=== PATIENT | female | born 1945 ===

== ENCOUNTER 2017-03-01 12:34 | Emergency (ER) | payer MEDICARE ==
[2017-03-01 12:40] VITALS: TEMP 97.9; O2SAT 100
[2017-03-01 13:55] LABS: BASO # 0.1 K/uL (0.0-0.2); BASO % 1.1 % (0.0-2.0); EOS # 0.2 K/uL (0.0-0.7); EOS % 3.4 % (0.0-4.0); HEMATOCRIT 25.9 % (34.0-47.0); LYMPH # 1.4 K/uL (1.0-4.3); LYMPH % 26.3 % (20.0-40.0); MEAN CELL VOLUME 87.6 fL (81.0-99.0); MEAN CORPUSCULAR HEMOGLOBIN 28.7 pg (27.0-31.0); MEAN CORPUSCULAR HGB CONC 32.7 g/dL (33.0-37.0); MEAN PLATELET VOLUME 11.5 fL (7.2-11.7); MONO # 0.5 K/uL (0.0-0.8); MONO % 9.7 % (0.0-10.0); RED CELL DISTRIBUTION WIDTH 15.4 % (11.5-14.5); WHITE BLOOD COUNT 5.4 K/uL (4.8-10.8)
[2017-03-01 14:15] LABS: POTASSIUM 4.2 mmol/L (3.6-5.2)
--- NOTE | 2017-03-01 14:19 | C.PDOC ---
History Of Present Illness 72 y/o female presents to ED with c/o bilateral lower leg swelling for 1 week. Patient also reports pain to left leg onset 5 days ago. Patient went to see Dr. Fox who sent her to the ER for Doppler scan. Denies any history of DVT, chest pain, SOB. Time Seen by Provider: 03/01/17 13:09 Chief Complaint (Nursing): Lower Extremity Problem/Injury History Per: Patient History/Exam Limitations: no limitations Onset/Duration Of Symptoms: Days Current Symptoms Are (Timing): Still Present Recent travel outside of the [place]: No Past Medical History Reviewed: Historical Data, Nursing Documentation, Vital Signs Vital Signs: Last Vital Signs Temp 97.9 F 03/01/17 12:38 Pulse 61 03/01/17 15:06 Resp 18 03/01/17 15:06 BP 166/80 H 03/01/17 15:06 Pulse Ox 100 03/01/17 15:06 - Medical History PMH: HTN Family History: States: Unknown Family Hx - Social History Hx Alcohol Use: No Hx Substance Use: No - Immunization History Hx Tetanus Toxoid Vaccination: No Hx Influenza Vaccination: No Hx Pneumococcal Vaccination: No Review Of Systems Except As Marked, All Systems Reviewed And Found Negative. Constitutional: Negative for: Fever, Chills Cardiovascular: Negative for: Chest Pain Respiratory: Negative for: Cough, Shortness of Breath Gastrointestinal: Negative for: Nausea, Vomiting, Abdominal Pain Musculoskeletal: Positive for: Leg Pain (left ), Other (bilateral leg swelling) Neurological: Negative for: Weakness, Numbness, Dizziness Physical Exam - Physical Exam Appears: Non-toxic, No Acute Distress Skin: Warm, Dry Head: Atraumatic, Normacephalic Eye(s): bilateral: Normal Inspection, PERRL, EOMI Oral Mucosa: Moist Chest: Symmetrical Cardiovascular: Rhythm Regular, No Murmur Respiratory: Normal Breath Sounds, No Rales, No Rhonchi, No Wheezing Gastrointestinal/Abdominal: Soft, No Tenderness, No Guarding, No Rebound Back: Normal Inspection Extremity: Normal ROM, Pedal Edema (bilateral, non-pitting), Calf Tenderness ( left), Capillary Refill (< 2 sec. ), No Deformity Extremity: Bilateral: Normal Color And Temperature Neurological/Psych: Oriented x3, Normal Speech, Normal Cognition ED Course And Treatment - Laboratory Results Result Diagrams: 03/01/17 13:43 03/01/17 13:43 O2 Sat by Pulse Oximetry: 100 (RA) Pulse Ox Interpretation: Normal Medical Decision Making Medical Decision Making: PLAN: * EKG, Labs, duplex scan PROGRESS: EKG NS at 60 bpm with mild left axis deviation and criteria for LVH, prolonged QT Labs show slightly elevated Dimer and BNP, CRF Venous doppler negative for DVT bilaterally Patient remained well and in no acute distress. She has stable vital signs and feels comfortable going home. Explain results to patient and daughter at bedside HIPAA compliant. Patient to be discharged and follow up with PCP Disposition Counseled Patient/Family Regarding: Studies Performed, Diagnosis, Need For Followup - Disposition Referrals: Addis Fox MD [Staff Provider] - Disposition: HOME/ ROUTINE Disposition Time: 15:50 Condition: STABLE Additional Instructions: Thank you for letting us take care of you today. Your provider was KAREN Sabillon. Your leg ultrasound was negative for any blood clot and labs showed no new changes Please follow up with your primary medical doctor or clinic in 2-5 days for further evaluation Thank you for allowing the [facility] team to be part of your care today. Instructions: Leg Edema (ED) - POA Present On Arrival: None - Clinical Impression Clinical Impression: Leg edema, Left leg pain - PA / SLOT MACHINE REPAIRER / Resident Statement MD/DO has reviewed & agrees with the documentation as recorded. - Scribe Statement The provider has reviewed the documentation as recorded by the Scribe Matt Conroy All medical record entries made by the Scribe were at my direction and personally dictated by me. I have reviewed the chart and agree that the record accurately reflects my personal performance of the history, physical exam, medical decision making, and the department course for this patient. I have also personally directed, reviewed, and agree with the discharge instructions and disposition.
[2017-03-01 14:20] LABS: BILIRUBIN,TOTAL 0.5 mg/dL (0.2-1.3); CALCIUM 8.5 mg/dl (8.6-10.4)
[2017-03-01 15:06] VITALS: BP 166/80; PULSE 61; RESP 18
--- NOTE | 2017-03-02 15:16 | VASCLAB ---
PROCEDURE: Lower Extremity Venous Duplex Exam. HISTORY: bilateral leg pain, left leg more swelling PRIORS: None. TECHNIQUE: Bilateral common femoral, femoral, popliteal and posterior tibial, peroneal and great saphenous veins were evaluated. Flow was assessed with color Doppler, compressibility, assessment of phasic flow and augmentation response. Report prepared by GLENNA Mejia FINDINGS: RIGHT: 1. Common Femoral Vein: 1.1. Compressibility - Fully compressible: Thrombus - None : Flow - Phasic: Augmentation -Normal: Reflux - None. 2. Femoral Vein: (proximal only) 2.1. Compressibility - Fully compressible: Thrombus - None : Flow - Phasic: Augmentation -Normal: Reflux - None. 3. Popliteal Vein: 3.1. Compressibility - Fully compressible: Thrombus - None : Flow - Phasic: Augmentation -Normal: Reflux - None. 4. Posterior Tibial Vein: 4.1. Compressibility - Fully compressible: Thrombus - None: Flow - Phasic: Augmentation -Normal: Reflux - None. 5. Peroneal Vein: 5.1. Compressibility - Fully compressible: Thrombus - None: Flow - Phasic: Augmentation -Normal: Reflux - None. 6. Great Saphenous Vein: 6.1. Compressibility - Fully compressible: Thrombus - None: Flow - Phasic: Augmentation - Normal: Reflux - None. LEFT: 1. Common Femoral Vein: 1.1. Compressibility - Fully compressible: Thrombus - None: Flow - Phasic: Augmentation -Normal: Reflux - None. 2. Popliteal Vein: 2.1. Compressibility - Fully compressible: Thrombus - None : Flow - Phasic: Augmentation -Normal: Reflux - None. 3. Posterior Tibial Vein: 3.1. Compressibility - Fully compressible: Thrombus - None: Flow - Phasic: Augmentation -Normal: Reflux - None. 4. Great Saphenous Vein: 4.1. Compressibility - Fully compressible: Thrombus - None: Flow - Phasic: Augmentation - Normal: Reflux - None. OTHER FINDINGS: IMPRESSION: 1. No evidence of deep or superficial vein thrombosis in bilateral lower extremities, for the examined veins. 2. LIMITED STUDY. Unable to assess compressibility of all lower extremity veins, due to patient intolerance to pain. Please refer to the list above for exam details.
--- NOTE | 2017-03-05 11:41 | CARD ---
APPROVED REPORT EKG Measurement Heart [id number] <Conclusion> Normal sinus rhythm Voltage criteria for left ventricular hypertrophy Nonspecific T wave abnormality Prolonged QT Abnormal ECG
== END 2017-03-01 16:06 | disposition home or self-care (01) ==
LOC: C.ER 12:34
DX: M79.605 Pain in left leg (principal); R60.0 Localized edema; I10 Essential (primary) hypertension

== ENCOUNTER 2017-05-12 22:49 | Inpatient (IN) | payer MEDICARE ==
--- NOTE | 2017-05-12 23:20 | C.PDOC ---
History Of Present Illness Patient presents to the ER with family after she as found to be very weak with intermittent slurred speech for the past week. Patient's family was encouraged by PMD at the time to bring patient to the ER for an evaluation; however, family did not bring her since they saw an improvement of her symptoms. family brought her in today since she has been having increased weakness, difficulty ambulating due to weakness, and mild slurred speech. Patient is anemic and is close to being on dialysis. Denies fever, chills, nausea, or vomiting. Time Seen by Provider: 05/12/17 23:20 Chief Complaint (Nursing): Medical Clearance History Per: Family History/Exam Limitations: no limitations Onset/Duration Of Symptoms: Hrs Current Symptoms Are (Timing): Still Present Severity: Moderate Pain Scale Rating Of: 5 Reports Recently: Treated By A Physician Recent travel outside of the [place]: No Additional History Per: Family Past Medical History Reviewed: Historical Data, Nursing Documentation, Vital Signs Vital Signs: Last Vital Signs Temp 97.8 F 05/12/17 23:00 Pulse 68 05/13/17 00:42 Resp 12 05/13/17 00:42 BP 120/68 05/13/17 00:42 Pulse Ox 100 05/13/17 00:42 - Medical History PMH: Anemia (IRON INFUSION TREATMENTS), CHF, HTN Surgical History: No Surg Hx Family History: States: No Known Family Hx - Social History Hx Alcohol Use: No Hx Substance Use: No - Immunization History Hx Tetanus Toxoid Vaccination: No Hx Influenza Vaccination: No Hx Pneumococcal Vaccination: No Review Of Systems Constitutional: Positive for: Weakness. Negative for: Fever, Chills Eyes: Negative for: Vision Change ENT: Negative for: Throat Pain Cardiovascular: Negative for: Chest Pain, Palpitations Respiratory: Negative for: Shortness of Breath Gastrointestinal: Negative for: Nausea, Vomiting Genitourinary: Negative for: Dysuria, Hematuria Musculoskeletal: Negative for: Back Pain Skin: Negative for: Rash Neurological: Positive for: Change in Speech Psych: Negative for: Anxiety Physical Exam - Physical Exam Appears: Non-toxic Skin: Warm, Dry Head: Normacephalic Eye(s): bilateral: Normal Inspection Oral Mucosa: Moist Neck: Supple Chest: Symmetrical Cardiovascular: Rhythm Regular, JVD Respiratory: No Rales, Rhonchi (Scattered), No Wheezing Gastrointestinal/Abdominal: Bowel Sounds (Good), Soft, No Tenderness, Distention Back: No CVA Tenderness Extremity: Pedal Edema, Capillary Refill (Good) Extremity: Bilateral: Atraumatic Pulses: Left Dorsalis Pedis: Normal, Right Dorsalis Pedis: Normal Neurological/Psych: Oriented x3 Gait: Unable To Assess ED Course And Treatment - Laboratory Results Result Diagrams: 05/12/17 23:26 05/12/17 23:26 ECG: Interpreted By Me, Viewed By Me ECG Rhythm: Sinus Rhythm (67), Nonspecific Changes O2 Sat by Pulse Oximetry: 99 Pulse Ox Interpretation: Normal - Radiology CXR Interpretation: Yes: Cardiomegaly, Other (mild venous congestion). No: Infiltrates, Fracture NIHSS Stroke Scale - Date/Time Evaluation Performed Date Performed: 05/12/17 Time Performed: 23:13 When Was NIHSS Performed: Baseline - How Severe is the Stroke Level of Consciousness: 0=Alert LOC to Questions: 0=Both comments correct LOC to commands: 0=Obeys both correctly Best Gaze: 0=Normal Visual: 0=No visual loss Facial: 0=Normal Motor Arm - Left: 0=No drift Motor Arm - Right: 0=No drift Motor Leg - Left: 0=No drift Motor Leg - Right: 0=No drift Limb Ataxia: 0=Absent Sensory: 0=Normal Best Language: 0=No aphasia Dysarthia: 1=Mild to moderate slurring Extinction & Inattention (Neglect): 0=Normal, no object Score: 1 Disposition Discussed With : Krupa Mar Comment: accepted the the [facility] and took over the care at 1:39AM Doctor Will See Patient In The: Hospital Counseled Patient/Family Regarding: Studies Performed, Diagnosis - Disposition Disposition: HOSPITALIZED Disposition Time: 23:20 Condition: GUARDED Instructions: Weakness (ED) Forms: [facility] (Icelandic) - POA Present On Arrival: None - Clinical Impression Clinical Impression: Leg edema, Renal failure, Hyperkalemia, Weakness generalized - Scribe Statement The provider has reviewed the documentation as recorded by the Scribel Fallon All medical record entries made by the Scribe were at my direction and personally dictated by me. I have reviewed the chart and agree that the record accurately reflects my personal performance of the history, physical exam, medical decision making, and the department course for this patient. I have also personally directed, reviewed, and agree with the discharge instructions and disposition.
[2017-05-12 23:29] LABS: BASO % 0.2 % (0.0-2.0); EOS # 0.3 K/uL (0.0-0.7); EOS % 4.9 % (0.0-4.0); HEMATOCRIT 26.9 % (34.0-47.0); LYMPH # 1.3 K/uL (1.0-4.3); LYMPH % 21.3 % (20.0-40.0); MEAN CORPUSCULAR HEMOGLOBIN 28.7 pg (27.0-31.0); MEAN CORPUSCULAR HGB CONC 31.9 g/dL (33.0-37.0); MEAN PLATELET VOLUME 11.9 fL (7.2-11.7); MONO # 0.6 K/uL (0.0-0.8); NRBC % 0.2 % (0.0-2.0); RED CELL DISTRIBUTION WIDTH 16.1 % (11.5-14.5); WHITE BLOOD COUNT 6.2 K/uL (4.8-10.8)
[2017-05-12 23:40] LABS: VENOUS BLOOD GAS BASE EXCESS -6.3 mmol/L (0.0-2.0); VENOUS BLOOD GAS PCO2 50 mmHg (40-60); VENOUS BLOOD PH 7.24 (7.32-7.43)
[2017-05-12 23:41] LABS: ALB/GLOB RATIO 1.1 (1.0-2.1); BILIRUBIN,TOTAL 0.4 mg/dL (0.2-1.3); CALCIUM 8.2 mg/dl (8.6-10.4); POTASSIUM 5.5 mmol/L (3.6-5.2); TOTAL PROTEIN 7.6 g/dL (6.3-8.3)
--- NOTE | 2017-05-13 00:13 | CT ---
EXAM: CT Head Without Intravenous Contrast EXAM DATE/TIME: 05/12/2017 11:23 PM CLINICAL HISTORY: 72 years old, female; Pain; Headache; Additional info: AMS TECHNIQUE: Axial computed tomography images of the head/brain without intravenous contrast. All CT scans at this facility use one or more dose reduction techniques, viz.: automated exposure control; ma/kV adjustment per patient size (including targeted exams where dose is matched to indication; i.e. head); or iterative reconstruction technique. COMPARISON: No relevant prior studies available. FINDINGS: No intracranial hemorrhage. No intracranial edema. No evidence of infarct. The sinuses and mastoid air cells are clear. Hyperostosis frontalis is noted. IMPRESSION: No acute findings.
[2017-05-13] MEDS ORDERED: Sodium Chloride 0.9% 1,000 ML IV ONE (01:41)
[2017-05-13] MEDS ORDERED: Sod Polystyrene Sulf 15 gm/60 ml Oral Susp PO ONE ×2 (01:42→01:43)
[2017-05-13] MEDS ORDERED: Sod Polystyrene Sulf 15 gm/60 ml Oral Susp ONE (02:09)
[2017-05-13 07:32] LABS: BASO # 0.1 K/uL (0.0-0.2); EOS # 0.2 K/uL (0.0-0.7); EOS % 4.4 % (0.0-4.0); HEMATOCRIT 25.4 % (34.0-47.0); LYMPH # 1.1 K/uL (1.0-4.3); LYMPH % 19.5 % (20.0-40.0); MEAN CELL VOLUME 88.8 fL (81.0-99.0); MEAN CORPUSCULAR HEMOGLOBIN 28.4 pg (27.0-31.0); MEAN PLATELET VOLUME 11.7 fL (7.2-11.7); MONO # 0.6 K/uL (0.0-0.8); MONO % 10.3 % (0.0-10.0); NRBC % 0.3 % (0.0-2.0); RED CELL DISTRIBUTION WIDTH 15.5 % (11.5-14.5); WHITE BLOOD COUNT 5.5 K/uL (4.8-10.8)
[2017-05-13 07:45] LABS: ALB/GLOB RATIO 1.1 (1.0-2.1); BILIRUBIN,TOTAL 0.3 mg/dL (0.2-1.3); CALCIUM 8.2 mg/dl (8.6-10.4); POTASSIUM 4.6 mmol/L (3.6-5.2)
[2017-05-13] MEDS ORDERED: FISH OIL PO SCH (10:00)
[2017-05-13] MEDS ORDERED: FATTY ACIDS PO SCH (10:00)
[2017-05-13] MEDS ORDERED: VITAMIN D PO SCH (10:00)
[2017-05-13] MEDS ORDERED: HECTOROL PO SCH (10:00)
[2017-05-13] MEDS ORDERED: OMEGA PO SCH (10:00)
[2017-05-13] MEDS: Insulin Detemir 100 units/ml Vial (Levemir) SC SCH (10:17)
[2017-05-13] MEDS ORDERED: Ergocalciferol 50,000 Intl Units Cap PO SCH ×2 (11:00)
--- NOTE | 2017-05-13 11:57 | CP.PCM.PN ---
Subjective - Date & Time of Evaluation Date of Evaluation: 05/13/17 Time of Evaluation: 11:30 - Subjective Subjective: H&P dictated #[id number] Objective - Vital Signs/Intake and Output Vital Signs (last 24 hours): Temp Pulse Resp BP Pulse Ox 97.4 F L 76 18 133/84 99 05/13/17 07:40 05/13/17 07:40 05/13/17 07:40 05/13/17 07:40 05/13/17 07:40 - Medications Medications: Current Medications Allopurinol (Zyloprim) 100 mg PO DAILY [facility] Last Admin: 05/13/17 10:14 Dose: 100 mg Doxazosin Mesylate (Cardura) 2 mg PO HS [facility] Ergocalciferol (Drisdol 50,000 Intl Units Cap) 1 cap PO QWK [facility] Gabapentin (Neurontin) 300 mg PO HS [facility] Home Med (Hectorol) 1 tab PO DAILY [facility] Insulin Detemir (Levemir) 30 unit SC DAILY [facility] Last Admin: 05/13/17 10:17 Dose: 30 unit Metoprolol Tartrate (Lopressor) 100 mg PO DAILY [facility] Last Admin: 05/13/17 10:14 Dose: 100 mg [id number] Ethyl Esters (Lovaza) 1 gm PO DAILY [facility] Torsemide (Demadex) 100 mg PO DAILY [facility] Last Admin: 05/13/17 10:15 Dose: 100 mg - Labs Labs: 05/13/17 07:26 05/13/17 07:26 APTT 29 SECONDS (21-34) 05/13/17 00:22
--- NOTE | 2017-05-13 12:41 | RAD ---
PROCEDURE: CHEST RADIOGRAPH, 1 VIEW HISTORY: AMS COMPARISON: None available. FINDINGS: LUNGS: Clear. PLEURA: No pneumothorax or pleural fluid seen. CARDIOVASCULAR: Mild cardiomegaly. No congestive change. OSSEOUS STRUCTURES: No significant abnormalities. VISUALIZED UPPER ABDOMEN: Normal. OTHER FINDINGS: None. IMPRESSION: No active disease.
[2017-05-13] MEDS: Omega-3-Acid Ethyl Esters 1 GM Cap PO SCH (13:13)
[2017-05-13] MEDS ORDERED: Epoetin Alfa 10,000 unit/ml Dialysis SC ONE ×2 (14:00→14:15)
[2017-05-13 14:15] LABS: IRON 25 ug/dL (37-170)
[2017-05-13 14:16] LABS: MAGNESIUM 1.7 mg/dL (1.6-2.3); PHOSPHOROUS 8.2 mg/dL (2.5-4.5)
--- NOTE | 2017-05-13 15:11 | CP.PCM.CON ---
History of Present Illness - History of Present Illness History of Present Illness: Surgery Consult Note. Dr. Thompson 72yo F with PMHx of HTN, DM, Anemia, Renal insufficiency, Chronic Back pain here for evaluation of weakness, fatigue. Patient hx obtained from patient and family at bedside. Patient has been increasingly fatigued over the past week. Patient was evaluated by her car rental sales assistant as out-patient and was told to go to the ER for further evaluation. Patient also c/o of intermittent slurred speech over the past week. She denies any Chest pain, shortness of breath. No N/V/D. No Abd pain. Denies any urinary changes. Denies any headaches. Surgery consulted for hemodialysis access. PMD: Dr. Miller Wood Heel Cementer: Dr. Cage PMHx: HTN, DM, Anemia, Renal Insufficiency, Chronic Back pain PSHx: x1 Family Hx: Denies NKDA Review of Systems - Constitutional Constitutional: Fatigue, Weakness. absent: Chills, Fever - EENT Eyes: absent: Change in Vision - Cardiovascular Cardiovascular: Leg Edema, Pedal Edema. absent: Chest Pain, Diaphoresis, Dyspnea - Respiratory Respiratory: absent: Cough, Dyspnea - Gastrointestinal Gastrointestinal: absent: Abdominal Pain, Bloating, Constipation, Diarrhea - Genitourinary Genitourinary: absent: Change in Urinary Stream, Dysuria - Musculoskeletal Musculoskeletal: Back Pain Past Patient History - Past Medical History & Family History Past Medical History?: Yes Past Family History: Reviewed and not pertinent - Past Social History Smoking Status: Never Smoked - CARDIAC Hx Cardiac Disorders: Yes Hx Congestive Heart Failure: Yes Hx Hypertension: Yes - HEENT Other/Comment: Diabetic blindness - RENAL Other/Comment: Nephrotic Syndrome, Renal insufiency. - ENDOCRINE/METABOLIC Hx Diabetes Mellitus Type 2: Yes - HEMATOLOGICAL/ONCOLOGICAL Hx Anemia: Yes (IRON INFUSION TREATMENTS) - MUSCULOSKELETAL/RHEUMATOLOGICAL Hx Back Pain: Yes Hx Falls: Yes Hx Herniated Disk: Yes (Diagnosed 1 [place] ago in [place] - PSYCHIATRIC Hx Substance Use: No - SURGICAL HISTORY Hx Section: Yes Hx Vascular Surgery: Yes (Bilateral leg) - ANESTHESIA Hx Anesthesia: Yes Hx Anesthesia Reactions: No Hx Malignant Hyperthermia: No Has any member of the family had a problem w/ anesthesia?: No Meds Allergies/Adverse Reactions: Allergies Allergy/AdvReac Type Severity Reaction Status Date / Time No Known Allergies Allergy Verified 05/12/17 23:12 - Medications Medications: Current Medications Allopurinol (Zyloprim) 100 mg PO DAILY [facility] Last Admin: 05/13/17 10:14 Dose: 100 mg Doxazosin Mesylate (Cardura) 2 mg PO HS [facility] Ergocalciferol (Drisdol 50,000 Intl Units Cap) 1 cap PO QWK [facility] Last Admin: 05/13/17 13:14 Dose: 1 cap Gabapentin (Neurontin) 300 mg PO HS [facility] Home Med (Hectorol) 1 tab PO DAILY [facility] Insulin Detemir (Levemir) 30 unit SC DAILY [facility] Last Admin: 05/13/17 10:17 Dose: 30 unit Insulin Human Regular (Novolin R) 0 unit SC [facility] PRN Reason: Protocol Metoprolol Tartrate (Lopressor) 100 mg PO DAILY [facility] Last Admin: 05/13/17 10:14 Dose: 100 mg Garwp-7-[id number] Ethyl Esters (Lovaza) 1 gm PO DAILY [facility] Last Admin: 05/13/17 13:13 Dose: 1 gm Torsemide (Demadex) 100 mg PO DAILY [facility] Last Admin: 05/13/17 10:15 Dose: 100 mg Physical Exam - Constitutional Appears: Non-toxic, No Acute Distress - Head Exam Head Exam: ATRAUMATIC, NORMAL INSPECTION, NORMOCEPHALIC - Eye Exam Eye Exam: EOMI, Normal appearance - ENT Exam ENT Exam: Mucous Membranes Moist - Respiratory Exam Respiratory Exam: NORMAL BREATHING PATTERN. absent: Decreased Breath Sounds, Wheezes, Respiratory Distress - Cardiovascular Exam Cardiovascular Exam: RRR, +S1, +S2. absent: Diastolic murmur, JVD, Systolic Murmur - GI/Abdominal Exam GI & Abdominal Exam: Soft. absent: Distended, Firm, Guarding, Rebound, Rigid, Tenderness - Extremities Exam Extremities exam: Positive for: pedal edema, tenderness (bilateral pretibial 2+ edema with tenderness on palpation) - Neurological Exam Neurological exam: Alert, Oriented x3 - Psychiatric Exam Psychiatric exam: Normal Affect, Normal Mood - Skin Skin Exam: Dry, Intact, Normal Color, Warm Results - Vital Signs Recent Vital Signs: Last Vital Signs Temp 97.4 F L 05/13/17 07:40 Pulse 76 05/13/17 07:40 Resp 18 05/13/17 07:40 BP 133/84 05/13/17 07:40 Pulse Ox 99 05/13/17 07:40 - Labs Result Diagrams: 05/13/17 07:26 05/13/17 07:26 Labs: Laboratory Results - last 24 hr 05/13/17 05/13/17 05/13/17 07:26 07:26 12:29 WBC 5.5 RBC 2.86 L Hgb 8.1 L Hct 25.4 L MCV 88.8 MCH 28.4 MCHC 32.0 L RDW 15.5 H Plt Count 170 MPV 11.7 Neut % (Auto) 64.8 Lymph % (Auto) 19.5 L [place] % (Auto) 10.3 H Eos % (Auto) 4.4 H Baso % (Auto) 1.0 Neut # 3.6 Lymph # 1.1 [place] # 0.6 Eos # 0.2 Baso # 0.1 PT INR Sodium 143 Potassium 4.6 Chloride 105 Carbon Dioxide 18 L Anion Gap 25 H BUN 133 H* Creatinine 5.7 H Est GFR ( Amer) 9 Est GFR (Non-Af Amer) 7 POC Glucose (mg/dL) 144 H Random Glucose 158 H Calcium 8.2 L Phosphorus Magnesium Iron TIBC % Saturation Total Bilirubin 0.3 AST 14 ALT 24 Alkaline Phosphatase 72 Total Protein 7.0 Albumin 3.6 Globulin 3.4 Albumin/Globulin Ratio 1.1 05/13/17 05/13/17 05/13/17 13:53 13:53 13:53 WBC RBC Hgb Hct MCV MCH MCHC RDW Plt Count MPV Neut % (Auto) Lymph % (Auto) [place] % (Auto) Eos % (Auto) Baso % (Auto) Neut # Lymph # [place] # Eos # Baso # PT 11.9 INR 1.0 Sodium Potassium Chloride Carbon Dioxide Anion Gap BUN Creatinine Est GFR ( Amer) Est GFR (Non-Af Amer) POC Glucose (mg/dL) Random Glucose Calcium Phosphorus 8.2 H Magnesium 1.7 Iron 25 L TIBC 237 L % Saturation 11 L Total Bilirubin AST ALT Alkaline Phosphatase Total Protein Albumin Globulin Albumin/Globulin Ratio 05/13/17 13:53 WBC RBC Hgb Hct MCV MCH MCHC RDW Plt Count MPV Neut % (Auto) Lymph % (Auto) [place] % (Auto) Eos % (Auto) Baso % (Auto) Neut # Lymph # [place] # Eos # Baso # PT INR Sodium Potassium Chloride Carbon Dioxide Anion Gap BUN Creatinine Est GFR ( Amer) Est GFR (Non-Af Amer) POC Glucose (mg/dL) Random Glucose Calcium Phosphorus Magnesium Iron TIBC % Saturation 11 L Total Bilirubin AST ALT Alkaline Phosphatase Total Protein Albumin Globulin Albumin/Globulin Ratio Assessment & Plan - Assessment and Plan (Free Text) Assessment: 72yo F with renal insufficiency. Surgery consulted for HD access - Plan for OR for permacath palcement tomorrow, 05/14 - Consent obtained and on chart - NPO except meds past mn - Medically maximize - Left arm precautions Discussed case with Dr. Jay Olmstead PGY1 surgery pager: [phone]
[2017-05-13 15:34] LABS: FOLATE 9.4 ng/mL
[2017-05-13] MEDS: (Novolin R) Insulin Human Regular 100 units/ml vial SC SCH ×2 (16:30→21:39)
--- NOTE | 2017-05-13 19:57 | HP ---
CHIEF COMPLAINT: Generalized fatigue, weakness, dizziness, and slurred speech progressively getting worse over the past one week. HISTORY OF PRESENT ILLNESS: Ms. Valenzuela is a 72-year-old female with past medical history of hypertension, diabetes mellitus, chronic kidney disease stage 5, anemia, gout, hyperlipidemia for which she is getting by monthly injections has been following up with Dr. Fox for CKD who was referred to vascular surgeon for dialysis access and the patient was told that her creatinine clearance was at 9 mL about two weeks ago on 04/30/2017 and her hemoglobin was at 8.7, came in to the ED, brought by the patient's daughter for symptoms of generalized fatigue, weakness, and dizziness. Her daughter felt like as if she was coming out of anesthesia, but sleeping more than usual and not eating as usual feeling groggy with some slurred speech. All these symptoms has been progressively getting worse over the past one week, which made her come to the emergency room yesterday. The patient denies any headache, denies any chest pain. There is shortness of breath on exertion, denies any shortness of breath at rest. Denies any chest pain. Denies any urinary complaints. Denies any neurologic new symptoms, but she has been complaining of bilateral leg pains after her surgery. Denies any other complaints. PAST MEDICAL HISTORY: Significant hypertension, hyperlipidemia, diabetes mellitus, anemia from CKD, CKD stage V, end-stage renal disease, gout. PAST SURGICAL HISTORY: She had a , had dislocated disc, had some kind of surgery for correctional clogged pains. FAMILY HISTORY: Sister has history of diabetes mellitus. PERSONAL HISTORY: She is a having four children, retired. She lives with her daughter. SOCIAL HISTORY: Denies smoking, alcohol, or drug abuse. ALLERGIES: NO KNOWN DRUG ALLERGIES. HOME MEDICATIONS: Include fish oil 1000 mg daily, Hectorol 1 capsule p.o. daily, ferrous sulphate 325 mg p.o. daily, allopurinol 100 mg daily, Neurontin 300 mg p.o. bedtime, Cardura 2 mg p.o. at bedtime, Losartan 100 mg, hydrochlorothiazide 25 mg daily, Levemir 30 units subcutaneous daily, Demadex 100 mg daily, Lopressor 100 mg daily, vitamin D one tablet daily. REVIEW OF SYSTEMS: As described in history of present illness. All other systems reviewed and were found to be negative. PHYSICAL EXAMINATION: GENERAL: Elderly female lying in bed, in no acute distress. VITAL SIGNS: Blood pressure 133/84, pulse 76, respiration 18, temperature 97.4 degrees Fahrenheit, O2 sat 99% on room air. HEENT: Pupils equal, round, and reacting to light and accommodation. Positive pallor. No oral thrush. No pharyngeal congestion. NECK: Supple. No JVD. CHEST: Moving equally bilaterally on respiration. LUNGS: Bilateral vesicular breath sounds. Bilateral basal crackles heard. No wheezing heard. CVS: S1 and S2 present and regular. ABDOMEN: Soft and nontender. Bowel sounds are present. No guarding. No rigidity. No rebound tenderness noted. FABRICATION TECHNICIAN: Alert, awake, oriented x3. There is mild tremor of the upper extremities. Speech is not very clear. Gait did not test. No focal deficit noted. EXTREMITIES: Trace edema. Palpable peripheral pulses. LABORATORY DATA: Labs done from ED WBC 6.2, hemoglobin 8.6, hematocrit 26.9, platelets 174. PTT 29. Sodium 139, potassium 5.5, chloride 103, bicarbonate 17, BUN 138, creatinine 5.6, glucose 99, calcium 8.2, total bilirubin 0.4, AST 17, ALT 29, alkaline phosphatase 76, proBNP 1160, total protein 7.6, albumin 4.0, lipase is 1411. Head CT, no acute findings. Chest x-ray, no active disease. ASSESSMENT: Elderly female with a history of hypertension, diabetes mellitus, hyperlipidemia, gout, chronic kidney disease stage V leading to end-stage renal disease, anemia from chronic kidney disease, who has been in the process of getting dialysis access who came into the ED with worsening symptoms of generalized fatigue, weakness, dizziness, feeling groggy with slurred. In the ED, the patient was found to be having elevated BUN and creatinine, unclear her baseline creatinine and BUN, but as per the daughter her clearance was at 9 mL, but two weeks ago and in the ED, the patient was found to be having elevated potassium and elevated lipase level and the patient is being admitted for further management. 1. Chronic kidney disease V leading to end-stage renal disease requiring dialysis. 2. Anemia of chronic kidney disease, rule out acute blood loss. 3. Hyperkalemia. 4. Elevated lipase. 5. Uremic symptoms. 6. Diabetes mellitus. 7. Hypertension. 8. Hyperlipidemia. 9. Gout, stable. PLAN: The patient is being admitted to telemetry. Continue with her home medication. The patient received Kayexalate in the emergency room. Her potassium is corrected. Continue to monitor electrolytes. We will check iron studies as for occult blood. Monitor H&H and gave Procrit subcutaneous. Request renal consult with Dr. Fox who is known to the patient. Dr. Winn is covering for Dr. Fox. Discussed with Dr. Winn who will be seeing the patient. We will request vascular surgery consult for dialysis access placement. We will continue with her home diabetic medication. Check hemoglobin A1c level, do Accu-Chek q.a.c. and at bedtime. We will check hepatitis serology. We will add further recommendation as her clinical course progresses. Krupa Mar MD
[2017-05-13 23:03] LABS: RBC URINE 1 /hpf (0-3); URINE BACTERIA OCC (<OCC); URINE BILIRUBIN NEGATIVE (NEGATIVE); URINE BLOOD NEGATIVE (NEGATIVE); URINE COLOR Straw (YELLOW); URINE GLUCOSE (UA) NORMAL (Normal); URINE KETONE NEGATIVE (NEGATIVE); URINE LEUKOCYTE ESTERASE NEG Leu/uL (Negative); URINE PROTEIN 2+ mg/dL (NEGATIVE); URINE UROBILINOGEN NORMAL mg/dL (0.2-1.0); WBC URINE 1 /hpf (0-5)
[2017-05-14] MEDS ORDERED: Dextrose 50% SYRINGE Inj (50 ml) ONE ×2 (06:30→11:33)
[2017-05-14 07:26] LABS: POTASSIUM 4.6 mmol/L (3.6-5.2)
[2017-05-14 07:28] LABS: BILIRUBIN,TOTAL 0.4 mg/dL (0.2-1.3)
[2017-05-14 07:29] LABS: ALB/GLOB RATIO 1.1 (1.0-2.1); BASO # 0.1 K/uL (0.0-0.2); BASO % 1.1 % (0.0-2.0); CALCIUM 7.4 mg/dl (8.6-10.4); EOS # 0.2 K/uL (0.0-0.7); EOS % 4.5 % (0.0-4.0); HEMATOCRIT 23.8 % (34.0-47.0); LYMPH # 1.1 K/uL (1.0-4.3); LYMPH % 20.1 % (20.0-40.0); MEAN CELL VOLUME 88.9 fL (81.0-99.0); MEAN CORPUSCULAR HEMOGLOBIN 28.7 pg (27.0-31.0); MEAN CORPUSCULAR HGB CONC 32.3 g/dL (33.0-37.0); MEAN PLATELET VOLUME 11.4 fL (7.2-11.7); MONO # 0.5 K/uL (0.0-0.8); MONO % 9.5 % (0.0-10.0); NRBC % 0.3 % (0.0-2.0); RED CELL DISTRIBUTION WIDTH 15.8 % (11.5-14.5); WHITE BLOOD COUNT 5.5 K/uL (4.8-10.8)
[2017-05-14] MEDS: (Novolin R) Insulin Human Regular 100 units/ml vial SC SCH ×4 (07:36→21:24)
[2017-05-14] MEDS: Insulin Detemir 100 units/ml Vial (Levemir) SC SCH (10:00)
[2017-05-14] MEDS: Omega-3-Acid Ethyl Esters 1 GM Cap PO SCH (10:00)
[2017-05-14] MEDS ORDERED: HECTOROL PO SCH (10:00)
[2017-05-14] MEDS ORDERED: HEPARIN-NS 5,000 UNITS/500 ML 5,000 UNIT/500 ML BAG IV ONE (10:58)
[2017-05-14] MEDS ORDERED: ceFAZolin IV 2 gm in Dextrose 1 GM/50 ML BAG IVPB ONE (10:58)
[2017-05-14] MEDS ORDERED: Lidocaine 1% Inj (20ml) ONE (10:58)
[2017-05-14] MEDS ORDERED: Propofol 10 mg/ml Inj (20 ML) ONE (11:10)
--- NOTE | 2017-05-14 11:48 | PCM.SURG1 ---
Surgeon's Initial Post Op Note - Surgeon's Notes Surgeon: Dr Thompson [employer] Router: Dr Chou PGY3 Type of Anesthesia: General Endo Pre-Operative Diagnosis: renal failure Operative Findings: see report Post-Operative Diagnosis: as above Operation Performed: right internal jugular perma-cath placement w/ US guidance and intraoperative fluoroscopy Specimen/Specimens Removed: none Estimated Blood Loss: EBL {In ML}: 10 Blood Products Given: N/A Drains Used: No Drains Post-Op Condition: Good Date of Surgery/Procedure: 05/14/17 Time of Surgery/Procedure: 11:48
[2017-05-14] MEDS ORDERED: HYDROmorphone 0.5 mg/0.5 ml ISec IVP PRN ×2 (11:49)
[2017-05-14] MEDS: Epoetin Alfa 10,000 unit/ml Dialysis IV SCH ×2 (12:05→15:31)
--- NOTE | 2017-05-14 13:09 | RAD ---
HISTORY: s/p perm-a-cath COMPARISON: Portable chest 05/12/2017. FINDINGS: LUNGS: Right-sided central venous dialysis catheter port is in place terminating at the right atrium. No pneumothorax identified bilaterally. Hilar vascular prominence is seen more the left and right side which may reflect an element of CHF. Clinically correlate. Cardiac size remains prominent. No definitive infiltrate or pleural effusion bilaterally peer PLEURA: As above. CARDIOVASCULAR: Prominent cardiac silhouette appears stable. OSSEOUS STRUCTURES: No significant abnormalities. VISUALIZED UPPER ABDOMEN: Normal. OTHER FINDINGS: None. IMPRESSION: Interval tunneled right center venous catheter deployment noted without pneumothorax bilaterally. Mild CHF/pulmonary venous congestion pattern now identified. No infiltrate bilaterally.
--- NOTE | 2017-05-14 13:17 | CP.PCM.PN ---
Subjective - Date & Time of Evaluation Date of Evaluation: 05/14/17 Time of Evaluation: 12:40 - Subjective Subjective: Progress note dictated #[id number] Objective - Vital Signs/Intake and Output Vital Signs (last 24 hours): Temp Pulse Resp BP Pulse Ox 96.9 F L 79 10 L 119/56 L 100 05/14/17 12:45 05/14/17 13:00 05/14/17 13:00 05/14/17 13:00 05/14/17 13:00 Intake and Output: 05/14/17 05/14/17 06:59 18:59 Intake Total 20 100 Output Total 200 Balance -180 100 - Medications Medications: Current Medications Allopurinol (Zyloprim) 100 mg PO DAILY [facility] Last Admin: 05/14/17 10:00 Dose: Not Given Doxazosin Mesylate (Cardura) 2 mg PO [facility] Last Admin: 05/13/17 21:37 Dose: 2 mg Epoetin David (Procrit) 10,000 unit IV [facility] Stop: 05/20/17 12:01 Ergocalciferol (Drisdol 50,000 Intl Units Cap) 1 cap PO QWK [facility] Last Admin: 05/13/17 13:14 Dose: 1 cap Ferric Sodium Gluconate Complex (Ferrlecit) 125 mg IVPB [facility] Stop: 05/21/17 09:01 Gabapentin (Neurontin) 300 mg PO [facility] Last Admin: 05/13/17 21:37 Dose: 300 mg Home Med (Hectorol) 1 tab PO DAILY [facility] Hydromorphone HCl (Dilaudid) 0.5 mg IVP Q4H PRN PRN Reason: Pain, Mild (1-3) Hydromorphone HCl (Dilaudid) 0.5 mg IVP Q15M PRN PRN Reason: Pain, severe (8-10) Stop: 05/14/17 13:49 Last Admin: 05/14/17 12:55 Dose: 0.5 mg Insulin Detemir (Levemir) 30 unit SC DAILY [facility] Last Admin: 05/14/17 10:00 Dose: Not Given Insulin Human Regular (Novolin R) 0 unit SC [facility] PRN Reason: Protocol Last Admin: 05/14/17 07:36 Dose: Not Given Metoprolol Tartrate (Lopressor) 100 mg PO DAILY [facility] Last Admin: 05/14/17 10:00 Dose: Not Given Borbc-1-Gtxe Ethyl Esters (Lovaza) 1 gm PO DAILY [facility] Last Admin: 05/14/17 10:00 Dose: Not Given Torsemide (Demadex) 100 mg PO DAILY [facility] Last Admin: 05/14/17 10:00 Dose: Not Given - Labs Labs: 05/14/17 07:07 05/14/17 07:07 PT 11.9 SECONDS (9.7-12.2) 05/13/17 13:53 INR 1.0 05/13/17 13:53 APTT 29 SECONDS (21-34) 05/13/17 00:22
--- NOTE | 2017-05-14 13:20 | RAD ---
PROCEDURE: Intraoperative Fluoroscopy. HISTORY: Renal failure FINDINGS: Fluoroscopic assistance was provided for right central venous catheter placement. Please refer to the operative report from
[2017-05-14] MEDS: Metoprolol Succinate 100 mg XL Tab PO SCH (15:30)
[2017-05-14] MEDS ORDERED: Ferric Sodium Gluconat Complex 62.5 mg/5 ml Vial IVPB SCH (15:42)
--- NOTE | 2017-05-14 16:29 | PN ---
DATE: 05/14/2017 SUBJECTIVE: The patient is seen and examined at bedside after her dialysis catheter placement, arousable, opening her eyes, responding to questions appropriately. PHYSICAL EXAMINATION: VITAL SIGNS: Blood pressure 102/55, pulse 77, respirations 18, temperature 97 degrees Fahrenheit, and O2 saturations 95% on 2 L nasal cannula. HEENT: Pupils equal, round, and reacting to light and accommodation. No icterus. Positive pallor. No oral thrush. No pharyngeal congestion. NECK: Supple. No JVD. LUNGS: Bilateral vesicular breath sounds. Bilateral basal crackles. CARDIOVASCULAR: S1 and S2 present and regular. ABDOMEN: Soft and nontender. Bowel sounds present. No guarding. No rigidity. No rebound tenderness noted. CENTRAL NERVOUS SYSTEMS: Lethargy. Arousable. Answering to questions appropriately. No focal deficits. MEDICATIONS: Include allopurinol 100 mg daily, Cardura 2 mg at bedtime, Procrit 10,000 units 3 times a week, Hectorol 1 capsule p.o. every week, Ferrlecit 125 mg IV piggyback [facility]ke[facility]-Yvckac[facility]-Hufbm[facility], Neurontin 300 mg p.o. at bedtime, Dilaudid 0.5 mg IV push as needed, Levemir 30 units subcutaneous daily, metoprolol 100 mg daily, Lovaza, and torsemide 100 mg p.o. daily. LABORATORY DATA: From this morning WBC 5.5, hemoglobin 7.7, hematocrit 23.8, and platelets 170. Sodium 144, potassium 4.6, chloride 106, bicarbonate 20, BUN 129, creatinine 5.3, glucose 164, and hemoglobin A1c 6.9. Total bilirubin 0.4, AST 11, ALT 25, alkaline phosphatase 62, total protein 7.0, and albumin 3.7. Cholesterol 160, HDL 24, lipase 1494. UA, specific gravity 1.010, pH 5, hyaline casts 3-5, otherwise negative. Blood cultures are negative. ASSESSMENT AND PLAN: An elderly female with history of hypertension, diabetes mellitus, hyperlipidemia, anemia, chronic kidney disease stage V leading to endstage renal disease, and gout, admitted for worsening symptoms of uremia with altered mental status, generalized fatigue, and weakness. The patient underwent dialysis catheter placement this morning by Dr. Thompson. The patient is scheduled for hemodialysis today. Continue with current medications. Discussed with Vascular Surgery for possible AV access placement this week. Discussed with Renal. Continue with Ferrlecit as ordered. We will follow up with H&H and renal function. Discussed with the patient's daughter, who was at the bedside. Krupa Mar MD
[2017-05-14] MEDS: Ferric Sodium Gluconat Complex 62.5 mg/5 ml Vial IVPB SCH (16:50)
--- NOTE | 2017-05-14 19:39 | CP.PCM.CON ---
History of Present Illness - History of Present Illness History of Present Illness: REASONS FOR CONSULT : ADVANCED CKD PROCEEDING TO ESRD WITH UREMIA ANEMIA OF CKD COMPLICATIONS OF CKD MA IS WELL KNOWN TO ME , WITH MULTIPLE MWDICAL PROBLEMS .. HAS BEEN DETERIORATING HER RENAL FUNCTION TO ESRD CAME IN WITH UREMIC SYMPTOMES THAT INCLUDE , SEVERE WEAKNESS ,, SOB ON SLIGHT MOVEMENT .. SLEEPINESS AND STUPOR EDWIN IN THE ER S/P TUNNELLED CATH BY DR GREER .. SEEN TODAY ON HER FIRST HD SESSION 72yo F with PMHx of HTN, DM, Anemia, Renal insufficiency, Chronic Back pain here for evaluation of weakness, fatigue. Patient hx obtained from patient and family at bedside. Patient has been increasingly fatigued over the past week. Patient was evaluated by me and was told to go to the ER for further evaluation. Patient also c/o of intermittent slurred speech over the past week. She denies any Chest pain, shortness of breath. No N/V/D. No Abd pain. Denies any urinary changes. Denies any headaches. Surgery consulte Past Patient History - Past Medical History & Family History Past Medical History?: Yes Past Family History: Reviewed and not pertinent - Past Social History Smoking Status: Never Smoked - CARDIAC Hx Cardiac Disorders: Yes Hx Congestive Heart Failure: Yes Hx Hypertension: Yes - HEENT Other/Comment: Diabetic blindness - RENAL Other/Comment: Nephrotic Syndrome, Renal insufiency. - ENDOCRINE/METABOLIC Hx Diabetes Mellitus Type 2: Yes - HEMATOLOGICAL/ONCOLOGICAL Hx Anemia: Yes (IRON INFUSION TREATMENTS) - MUSCULOSKELETAL/RHEUMATOLOGICAL Hx Back Pain: Yes Hx Falls: Yes Hx Herniated Disk: Yes (Diagnosed 1 [place] ago in [place] - PSYCHIATRIC Hx Substance Use: No - SURGICAL HISTORY Hx Section: Yes Hx Vascular Surgery: Yes (Bilateral leg) - ANESTHESIA Hx Anesthesia: Yes Hx Anesthesia Reactions: No Hx Malignant Hyperthermia: No Has any member of the family had a problem w/ anesthesia?: No Meds Allergies/Adverse Reactions: Allergies Allergy/AdvReac Type Severity Reaction Status Date / Time No Known Allergies Allergy Verified 05/12/17 23:12 - Medications Medications: Current Medications Allopurinol (Zyloprim) 100 mg PO DAILY [facility] Last Admin: 05/14/17 10:00 Dose: Not Given Doxazosin Mesylate (Cardura) 2 mg PO HS [facility] Last Admin: 05/13/17 21:37 Dose: 2 mg Epoetin David (Procrit) 10,000 unit IV [facility] [place] Stop: 05/20/17 12:01 Last Admin: 05/14/17 15:31 Dose: 10,000 unit Ergocalciferol (Drisdol 50,000 Intl Units Cap) 1 cap PO QWK [facility] Last Admin: 05/13/17 13:14 Dose: 1 cap Ferric Sodium Gluconate Complex (Ferrlecit) 125 mg IVPB [facility] Stop: 05/18/17 09:01 Last Admin: 05/14/17 16:50 Dose: 125 mg Gabapentin (Neurontin) 300 mg PO HS [facility] Last Admin: 05/13/17 21:37 Dose: 300 mg Heparin Sodium (Porcine) (Heparin) 3,700 units IVP [facility] Last Admin: 05/14/17 16:51 Dose: 3,700 units Home Med (Hectorol) 1 tab PO DAILY [facility] Hydromorphone HCl (Dilaudid) 0.5 mg IVP Q4H PRN PRN Reason: Pain, Mild (1-3) Insulin Detemir (Levemir) 30 unit SC DAILY [facility] Last Admin: 05/14/17 10:00 Dose: Not Given Insulin Human Regular (Novolin R) 0 unit SC [facility] PRN Reason: Protocol Last Admin: 05/14/17 18:27 Dose: Not Given Metoprolol Succinate (Toprol Xl) 100 mg PO DAILY [facility] Last Admin: 05/14/17 15:30 Dose: Not Given Mjzvh-1-Kqlk Ethyl Esters (Lovaza) 1 gm PO DAILY [facility] Last Admin: 05/14/17 10:00 Dose: Not Given Torsemide (Demadex) 100 mg PO DAILY [facility] Last Admin: 05/14/17 10:00 Dose: Not Given Results - Vital Signs Recent Vital Signs: Last Vital Signs Temp 97.3 F L 05/14/17 17:50 Pulse 81 05/14/17 18:52 Resp 20 05/14/17 17:51 BP 105/62 05/14/17 17:51 Pulse Ox 99 05/14/17 17:50 - Labs Result Diagrams: 05/14/17 07:07 05/14/17 07:07 Labs: Laboratory Results - last 24 hr 05/13/17 05/13/17 05/13/17 13:53 13:53 21:24 WBC RBC Hgb Hct MCV MCH MCHC RDW Plt Count MPV Neut % (Auto) Lymph % (Auto) [place] % (Auto) Eos % (Auto) Baso % (Auto) Neut # Lymph # [place] # Eos # Baso # Sodium Potassium Chloride Carbon Dioxide Anion Gap BUN Creatinine Est GFR ( Amer) Est GFR (Non-Af Amer) POC Glucose (mg/dL) 80 Random Glucose Hemoglobin A1c Calcium Total Bilirubin AST ALT Alkaline Phosphatase Total Protein Albumin Globulin Albumin/Globulin Ratio Triglycerides Cholesterol LDL Cholesterol Direct HDL Cholesterol Lipase Urine Color Urine Clarity Urine pH Ur Specific [place] Urine Protein Urine Glucose (UA) Urine Ketones Urine Blood Urine Nitrate Urine Bilirubin Urine Urobilinogen Ur Leukocyte Esterase Urine WBC (Auto) Urine RBC (Auto) Ur Squamous Epith Cells Urine Bacteria Hyaline Casts Hep Bs Antigen Negative Hep Bs Antibody Negative Hep B Core IgM Ab Negative Hepatitis C Antibody Negative 05/13/17 05/14/17 05/14/17 22:57 06:19 06:37 WBC RBC Hgb Hct MCV MCH MCHC RDW Plt Count MPV Neut % (Auto) Lymph % (Auto) [place] % (Auto) Eos % (Auto) Baso % (Auto) Neut # Lymph # [place] # Eos # Baso # Sodium Potassium Chloride Carbon Dioxide Anion Gap BUN Creatinine Est GFR ( Amer) Est GFR (Non-Af Amer) POC Glucose (mg/dL) 61 L 164 H Random Glucose Hemoglobin A1c Calcium Total Bilirubin AST ALT Alkaline Phosphatase Total Protein Albumin Globulin Albumin/Globulin Ratio Triglycerides Cholesterol LDL Cholesterol Direct HDL Cholesterol Lipase Urine Color Straw Urine Clarity Clear Urine pH 5.0 Ur Specific [place] 1.010 Urine Protein 2+ H Urine Glucose (UA) Normal Urine Ketones Negative Urine Blood Negative Urine Nitrate Negative Urine Bilirubin Negative Urine Urobilinogen Normal Ur Leukocyte Esterase Neg Urine WBC (Auto) 1 Urine RBC (Auto) 1 Ur Squamous Epith Cells 1 Urine Bacteria Occ H Hyaline Casts 3-5 H Hep Bs Antigen Hep Bs Antibody Hep B Core IgM Ab Hepatitis C Antibody 05/14/17 05/14/17 05/14/17 07:07 07:07 07:07 WBC 5.5 RBC 2.68 L Hgb 7.7 L Hct 23.8 L MCV 88.9 MCH 28.7 MCHC 32.3 L RDW 15.8 H Plt Count 170 MPV 11.4 Neut % (Auto) 64.8 Lymph % (Auto) 20.1 [place] % (Auto) 9.5 Eos % (Auto) 4.5 H Baso % (Auto) 1.1 Neut # 3.6 Lymph # 1.1 [place] # 0.5 Eos # 0.2 Baso # 0.1 Sodium 144 Potassium 4.6 Chloride 106 Carbon Dioxide 20 L Anion Gap 23 H BUN 129 H* Creatinine 5.3 H Est GFR ( Amer) 10 Est GFR (Non-Af Amer) 8 POC Glucose (mg/dL) Random Glucose 98 Hemoglobin A1c 6.9 H Calcium 7.4 L Total Bilirubin 0.4 AST 11 L D ALT 25 Alkaline Phosphatase 62 Total Protein 7.0 Albumin 3.7 Globulin 3.3 Albumin/Globulin Ratio 1.1 Triglycerides 122 Cholesterol 160 LDL Cholesterol Direct 86 HDL Cholesterol 24 L Lipase 1494 H Urine Color Urine Clarity Urine pH Ur Specific [place] Urine Protein Urine Glucose (UA) Urine Ketones Urine Blood Urine Nitrate Urine Bilirubin Urine Urobilinogen Ur Leukocyte Esterase Urine WBC (Auto) Urine RBC (Auto) Ur Squamous Epith Cells Urine Bacteria Hyaline Casts Hep Bs Antigen Hep Bs Antibody Hep B Core IgM Ab Hepatitis C Antibody 05/14/17 05/14/17 05/14/17 08:07 09:08 12:09 WBC RBC Hgb Hct MCV MCH MCHC RDW Plt Count MPV Neut % (Auto) Lymph % (Auto) [place] % (Auto) Eos % (Auto) Baso % (Auto) Neut # Lymph # [place] # Eos # Baso # Sodium Potassium Chloride Carbon Dioxide Anion Gap BUN Creatinine Est GFR ( Amer) Est GFR (Non-Af Amer) POC Glucose (mg/dL) 77 70 147 H Random Glucose Hemoglobin A1c Calcium Total Bilirubin AST ALT Alkaline Phosphatase Total Protein Albumin Globulin Albumin/Globulin Ratio Triglycerides Cholesterol LDL Cholesterol Direct HDL Cholesterol Lipase Urine Color Urine Clarity Urine pH Ur Specific [place] Urine Protein Urine Glucose (UA) Urine Ketones Urine Blood Urine Nitrate Urine Bilirubin Urine Urobilinogen Ur Leukocyte Esterase Urine WBC (Auto) Urine RBC (Auto) Ur Squamous Epith Cells Urine Bacteria Hyaline Casts Hep Bs Antigen Hep Bs Antibody Hep B Core IgM Ab Hepatitis C Antibody 05/14/17 05/14/17 13:03 16:32 WBC RBC Hgb Hct MCV MCH MCHC RDW Plt Count MPV Neut % (Auto) Lymph % (Auto) [place] % (Auto) Eos % (Auto) Baso % (Auto) Neut # Lymph # [place] # Eos # Baso # Sodium Potassium Chloride Carbon Dioxide Anion Gap BUN Creatinine Est GFR ( Amer) Est GFR (Non-Af Amer) POC Glucose (mg/dL) 130 H 138 H Random Glucose Hemoglobin A1c Calcium Total Bilirubin AST ALT Alkaline Phosphatase Total Protein Albumin Globulin Albumin/Globulin Ratio Triglycerides Cholesterol LDL Cholesterol Direct HDL Cholesterol Lipase Urine Color Urine Clarity Urine pH Ur Specific [place] Urine Protein Urine Glucose (UA) Urine Ketones Urine Blood Urine Nitrate Urine Bilirubin Urine Urobilinogen Ur Leukocyte Esterase Urine WBC (Auto) Urine RBC (Auto) Ur Squamous Epith Cells Urine Bacteria Hyaline Casts Hep Bs Antigen Hep Bs Antibody Hep B Core IgM Ab Hepatitis C Antibody Assessment & Plan - Assessment and Plan (Free Text) Assessment: advanced ckd proceeding to esrd .. needs hd anemia of ckd .. will try venofer and epo ..may need transfusion if h/h do not improve multiple medical problems p : vascular surery for tunnelled hd cath and to start HD needs AVF needs SW to fax papers to out pt HD unit c/o current meds may need tapiring of her BP meds will watch closely - Date & Time Date: 05/14/17 Time: 15:00
--- NOTE | 2017-05-14 22:09 | OP ---
PROCEDURE DATE: 05/14/2017 PREOPERATIVE DIAGNOSIS: Renal failure. POSTOPERATIVE DIAGNOSIS: Renal failure. PROCEDURE CARRIED OUT: Placement of Perm-A-Cath right jugular vein with C-arm fluoroscopy, ultrasound-guided puncture and micropuncture technique. SURGEON: Dr. Thompson. MANAGER CODING: Dr. Chou, resident. ANESTHESIOLOGIST: Dr. Cherry. The patient is an elderly woman with renal insufficiency, who now requires dialysis. OPERATIVE FINDINGS: Catheter was inserted uneventfully via the jugular vein. PROCEDURE: The patient was given general anesthesia. Using ultrasound guidance and micropuncture technique, the right jugular vein was cannulated and punctured. Under fluoroscopic control, guidewire was advanced centrally. This was exchanged for an 0.35 wire and a sheath dilator passed over this. This was then draped and brought out and the tunnel catheter on the chest wall. This was flushed with heparinized saline with good return and the catheter was secured to the chest. Operation carried out is placement of Perm-A-Cath right jugular vein with C-arm fluoroscopy, ultrasound-guided puncture and micropuncture technique. Ultrasound images of the neck show the vein was 12 mm in diameter with normal compressibility and no evidence of intraluminal thrombosis. Luis Thompson Jr., MD
[2017-05-15] MEDS: (Novolin R) Insulin Human Regular 100 units/ml vial SC SCH ×3 (07:30→23:12)
--- NOTE | 2017-05-15 07:59 | CP.PCM.PN ---
Subjective - Date & Time of Evaluation Date of Evaluation: 05/15/17 Time of Evaluation: 07:54 - Subjective Subjective: Vasc Sx: Dr Thompson Pt S&E. POD#1 s/p right tunneled dialysis catheter. Had HD yesterday. Minimal pain. Vein mapping completed. Will plan for AVF in future Objective - Vital Signs/Intake and Output Vital Signs (last 24 hours): Temp Pulse Resp BP Pulse Ox 98 F 83 20 131/65 99 05/14/17 23:40 05/15/17 00:44 05/14/17 23:40 05/14/17 23:40 05/14/17 23:40 Intake and Output: 05/15/17 05/15/17 06:59 18:59 Intake Total 320 Output Total 200 Balance 120 - Medications Medications: Current Medications Allopurinol (Zyloprim) 100 mg PO DAILY [facility] Last Admin: 05/14/17 10:00 Dose: Not Given Doxazosin Mesylate (Cardura) 2 mg PO [facility] Last Admin: 05/14/17 21:23 Dose: 2 mg Epoetin David (Procrit) 10,000 unit IV [facility] Stop: 05/20/17 12:01 Last Admin: 05/14/17 15:31 Dose: 10,000 unit Ergocalciferol (Drisdol 50,000 Intl Units Cap) 1 cap PO QWK [facility] Last Admin: 05/13/17 13:14 Dose: 1 cap Ferric Sodium Gluconate Complex (Ferrlecit) 125 mg IVPB [facility] Stop: 05/18/17 09:01 Last Admin: 05/14/17 16:50 Dose: 125 mg Gabapentin (Neurontin) 300 mg PO [facility] Last Admin: 05/14/17 21:24 Dose: Not Given Heparin Sodium (Porcine) (Heparin) 3,700 units IVP [facility] Last Admin: 05/14/17 16:51 Dose: 3,700 units Home Med (Hectorol) 1 tab PO DAILY [facility] Hydromorphone HCl (Dilaudid) 0.5 mg IVP Q4H PRN PRN Reason: Pain, Mild (1-3) Last Admin: 05/14/17 20:19 Dose: 0.5 mg Insulin Detemir (Levemir) 30 unit SC DAILY [facility] Last Admin: 05/14/17 10:00 Dose: Not Given Insulin Human Regular (Novolin R) 0 unit SC [facility] PRN Reason: Protocol Last Admin: 05/14/17 21:24 Dose: Not Given Metoprolol Succinate (Toprol Xl) 100 mg PO DAILY [facility] Last Admin: 05/14/17 15:30 Dose: Not Given Vxgdd-9-Jxaz Ethyl Esters (Lovaza) 1 gm PO DAILY [facility] Last Admin: 05/14/17 10:00 Dose: Not Given Torsemide (Demadex) 100 mg PO DAILY [facility] Last Admin: 05/14/17 10:00 Dose: Not Given - Labs Labs: 05/14/17 07:07 05/14/17 07:07 PT 11.9 SECONDS (9.7-12.2) 05/13/17 13:53 INR 1.0 05/13/17 13:53 APTT 29 SECONDS (21-34) 05/13/17 00:22 - Constitutional Appears: Non-toxic, No Acute Distress - Respiratory Exam Respiratory Exam: absent: Accessory Muscle Use, Respiratory Distress - Cardiovascular Exam Cardiovascular Exam: REGULAR RHYTHM - Neurological Exam Neurological Exam: Alert, Awake, Oriented x3 - Psychiatric Exam Psychiatric exam: Normal Affect, Normal Mood Assessment and Plan - Assessment and Plan (Free Text) Assessment: 72F with CKD in ESRD; s/p permacath placement; needs AVF Plan: will plan for AVF in near future pt will need medical clearance will d/w Dr Jay Chou, PGY3
--- NOTE | 2017-05-15 11:26 | CP.PCM.PN ---
Subjective - Date & Time of Evaluation Date of Evaluation: 05/15/17 Time of Evaluation: 11:00 - Subjective Subjective: Progress note dictated #[id number] Objective - Vital Signs/Intake and Output Vital Signs (last 24 hours): Temp Pulse Resp BP Pulse Ox 98.9 F 89 20 138/70 95 05/15/17 08:45 05/15/17 08:45 05/15/17 08:45 05/15/17 08:45 05/15/17 08:45 Intake and Output: 05/15/17 05/15/17 06:59 18:59 Intake Total 320 Output Total 200 Balance 120 - Medications Medications: Current Medications Allopurinol (Zyloprim) 100 mg PO DAILY [facility] Last Admin: 05/14/17 10:00 Dose: Not Given Doxazosin Mesylate (Cardura) [address] [facility] Last Admin: 05/14/17 21:23 Dose: 2 mg Epoetin David (Procrit) 10,000 unit IV [facility] Stop: 05/20/17 12:01 Last Admin: 05/14/17 15:31 Dose: 10,000 unit Ergocalciferol (Drisdol 50,000 Intl Units Cap) 1 cap PO QWK [facility] Last Admin: 05/13/17 13:14 Dose: 1 cap Ferric Sodium Gluconate Complex (Ferrlecit) 125 mg IVPB [facility] Stop: 05/18/17 09:01 Last Admin: 05/14/17 16:50 Dose: 125 mg Gabapentin (Neurontin) [address] [facility] Last Admin: 05/14/17 21:24 Dose: Not Given Heparin Sodium (Porcine) (Heparin) 3,700 units IVP [facility] Last Admin: 05/14/17 16:51 Dose: 3,700 units Home Med (Hectorol) 1 tab PO DAILY [facility] Hydromorphone HCl (Dilaudid) 0.5 mg IVP Q4H PRN PRN Reason: Pain, Mild (1-3) Last Admin: 05/14/17 20:19 Dose: 0.5 mg Insulin Detemir (Levemir) 30 unit SC DAILY [facility] Last Admin: 05/14/17 10:00 Dose: Not Given Insulin Human Regular (Novolin R) 0 unit SC [facility] PRN Reason: Protocol Last Admin: 05/14/17 21:24 Dose: Not Given Metoprolol Succinate (Toprol Xl) 100 mg PO DAILY [facility] Last Admin: 05/14/17 15:30 Dose: Not Given Kokip-7-Tlko Ethyl Esters (Lovaza) 1 gm PO DAILY [facility] Last Admin: 05/14/17 10:00 Dose: Not Given Torsemide (Demadex) 100 mg PO DAILY [facility] Last Admin: 05/14/17 10:00 Dose: Not Given - Labs Labs: 05/14/17 07:07 05/14/17 07:07 PT 11.9 SECONDS (9.7-12.2) 05/13/17 13:53 INR 1.0 05/13/17 13:53 APTT 29 SECONDS (21-34) 05/13/17 00:22
[2017-05-15] MEDS: Metoprolol Succinate 100 mg XL Tab PO SCH (11:37)
[2017-05-15] MEDS: Insulin Detemir 100 units/ml Vial (Levemir) SC SCH (11:39)
[2017-05-15] MEDS: Omega-3-Acid Ethyl Esters 1 GM Cap PO SCH (11:39)
--- NOTE | 2017-05-15 14:46 | VASCLAB ---
PROCEDURE: Bilateral Upper Extremity Vein Mapping HISTORY: Pre-op AVF PRIORS: None. TECHNIQUE: Bilateral upper extremity, internal jugular, subclavian, axillary, brachial, ulnar, radial, basilic and upper cephalic veins were evaluated. Flow was assessed with color Doppler, compressibility, assessment of phasic flow and augmentation response. Report prepared by GLENNA Mejia FINDINGS: RIGHT: 1. Internal Jugular Vein: Compressibility - Fully compressible: Thrombus - None : Flow - Phasic 2. Subclavian Vein:Compressibility - Fully compressible: Thrombus - None : Flow - Phasic 3. Axillary Vein: Compressibility - Fully compressible: Thrombus - None 4. Brachial Vein: Compressibility - Fully compressible: Thrombus - None 5. Ulnar Vein:Compressibility - Fully compressible: Thrombus - None 6. Radial Vein:Compressibility - Fully compressible: Thrombus - None 7. Cephalic Vein: Compressibility - Fully compressible: thrombus - None 7.1. Upper Arm: Proximal Diameter: 0.38 cm. Mid Diameter: 0.19cm. Distal Diameter: 0.26cm. 7.2. Forearm: Proximal Diameter: 0.36cm. Mid Diameter:0.29cm. Distal Diameter: 0.12cm 8. Basilic Vein:Compressibility - Fully compressible: thrombus - None 8.1. Upper Arm:Proximal Diameter: 0.35cm. Mid Diameter: 0.16cm. Limited view 8.2. Forearm: Unable to image due to small caliber and multiple branching. LEFT: 1. Internal Jugular Vein: Compressibility - Fully compressible: Thrombus - None : Flow - Phasic 2. Subclavian Vein:Compressibility - Fully compressible: Thrombus - None : Flow - Phasic 3. Axillary Vein: Compressibility - Fully compressible: Thrombus - None 4. Brachial Vein: Compressibility - Fully compressible: Thrombus - None 5. Ulnar Vein:Compressibility - Fully compressible: Thrombus - None 6. Radial Vein:Compressibility - Fully compressible: Thrombus - None 7. Cephalic Vein: Compressibility - Fully compressible: thrombus - None 7.1. Upper Arm: Proximal Diameter: 0.25cm. Mid Diameter: 0.25cm. Distal Diameter: 0.10cm. 7.2. Forearm: Proximal Diameter: 0.12cm. Mid Diameter:0.13cm. Distal Diameter: 0.11cm 8. Basilic Vein:Compressibility - Fully compressible: thrombus - None 8.1. Upper Arm:Proximal Diameter: 0.38cm. Mid Diameter: 0.25cm. Limited view 8.2. Forearm: Unable to image due to small caliber and multiple branching. OTHER FINDINGS: Right: None. Left: None. IMPRESSION: 1. Please refer to the above listed measurements for vein size. 2. No evidence of venous thrombosis in bilateral upper extremities.
--- NOTE | 2017-05-15 15:35 | CP.PCM.PCO ---
Physician Communication Note - Physician Communication Note Physician Communication Note: AVF , Dialysis Sunday
--- NOTE | 2017-05-15 17:28 | CARD ---
APPROVED REPORT EKG Measurement Heart [id number] <Conclusion> Normal sinus rhythm LVH Prolonged QT Abnormal ECG
--- NOTE | 2017-05-15 20:52 | PN ---
DATE: 05/15/2017 SUBJECTIVE: The patient was seen and examined at bedside. The patient is much more alert and awake, responding to questions appropriately, sitting in a chair, offers no new complaints. PHYSICAL EXAMINATION: GENERAL: Elderly female, in no acute distress. VITAL SIGNS: Blood pressure 136/76, pulse 81, respirations 20, temperature 98.4 degrees Fahrenheit, and O2 saturations 97% on room air. HEENT: Pupils equal, round, and reacting to light and accommodation. Extraocular muscles intact. No icterus. No pallor. No oral thrush. No pharyngeal congestion. NECK: Supple. No JVD. LUNGS: Bilateral vesicular breath sounds. No wheezing. No rhonchi. CARDIOVASCULAR: S1 and S2 present and regular. ABDOMEN: Soft and nontender. Bowel sounds present. No guarding. No rigidity. No rebound tenderness noted. CENTRAL NERVOUS SYSTEMS: Alert, awake, and oriented x3. No focal deficits noted. EXTREMITIES: No edema. Palpable peripheral pulses. MEDICATIONS: Include allopurinol 100 mg daily, Cardura 2 mg by mouth at bedtime, Procrit 10,000 units 3 times a week, Hectorol 1 capsule by mouth weekly, Ferrlecit 125 mg IV Sunday, Sunday, and Sunday, Neurontin 300 mg by mouth at bedtime, heparin, hydromorphone as needed, Levemir 30 units subQ daily, metoprolol 100 mg by mouth daily, Lovaza, and torsemide 100 mg daily. LABORATORY DATA: Glucose 183, 179, 150, 237, 116. ASSESSMENT AND PLAN: An elderly female with hypertension, diabetes mellitus, hyperlipidemia, anemia of chronic kidney disease, endstage renal disease, gout, admitted for uremic symptoms, underwent hemodialysis, after dialysis access placement. The patient tolerated the procedure well. I discussed with manager social services for outpatient dialysis center placement. I discussed with the patient's daughter at length who was at bedside. We will follow up with renal. Krupa Mar MD
--- NOTE | 2017-05-16 00:01 | CP.PCM.PN ---
Subjective - Date & Time of Evaluation Date of Evaluation: 05/15/17 Time of Evaluation: 13:00 - Subjective Subjective: SEEN ON RENAL F/U SITTING OOB ON CHAIR RECIEVED HER FIRST HD YESTERDAY .. TOLERATED WELL STATETS THAT HD HELPED HER APPEARS LESS SOB AND MORE MENTALLY ALERT Objective - Vital Signs/Intake and Output Vital Signs (last 24 hours): Temp Pulse Resp BP Pulse Ox 98.4 F 81 20 136/74 97 05/15/17 15:00 05/15/17 15:00 05/15/17 15:00 05/15/17 15:00 05/15/17 15:00 - Medications Medications: Current Medications Allopurinol (Zyloprim) 100 mg PO DAILY [facility] Last Admin: 05/15/17 11:37 Dose: 100 mg Doxazosin Mesylate (Cardura) 2 mg PO [facility] Last Admin: 05/15/17 23:12 Dose: 2 mg Epoetin David (Procrit) 10,000 unit IV [facility] Stop: 05/20/17 12:01 Last Admin: 05/14/17 15:31 Dose: 10,000 unit Ergocalciferol (Drisdol 50,000 Intl Units Cap) 1 cap PO QWK [facility] Last Admin: 05/13/17 13:14 Dose: 1 cap Ferric Sodium Gluconate Complex (Ferrlecit) 125 mg IVPB [facility] Stop: 05/18/17 09:01 Last Admin: 05/14/17 16:50 Dose: 125 mg Gabapentin (Neurontin) 300 mg PO [facility] Last Admin: 05/15/17 23:12 Dose: 300 mg Heparin Sodium (Porcine) (Heparin) 3,700 units IVP [facility] Last Admin: 05/14/17 16:51 Dose: 3,700 units Home Med (Hectorol) 1 tab PO DAILY [facility] Hydromorphone HCl (Dilaudid) 0.5 mg IVP Q4H PRN PRN Reason: Pain, Mild (1-3) Last Admin: 05/14/17 20:19 Dose: 0.5 mg Insulin Detemir (Levemir) 30 unit SC DAILY [facility] Last Admin: 05/15/17 11:39 Dose: 30 unit Insulin Human Regular (Novolin R) 0 unit SC [facility] PRN Reason: Protocol Last Admin: 05/15/17 23:12 Dose: Not Given Metoprolol Succinate (Toprol Xl) 100 mg PO DAILY [facility] Last Admin: 05/15/17 11:37 Dose: 100 mg Ksxmx-0-Xerv Ethyl Esters (Lovaza) 1 gm PO DAILY [facility] Last Admin: 05/15/17 11:39 Dose: 1 gm Torsemide (Demadex) 100 mg PO DAILY [facility] Last Admin: 05/15/17 11:38 Dose: 100 mg - Labs Labs: 05/14/17 07:07 05/14/17 07:07 PT 11.9 SECONDS (9.7-12.2) 05/13/17 13:53 INR 1.0 05/13/17 13:53 APTT 29 SECONDS (21-34) 05/13/17 00:22 Assessment and Plan - Assessment and Plan (Free Text) Assessment: ESRD ON HD M W F .. ANEMIA OF CKD .. H/H VERY LOW .. HOPING THAT FERRLICIT AND EPO WILL HELP AVERT TRANSFUSION MMP .. MULTIPLE COMORBIDITIES P : FOR HD IN AM FOR AVF ON SRI NEEDS AN OUT PT SPOT AT THE DIALYSIS CENTER
[2017-05-16 07:37] LABS: BASO % 0.7 % (0.0-2.0); EOS # 0.2 K/uL (0.0-0.7); EOS % 3.4 % (0.0-4.0); HEMATOCRIT 24.1 % (34.0-47.0); LYMPH # 1.5 K/uL (1.0-4.3); LYMPH % 23.2 % (20.0-40.0); MEAN CORPUSCULAR HEMOGLOBIN 28.9 pg (27.0-31.0); MEAN CORPUSCULAR HGB CONC 32.5 g/dL (33.0-37.0); MEAN PLATELET VOLUME 11.3 fL (7.2-11.7); MONO # 0.9 K/uL (0.0-0.8); MONO % 13.5 % (0.0-10.0); NRBC % 0.3 % (0.0-2.0); RED CELL DISTRIBUTION WIDTH 15.7 % (11.5-14.5); WHITE BLOOD COUNT 6.5 K/uL (4.8-10.8)
[2017-05-16] MEDS: (Novolin R) Insulin Human Regular 100 units/ml vial SC SCH ×4 (08:06→22:55)
[2017-05-16 08:21] LABS: POTASSIUM 4.1 mmol/L (3.6-5.2)
[2017-05-16 08:23] LABS: BILIRUBIN,TOTAL 0.4 mg/dL (0.2-1.3)
[2017-05-16 08:24] LABS: ALB/GLOB RATIO 1.1 (1.0-2.1); TOTAL PROTEIN 6.7 g/dL (6.3-8.3)
--- NOTE | 2017-05-16 08:41 | CP.PCM.PN ---
Subjective - Date & Time of Evaluation Date of Evaluation: 05/16/17 Time of Evaluation: 08:41 - Subjective Subjective: Patient was seen and examined at bedside in no acute distress. She reports having pain in her heels bilaterally, but otherwise no complaints and feels well. 12-point review of systems otherwise negative. Patient is scheduled for dialysis after breakfast. Objective - Vital Signs/Intake and Output Vital Signs (last 24 hours): Temp Pulse Resp BP Pulse Ox 98.3 F 82 20 129/76 95 05/16/17 08:02 05/16/17 08:25 05/16/17 08:02 05/16/17 08:02 05/16/17 08:02 - Medications Medications: Current Medications Allopurinol (Zyloprim) 100 mg PO DAILY [facility] Last Admin: 05/15/17 11:37 Dose: 100 mg Doxazosin Mesylate (Cardura) 2 mg PO [facility] Last Admin: 05/15/17 23:12 Dose: 2 mg Epoetin David (Procrit) 10,000 unit IV [facility] Stop: 05/20/17 12:01 Last Admin: 05/14/17 15:31 Dose: 10,000 unit Ergocalciferol (Drisdol 50,000 Intl Units Cap) 1 cap PO QWK [facility] Last Admin: 05/13/17 13:14 Dose: 1 cap Ferric Sodium Gluconate Complex (Ferrlecit) 125 mg IVPB [facility] Stop: 05/18/17 09:01 Last Admin: 05/14/17 16:50 Dose: 125 mg Gabapentin (Neurontin) 300 mg PO [facility] Last Admin: 05/15/17 23:12 Dose: 300 mg Heparin Sodium (Porcine) (Heparin) 3,700 units IVP [facility] Last Admin: 05/14/17 16:51 Dose: 3,700 units Home Med (Hectorol) 1 tab PO DAILY [facility] Hydromorphone HCl (Dilaudid) 0.5 mg IVP Q4H PRN PRN Reason: Pain, Mild (1-3) Last Admin: 05/14/17 20:19 Dose: 0.5 mg Insulin Detemir (Levemir) 30 unit SC DAILY [facility] Last Admin: 05/15/17 11:39 Dose: 30 unit Insulin Human Regular (Novolin R) 0 unit SC [facility] PRN Reason: Protocol Last Admin: 05/16/17 08:06 Dose: Not Given Metoprolol Succinate (Toprol Xl) 100 mg PO DAILY [facility] Last Admin: 05/15/17 11:37 Dose: 100 mg Awtrg-7-Zwyq Ethyl Esters (Lovaza) 1 gm PO DAILY [facility] Last Admin: 05/15/17 11:39 Dose: 1 gm Torsemide (Demadex) 100 mg PO DAILY [facility] Last Admin: 05/15/17 11:38 Dose: 100 mg - Labs Labs: 05/16/17 07:26 05/16/17 07:26 PT 11.9 SECONDS (9.7-12.2) 05/13/17 13:53 INR 1.0 05/13/17 13:53 APTT 29 SECONDS (21-34) 05/13/17 00:22 - Head Exam Head Exam: ATRAUMATIC, NORMAL INSPECTION - Eye Exam Eye Exam: EOMI, Normal appearance - ENT Exam ENT Exam: Mucous Membranes Moist - Respiratory Exam Respiratory Exam: Clear to Ausculation Bilateral, NORMAL BREATHING PATTERN. absent: Rhonchi, Wheezes - Cardiovascular Exam Cardiovascular Exam: +S1, +S2. absent: Bradycardia, Tachycardia - GI/Abdominal Exam GI & Abdominal Exam: Soft, Normal Bowel Sounds. absent: Distended, Tenderness - Extremities Exam Extremities Exam: Pedal Edema. absent: Calf Tenderness - Neurological Exam Neurological Exam: Alert, Awake, Oriented x3 - Psychiatric Exam Psychiatric exam: Normal Affect, Normal Mood - Skin Skin Exam: Dry, Intact, Normal Color, Warm Additional comments: Bilateral Heels- no skin changes, no ulcers presents. Skin dry, intact, warn, and normal color. Assessment and Plan - Assessment and Plan (Free Text) Assessment: 72 year old female s/p permacath placement, POD #2. - Patient going for dialysis today. - Patient scheduled for AV fistula in OR tomorrow. - NPO after midnight. - Continue medical management as per hospitalist team.
[2017-05-16] MEDS ORDERED: Ferric Sodium Gluconat Complex 62.5 mg/5 ml Vial IVPB SCH (09:00)
[2017-05-16] MEDS: Metoprolol Succinate 100 mg XL Tab PO SCH ×2 (09:10→10:23)
[2017-05-16] MEDS: Insulin Detemir 100 units/ml Vial (Levemir) SC SCH (10:23)
[2017-05-16] MEDS: Omega-3-Acid Ethyl Esters 1 GM Cap PO SCH (10:23)
--- NOTE | 2017-05-16 10:24 | CP.PCM.PN ---
Subjective - Date & Time of Evaluation Date of Evaluation: 05/16/17 Time of Evaluation: 10:00 - Subjective Subjective: Progress note dictated #[id number] Objective - Vital Signs/Intake and Output Vital Signs (last 24 hours): Temp Pulse Resp BP Pulse Ox 98.3 F 82 20 129/76 95 05/16/17 08:02 05/16/17 08:25 05/16/17 08:02 05/16/17 08:02 05/16/17 08:02 - Medications Medications: Current Medications Allopurinol (Zyloprim) 100 mg PO DAILY [facility] Last Admin: 05/16/17 10:23 Dose: Not Given Doxazosin Mesylate (Cardura) 2 mg PO [facility] Last Admin: 05/15/17 23:12 Dose: 2 mg Epoetin David (Procrit) 10,000 unit IV [facility] Stop: 05/20/17 12:01 Last Admin: 05/14/17 15:31 Dose: 10,000 unit Ergocalciferol (Drisdol 50,000 Intl Units Cap) 1 cap PO QWK [facility] Last Admin: 05/13/17 13:14 Dose: 1 cap Ferric Sodium Gluconate Complex (Ferrlecit) 125 mg IVPB [facility] Stop: 05/18/17 09:01 Last Admin: 05/14/17 16:50 Dose: 125 mg Gabapentin (Neurontin) 300 mg PO [facility] Last Admin: 05/15/17 23:12 Dose: 300 mg Heparin Sodium (Porcine) (Heparin) 3,700 units IVP [facility] Last Admin: 05/14/17 16:51 Dose: 3,700 units Home Med (Hectorol) 1 tab PO DAILY [facility] Hydromorphone HCl (Dilaudid) 0.5 mg IVP Q4H PRN PRN Reason: Pain, Mild (1-3) Last Admin: 05/14/17 20:19 Dose: 0.5 mg Insulin Detemir (Levemir) 30 unit SC DAILY [facility] Last Admin: 05/16/17 10:23 Dose: Not Given Insulin Human Regular (Novolin R) 0 unit SC [facility] PRN Reason: Protocol Last Admin: 05/16/17 08:06 Dose: Not Given Metoprolol Succinate (Toprol Xl) 100 mg PO DAILY [facility] Last Admin: 05/16/17 10:23 Dose: Not Given Ulymc-2-Vcap Ethyl Esters (Lovaza) 1 gm PO DAILY [facility] Last Admin: 05/16/17 10:23 Dose: Not Given Torsemide (Demadex) 100 mg PO DAILY [facility] Last Admin: 05/16/17 10:23 Dose: Not Given - Labs Labs: 05/16/17 07:26 05/16/17 07:26 PT 11.9 SECONDS (9.7-12.2) 05/13/17 13:53 INR 1.0 05/13/17 13:53 APTT 29 SECONDS (21-34) 05/13/17 00:22
[2017-05-16] MEDS: Epoetin Alfa 10,000 unit/ml Dialysis IV SCH (12:53)
[2017-05-16] MEDS: Ferric Sodium Gluconat Complex 62.5 mg/5 ml Vial IVPB SCH (12:54)
[2017-05-16] MEDS ORDERED: Metoprolol Succinate 100 mg XL Tab PO STA (19:25)
--- NOTE | 2017-05-16 23:59 | CP.PCM.PN ---
Subjective - Date & Time of Evaluation Date of Evaluation: 05/16/17 Time of Evaluation: 15:00 - Subjective Subjective: RECIEVED HER 2ND HD TODAY .. TOLERATED WELL FEELS IMPROVED RECIEVED EPO AND FERRLICIT ON HD Objective - Vital Signs/Intake and Output Vital Signs (last 24 hours): Temp Pulse Resp BP Pulse Ox 98.5 F 86 20 173/78 H 95 05/16/17 15:20 05/16/17 15:20 05/16/17 15:20 05/16/17 15:20 05/16/17 15:20 - Medications Medications: Current Medications Acetaminophen (Tylenol 325mg Tab) 650 mg PO Q6 PRN PRN Reason: Headache Last Admin: 05/16/17 17:29 Dose: 650 mg Allopurinol (Zyloprim) 100 mg PO DAILY [facility] Last Admin: 05/16/17 10:23 Dose: Not Given Doxazosin Mesylate (Cardura) 2 mg PO [facility] Last Admin: 05/16/17 22:51 Dose: 2 mg Epoetin David (Procrit) 10,000 unit [place] [facility] Stop: 05/20/17 12:01 Last Admin: 05/16/17 12:53 Dose: 10,000 unit Ergocalciferol (Drisdol 50,000 Intl Units Cap) 1 cap PO QWK [facility] Last Admin: 05/13/17 13:14 Dose: 1 cap Ferric Sodium Gluconate Complex (Ferrlecit) 125 mg IVPB [facility] Stop: 05/18/17 09:01 Last Admin: 05/16/17 12:54 Dose: 125 mg Gabapentin (Neurontin) 300 mg PO [facility] Last Admin: 05/16/17 22:51 Dose: 300 mg Heparin Sodium (Porcine) (Heparin) 3,700 units IVP [facility] Last Admin: 05/16/17 13:12 Dose: 3,700 units Home Med (Hectorol) 1 tab PO DAILY [facility] Hydromorphone HCl (Dilaudid) 0.5 mg IVP Q4H PRN PRN Reason: Pain, Mild (1-3) Last Admin: 05/14/17 20:19 Dose: 0.5 mg Insulin Detemir (Levemir) 30 unit SC DAILY [facility] Last Admin: 05/16/17 10:23 Dose: Not Given Insulin Human Regular (Novolin R) 0 unit SC [facility] PRN Reason: Protocol Last Admin: 05/16/17 22:55 Dose: Not Given Metoprolol Succinate (Toprol Xl) 100 mg PO DAILY [facility] Last Admin: 05/16/17 09:10 Dose: Not Given Glkkb-5-Ngkw Ethyl Esters (Lovaza) 1 gm PO DAILY [facility] Last Admin: 05/16/17 10:23 Dose: Not Given - Labs Labs: 05/16/17 07:26 05/16/17 07:26 PT 11.9 SECONDS (9.7-12.2) 05/13/17 13:53 INR 1.0 05/13/17 13:53 APTT 29 SECONDS (21-34) 05/13/17 00:22 Assessment and Plan - Assessment and Plan (Free Text) Assessment: ESRD ON HD M W F . TO BE C/O ANEMIA OF CKD .. ON EPO AND FERRLICIT FOR AVF IN AM
--- NOTE | 2017-05-17 00:37 | PN ---
DATE: 05/16/2017 SUBJECTIVE: The patient was seen and examined during the dialysis. The patient offers no new complaints. She is more alert, awake, complains of less pain at the catheter insertion site. PHYSICAL EXAMINATION GENERAL: Elderly female in no acute distress. VITAL SIGNS: Blood pressure 135/50, pulse 68, respirations 16, temperature 98.5 degrees Fahrenheit, O2 saturation 100% on 2 liters nasal cannula. HEENT: Pupils equal and reacting to light and accommodation. No icterus. Positive pallor. No oral thrush. No pharyngeal congestion. NECK: Supple. No JVD. LUNGS: Bilateral vesicular breath sounds. Bilateral occasional basal crackles. CVS: S1 and S2 present, regular. ABDOMEN: Soft, nontender. Bowel sounds present. No guarding. No rigidity. No rebound tenderness noted. COLOR LABORATORY TECHNICIAN: Alert, awake, and oriented x3. No focal deficits noted. EXTREMITIES: No edema. Palpable peripheral pulses. MEDICATIONS: Include Tylenol, allopurinol 100 mg daily, Cardura 2 mg p.o. at bedtime, Procrit 10,000 units 3 times a week, Hectorol 1 capsule p.o. q. week., Ferrlecit, Neurontin 300 mg p.o. at bedtime, Dilaudid 0.5 mg IV push q. 4 hours p.r.n., Levemir 30 units subcutaneous daily, metoprolol 100 mg daily and Lovaza. LABORATORY DATA: Labs from this morning; WBC 6.5, hemoglobin 7.8, hematocrit 24.1 and platelets 163. Sodium 142, potassium 4.1, chloride 103, bicarbonate 27, BUN 70, creatinine 4.2, glucose 91 and calcium 8.0. LFTs within normal limits. ASSESSMENT AND PLAN: Elderly female with hypertension, hyperlipidemia, diabetes mellitus, end-stage renal disease, started on hemodialysis, receiving second treatment today, status post dialysis catheter placement for a possible arteriovenous fistula placement in a.m. by vascular surgery. I discussed with case management and high school social science teacher for outpatient dialysis center placement. Krupa Mar MD
[2017-05-17 07:37] LABS: POTASSIUM 3.8 mmol/L (3.6-5.2)
[2017-05-17 07:40] LABS: CALCIUM 8.3 mg/dl (8.6-10.4)
[2017-05-17] MEDS: (Novolin R) Insulin Human Regular 100 units/ml vial SC SCH ×3 (09:34→22:33)
[2017-05-17] MEDS: Metoprolol Succinate 100 mg XL Tab PO SCH (09:34)
[2017-05-17] MEDS: Omega-3-Acid Ethyl Esters 1 GM Cap PO SCH (09:34)
[2017-05-17] MEDS: Insulin Detemir 100 units/ml Vial (Levemir) SC SCH (09:35)
[2017-05-17] MEDS: Dextrose 5%/0.45% NS 1,000 ML IV SCH (09:40)
[2017-05-17] MEDS ORDERED: ceFAZolin IV 2 gm in Dextrose 1 GM/50 ML BAG IVPB ONE (11:07)
[2017-05-17] MEDS ORDERED: HEPARIN-NS 5,000 UNITS/500 ML 5,000 UNIT/500 ML BAG IV ONE (11:08)
[2017-05-17] MEDS ORDERED: Sodium Chloride 0.9% 500 ML IV ONE ×2 (11:20→13:00)
--- NOTE | 2017-05-17 11:38 | CP.PCM.PN ---
Subjective - Date & Time of Evaluation Date of Evaluation: 05/17/17 Time of Evaluation: 11:00 - Subjective Subjective: Progress note dictated #[id number] Objective - Vital Signs/Intake and Output Vital Signs (last 24 hours): Temp Pulse Resp BP Pulse Ox 98.6 F 75 20 136/73 97 05/17/17 08:48 05/17/17 08:48 05/17/17 08:48 05/17/17 08:48 05/17/17 08:48 - Medications Medications: Current Medications Acetaminophen (Tylenol 325mg Tab) 650 mg PO Q6 PRN PRN Reason: Headache Last Admin: 05/16/17 17:29 Dose: 650 mg Allopurinol (Zyloprim) 100 mg PO DAILY [facility] Last Admin: 05/17/17 09:34 Dose: 100 mg Doxazosin Mesylate (Cardura) 2 mg PO HS [facility] Last Admin: 05/16/17 22:51 Dose: 2 mg Epoetin David (Procrit) 10,000 unit IV [facility] Stop: 05/20/17 12:01 Last Admin: 05/16/17 12:53 Dose: 10,000 unit Ergocalciferol (Drisdol 50,000 Intl Units Cap) 1 cap PO QWK [facility] Last Admin: 05/13/17 13:14 Dose: 1 cap Ferric Sodium Gluconate Complex (Ferrlecit) 125 mg IVPB [facility] Stop: 05/18/17 09:01 Last Admin: 05/16/17 12:54 Dose: 125 mg Gabapentin (Neurontin) 300 mg PO [facility] Last Admin: 05/16/17 22:51 Dose: 300 mg Heparin Sodium (Porcine) (Heparin) 3,700 units IVP [facility] Last Admin: 05/16/17 13:12 Dose: 3,700 units Home Med (Hectorol) 1 tab PO DAILY [facility] Hydromorphone HCl (Dilaudid) 0.5 mg IVP Q4H PRN PRN Reason: Pain, Mild (1-3) Last Admin: 05/14/17 20:19 Dose: 0.5 mg Dextrose/Sodium Chloride (Dextrose 5%/0.45% Ns 1000 Ml) 1,000 mls @ 40 mls/hr IV .Q24H [facility] Last Admin: 05/17/17 09:40 Dose: 40 mls/hr Insulin Detemir (Levemir) 30 unit SC DAILY [facility] Last Admin: 05/17/17 09:35 Dose: Not Given Insulin Human Regular (Novolin R) 0 unit SC [facility] PRN Reason: Protocol Last Admin: 05/17/17 09:34 Dose: Not Given Metoprolol Succinate (Toprol Xl) 100 mg PO DAILY [facility] Last Admin: 05/17/17 09:34 Dose: 100 mg [id number]-[id number] Ethyl Esters (Lovaza) 1 gm PO DAILY [facility] Last Admin: 05/17/17 09:34 Dose: 1 gm - Labs Labs: 05/16/17 07:26 05/17/17 07:18 PT 11.9 SECONDS (9.7-12.2) 05/13/17 13:53 INR 1.0 05/13/17 13:53 APTT 29 SECONDS (21-34) 05/13/17 00:22
[2017-05-17] MEDS ORDERED: Propofol 10 mg/ml Inj (20 ML) ONE (11:40)
[2017-05-17] MEDS ORDERED: Midazolam 2 MG/2 ML VIAL ONE (11:40)
[2017-05-17] MEDS ORDERED: Papaverine Hydrochloride 30 mg/ml (2ml) ONE (12:28)
[2017-05-17] MEDS ORDERED: Oxycodone/Acetaminophen 5/325 mg Tab PO PRN (13:45)
--- NOTE | 2017-05-17 13:49 | PCM.SURG1 ---
Surgeon's Initial Post Op Note - Surgeon's Notes Surgeon: Dr. Thompson Vehicle Painter: Milady Clifton PGY2 Type of Anesthesia: General LMA Pre-Operative Diagnosis: ESRD needing HD Operative Findings: small veins Post-Operative Diagnosis: Same Operation Performed: R Arteriovenous fistula Specimen/Specimens Removed: NA Estimated Blood Loss: EBL {In ML}: 10 Blood Products Given: N/A Drains Used: No Drains Post-Op Condition: Good Date of Surgery/Procedure: 05/17/17 Time of Surgery/Procedure: 13:49
[2017-05-17] MEDS ORDERED: HYDROmorphone 0.5 mg/0.5 ml ISec IVP PRN (13:56)
[2017-05-17] MEDS ORDERED: Sodium Chloride 0.9% 1,000 ML IV SCH (14:00)
--- NOTE | 2017-05-17 19:02 | CP.PCM.PN ---
Subjective - Date & Time of Evaluation Date of Evaluation: 05/17/17 Time of Evaluation: 15:00 - Subjective Subjective: SEEN IN BED .. S/P R ARM AVF FEELS OK APPEARS MORE CLEAR AND LUSID THAN BEFORE .. PLASCENCIA HAS HELPED TREMENDESLY ON HD M W F Objective - Vital Signs/Intake and Output Vital Signs (last 24 hours): Temp Pulse Resp BP Pulse Ox 98.2 F 65 20 149/78 97 05/17/17 15:41 05/17/17 15:41 05/17/17 15:41 05/17/17 15:41 05/17/17 15:41 Intake and Output: 05/17/17 05/17/17 06:59 18:59 Intake Total 100 Balance 100 - Medications Medications: Current Medications Acetaminophen (Tylenol 325mg Tab) 650 mg PO Q6 PRN PRN Reason: Headache Last Admin: 05/16/17 17:29 Dose: 650 mg Allopurinol (Zyloprim) 100 mg PO DAILY [facility] Last Admin: 05/17/17 09:34 Dose: 100 mg Doxazosin Mesylate (Cardura) 2 mg PO HS [facility] Last Admin: 05/16/17 22:51 Dose: 2 mg Epoetin David (Procrit) 10,000 unit IV [facility] Stop: 05/20/17 12:01 Last Admin: 05/16/17 12:53 Dose: 10,000 unit Ergocalciferol (Drisdol 50,000 Intl Units Cap) 1 cap PO QWK [facility] Last Admin: 05/13/17 13:14 Dose: 1 cap Ferric Sodium Gluconate Complex (Ferrlecit) 125 mg IVPB [facility] Stop: 05/18/17 09:01 Last Admin: 05/16/17 12:54 Dose: 125 mg Gabapentin (Neurontin) 300 mg PO HS [facility] Last Admin: 05/16/17 22:51 Dose: 300 mg Home Med (Hectorol) 1 tab PO DAILY [facility] Hydromorphone HCl (Dilaudid) 0.5 mg IVP Q4H PRN PRN Reason: Pain, Mild (1-3) Last Admin: 05/14/17 20:19 Dose: 0.5 mg Dextrose/Sodium Chloride (Dextrose 5%/0.45% Ns 1000 Ml) 1,000 mls @ 40 mls/hr IV .Q24H [facility] Last Admin: 05/17/17 09:40 Dose: 40 mls/hr Sodium Chloride (Sodium Chloride 0.9%) 1,000 mls @ 75 mls/hr IV .[id number] [facility] Insulin Detemir (Levemir) 30 unit SC DAILY [facility] Last Admin: 05/17/17 09:35 Dose: Not Given Insulin Human Regular (Novolin R) 0 unit SC ACHS [facility] PRN Reason: Protocol Last Admin: 05/17/17 09:34 Dose: Not Given Metoprolol Succinate (Toprol Xl) 100 mg PO DAILY [facility] Last Admin: 05/17/17 09:34 Dose: 100 mg [id number] Ethyl Esters (Lovaza) 1 gm PO DAILY [facility] Last Admin: 05/17/17 09:34 Dose: 1 gm Oxycodone/Acetaminophen (Percocet 5/325 Mg Tab) 2 tab PO Q4H PRN PRN Reason: Pain, moderate (4-7) Stop: 05/20/17 13:46 - Labs Labs: 05/16/17 07:26 05/17/17 07:18 PT 11.9 SECONDS (9.7-12.2) 05/13/17 13:53 INR 1.0 05/13/17 13:53 APTT 29 SECONDS (21-34) 05/13/17 00:22 Assessment and Plan - Assessment and Plan (Free Text) Assessment: ESRD ON HD .. TO BE C/O ANEMIA OF CKD .. ON VENOFER AND EPO MULTIPLE CO MORBIDITIES P : C/O CURRENT CARE C/O PRESENT MEDS AWAITING OUT PT HD SPOT CASE D/W PMD , DR ZHANG
--- NOTE | 2017-05-17 23:32 | PN ---
DATE: 05/17/2017 SUBJECTIVE: The patient with no new complaints. More alert and awake than yesterday. Scheduled for AV fistula today. PHYSICAL EXAMINATION: GENERAL: Elderly female in no acute distress. VITAL SIGNS: Blood pressure 149/78, pulse 65, respirations 20, temperature 98.2 degrees Fahrenheit, and O2 saturations 97% on room air. HEENT: Pupils equal, round, and reacting to light and accommodation. Extraocular muscles intact. No icterus. Positive pallor. No oral thrush. No pharyngeal congestion. NECK: Supple. No JVD. LUNGS: Bilateral vesicular breath sounds. No wheezing. No rhonchi. CARDIOVASCULAR: S1 and S2 present, regular. ABDOMEN: Soft and nontender. Bowel sounds present. No guarding. No rigidity. No rebound tenderness noted. CENTRAL NERVOUS SYSTEM: Alert, awake, and oriented x3. No focal deficits noted. EXTREMITIES: No edema. Palpable peripheral pulses. MEDICATIONS: Include Tylenol as needed, allopurinol 100 mg daily, Cardura 2 mg p.o. at bedtime, Epogen 10,000 units, Hectorol 1 capsule once a week, Ferrlecit 125 mg IV Sunday, Sunday, and Sunday, Neurontin 300 mg p.o. at bedtime, Dilaudid 0.5 mg as needed, Levemir 30 units subcutaneous daily, metoprolol 100 mg p.o. daily, Lovaza, and Percocet as needed. LABORATORY DATA: Sodium 140, potassium 3.8, chloride 99, bicarbonate 31, BUN 36, creatinine 2.9, glucose 114, and calcium 8.3. ASSESSMENT AND PLAN: Elderly female with hypertension; diabetes mellitus; hyperlipidemia; end-stage renal disease, on hemodialysis; anemia; chronic kidney disease, status post hemodialysis yesterday for arteriovenous fistula placement today. The patient is receiving IV Ferrlecit during the dialysis as per renal. The patient is for possible hemodialysis tomorrow. Discussed with medical social consultant and case management for a possible outpatient dialysis center placement. We will plan discharging the patient home when outpatient dialysis placement done by medical social consultant. Follow up with the renal. Follow up with medical social consultant. Krupa Mar MD
--- NOTE | 2017-05-18 01:41 | OP ---
PROCEDURE DATE: 05/17/2017 PREOPERATIVE DIAGNOSIS: Renal failure. POSTOPERATIVE DIAGNOSIS: Renal failure. PROCEDURE CARRIED OUT: Alexus fistula, right wrist. SURGEON: Luis Thompson Jr., MD CIGAR PACKING EXAMINER: Dr. Clifton. ANESTHESIA ADMINISTERED BY: Luis Enrique Chao. TYPE OF ANESTHESIA: General. INDICATIONS: The patient is an elderly woman with renal insufficiency, recently had a catheter inserted. Preoperative vein mapping demonstrated much bigger diameter veins on the right side than on the left; however, despite incantations against it, the right arm had been used extensively for intravenous access. The best vein in the arm was the cephalic vein at the elbow, but there is a small clot seen on immediate preoperative vein mapping, so we discarded the use of this vein and instead went to the wrist, where there is a decent radial artery and a decent cephalic vein. We completed the anastomosis, but the vessels are quite small and I am concerned both about the short and log-term patency of this vessel; nonetheless, it appeared to work well. DESCRIPTION OF PROCEDURE: The patient was given general anesthesia and intravenous antibiotics. The radial artery and the adjacent cephalic vein were dissected free and end-to-side anastomosis was created using loop magnification and heparin anticoagulation. At the end of this, there was excellent flow through the fistula and it dilated, but more cephalad about an inch above it, it appeared to go into spasm. It responded to the use of dilatation, etc., but I am concerned about this area. Nonetheless, the wound was then closed with Monocryl and Vicryl sutures and nylon sutures on the skin. Blood loss for the procedure was less than 20 mL. Operation carried out is Alexus fistula, right arm. Luis Thompson Jr., MD cc: MD Addis Ramon MD
--- NOTE | 2017-05-18 07:26 | CP.PCM.PN ---
Subjective - Date & Time of Evaluation Date of Evaluation: 05/18/17 Time of Evaluation: 07:21 - Subjective Subjective: Surgery PT s&e. Pt underwent R AVF yesterday. Tolerated it well. NAEON. Denies UE weakness/F/C/N/V/D/CP/SOB/bleeding. Has Full ROM Objective - Vital Signs/Intake and Output Vital Signs (last 24 hours): Temp Pulse Resp BP Pulse Ox 98.2 F 79 20 123/73 97 05/17/17 15:41 05/18/17 03:56 05/17/17 22:00 05/17/17 22:00 05/17/17 15:41 - Medications Medications: Current Medications Acetaminophen (Tylenol 325mg Tab) 650 mg PO Q6 PRN PRN Reason: Headache Last Admin: 05/16/17 17:29 Dose: 650 mg Allopurinol (Zyloprim) 100 mg PO DAILY [facility] Last Admin: 05/17/17 09:34 Dose: 100 mg Doxazosin Mesylate (Cardura) 2 mg PO [facility] Last Admin: 05/17/17 22:48 Dose: 2 mg Epoetin David (Procrit) 10,000 unit IV [facility] Stop: 05/20/17 12:01 Last Admin: 05/16/17 12:53 Dose: 10,000 unit Ergocalciferol (Drisdol 50,000 Intl Units Cap) 1 cap PO QWK [facility] Last Admin: 05/13/17 13:14 Dose: 1 cap Ferric Sodium Gluconate Complex (Ferrlecit) 125 mg IVPB [facility] Stop: 05/18/17 09:01 Last Admin: 05/16/17 12:54 Dose: 125 mg Gabapentin (Neurontin) 300 mg PO [facility] Last Admin: 05/17/17 22:49 Dose: 300 mg Home Med (Hectorol) 1 tab PO DAILY [facility] Hydromorphone HCl (Dilaudid) 0.5 mg IVP Q4H PRN PRN Reason: Pain, Mild (1-3) Last Admin: 05/14/17 20:19 Dose: 0.5 mg Dextrose/Sodium Chloride (Dextrose 5%/0.45% Ns 1000 Ml) 1,000 mls @ 40 mls/hr IV .Q24H [facility] Last Admin: 05/17/17 09:40 Dose: 40 mls/hr Sodium Chloride (Sodium Chloride 0.9%) 1,000 mls @ 75 mls/hr IV .[id number] [facility] Last Admin: 05/17/17 22:49 Dose: 75 mls/hr Insulin Detemir (Levemir) 30 unit SC DAILY [facility] Last Admin: 05/17/17 09:35 Dose: Not Given Insulin Human Regular (Novolin R) 0 unit SC ACHS [facility] PRN Reason: Protocol Last Admin: 05/17/17 22:33 Dose: Not Given Metoprolol Succinate (Toprol Xl) 100 mg PO DAILY [facility] Last Admin: 05/17/17 09:34 Dose: 100 mg Xyvlr-[id number] Ethyl Esters (Lovaza) 1 gm PO DAILY [facility] Last Admin: 05/17/17 09:34 Dose: 1 gm Oxycodone/Acetaminophen (Percocet 5/325 Mg Tab) 2 tab PO Q4H PRN PRN Reason: Pain, moderate (4-7) Stop: 05/20/17 13:46 - Labs Labs: 05/16/17 07:26 05/17/17 07:18 PT 11.9 SECONDS (9.7-12.2) 05/13/17 13:53 INR 1.0 05/13/17 13:53 APTT 29 SECONDS (21-34) 05/13/17 00:22 - Constitutional Appears: No Acute Distress - Head Exam Head Exam: ATRAUMATIC, NORMAL INSPECTION, NORMOCEPHALIC - Eye Exam Eye Exam: EOMI, Normal appearance, PERRL Pupil Exam: NORMAL ACCOMODATION, PERRL - ENT Exam ENT Exam: Mucous Membranes Moist, Normal Exam - Neck Exam Neck Exam: Full ROM, Normal Inspection. absent: Lymphadenopathy - Cardiovascular Exam Cardiovascular Exam: REGULAR RHYTHM, +S1, +S2. absent: Murmur - GI/Abdominal Exam GI & Abdominal Exam: Soft, Normal Bowel Sounds. absent: Tenderness - Extremities Exam Extremities Exam: Full ROM, Normal Capillary Refill. absent: Joint Swelling, Pedal Edema Additional comments: Dressing C/D/I. No bleeding. some bruits noted. Distal pulses. - Back Exam Back Exam: NORMAL INSPECTION - Neurological Exam Neurological Exam: Alert, Awake, CN II-XII Intact, Normal Gait, Oriented x3 - Psychiatric Exam Psychiatric exam: Normal Affect, Normal Mood - Skin Skin Exam: Dry, Intact, Normal Color, Warm. absent: Erythema, Mottled Assessment and Plan - Assessment and Plan (Free Text) Assessment: POD 1 s/p R AVF Some bruits, no bleeding, distal pulses -Ok to use Permacath -Await fistula to mature for 2 month Will POLO Thompson
[2017-05-18] MEDS: (Novolin R) Insulin Human Regular 100 units/ml vial SC SCH ×2 (08:30→12:30)
[2017-05-18 09:01] LABS: BASO # 0.1 K/uL (0.0-0.2); BASO % 0.9 % (0.0-2.0); EOS # 0.2 K/uL (0.0-0.7); HEMATOCRIT 25.6 % (34.0-47.0); LYMPH # 1.1 K/uL (1.0-4.3); LYMPH % 17.1 % (20.0-40.0); MEAN CELL VOLUME 90.4 fL (81.0-99.0); MEAN CORPUSCULAR HEMOGLOBIN 28.6 pg (27.0-31.0); MEAN CORPUSCULAR HGB CONC 31.6 g/dL (33.0-37.0); MEAN PLATELET VOLUME 11.2 fL (7.2-11.7); MONO # 0.8 K/uL (0.0-0.8); MONO % 12.8 % (0.0-10.0); NRBC % 0.4 % (0.0-2.0); RED CELL DISTRIBUTION WIDTH 15.5 % (11.5-14.5); WHITE BLOOD COUNT 6.6 K/uL (4.8-10.8)
[2017-05-18 09:21] LABS: BILIRUBIN,TOTAL 0.4 mg/dL (0.2-1.3); CALCIUM 8.2 mg/dl (8.6-10.4); POTASSIUM 3.8 mmol/L (3.6-5.2); TOTAL PROTEIN 6.6 g/dL (6.3-8.3)
[2017-05-18] MEDS: Metoprolol Succinate 100 mg XL Tab PO SCH (09:21)
[2017-05-18] MEDS: Insulin Detemir 100 units/ml Vial (Levemir) SC SCH (09:22)
[2017-05-18] MEDS: Omega-3-Acid Ethyl Esters 1 GM Cap PO SCH (09:27)
[2017-05-18] MEDS: Dextrose 5%/0.45% NS 1,000 ML IV SCH (09:54)
--- NOTE | 2017-05-18 10:55 | CP.PCM.PN ---
Subjective - Date & Time of Evaluation Date of Evaluation: 05/18/17 Time of Evaluation: 10:45 - Subjective Subjective: Discharge summary dictated #[id number] Objective - Vital Signs/Intake and Output Vital Signs (last 24 hours): Temp Pulse Resp BP Pulse Ox 99.2 F 75 20 120/67 94 L 05/18/17 08:57 05/18/17 08:57 05/18/17 08:57 05/18/17 08:57 05/18/17 08:57 - Medications Medications: Current Medications Acetaminophen (Tylenol 325mg Tab) 650 mg PO Q6 PRN PRN Reason: Headache Last Admin: 05/16/17 17:29 Dose: 650 mg Allopurinol (Zyloprim) 100 mg PO DAILY [facility] Last Admin: 05/18/17 09:22 Dose: 100 mg Doxazosin Mesylate (Cardura) 2 mg PO HS [facility] Last Admin: 05/17/17 22:48 Dose: 2 mg Epoetin David (Procrit) 10,000 unit IV MWF [facility] Stop: 05/20/17 12:01 Last Admin: 05/16/17 12:53 Dose: 10,000 unit Ergocalciferol (Drisdol 50,000 Intl Units Cap) 1 cap PO QWK [facility] Last Admin: 05/13/17 13:14 Dose: 1 cap Gabapentin (Neurontin) 300 mg PO HS [facility] Last Admin: 05/17/17 22:49 Dose: 300 mg Home Med (Hectorol) 1 tab PO DAILY [facility] Hydromorphone HCl (Dilaudid) 0.5 mg IVP Q4H PRN PRN Reason: Pain, Mild (1-3) Last Admin: 05/14/17 20:19 Dose: 0.5 mg Dextrose/Sodium Chloride (Dextrose 5%/0.45% Ns 1000 Ml) 1,000 mls @ 40 mls/hr IV .Q24H [facility] Last Admin: 05/18/17 09:54 Dose: Not Given Sodium Chloride (Sodium Chloride 0.9%) 1,000 mls @ 75 mls/hr IV .[id number] [facility] Last Admin: 05/17/17 22:49 Dose: 75 mls/hr Insulin Detemir (Levemir) 30 unit SC DAILY [facility] Last Admin: 05/18/17 09:22 Dose: 30 unit Insulin Human Regular (Novolin R) 0 unit SC ACHS [facility] PRN Reason: Protocol Last Admin: 05/17/17 22:33 Dose: Not Given Metoprolol Succinate (Toprol Xl) 100 mg PO DAILY [facility] Last Admin: 05/18/17 09:21 Dose: 100 mg Ckifh-1-Jexw Ethyl Esters (Lovaza) 1 gm PO DAILY [facility] Last Admin: 05/18/17 09:27 Dose: 1 gm Oxycodone/Acetaminophen (Percocet 5/325 Mg Tab) 2 tab PO Q4H PRN PRN Reason: Pain, moderate (4-7) Stop: 05/20/17 13:46 - Labs Labs: 05/18/17 08:44 05/18/17 08:44 PT 11.9 SECONDS (9.7-12.2) 05/13/17 13:53 INR 1.0 05/13/17 13:53 APTT 29 SECONDS (21-34) 05/13/17 00:22
[2017-05-18 15:42] VITALS: TEMP 98.8
[2017-05-18 18:57] VITALS: BP 150/70; PULSE 74; RESP 18; O2SAT 98
[2017-05-18] MEDS: Epoetin Alfa 10,000 unit/ml Dialysis IV SCH (19:22)
--- NOTE | 2017-05-19 20:12 | DS ---
DISCHARGE DIAGNOSIS: Hypertension, hyperlipidemia, diabetes mellitus, end-stage renal disease on hemodialysis, anemia of chronic kidney disease and iron deficiency anemia, gout, diabetic neuropathy. HISTORY OF PRESENT ILLNESS: Ms. Valenzuela is a 72-year-old female with past medical history of hypertension; hyperlipidemia; diabetes mellitus; anemia; end-stage renal disease, not on dialysis; admitted with altered mental status; lethargy; generalized weakness; fatigue; and the patient was found to be in the ED and the patient is being admitted. Today, the patient is feeling much better. Denies any headache, dizziness. Denies any chest pressure, shortness of breath, or wheezing. Denies any nausea, vomiting, abdominal pain, diarrhea, or constipation. Denies any urinary complaints. Denies any leg pains or leg swelling. Denies any other neurologic symptoms. PHYSICAL EXAMINATION: GENERAL: Elderly female lying in bed, in no acute distress. VITAL SIGNS: Blood pressure 120/67, pulse 74, respiration 20, temperature 99.2 degrees Fahrenheit, O2 sat is 94% on room air. HEENT: Pupils are equal, round, and reacting to light and accommodation. Extraocular muscles are intact. No icterus. Positive pallor. No oral thrush. No pharyngeal congestion. NECK: Supple. No JVD. LUNGS: Bilateral vesicular breath sounds. No wheezing. No rhonchi. CVS: S1 and S2 present, regular. ABDOMEN: Soft and nontender. Bowel sounds present. No guarding. No rigidity. No rebound tenderness noted. MANAGER INSTALLATION: Alert, awake and oriented x3. No focal deficits noted. EXTREMITIES: No edema. Palpable peripheral pulses. LABORATORY DATA: Labs from this morning WBC is 6.6, hemoglobin 8.1, hematocrit 25.6, platelets 180. Sodium 140, potassium 3.8, chloride 100, bicarbonate 27, BUN 36, creatinine 3.5, glucose 78, calcium 8.2. Other LFTs within normal limits. Blood culture x2 negative. HOSPITAL COURSE: The patient was admitted to the hospital. The patient received treatment for hyperkalemia and evaluated by renal, recommended dialysis. The patient underwent dialysis catheter placement, Perm-A-cath by vascular surgery, underwent first hemodialysis. The patient tolerated the procedure. The patient underwent fistula placement in the right yesterday. The patient is receiving third treatment of hemodialysis for her anemia. The patient was given IV Ferrlecit by renal. Her H&H is still low, but labor conciliator did not wanted to give any blood transfusion in view of her possible transplant in the future. The patient is receiving only IV Ferrlecit. If the patient is hemodynamically stable, cleared by renal and high school social science teacher, we will plan discharging the patient home after the dialysis. Discussed the same with the patient. The patient's daughter at bedside. Addressed the patient to be sent to the ED if any symptoms reoccur. CONDITION UPON DISCHARGE: The patient is alert, awake, and oriented x3 and hemodynamically stable. DISCHARGE INSTRUCTIONS: Follow up with PMD, follow up with renal, outpatient hemodialysis placement. DIET: Renal diet. ACTIVITY: As tolerated. DISCHARGE MEDICATIONS: Allopurinol 100 mg daily, Cardura 2 mg daily, Levemir 30 units subcutaneous daily, metoprolol 100 mg daily, fish oil 1 g daily. Please also refer to discharge medication reconciliation at the time of discharge. Krupa Mar MD
== END 2017-05-18 20:14 | disposition home or self-care (01) | DRG 264 ==
LOC: C.ER 22:49 → C.6T 05-13 01:38 → UNDODISIN 05-18 19:48
PROVIDERS: ADMIT Internal Medicine; ATTEND Internal Medicine
PROC: 05HM33Z Insertion of Infusion Device into Right Internal Jugular Vein, Percutaneous Approach (ICD-10-PCS; 2017-05-14)
PROC: 5A1D60Z (ICD-10-PCS; 2017-05-16)
PROC: 031B0ZF Bypass Right Radial Artery to Lower Arm Vein, Open Approach (ICD-10-PCS; principal; 2017-05-17 12:00)
DX: I13.2 Hypertensive heart and chronic kidney disease with heart failure and with stage 5 chronic kidney disease, or end stage renal disease (principal); N18.6 End stage renal disease; E11.22 Type 2 diabetes mellitus with diabetic chronic kidney disease; E87.5 Hyperkalemia; R47.81 Slurred speech; I50.9 Heart failure, unspecified; Z99.2 Dependence on renal dialysis; Z79.4 Long term (current) use of insulin; E78.5 Hyperlipidemia, unspecified; M10.9 Gout, unspecified; D63.1 Anemia in chronic kidney disease; M54.9 Dorsalgia, unspecified; G89.29 Other chronic pain; E11.40 Type 2 diabetes mellitus with diabetic neuropathy, unspecified

== ENCOUNTER 2017-05-31 06:16 | Day surgery (SDC) | payer MEDICARE ==
[2017-05-31 07:46] LABS: POTASSIUM 3.3 mmol/L (3.6-5.2)
[2017-05-31 07:49] LABS: CALCIUM 8.4 mg/dl (8.6-10.4)
[2017-05-31] MEDS ORDERED: HEPARIN-NS 5,000 UNITS/500 ML 5,000 UNIT/500 ML BAG IV ONE (10:12)
[2017-05-31] MEDS ORDERED: ceFAZolin IV 2 gm in Dextrose 1 GM/50 ML BAG IVPB ONE (10:13)
[2017-05-31] MEDS ORDERED: Sodium Chloride 0.9% 1,000 ML IV ONE (10:15)
[2017-05-31] MEDS ORDERED: Propofol 10 mg/ml Inj (20 ML) ONE (10:20)
[2017-05-31] MEDS ORDERED: HYDROmorphone 0.5 mg/0.5 ml ISec IVP PRN (11:59)
--- NOTE | 2017-05-31 12:15 | PCM.SURG1 ---
Surgeon's Initial Post Op Note - Surgeon's Notes Surgeon: Dr. Thompson Munitions Handler Supervisor: Milady Clifton PGY2 Type of Anesthesia: General LMA Pre-Operative Diagnosis: End stage renal disease needing hemodialysis Operative Findings: patent cephalic vein Post-Operative Diagnosis: Same Operation Performed: creation of brachio-cephalic arterio venous fistula Right arm antecubital. Specimen/Specimens Removed: None Estimated Blood Loss: EBL {In ML}: 10 Blood Products Given: N/A Drains Used: No Drains Post-Op Condition: Good Date of Surgery/Procedure: 05/31/17 Time of Surgery/Procedure: 12:15
[2017-05-31 13:56] VITALS: RESP 18; O2SAT 96
[2017-05-31] MEDS ORDERED: Oxycodone/Acetaminophen 5/325 mg Tab PO PRN (15:00)
[2017-05-31 17:32] VITALS: BP 95/58; PULSE 82; TEMP 98
--- NOTE | 2017-06-01 08:31 | OP ---
PROCEDURE DATE: 05/31/2017 PREOPERATIVE DIAGNOSIS: Renal failure. POSTOPERATIVE DIAGNOSIS: Renal failure. PROCEDURE: Brachiocephalic fistula, right elbow. SURGEON: Luis Thompson Jr., MD MOLDER: Dr. Michael Clifton. ANESTHESIOLOGIST: GABIRELLE Oh The patient is an old woman with renal insufficiency, who was recently started on dialysis. OPERATIVE FINDINGS: Recreated spatulated anastomosis between the end of the cephalic vein and the adjacent brachial artery. This was carried out right at the proximal portion of the radial artery, ulnar artery division. So the anastomosis was carried over this. At completion of the operation, we had a weakly palpable pulse in the wrist with a good flow to the fistula. The anastomosis was carried out using loop magnification and heparin anticoagulation, which was not reversed at the end. Blood loss of procedure is 10 mL. Skin was closed with nylon sutures. Operation carried out, brachiocephalic fistula, right elbow. Luis Thompson Jr., MD CC:
== END 2017-05-31 15:45 | disposition home or self-care (01) ==
LOC: C.SDS 06:16
PROVIDERS: ATTEND Surgery Vascular Surgery
DX: N18.6 End stage renal disease (principal)
CPT/HCPCS: 36415; 36821; 80048; 82948; 86850; 86900; J0690; J1644; J2704; J3010; J7030; J7040

== ENCOUNTER 2017-07-20 10:37 | Day surgery (SDC) | payer MEDICARE ==
[2017-07-20 11:13] VITALS: BMI 32.9
[2017-07-20 11:53] LABS: BASO # 0.1 K/uL (0.0-0.2); BASO % 1.3 % (0.0-2.0); EOS # 0.3 K/uL (0.0-0.7); EOS % 5.4 % (0.0-4.0); HEMATOCRIT 39.4 % (34.0-47.0); LYMPH # 1.7 K/uL (1.0-4.3); LYMPH % 29.7 % (20.0-40.0); MEAN CELL VOLUME 91.1 fL (81.0-99.0); MEAN CORPUSCULAR HEMOGLOBIN 28.5 pg (27.0-31.0); MEAN CORPUSCULAR HGB CONC 31.3 g/dL (33.0-37.0); MONO # 0.6 K/uL (0.0-0.8); MONO % 11.3 % (0.0-10.0); NRBC % 0.6 % (0.0-2.0); RED CELL DISTRIBUTION WIDTH 17.6 % (11.5-14.5); WHITE BLOOD COUNT 5.7 K/uL (4.8-10.8)
[2017-07-20 12:32] LABS: CALCIUM 8.2 mg/dl (8.6-10.4)
[2017-07-20 12:35] LABS: POTASSIUM 5.3 mmol/L (3.6-5.2)
[2017-07-20] MEDS ORDERED: ceFAZolin IV 1 gm in Dextrose 1 GM/50 ML BAG IVPB ONE (13:03)
[2017-07-20] MEDS ORDERED: HEPARIN-NS 5,000 UNITS/500 ML 5,000 UNIT/500 ML BAG IV ONE (13:04)
[2017-07-20] MEDS ORDERED: Lidocaine 1% Inj (20ml) ONE (13:04)
--- NOTE | 2017-07-20 13:17 | RAD ---
HISTORY: STAT O.R. CXR DONE IN [facility]. COMPARISON: 05/14/2017 TECHNIQUE: Chest PA and lateral FINDINGS: LUNGS: No active pulmonary disease. PLEURA: No significant pleural effusion identified. No pneumothorax apparent. CARDIOVASCULAR: Mild cardiomegaly. Right tunneled central venous dialysis catheter. OSSEOUS STRUCTURES: No significant abnormalities. VISUALIZED UPPER ABDOMEN: Normal. OTHER FINDINGS: None. IMPRESSION: No active disease.
[2017-07-20] MEDS ORDERED: Lactated Ringer's 1,000 ML IV ONE (13:55)
[2017-07-20] MEDS ORDERED: Midazolam 2 MG/2 ML VIAL ONE (14:13)
[2017-07-20] MEDS ORDERED: Oxycodone/Acetaminophen 5/325 mg Tab PO PRN (14:55)
--- NOTE | 2017-07-20 14:57 | PCM.SURG1 ---
Surgeon's Initial Post Op Note - Surgeon's Notes Surgeon: Dr. Thompson Quality Technician: Jenny PGY1 Type of Anesthesia: IV Sedation Pre-Operative Diagnosis: ESRD on HD Operative Findings: see operative report Post-Operative Diagnosis: ESRD on HD Operation Performed: Permacath removal and insertion of new Permacath Specimen/Specimens Removed: N/A Estimated Blood Loss: EBL {In ML}: 15 Blood Products Given: N/A Drains Used: No Drains Post-Op Condition: Good Date of Surgery/Procedure: 07/20/17 Time of Surgery/Procedure: 14:00
--- NOTE | 2017-07-20 15:36 | RAD ---
HISTORY: s/p permacath COMPARISON: 07/20/2017 at 12 p.m. FINDINGS: LUNGS: New patchy opacity throughout the right lung and at left base. Possibilities include congestive heart failure or fluid overload. Rule out bilateral pneumonia. Right tunneled central venous dialysis catheter. PLEURA: No pleural effusion or pneumothorax. CARDIOVASCULAR: Congestive change noted. Mild cardiomegaly. OSSEOUS STRUCTURES: No significant abnormalities. VISUALIZED UPPER ABDOMEN: Normal. OTHER FINDINGS: None. IMPRESSION: Patchy opacity throughout right lung and left base with congestive change. Concerning for pulmonary edema or fluid overload. Right tunneled central venous dialysis catheter.
[2017-07-20 15:53] VITALS: O2SAT 100
[2017-07-20 16:20] VITALS: PULSE 71
[2017-07-20 17:02] VITALS: BP 139/52; RESP 20; TEMP 98
--- NOTE | 2017-07-21 00:03 | OP ---
PROCEDURE DATE: 07/20/2017 PREOPERATIVE DIAGNOSES: Renal failure, poorly functioning catheter. POSTOPERATIVE DIAGNOSES: Renal failure, poorly functioning catheter. PROCEDURE CARRIED OUT: Removal of PermCath, right jugular vein and placement of a new one, wire exchange. SURGEON: Luis Thompson Jr., MD MANAGER WOMEN: None. ANESTHESIA ADMINISTERED BY: Alisa Oh CRNA INDICATIONS: Patient is an elderly woman on dialysis fistula now which has not matured adequately for dialysis. OPERATIVE FINDINGS: The old catheter was removed. It was grasped with a clamp. After an incision was made in the neck and after the administration of antibiotics, the skin prep had been carried out. A wire was placed through the residual catheter. The old catheter removed. The sheath and dilator passed over this and new catheter positioned with the tip in superior vena cava - right atrial junction. This was flushed with heparinized saline with good return and was secured to the skin. Blood loss from the procedure was less than 10 mL. Operation carried out is removal and replacement of PermCath right jugular vein with a wire exchange. Luis Thompson Jr., MD
--- NOTE | 2017-07-21 08:01 | RAD ---
PROCEDURE: Intraoperative Fluoroscopy. HISTORY: RENAL FAILURE FINDINGS: Fluoroscopic assistance was provided for right central venous catheter placement. Please refer to the operative report from
== END 2017-07-20 17:06 | disposition home or self-care (01) ==
LOC: C.OPSURG 10:37
PROVIDERS: ATTEND Surgery Vascular Surgery
DX: N18.6 End stage renal disease (principal); Z99.2 Dependence on renal dialysis
CPT/HCPCS: 36415; 36561; 71010; 71020; 80048; 85025; 85610; 85730; C1750; J0690; J1644; J2250; J3010; J7040; J7120

== ENCOUNTER 2017-09-24 10:49 | Inpatient (IN) | payer MEDICARE ==
[2017-09-24 10:49] VITALS: BMI 32.9
--- NOTE | 2017-09-24 12:40 | C.PDOC ---
History Of Present Illness 72yo female with past medical history of end stage renal disease, currently on dialysis, hypertension, comes in with complaints of vomiting, abdominal pain and dizziness described as lightheadedness and vertigo for the past couple days. Patient's last dialysis was 4 days ago. She denies any fever, chills, chest pain, shortness of breath. She has no other medical complaints. Time Seen by Provider: 09/24/17 12:03 Chief Complaint (Nursing): Dizziness/Lightheaded History Per: Patient History/Exam Limitations: no limitations Onset/Duration Of Symptoms: Days Current Symptoms Are (Timing): Still Present Location Of Pain/Discomfort: Diffuse Associated Symptoms: Nausea, Vomiting, Other (dizziness). denies: Fever, Chills , Chest Pain Abnormal Vaginal Bleeding: No Past Medical History Reviewed: Historical Data, Nursing Documentation, Vital Signs Vital Signs: Last Vital Signs Temp 98.6 F 09/28/17 08:48 Pulse 93 H 09/28/17 08:48 Resp 20 09/28/17 08:48 BP 99/68 L 09/28/17 08:48 Pulse Ox 100 09/28/17 08:48 - Medical History PMH: Anemia (IRON INFUSION TREATMENTS), CHF (Questionable on xray. Pt denies), HTN, Peripheral Edema ( Chronic), Chronic Kidney Disease Surgical History: No Surg Hx - [facility] Procedures BYPASS RIGHT RADIAL ARTERY TO LOWER ARM VEIN, OPEN APPROACH (05/13/17) INSERT INFUSION DEV IN R INT JUGULAR VEIN, PERC (05/13/17) PERFORMANCE OF URINARY FILTRATION, MULTIPLE (05/13/17) Family History: States: No Known Family Hx, Unknown Family Hx - Social History Hx Alcohol Use: No Hx Substance Use: No - Immunization History Hx Tetanus Toxoid Vaccination: No Hx Influenza Vaccination: No Hx Pneumococcal Vaccination: No Review Of Systems Except As Marked, All Systems Reviewed And Found Negative. Constitutional: Negative for: Fever, Chills Cardiovascular: Positive for: Light Headedness. Negative for: Chest Pain Respiratory: Negative for: Shortness of Breath Gastrointestinal: Positive for: Nausea, Vomiting, Abdominal Pain Neurological: Positive for: Dizziness (vertigo) Physical Exam - Physical Exam Appears: Non-toxic Skin: Normal Color, Warm, Dry Head: Atraumatic, Normacephalic Eye(s): bilateral: Normal Inspection, PERRL, EOMI Oral Mucosa: Moist Neck: Normal ROM, Supple Chest: Symmetrical Cardiovascular: Rhythm Regular Respiratory: Normal Breath Sounds Gastrointestinal/Abdominal: Soft, Tenderness (epigastric) Neurological/Psych: Oriented x3, Normal Speech ED Course And Treatment - Laboratory Results Result Diagrams: 09/28/17 07:14 09/28/17 07:14 O2 Sat by Pulse Oximetry: 100 (RA) Pulse Ox Interpretation: Normal Medical Decision Making Medical Decision Making: Impression: Abdominal pain with vomiting Plan: -- CT Abdomen w/ IV COntrast 12:[address] 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 He will arrange for hemodialysis later. -- CT head w/o contrast -- Labs -- Meclizine 25 mg PO -- Zofran 4mg IVP -- Protonix 40 mg IVP surgery called. bedside. dr killian accepts. Disposition - Disposition Disposition: HOME/ ROUTINE Disposition Time: 06:00 Condition: FAIR - Clinical Impression Clinical Impression: Dizziness, Appendicitis - Scribe Statement The provider has reviewed the documentation as recorded by the Silvana Arceo Provider Attestation: All medical record entries made by the Juan Carlosibe were at my direction and personally dictated by me. I have reviewed the chart and agree that the record accurately reflects my personal performance of the history, physical exam, medical decision making, and the department course for this patient. I have also personally directed, reviewed, and agree with the discharge instructions and disposition. Decision To Admit - Pt Status Changed To: Hospital Disposition Of: Inpatient - Admit Certification Admit to Inpatient:: After my assessment, the patient will require hospitalization for at least two midnights. This is because of the severity of symptoms shown, intensity of services needed, and/or the medical risk in this patient being treated as an outpatient. - InPatient: Physician Admission Certification:: needs or - . Bed Request Type: Regular Admitting Physician: Isael Killian Jr. Patient Diagnosis: Dizziness, Appendicitis
--- NOTE | 2017-09-24 13:05 | RAD ---
Chest x-ray single frontal view History: Chest pain. Comparison: None available. Findings: Mild venous congestion. Enlarged ectatic aorta. Mild cardiomegaly. Right-sided venous catheter tip extending into the right atrium. Degenerative changes in the spine and shoulders. Impression: Mild venous congestion. Enlarged ectatic aorta. Mild cardiomegaly. Right-sided venous catheter tip extending into the right atrium.
[2017-09-24 13:30] LABS: BASO # 0.1 K/uL (0.0-0.2); BASO % 1.2 % (0.0-2.0); EOS # 0.2 K/uL (0.0-0.7); EOS % 3.3 % (0.0-4.0); LYMPH # 1.7 K/uL (1.0-4.3); LYMPH % 25.6 % (20.0-40.0); MEAN CORPUSCULAR HEMOGLOBIN 27.5 pg (27.0-31.0); MEAN CORPUSCULAR HGB CONC 31.6 g/dL (33.0-37.0); MEAN PLATELET VOLUME 11.1 fL (7.2-11.7); MONO # 0.6 K/uL (0.0-0.8); MONO % 8.5 % (0.0-10.0); NEUT # 4.1 K/uL (1.8-7.0); NEUT % 61.4 % (50.0-75.0); NRBC % 0.1 % (0.0-2.0); RBC 3.7 Mil/uL (3.80-5.20); RED CELL DISTRIBUTION WIDTH 19.7 % (11.5-14.5); WHITE BLOOD COUNT 6.7 K/uL (4.8-10.8)
[2017-09-24 13:31] LABS: HEMOGLOBIN 10.2 g/dL (11.0-16.0); MEAN CELL VOLUME 87.1 fL (81.0-99.0)
[2017-09-24 13:34] LABS: PROTHROMBIN TIME 11.1 SECONDS (9.7-12.2)
[2017-09-24 13:38] LABS: ALBUMIN 4.1 g/dL (3.5-5.0); ALT/SGPT 26 U/L (9-52); AST/SGOT 20 U/L (14-36); BLOOD UREA NITROGEN 34 mg/dL (7-17); CALCIUM 8.9 mg/dl (8.6-10.4); GFR AFRICAN-AMERICAN 8; GFR NON-AFRICAN AMERICAN 7; LIPASE 272 U/L (23-300)
[2017-09-24] MEDS ORDERED: Iohexol 350mg/ml 100 ML ONE (15:46)
--- NOTE | 2017-09-24 16:31 | CT ---
PROCEDURE: CT HEAD WITHOUT CONTRAST. HISTORY: dizziness COMPARISON: None available. TECHNIQUE: Axial computed tomography images were obtained through the head/brain without intravenous contrast. Radiation dose: Total exam DLP = 1059.79 mGy-cm. This CT exam was performed using one or more of the following dose reduction techniques: Automated exposure control, adjustment of the mA and/or kV according to patient size, and/or use of iterative reconstruction technique. FINDINGS: HEMORRHAGE: No intracranial hemorrhage. BRAIN: No mass effect or edema. No significant atrophy. Old small bilateral basal ganglia lacunar infarcts. Old right thalamic lacunar infarct. No evidence of acute infarct. Mild periventricular white matter lucency consistent with chronic microvascular ischemic change. VENTRICLES: Unremarkable. No hydrocephalus. CALVARIUM: Unremarkable. PARANASAL SINUSES: Unremarkable as visualized. No significant inflammatory changes. MASTOID AIR CELLS: Unremarkable as visualized. No inflammatory changes. OTHER FINDINGS: None. IMPRESSION: No intracranial mass, hemorrhage or evidence of acute infarct. Small old bilateral basal ganglia and right thalamic lacunar infarcts.
--- NOTE | 2017-09-24 17:14 | CT ---
PROCEDURE: CT Abdomen and Pelvis with contrast HISTORY: upper abd pain COMPARISON: None. TECHNIQUE: Contrast dose: 100 mL Omnipaque 300 Radiation dose: Total exam DLP = 1083.68 mGy-cm. This CT exam was performed using one or more of the following dose reduction techniques: Automated exposure control, adjustment of the mA and/or kV according to patient size, and/or use of iterative reconstruction technique. FINDINGS: LOWER THORAX: Unremarkable. LIVER: Unremarkable. No gross lesion or ductal dilatation. GALLBLADDER AND BILE DUCTS: Multiple tiny gallstones are seen. The gallbladder wall is mildly thickened and somewhat unsharp in appearance suggesting possible inflammation. Evaluation with ultrasound examination is suggested if clinically warranted. No pericholecystic fluid is appreciated. PANCREAS: Unremarkable. No gross lesion or ductal dilatation. SPLEEN: Unremarkable. ADRENALS: Unremarkable. No mass. KIDNEYS AND URETERS: Nonspecific 10 mm low-attenuation mass in the mid right kidney. No other renal mass. No calculus or hydronephrosis. VASCULATURE: Unremarkable. No aortic aneurysm. BOWEL: Thickening of the appendix is noted. The appendix measures up to 10 mm in diameter. It does not appear to be fluid -distended. Nevertheless, there is periappendiceal inflammatory change and the findings are concerning for appendicitis. There is no appendicolith identified. There is no periappendiceal abscess identified. There is submucosal fat in the cecum and proximal ascending colon, of uncertain significance. This may be seen in old ulcerative colitis but usually in a more generalized pattern throughout the colon. No other abnormal bowel loops are identified. There is no bowel obstruction. APPENDIX: See above PERITONEUM: No ascites or pneumoperitoneum. Small supraumbilical ventral hernia containing only mesenteric fat. LYMPH NODES: Unremarkable. No enlarged lymph nodes. BLADDER: Unremarkable. REPRODUCTIVE: Normal uterus BONES: No acute fracture. OTHER FINDINGS: None. IMPRESSION: Findings concerning for acute appendicitis. No periappendiceal abscess. No free air. Cholelithiasis and thickening of the gallbladder wall. Consider further evaluation with ultrasound examination. Incidental findings as above. O ileus. Gas one. He spot with normal CT on PA chest the [facility] in the this 72-year-old 1 mm inflammation around it see separate IDC at appendix without inflammation along the multiplicity of multiple wall of the cecum and the ascending colon or left submucosal fat what turned out altered colitis suggest unusual state the least of that only the right colon not the remainder of the so of adjuvant made now multiple coarse there is airway disease Vater PET well she capital albeit of the main uterine ultrasound others gallstone at the basal calcified stones so that ultrasound she at S1-2 thickened. Appendix is that with uptake of the pontine acute
[2017-09-24] MEDS ORDERED: Piperacillin/Tazobact 3.375 gm 100 ML IVPB STA (17:18)
--- NOTE | 2017-09-24 18:32 | CP.PCM.CON ---
History of Present Illness - History of Present Illness History of Present Illness: Surgery 72F w h/o renal failure on HD came w Periumbilical pain started Sunday. Accompanied w non bilious non bloody vomiting. Denies F/C/D/CP/SOB. Reports dizziness. CT reads acute appendicitis. Surgery is consulted to evaluate for appendicitis. Pt is consented for OR. PMH: Renal disease on HD, DM PSH: AVF, permacath Review of Systems - Review of Systems Review of Systems: See HPI Past Patient History - Past Medical History & Family History Past Medical History?: Yes - Past Social History Smoking Status: Never Smoked - CARDIAC Hx Congestive Heart Failure: Yes (Questionable on xray. 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 - RENAL Hx Chronic Kidney Disease: Yes - ENDOCRINE/METABOLIC Hx Endocrine Disorders: Yes Hx Diabetes Mellitus Type 1: Yes - HEMATOLOGICAL/ONCOLOGICAL Hx Anemia: Yes (IRON INFUSION TREATMENTS) - INTEGUMENTARY Hx Dermatological Problems: No - MUSCULOSKELETAL/RHEUMATOLOGICAL Hx Musculoskeletal Disorders: Yes Hx Back Pain: Yes Hx Degenerative Joint Disease: Yes Hx Falls: Yes Hx Gout: Yes Hx Herniated Disk: Yes (Diagnosed [place] in [place] - GASTROINTESTINAL Hx Gastrointestinal Disorders: No - GENITOURINARY/GYNECOLOGICAL Hx Genitourinary Disorders: No - PSYCHIATRIC Hx Substance Use: No - SURGICAL HISTORY Hx Surgeries: Yes Hx Arteriovenous Shunt: Yes (AV fistula right arm) Hx Section: Yes Hx Vascular Surgery: Yes (Bilateral leg varocose vein, removal perma cath insertio) - ANESTHESIA Hx Anesthesia: Yes Hx Anesthesia Reactions: No Hx Malignant Hyperthermia: No Meds Allergies/Adverse Reactions: Allergies Allergy/AdvReac Type Severity Reaction Status Date / Time No Known Allergies Allergy Verified 05/12/17 23:12 - Medications Medications: Current Medications Piperacillin Sod/Tazobactam Sod (Zosyn 3.375 Gm Iv Premix) 3.375 gm in 50 mls @ 200 mls/hr IVPB ONCE ONE Stop: 09/24/17 19:14 Last Admin: 09/24/17 18:12 Dose: 200 mls/hr Physical Exam - Constitutional Appears: No Acute Distress - Head Exam Head Exam: ATRAUMATIC, NORMAL INSPECTION, NORMOCEPHALIC - Eye Exam Eye Exam: EOMI, Normal appearance, PERRL Pupil Exam: NORMAL ACCOMODATION, PERRL - ENT Exam ENT Exam: Mucous Membranes Moist, Normal Exam - Neck Exam Neck exam: Positive for: Normal Inspection - Respiratory Exam Respiratory Exam: Clear to Auscultation Bilateral, NORMAL BREATHING PATTERN - Cardiovascular Exam Cardiovascular Exam: REGULAR RHYTHM - GI/Abdominal Exam GI & Abdominal Exam: Normal Bowel Sounds, Soft, Tenderness. absent: Distended, Firm, Guarding, Hernia Additional comments: Periumbilial TTP. - Rectal Exam Rectal Exam: NORMAL INSPECTION - Extremities Exam Extremities exam: Positive for: normal inspection - Back Exam Back exam: NORMAL INSPECTION - Neurological Exam Neurological exam: Alert, CN II-XII Intact, Normal Gait, Oriented x3, Reflexes Normal - Psychiatric Exam Psychiatric exam: Normal Affect, Normal Mood - Skin Skin Exam: Dry, Intact, Normal Color, Warm Results - Vital Signs Recent Vital Signs: Last Vital Signs Temp 97.8 F 09/24/17 16:42 Pulse 68 09/24/17 16:42 Resp 17 09/24/17 16:42 BP 163/70 H 09/24/17 16:42 Pulse Ox 98 09/24/17 16:42 - Labs Result Diagrams: 09/24/17 13:18 09/24/17 13:18 Labs: Laboratory Results - last 24 hr 09/24/17 09/24/17 09/24/17 13:18 13:18 13:18 WBC 6.7 RBC 3.70 L Hgb 10.2 L D Hct 32.2 L MCV 87.1 D MCH 27.5 MCHC 31.6 L RDW 19.7 H Plt Count 189 MPV 11.1 Neut % (Auto) 61.4 Lymph % (Auto) 25.6 [place] % (Auto) 8.5 Eos % (Auto) 3.3 Baso % (Auto) 1.2 Neut # 4.1 Lymph # 1.7 [place] # 0.6 Eos # 0.2 Baso # 0.1 PT 11.1 INR 1.0 APTT 27 Sodium 134 Potassium 4.3 Chloride 92 L Carbon Dioxide 32 H Anion Gap 14 BUN 34 H Creatinine 6.0 H Est GFR ( Amer) 8 Est GFR (Non-Af Amer) 7 Random Glucose 93 Calcium 8.9 Total Bilirubin 0.5 AST 20 ALT 26 Alkaline Phosphatase 82 Troponin I < 0.0120 Total Protein 8.0 Albumin 4.1 Globulin 3.9 Albumin/Globulin Ratio 1.0 Lipase 272 Assessment & Plan - Assessment and Plan (Free Text) Assessment: appendicitis -OR today for lap appy -NPO -IVF -ABX -Medical management POLO Thompson
[2017-09-24] MEDS ORDERED: Lactated Ringer's 1,000 ML IV SCH (18:45)
[2017-09-24] MEDS ORDERED: Piperacill/Tazo 3.375gm in Dex 3.375 GM/50 ML BAG IVPB ONE (19:00)
[2017-09-24 19:39] LABS: SQUAMOUS EPITHIAL 1 /hpf (0-5); URINE BACTERIA RARE (<OCC); URINE BILIRUBIN NEGATIVE (NEGATIVE); URINE BLOOD NEGATIVE (NEGATIVE); URINE CLARITY Clear (Clear); URINE COLOR Yellow (YELLOW); URINE GLUCOSE (UA) NORMAL (Normal); URINE LEUKOCYTE ESTERASE NEG Leu/uL (Negative); URINE NITRATE NEGATIVE (NEGATIVE); URINE PROTEIN 3+ mg/dL (NEGATIVE); URINE UROBILINOGEN NORMAL mg/dL (0.2-1.0)
[2017-09-24] MEDS ORDERED: Lactated Ringer's 1,000 ML IV ONE ×2 (19:54)
--- NOTE | 2017-09-24 20:08 | CP.PCM.HP ---
History of Present Illness - History of Present Illness History of Present Illness: H&P for Dr. Matthews's service: CC: Abdominal pain, N/V, Dizziness Patient is a 72yo female, with PMHx of end stage renal disease on dialysis (MWF) , hypertension, and type two diabetes, DM peripheral neuropathy, DM retinopathy , presenting to [facility] ED for persistent abdominal pain, N/V, and dizziness. Patient daughter, son-in-law at bedside helping provide history. Patient reports she began feeling nauseous on Sunday, vomiting after taking her AM medications. She felt better after vomiting but dizziness persisted through the weekend. Her abdominal pain began again this AM, located beneath the umbilicus, again causing her to throw up after her medications. When she told her daughter she felt like she was going to pass out her family decided to bring her to [facility]. Patient's last dialysis was 4 days ago. She denies any fever, chills, chest pain, shortness of breath. Patient lives with her daughter, who provides patient her medication. PMHx: end stage renal disease on dialysis (MWF), hypertension, and type two diabetes (diagnosed 3 yrs ago), DM peripheral neuropathy, DM retinopathy PSHx: , fistula formation (~6 months ago) Fam Hx: Pt denies Soc HX: denies tobacoo use, alcohol, or illicit drug use Allergies: NKA Meds: SEE EMR Present on Admission - Present on Admission Any Indicators Present on Admission: No History of DVT/PE: No History of Uncontrolled Diabetes: Yes Review of Systems - Constitutional Constitutional: absent: Chills, Fever - EENT Eyes: absent: Change in Vision Ears: absent: Ear Pain Nose/Mouth/Throat: absent: Nasal Discharge - Cardiovascular Cardiovascular: absent: Chest Pain, Dyspnea - Respiratory Respiratory: absent: Cough, Dyspnea - Gastrointestinal Gastrointestinal: Abdominal Pain (epigastric/umbilical), Nausea, Vomiting - Genitourinary Genitourinary: absent: Dysuria - Musculoskeletal Musculoskeletal: Numbness (DM neuropathy), Tingling - Neurological Neurological: Paresthesias, Tingling. absent: Weakness - Psychiatric Psychiatric: absent: Anxiety, Depression Past Patient History - Past Medical History & Family History Past Medical History?: Yes - Past Social History Smoking Status: Never Smoked - CARDIAC Hx Congestive Heart Failure: Yes (Questionable on xray. 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 - RENAL Hx Chronic Kidney Disease: Yes - ENDOCRINE/METABOLIC Hx Endocrine Disorders: Yes Hx Diabetes Mellitus Type 1: Yes - HEMATOLOGICAL/ONCOLOGICAL Hx Anemia: Yes (IRON INFUSION TREATMENTS) - INTEGUMENTARY Hx Dermatological Problems: No - MUSCULOSKELETAL/RHEUMATOLOGICAL Hx Musculoskeletal Disorders: Yes Hx Back Pain: Yes Hx Degenerative Joint Disease: Yes Hx Falls: Yes Hx Gout: Yes Hx Herniated Disk: Yes (Diagnosed 1 [place] ago in [place] - GASTROINTESTINAL Hx Gastrointestinal Disorders: No - GENITOURINARY/GYNECOLOGICAL Hx Genitourinary Disorders: No - PSYCHIATRIC Hx Substance Use: No - SURGICAL HISTORY Hx Surgeries: Yes Hx Arteriovenous Shunt: Yes (AV fistula right arm) Hx Section: Yes Hx Vascular Surgery: Yes (Bilateral leg varocose vein, removal perma cath insertio) - ANESTHESIA Hx Anesthesia: Yes Hx Anesthesia Reactions: No Hx Malignant Hyperthermia: No Meds Allergies/Adverse Reactions: Allergies Allergy/AdvReac Type Severity Reaction Status Date / Time No Known Allergies Allergy Verified 05/12/17 23:12 Physical Exam - Constitutional Appears: Non-toxic, No Acute Distress, Older Than Stated Age, Chronically Ill - Head Exam Head Exam: ATRAUMATIC, NORMAL INSPECTION - Eye Exam Eye Exam: EOMI, Normal appearance Pupil Exam: PERRL - ENT Exam ENT Exam: Mucous Membranes Dry - Neck Exam Neck exam: Positive for: Tenderness Additional comments: Due to large body habitus, JVD cannot be appreciated - Respiratory Exam Respiratory Exam: Clear to Auscultation Bilateral, NORMAL BREATHING PATTERN. absent: Accessory Muscle Use, Chest Wall Tenderness, Rales, Rhonchi, Wheezes - Cardiovascular Exam Cardiovascular Exam: REGULAR RHYTHM, +S1, +S2 - GI/Abdominal Exam GI & Abdominal Exam: Normal Bowel Sounds, Soft, Tenderness (mild umbilical pain) . absent: Distended, Firm, Guarding - Extremities Exam Extremities exam: Positive for: normal inspection, pedal edema (bilateral 2+) - Back Exam Back exam: absent: CVA tenderness (L), CVA tenderness (R) - Neurological Exam Neurological exam: Alert, Oriented x3 - Psychiatric Exam Psychiatric exam: Normal Affect, Normal Mood - Skin Skin Exam: Normal Color, Warm Results - Vital Signs Recent Vital Signs: Last Vital Signs Temp 98.5 F 09/24/17 20:01 Pulse 75 09/24/17 20:01 Resp 18 09/24/17 20:01 BP 162/82 H 09/24/17 20:01 Pulse Ox 95 09/24/17 20:01 - Labs Result Diagrams: 09/24/17 13:18 09/24/17 13:18 Labs: Laboratory Results - last 24 hr 09/24/17 09/24/17 09/24/17 12:12 13:18 13:18 WBC 6.7 RBC 3.70 L Hgb 10.2 L D Hct 32.2 L MCV 87.1 D MCH 27.5 MCHC 31.6 L RDW 19.7 H Plt Count 189 MPV 11.1 Neut % (Auto) 61.4 Lymph % (Auto) 25.6 [place] % (Auto) 8.5 Eos % (Auto) 3.3 Baso % (Auto) 1.2 Neut # 4.1 Lymph # 1.7 [place] # 0.6 Eos # 0.2 Baso # 0.1 PT 11.1 INR 1.0 APTT 27 Sodium Potassium Chloride Carbon Dioxide Anion Gap BUN Creatinine Est GFR ( Amer) Est GFR (Non-Af Amer) Random Glucose Calcium Total Bilirubin AST ALT Alkaline Phosphatase Troponin I Total Protein Albumin Globulin Albumin/Globulin Ratio Lipase Urine Color Yellow Urine Clarity Clear Urine pH 8.0 Ur Specific [place] 1.023 Urine Protein 3+ H Urine Glucose (UA) Normal Urine Ketones Negative Urine Blood Negative Urine Nitrate Negative Urine Bilirubin Negative Urine Urobilinogen Normal Ur Leukocyte Esterase Neg Urine WBC (Auto) 1 Urine RBC (Auto) 2 Ur Squamous Epith Cells 1 Urine Bacteria Rare 09/24/17 13:18 WBC RBC Hgb Hct MCV MCH MCHC RDW Plt Count MPV Neut % (Auto) Lymph % (Auto) [place] % (Auto) Eos % (Auto) Baso % (Auto) Neut # Lymph # [place] # Eos # Baso # PT INR APTT Sodium 134 Potassium 4.3 Chloride 92 L Carbon Dioxide 32 H Anion Gap 14 BUN 34 H Creatinine 6.0 H Est GFR ( Amer) 8 Est GFR (Non-Af Amer) 7 Random Glucose 93 Calcium 8.9 Total Bilirubin 0.5 AST 20 ALT 26 Alkaline Phosphatase 82 Troponin I < 0.0120 Total Protein 8.0 Albumin 4.1 Globulin 3.9 Albumin/Globulin Ratio 1.0 Lipase 272 Urine Color Urine Clarity Urine pH Ur Specific [place] Urine Protein Urine Glucose (UA) Urine Ketones Urine Blood Urine Nitrate Urine Bilirubin Urine Urobilinogen Ur Leukocyte Esterase Urine WBC (Auto) Urine RBC (Auto) Ur Squamous Epith Cells Urine Bacteria Assessment & Plan - Assessment and Plan (Free Text) Plan: Appendicitis Admit to med-surg NO WBC, afebrile Gen Surgery consult: Dr. Thompson, help appreciated CT A/P (09/24/17): Findings concerning for acute appendicitis. Cholelithiasis and thickening of GB wall. Consider further eval with US. CXR (09/24/17): Mild venous congestion. Mild cardiomegaly. Right side venous catheter into right atrium. Troponin negative x 1 Lipase 272 Zosyn 3.375gm Q6H IV (start 09/24/17) Zofran 4mg IV Q4H PRN LR @ 125mg/hr IV Dilaudid 0.5mg IV Q3H Possible Cholecystitis Gen Surgery consult: Dr. Thompson, help appreciated -f/u reccs CT A/P (09/24/17): Multiple tiny gallstone seen. Mild thickening of GB wall, unsharp suggesting possible inflammation. No pericholecystic fluid seen. Consider further eval with US. (see full report) f/u Abd US ESRD with dialysis (MWF) Last dialysis [address] 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 - f/u reccs Renal-Leslye 800 mg PO TID Renvela 800mg PO TID HTN Elevated on Admission HOLD Lopressor 100mg PO Daily Hydralazine IVP Q6H for SBP > 160 CHF (diastolic) Myocardial perfusion scan 11/2016 - EF 55-60% HOLD Torsemide 100mg PO Daily HOLD Lopressor 100mg PO Daily Type two diabetes mellitus A1c 6.9 (05/2017) Diagnosed ~3 years ago BG log at bedside shows sugars routinely > 250 Accuchecks ACHS ISS Levemir 20 units SC QAM Hypoglycemia protocol DM neuropathy HOLD Gabapentin 300mg PO HS until after surgery Proteinuria UA (09/24/17) 3+ protein Will consider BRENNA when pt can start PO intake Hx of Anemia HOLD HOME Feosol 325mg PO Daily Hgb 10.2 on admission, up from prior (baseline 8.0) Dizziness CT HEAD (09/24/17): No intracranial mass, hemorrhage, or evidence of infarct. Small old bilateral basal ganglia/right thalamic lacunar infarcts. Antivert given once in ED Prophylaxis Protonix 40mg IV Daily SCDs Held due to peripheral edema Hold anticoagulation until surgical team gives ok Jagdeep Mccarthy PGY-[address] Matthews
[2017-09-24] MEDS ORDERED: Dextrose 50% SYRINGE Inj (50 ml) IV PRN (20:33)
[2017-09-24] MEDS ORDERED: Glucagon Recombinant 1 mg Inj IM PRN (20:33)
[2017-09-24] MEDS ORDERED: metroNIDAZOLE IV 500 mg/100 ml 500 MG/100 ML BAG ONE (20:58)
[2017-09-24] MEDS ORDERED: ceFAZolin IV 1 gm in Dextrose 1 GM/50 ML BAG IVPB ONE (20:58)
[2017-09-24] MEDS ORDERED: Propofol 10 mg/ml Inj (20 ML) ONE (21:01)
--- NOTE | 2017-09-24 21:01 | US ---
EXAM: US Abdomen Complete EXAM DATE/TIME: 09/24/2017 5:25 PM CLINICAL HISTORY: 72 years old, female; Pain; Abdominal pain; Other: Ruq; Additional info: Ruq pain TECHNIQUE: Real-time ultrasound of the abdomen (complete) with image documentation. COMPARISON: CT - ABD PELVIS IV CONTRAST ONLY 2017-09-24 16:08 FINDINGS: Liver: Liver is unremarkable. There is hepatopedal flow in the main portal vein. Gallbladder: Gallbladder is almost completely collapsed. There are multiple shadowing stones. There is no wall thickening. Common bile duct: Common bile duct measures 4 mm. Pancreas: Pancreas is almost completely obscured by bowel gas. Kidneys: There is a 1 x 0.9 x 0.9 cm right renal cyst. Kidneys are otherwise unremarkable. Spleen: Spleen is unremarkable. Aorta: Visualized portions of the aorta and inferior vena cava are unremarkable. Inferior vena cava: See above. IMPRESSION: Contracted gallbladder with multiple small stones no ductal dilatation Additional nonemergent findings as described above. Patient was not tender over the gallbladder
[2017-09-24] MEDS ORDERED: ePHEDrine 50 mg/ml Inj ONE (22:35)
[2017-09-24] MEDS ORDERED: Phenylephrine 10 mg/ml Inj ONE (22:35)
[2017-09-24] MEDS ORDERED: Neostigmine Methylsulfate 3mg/3ml Syringe IV ONE (22:35)
--- NOTE | 2017-09-24 23:19 | PCM.SURG1 ---
Surgeon's Initial Post Op Note - Surgeon's Notes Surgeon: Dr. Thompson Steno Pool Supervisor: Jenny PGY1 Type of Anesthesia: General Endo Anesthesia Administered By: Dr. Villarreal Pre-Operative Diagnosis: Acute appendicitis Operative Findings: see operative report Post-Operative Diagnosis: Retrocecal appendix Operation Performed: Laparoscopic appendectomy converted to open appendectomy Specimen/Specimens Removed: Appendix Estimated Blood Loss: EBL {In ML}: 50 Blood Products Given: N/A Drains Used: No Drains Post-Op Condition: Good Date of Surgery/Procedure: 09/24/17 Time of Surgery/Procedure: 21:00
[2017-09-25] MEDS ORDERED: Piperacill/Tazo 3.375gm in Dex 3.375 GM/50 ML BAG IVPB SCH (01:15)
[2017-09-25] MEDS: Piperacill/Tazo 2.25gm in Dex 2.25 GM/50 ML BAG IVPB SCH ×4 (02:29→19:00)
[2017-09-25] MEDS: Sodium Chloride 0.9% 1,000 ML IV SCH ×2 (06:45→20:50)
--- NOTE | 2017-09-25 07:52 | OP ---
PROCEDURE DATE: 09/24/2017 PREOPERATIVE DIAGNOSIS: Acute appendicitis. POSTOPERATIVE DIAGNOSIS: Retrocecal appendix. PROCEDURE: Laparoscopy and then, open appendectomy. SURGEON: Luis Thompson Jr., MD. LEAD PROGRAMMER: Dr. Alvarado. ANESTHESIOLOGIST: Dr. Villarreal INDICATIONS: Patient is an older woman on dialysis, presents with abdominal pain; known gallstones, which did not appear acutely inflamed and abnormal appendix on CT scan. OPERATIVE FINDINGS: The appendix was not acutely inflamed. It was retrocecal appendix and very difficult to visualize, even after we had opened. Eventually, we were able to dissect this free from surrounding tissues. We stapled the end of a adjacent to the cecum and removed it with the use of LigaSure device. There was excellent hemostasis in the mesoappendix. After this had been done, we made a search for hemostasis. We then closed the abdomen with running sutures of Novafil and closed skin with skin clips. Blood loss of the procedure was less than 50 mL. The operation carried out is attempted laparoscopic appendectomy and then, open appendectomy. Basic finding was retrocecal appendix, which did not appear acutely inflamed. Luis Thompson Jr., MD
[2017-09-25 07:59] LABS: BASO % 0.4 % (0.0-2.0); EOS # 0.1 K/uL (0.0-0.7); EOS % 0.7 % (0.0-4.0); HEMOGLOBIN 9.1 g/dL (11.0-16.0); LYMPH # 0.7 K/uL (1.0-4.3); LYMPH % 6.7 % (20.0-40.0); MEAN CELL VOLUME 86.2 fL (81.0-99.0); MEAN CORPUSCULAR HGB CONC 32.5 g/dL (33.0-37.0); MEAN PLATELET VOLUME 10.8 fL (7.2-11.7); MONO # 0.7 K/uL (0.0-0.8); MONO % 6.7 % (0.0-10.0); NEUT # 8.4 K/uL (1.8-7.0); NEUT % 85.5 % (50.0-75.0); PLATELET COUNT 185 K/uL (130-400); RBC 3.25 Mil/uL (3.80-5.20); RED CELL DISTRIBUTION WIDTH 19.3 % (11.5-14.5); WHITE BLOOD COUNT 9.9 K/uL (4.8-10.8)
[2017-09-25] MEDS: (Novolin R) Insulin Human Regular 100 units/ml vial SC SCH ×5 (08:01→21:46)
--- NOTE | 2017-09-25 08:05 | CP.PCM.PN ---
<Ting Cleaning - Last Filed: 09/25/17 13:08> Subjective - Date & Time of Evaluation Date of Evaluation: 09/25/17 Time of Evaluation: 08:04 - Subjective Subjective: Medicine progress note for Dr. Matthews's service Patient was seen and examined at bedside s/p appendectomy. Patient reports having pain at the surgical site, but denies pain elsewhere. Patient reports having no appetite and is refusing to eat her breakfast. Patient's daughter is at bedside. Patient denies chest pain, shortness of breath, leg pain, nausea, vomiting, and fevers. Objective - Vital Signs/Intake and Output Vital Signs (last 24 hours): Temp Pulse Resp BP Pulse Ox 98.8 F 91 H 20 94/59 L 95 09/25/17 07:38 09/25/17 07:38 09/25/17 07:38 09/25/17 07:38 09/25/17 07:38 Intake and Output: 09/25/17 09/25/17 06:59 18:59 Intake Total 50 310 Output Total 150 Balance -100 310 - Medications Medications: Current Medications Acetaminophen (Tylenol 325mg Tab) 650 mg PO Q6 PRN PRN Reason: Pain, Mild (1-3) Last Admin: 09/25/17 05:05 Dose: 650 mg Dextrose (Dextrose 50% Inj) 0 ml IV STAT PRN; Protocol PRN Reason: Hypoglycemia Protocol Dextrose (Glutose 15) 0 gm PO ONCE PRN; Protocol PRN Reason: Hypoglycemia Protocol Fentanyl (Fentanyl) 50 mcg IV Q10M PRN PRN Reason: Pain, moderate (4-7) Last Admin: 09/24/17 23:38 Dose: 50 mcg Glucagon (Glucagen Diagnostic Kit) 0 mg IM STAT PRN; Protocol PRN Reason: Hypoglycemia Protocol Hydralazine HCl (Apresoline) 10 mg IVP Q6H PRN PRN Reason: Systolic Blood Pressure Hydromorphone HCl (Dilaudid) 0.5 mg IVP Q3H PRN PRN Reason: Pain, severe (8-10) Dextrose (Dextrose 5% In Water 1000 Ml) 1,000 mls @ 0 mls/hr IV .Q0M PRN; Protocol; Per Protocol PRN Reason: Hypoglycemia Protocol Piperacillin Sod/Tazobactam Sod (Zosyn 2.25 Gm Iv Premix) 2.25 gm in 50 mls @ 100 mls/hr IVPB Q6H [facility] Last Admin: 09/25/17 02:29 Dose: 100 mls/hr Sodium Chloride (Sodium Chloride 0.9%) 1,000 mls @ 70 mls/hr IV .[id number] [facility] Last Admin: 09/25/17 06:45 Dose: 70 mls/hr Insulin Human Regular (Novolin R) 0 unit SC ACHS [facility] PRN Reason: Protocol Last Admin: 09/25/17 08:01 Dose: Not Given Ondansetron HCl (Zofran Inj) 4 mg IVP Q4H PRN PRN Reason: Nausea/Vomiting Pantoprazole Sodium (Protonix Inj) 40 mg IVP DAILY [facility] - Labs Labs: 09/25/17 07:45 09/24/17 13:18 PT 11.1 SECONDS (9.7-12.2) 09/24/17 13:18 INR 1.0 09/24/17 13:18 APTT 27 SECONDS (21-34) 09/24/17 13:18 - Head Exam Head Exam: ATRAUMATIC, NORMOCEPHALIC - Eye Exam Eye Exam: EOMI - ENT Exam ENT Exam: Mucous Membranes Moist - Respiratory Exam Respiratory Exam: Clear to Ausculation Bilateral, NORMAL BREATHING PATTERN. absent: Rales, Rhonchi, Wheezes, Respiratory Distress - Cardiovascular Exam Cardiovascular Exam: REGULAR RHYTHM, +S1, +S2 - GI/Abdominal Exam GI & Abdominal Exam: Soft, Tenderness (post-op; dressing clean, dry, intact), Normal Bowel Sounds. absent: Distended, Firm - Extremities Exam Extremities Exam: absent: Pedal Edema, Tenderness - Neurological Exam Neurological Exam: Alert, Awake - Psychiatric Exam Psychiatric exam: Normal Affect, Normal Mood - Skin Skin Exam: Dry, Intact, Normal Color, Warm Assessment and Plan - Assessment and Plan (Free Text) Plan: Appendicitis * Admit to med-surg * NO WBC * Troponin negative x 1 * Lipase 272 * CT A/P (09/24/17): Findings concerning for acute appendicitis. Cholelithiasis and thickening of GB wall. Consider further eval with US. * CXR (09/24/17): Mild venous congestion. Mild cardiomegaly. Right side venous catheter into right atrium. * Gen Surgery consult: Dr. Thompson, help appreciated * s/p lap appendectomy converted to open appendectomy (09/25/17) * advanced diet to regular diet * encourage ambulate/PT/IS Medication: * Zosyn 3.375gm Q6H IV (start 09/24/17) * Zofran 4mg IV Q4H PRN * LR @ 125mg/hr IV * Dilaudid 0.5mg IV Q3H Possible Cholecystitis * Gen Surgery consult: Dr. Thompson, help appreciated * no surgery at this time * CT A/P (09/24/17): Multiple tiny gallstone seen. Mild thickening of GB wall, unsharp suggesting possible inflammation. No pericholecystic fluid seen. (see full report) * Abd US (09/24/17): contracted GB with multiple small stones no dilatation; nontender over GB. ESRD with dialysis (MWF) * Last dialysis 4 days ago * Patient went for HD today, 09/25/17 * Dr. Cage, motion study engineer * f/u recs * Renal-Leslye 800 mg PO TID * Renvela 800mg PO TID HTN * Elevated on Admission * HOLD Lopressor 100mg PO Daily * Hydralazine IVP Q6H for SBP > 160 CHF (diastolic) * Myocardial perfusion scan 11/2016 - EF 55-60% * HOLD Torsemide 100mg PO Daily * HOLD Lopressor 100mg PO Daily Type two diabetes mellitus * A1c 6.9 (05/2017) * Diagnosed ~3 years ago * BG log at bedside shows sugars routinely > 250 * Accuchecks ACHS * ISS * Levemir 20 units SC QAM * Hypoglycemia protocol DM neuropathy * Continue home medication- Gabapentin 300mg PO HS Proteinuria * UA (09/24/17) 3+ protein * Will consider BRENNA when pt can start PO intake Hx of Anemia * Continue home medication Feosol 325mg PO Daily * Hgb 10.2 on admission, up from prior (baseline 8.0) Dizziness * CT HEAD (09/24/17): No intracranial mass, hemorrhage, or evidence of infarct. Small old bilateral basal ganglia/right thalamic lacunar infarcts. * Antivert given once in ED Prophylaxis * Protonix 40mg IV Daily * SCDs Held due to peripheral edema * Hold anticoagulation until surgical team gives ok * PT/OT <Isael Matthews Jr. - Last Filed: 09/27/17 19:25> Objective - Vital Signs/Intake and Output Vital Signs (last 24 hours): Temp Pulse Resp BP Pulse Ox 98.8 F 94 H 20 97/61 L 100 09/27/17 16:00 09/27/17 16:00 09/27/17 16:00 09/27/17 16:00 09/27/17 16:00 Intake and Output: 09/27/17 09/28/17 18:59 06:59 Intake Total 500 Balance 500 - Medications Medications: Current Medications Acetaminophen (Tylenol 325mg Tab) 650 mg PO Q6 PRN PRN Reason: Pain, Mild (1-3) Last Admin: 09/27/17 09:33 Dose: 650 mg Allopurinol (Zyloprim) 100 mg PO DAILY [facility] Last Admin: 09/27/17 09:34 Dose: 100 mg Benzocaine/Menthol (Cepacol Sore Throat) 1 mishel MT Q2H PRN PRN Reason: Sore Throat Dextrose (Dextrose 50% Inj) 0 ml IV STAT PRN; Protocol PRN Reason: Hypoglycemia Protocol Dextrose (Glutose 15) 0 gm PO ONCE PRN; Protocol PRN Reason: Hypoglycemia Protocol Doxercalciferol (Hectorol) 0.5 mcg PO DAILY [facility] Last Admin: 09/27/17 09:34 Dose: 0.5 mcg Epoetin David (Procrit) 10,000 unit IV TTS [facility] Stop: 10/02/17 10:01 Last Admin: 09/27/17 12:21 Dose: 10,000 unit Ergocalciferol (Drisdol 50,000 Intl Units Cap) 1 cap PO QWK [facility] Last Admin: 09/26/17 10:33 Dose: 1 cap Ferrous Sulfate (Feosol) 325 mg PO DAILY [facility] Last Admin: 09/27/17 09:35 Dose: 325 mg Gabapentin (Neurontin) 300 mg PO HS [facility] Last Admin: 09/26/17 21:44 Dose: 300 mg Glucagon (Glucagen Diagnostic Kit) 0 mg IM STAT PRN; Protocol PRN Reason: Hypoglycemia Protocol Heparin Sodium (Porcine) (Heparin) 1,000 units IVP TTS [facility] Stop: 10/09/17 10:01 Last Admin: 09/27/17 12:22 Dose: Not Given Hydromorphone HCl (Dilaudid) 0.5 mg IVP Q3H PRN PRN Reason: Pain, severe (8-10) Last Admin: 09/27/17 18:47 Dose: 0.5 mg Dextrose (Dextrose 5% In Water 1000 Ml) 1,000 mls @ 0 mls/hr IV .Q0M PRN; Protocol; Per Protocol PRN Reason: Hypoglycemia Protocol Piperacillin Sod/Tazobactam Sod (Zosyn 2.25 Gm Iv Premix) 2.25 gm in 50 mls @ 100 mls/hr IVPB Q6H [facility] Last Admin: 09/27/17 18:46 Dose: 100 mls/hr Sodium Chloride (Sodium Chloride 0.9%) 1,000 mls @ 70 mls/hr IV .[id number] [facility] Last Admin: 09/27/17 14:09 Dose: 70 mls/hr Insulin Human Regular (Novolin R) 0 unit SC ACHS [facility] PRN Reason: Protocol Last Admin: 09/27/17 17:10 Dose: Not Given [id number] Ethyl Esters (Lovaza) 1 gm PO DAILY [facility] Last Admin: 09/27/17 09:35 Dose: 1 gm Ondansetron HCl (Zofran Inj) 4 mg IVP Q4H PRN PRN Reason: Nausea/Vomiting Pantoprazole Sodium (Protonix Inj) 40 mg IVP DAILY [facility] Last Admin: 09/27/17 09:33 Dose: 40 mg Sevelamer Carbonate (Renvela) 800 mg PO TID [facility] Last Admin: 09/27/17 18:45 Dose: 800 mg Vitamin B Complex/Vit C/Folic Acid (Nephro-Leslye) 1 tab PO DAILY [facility] Last Admin: 09/27/17 09:34 Dose: 1 tab - Labs Labs: 09/27/17 07:34 09/27/17 07:34 PT 11.1 SECONDS (9.7-12.2) 09/24/17 13:18 INR 1.0 09/24/17 13:18 APTT 27 SECONDS (21-34) 09/24/17 13:18 Attending/Attestation - Attestation I have personally seen and examined this patient.: Yes I have fully participated in the care of the patient.: Yes I have reviewed all pertinent clinical information, including history, physical exam and plan: Yes Notes (Text): 09/27/17 19:25 Agree with resident note and plan of care
[2017-09-25 08:11] LABS: ALBUMIN 3.3 g/dL (3.5-5.0); CALCIUM 8.1 mg/dl (8.6-10.4); MAGNESIUM 1.7 mg/dL (1.6-2.3)
--- NOTE | 2017-09-25 08:22 | CP.PCM.PN ---
Subjective - Date & Time of Evaluation Date of Evaluation: 09/25/17 Time of Evaluation: 08:19 - Subjective Subjective: Surgery Pt s&e. Pain controlled. Tolerated surgery well yesterday. Denies F/C?N/V/D/CP/ SOB. TOlerating diet. Objective - Vital Signs/Intake and Output Vital Signs (last 24 hours): Temp Pulse Resp BP Pulse Ox 98.8 F 91 H 20 94/59 L 95 09/25/17 07:38 09/25/17 07:38 09/25/17 07:38 09/25/17 07:38 09/25/17 07:38 Intake and Output: 09/25/17 09/25/17 06:59 18:59 Intake Total 50 310 Output Total 150 Balance -100 310 - Medications Medications: Current Medications Acetaminophen (Tylenol 325mg Tab) 650 mg PO Q6 PRN PRN Reason: Pain, Mild (1-3) Last Admin: 09/25/17 05:05 Dose: 650 mg Allopurinol (Zyloprim) 100 mg PO DAILY [facility] Dextrose (Dextrose 50% Inj) 0 ml IV STAT PRN; Protocol PRN Reason: Hypoglycemia Protocol Dextrose (Glutose 15) 0 gm PO ONCE PRN; Protocol PRN Reason: Hypoglycemia Protocol Fentanyl (Fentanyl) 50 mcg IV Q10M PRN PRN Reason: Pain, moderate (4-7) Last Admin: 09/24/17 23:38 Dose: 50 mcg Ferrous Sulfate (Feosol) 325 mg PO DAILY [facility] Gabapentin (Neurontin) 300 mg PO HS [facility] Glucagon (Glucagen Diagnostic Kit) 0 mg IM STAT PRN; Protocol PRN Reason: Hypoglycemia Protocol Home Med (Folic Acid/Vit B Complex And C [Renal-Leslye Tablet]) 0.8 mg PO DAILY [facility] Home Med (Hectorol) 1 cap PO DAILY [facility] Home Med ([place]-3 Fatty Acids/Fish Oil [Fish Oil 1,000 Mg Capsule]) 1,200 mg PO DAILY [facility] Home Med (Vitamin D) 1 tab PO DAILY [facility] Hydralazine HCl (Apresoline) 10 mg IVP Q6H PRN PRN Reason: Systolic Blood Pressure Hydromorphone HCl (Dilaudid) 0.5 mg IVP Q3H PRN PRN Reason: Pain, severe (8-10) Dextrose (Dextrose 5% In Water 1000 Ml) 1,000 mls @ 0 mls/hr IV .Q0M PRN; Protocol; Per Protocol PRN Reason: Hypoglycemia Protocol Piperacillin Sod/Tazobactam Sod (Zosyn 2.25 Gm Iv Premix) 2.25 gm in 50 mls @ 100 mls/hr IVPB Q6H [facility] Last Admin: 09/25/17 02:29 Dose: 100 mls/hr Sodium Chloride (Sodium Chloride 0.9%) 1,000 mls @ 70 mls/hr IV .[id number] [facility] Last Admin: 09/25/17 06:45 Dose: 70 mls/hr Insulin Human Regular (Novolin R) 0 unit SC ACHS [facility] PRN Reason: Protocol Last Admin: 09/25/17 08:01 Dose: Not Given Ondansetron HCl (Zofran Inj) 4 mg IVP Q4H PRN PRN Reason: Nausea/Vomiting Pantoprazole Sodium (Protonix Inj) 40 mg IVP DAILY [facility] Sevelamer Carbonate (Renvela) 800 mg PO TID [facility] - Labs Labs: 09/25/17 07:45 09/25/17 07:45 PT 11.1 SECONDS (9.7-12.2) 09/24/17 13:18 INR 1.0 09/24/17 13:18 APTT 27 SECONDS (21-34) 09/24/17 13:18 - Constitutional Appears: No Acute Distress - Head Exam Head Exam: ATRAUMATIC, NORMAL INSPECTION, NORMOCEPHALIC - Eye Exam Eye Exam: EOMI, Normal appearance, PERRL Pupil Exam: NORMAL ACCOMODATION, PERRL - ENT Exam ENT Exam: Mucous Membranes Moist, Normal Exam - Neck Exam Neck Exam: Full ROM, Normal Inspection. absent: Lymphadenopathy - Respiratory Exam Respiratory Exam: Clear to Ausculation Bilateral, NORMAL BREATHING PATTERN - Cardiovascular Exam Cardiovascular Exam: REGULAR RHYTHM, +S1, +S2. absent: Murmur - GI/Abdominal Exam GI & Abdominal Exam: Soft, Tenderness, Normal Bowel Sounds. absent: Distended, Firm Additional comments: Incision C/D/I - Exam Exam: NORMAL INSPECTION - Extremities Exam Extremities Exam: Full ROM, Normal Capillary Refill, Normal Inspection. absent : Joint Swelling, Pedal Edema - Back Exam Back Exam: NORMAL INSPECTION - Neurological Exam Neurological Exam: Alert, Awake, CN II-XII Intact, Normal Gait, Oriented x3 - Psychiatric Exam Psychiatric exam: Normal Affect, Normal Mood - Skin Skin Exam: Dry, Intact, Normal Color, Warm Assessment and Plan - Assessment and Plan (Free Text) Assessment: POD 1 s/p open appy -Regular diet -HD -PT -Ambulate/IS -Medical management DW Dr. Thompson
[2017-09-25] MEDS ORDERED: VITAMIN D PO SCH (10:00)
[2017-09-25] MEDS ORDERED: Insulin Detemir 100 units/ml Vial (Levemir) SC SCH (10:00)
[2017-09-25 10:22] LABS: ANISOCYTOSIS MODERATE; BANDS 9 % (0-2); LYMPHOCYTE 8 % (20-40); MONOCYTE 3 % (0-10); NEUTROPHIL 80 % (50-75); PLATELET ESTIMATE NORMAL (NORMAL); TOTAL CELLS COUNTED 100
[2017-09-25 10:23] LABS: HYPOCHROMIC SLIGHT; STOMATOCYTES SLIGHT
[2017-09-25] MEDS: Omega-3-Acid Ethyl Esters 1 GM Cap PO SCH (10:26)
[2017-09-25] MEDS: Multivitamin Vitamin B Complex (Nephro-Vite) Tab PO SCH (10:30)
[2017-09-25] MEDS: Epoetin Alfa 10,000 unit/ml Dialysis IV SCH (13:52)
[2017-09-25] MEDS: Ergocalciferol 50,000 Intl Units Cap PO SCH (14:36)
--- NOTE | 2017-09-25 19:03 | CP.PCM.CON ---
History of Present Illness - History of Present Illness History of Present Illness: REASONS FOR CONSULT : ESRD ON HD M W F ANEMIA OF CKD .. HGB 10.5 ..OK PT IS WELL KNOWN TO ME WITH MULTIPLE MEDICAL PROBLEMS .. CAME INTO THE ER FOR ABDO PAIN .. D/W ER - MD OVER THE PHONE History Of Present Illness 72yo female with past medical history of end stage renal disease, currently on dialysis, hypertension, comes in with complaints of vomiting, abdominal pain and dizziness described as lightheadedness and vertigo for the past couple days. Patient's last dialysis was 4 days ago. She denies any fever, chills, chest pain, shortness of breath. She has no other medical complaints. Time Seen by Provider: 09/24/17 12:03 Chief Complaint (Nursing): Dizziness/Lightheaded History Per: Patient History/Exam Limitations: no limitations Onset/Duration Of Symptoms: Days Current Symptoms Are (Timing): Still Present Location Of Pain/Discomfort: Diffuse Associated Symptoms: Nausea, Vomiting, Other (dizziness). denies: Fever, Chills , Chest Pain Abnormal Vaginal Bleeding: No Past Medical History Reviewed: Historical Data, Nursing Documentation, Vital Signs Vital Signs: Last Vital Signs Temp 98.2 F 09/24/17 11:10 Pulse 65 09/24/17 11:10 Resp 18 09/24/17 11:10 BP 171/89 H 09/24/17 11:10 Pulse Ox 100 09/24/17 11:10 - Medical History PMH: Anemia (IRON INFUSION TREATMENTS), CHF (Questionable on xray. Pt denies), HTN, Peripheral Edema ( Chronic), Chronic Kidney Disease Surgical History: No Surg Hx - [facility] Procedures BYPASS RIGHT RADIAL ARTERY TO LOWER ARM VEIN, OPEN APPROACH (05/13/17) INSERT INFUSION DEV IN R INT JUGULAR VEIN, PERC (05/13/17) PERFORMANCE OF URINARY FILTRATION, MULTIPLE (05/13/17) Family History: States: No Known Family Hx, Unknown Family Hx - Social History Hx Alcohol Use: No Hx Substance Use: No - Immunization History Hx Tetanus Toxoid Vaccination: No Hx Influenza Vaccination: No Hx Pneumococcal Vaccination: No Review Of Systems Except As Marked, All Systems Reviewed And Found Negative. Constitutional: Negative for: Fever, Chills Cardiovascular: Positive for: Light Headedness. Negative for: Chest Pain Respiratory: Negative for: Shortness of Breath Gastrointestinal: Positive for: Nausea, Vomiting, Abdominal Pain Neurological: Positive for: Dizziness (vertigo) Past Patient History - Past Medical History & Family History Past Medical History?: Yes - Past Social History Smoking Status: Never Smoked - CARDIAC Hx Cardiac Disorders: Yes Hx Congestive Heart Failure: Yes (Questionable on xray. 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 - RENAL Hx Chronic Kidney Disease: Yes Date of Last Dialysis Treatment: 09/21/17 - ENDOCRINE/METABOLIC Hx Endocrine Disorders: Yes Hx Diabetes Mellitus Type 1: Yes - HEMATOLOGICAL/ONCOLOGICAL Hx Blood Disorders: Yes Hx Anemia: Yes (IRON INFUSION TREATMENTS) - INTEGUMENTARY Hx Dermatological Problems: No - MUSCULOSKELETAL/RHEUMATOLOGICAL Hx Musculoskeletal Disorders: Yes Hx Back Pain: Yes Hx Falls: Yes Hx Herniated Disk: Yes (Diagnosed 1 yr ago in [place] - GASTROINTESTINAL Hx Gastrointestinal Disorders: No - GENITOURINARY/GYNECOLOGICAL Hx Genitourinary Disorders: No - PSYCHIATRIC Hx Psychophysiologic Disorder: No Hx Substance Use: No - SURGICAL HISTORY Hx Surgeries: Yes Hx Arteriovenous Shunt: Yes (AV fistula right arm) Hx Section: Yes Hx Vascular Surgery: Yes (Bilateral leg varocose vein, removal perma cath insertio) - ANESTHESIA Hx Anesthesia: Yes Hx Anesthesia Reactions: No Hx Malignant Hyperthermia: No Meds Allergies/Adverse Reactions: Allergies Allergy/AdvReac Type Severity Reaction Status Date / Time durapore tape Allergy ITCHING Uncoded 09/25/17 06:03 - Medications Medications: Current Medications Acetaminophen (Tylenol 325mg Tab) 650 mg PO Q6 PRN PRN Reason: Pain, Mild (1-3) Last Admin: 09/25/17 05:05 Dose: 650 mg Allopurinol (Zyloprim) 100 mg PO DAILY [facility] Last Admin: 09/25/17 10:26 Dose: 100 mg Dextrose (Dextrose 50% Inj) 0 ml IV STAT PRN; Protocol PRN Reason: Hypoglycemia Protocol Dextrose (Glutose 15) 0 gm PO ONCE PRN; Protocol PRN Reason: Hypoglycemia Protocol Doxercalciferol (Hectorol) 0.5 mcg PO DAILY [facility] Last Admin: 09/25/17 10:30 Dose: Not Given Epoetin David (Procrit) 10,000 unit IV TTS [facility] Stop: 10/02/17 10:01 Last Admin: 09/25/17 13:52 Dose: 10,000 unit Ergocalciferol (Drisdol 50,000 Intl Units Cap) 1 cap PO QWK [facility] Last Admin: 09/25/17 14:36 Dose: Not Given Fentanyl (Fentanyl) 50 mcg IV Q10M PRN PRN Reason: Pain, moderate (4-7) Last Admin: 09/24/17 23:38 Dose: 50 mcg Ferrous Sulfate (Feosol) 325 mg PO DAILY [facility] Last Admin: 09/25/17 10:26 Dose: 325 mg Gabapentin (Neurontin) 300 mg PO HS [facility] Glucagon (Glucagen Diagnostic Kit) 0 mg IM STAT PRN; Protocol PRN Reason: Hypoglycemia Protocol Heparin Sodium (Porcine) (Heparin) 1,000 units IVP TTS [facility] Stop: 10/09/17 10:01 Hydromorphone HCl (Dilaudid) 0.5 mg IVP Q3H PRN PRN Reason: Pain, severe (8-10) Last Admin: 09/25/17 09:46 Dose: 0.5 mg Dextrose (Dextrose 5% In Water 1000 Ml) 1,000 mls @ 0 mls/hr IV .Q0M PRN; Protocol; Per Protocol PRN Reason: Hypoglycemia Protocol Piperacillin Sod/Tazobactam Sod (Zosyn 2.25 Gm Iv Premix) 2.25 gm in 50 mls @ 100 mls/hr IVPB Q6H [facility] Last Admin: 09/25/17 14:36 Dose: Not Given Sodium Chloride (Sodium Chloride 0.9%) 1,000 mls @ 70 mls/hr IV .[id number] [facility] Last Admin: 09/25/17 06:45 Dose: 70 mls/hr Insulin Human Regular (Novolin R) 0 unit SC ACHS [facility] PRN Reason: Protocol Last Admin: 09/25/17 17:10 Dose: 2 unit [id number] Ethyl Esters (Lovaza) 1 gm PO DAILY [facility] Last Admin: 09/25/17 10:26 Dose: 1 gm Ondansetron HCl (Zofran Inj) 4 mg IVP Q4H PRN PRN Reason: Nausea/Vomiting Pantoprazole Sodium (Protonix Inj) 40 mg IVP DAILY [facility] Last Admin: 09/25/17 10:21 Dose: 40 mg Sevelamer Carbonate (Renvela) 800 mg PO TID [facility] Last Admin: 09/25/17 17:13 Dose: 800 mg Vitamin B Complex/Vit C/Folic Acid (Nephro-Leslye) 1 tab PO DAILY [facility] Last Admin: 09/25/17 10:30 Dose: Not Given Results - Vital Signs Recent Vital Signs: Last Vital Signs Temp 97.8 F 09/25/17 14:25 Pulse 115 H 09/25/17 16:00 Resp 20 09/25/17 16:00 BP 112/73 09/25/17 16:00 Pulse Ox 96 09/25/17 16:00 - Labs Result Diagrams: 09/25/17 07:45 09/25/17 07:45 Labs: Laboratory Results - last 24 hr 09/24/17 09/24/17 09/25/17 12:12 19:58 07:23 WBC RBC Hgb Hct MCV MCH MCHC RDW Plt Count MPV Neut % (Auto) Lymph % (Auto) [place] % (Auto) Eos % (Auto) Baso % (Auto) Neut # Lymph # [place] # Eos # Baso # Neutrophils % (Manual) Band Neutrophils % Lymphocytes % (Manual) Monocytes % (Manual) Platelet Estimate Hypochromasia (manual) Basophilic Stippling Anisocytosis (manual) Stomatocytes Sodium Potassium Chloride Carbon Dioxide Anion Gap BUN Creatinine Est GFR ( Amer) Est GFR (Non-Af Amer) POC Glucose (mg/dL) 97 155 H Random Glucose Calcium Phosphorus Magnesium Total Bilirubin AST ALT Alkaline Phosphatase Total Protein Albumin Globulin Albumin/Globulin Ratio Urine Color Yellow Urine Clarity Clear Urine pH 8.0 Ur Specific [place] 1.023 Urine Protein 3+ H Urine Glucose (UA) Normal Urine Ketones Negative Urine Blood Negative Urine Nitrate Negative Urine Bilirubin Negative Urine Urobilinogen Normal Ur Leukocyte Esterase Neg Urine WBC (Auto) 1 Urine RBC (Auto) 2 Ur Squamous Epith Cells 1 Urine Bacteria Rare 09/25/17 09/25/17 09/25/17 07:45 07:45 12:17 WBC 9.9 RBC 3.25 L Hgb 9.1 L Hct 28.0 L MCV 86.2 MCH 28.0 MCHC 32.5 L RDW 19.3 H Plt Count 185 MPV 10.8 Neut % (Auto) 85.5 H Lymph % (Auto) 6.7 L [place] % (Auto) 6.7 Eos % (Auto) 0.7 Baso % (Auto) 0.4 Neut # 8.4 H Lymph # 0.7 L [place]ard # 0.7 Eos # 0.1 Baso # 0.0 Neutrophils % (Manual) 80 H Band Neutrophils % 9 H Lymphocytes % (Manual) 8 L Monocytes % (Manual) 3 Platelet Estimate Normal Hypochromasia (manual) Slight Basophilic Stippling Slight Anisocytosis (manual) Moderate Stomatocytes Slight Sodium 133 Potassium 4.7 Chloride 96 L Carbon Dioxide 28 Anion Gap 13 BUN 35 H Creatinine 6.6 H Est GFR ( Amer) 7 Est GFR (Non-Af Amer) 6 POC Glucose (mg/dL) 142 H Random Glucose 143 H Calcium 8.1 L Phosphorus 4.3 Magnesium 1.7 Total Bilirubin 0.5 AST 24 ALT 19 Alkaline Phosphatase 66 Total Protein 6.5 Albumin 3.3 L Globulin 3.2 Albumin/Globulin Ratio 1.0 Urine Color Urine Clarity Urine pH Ur Specific [place] Urine Protein Urine Glucose (UA) Urine Ketones Urine Blood Urine Nitrate Urine Bilirubin Urine Urobilinogen Ur Leukocyte Esterase Urine WBC (Auto) Urine RBC (Auto) Ur Squamous Epith Cells Urine Bacteria 09/25/17 16:32 WBC RBC Hgb Hct MCV MCH MCHC RDW Plt Count MPV Neut % (Auto) Lymph % (Auto) [place] % (Auto) Eos % (Auto) Baso % (Auto) Neut # Lymph # [place] # Eos # Baso # Neutrophils % (Manual) Band Neutrophils % Lymphocytes % (Manual) Monocytes % (Manual) Platelet Estimate Hypochromasia (manual) Basophilic Stippling Anisocytosis (manual) Stomatocytes Sodium Potassium Chloride Carbon Dioxide Anion Gap BUN Creatinine Est GFR ( Amer) Est GFR (Non-Af Amer) POC Glucose (mg/dL) 186 H Random Glucose Calcium Phosphorus Magnesium Total Bilirubin AST ALT Alkaline Phosphatase Total Protein Albumin Globulin Albumin/Globulin Ratio Urine Color Urine Clarity Urine pH Ur Specific [place] Urine Protein Urine Glucose (UA) Urine Ketones Urine Blood Urine Nitrate Urine Bilirubin Urine Urobilinogen Ur Leukocyte Esterase Urine WBC (Auto) Urine RBC (Auto) Ur Squamous Epith Cells Urine Bacteria Assessment & Plan - Assessment and Plan (Free Text) Assessment: ESRD ON HD M W F .. TO BE CONTINEUD ANEMIA OF CKD .. ABDO PAIN .. APPENDICITIS MMP P : PT WAS SEEN TODAY ON HD .. VSS C/O CURRENT CARE C/O PRESENT MEDS - Date & Time Date: 09/25/17 Time: 15:00
--- NOTE | 2017-09-25 23:11 | CARD ---
APPROVED REPORT EKG Measurement Heart [id number] <Conclusion> Normal sinus rhythm Moderate voltage criteria for LVH, may be normal variant Nonspecific T wave abnormality Abnormal ECG
[2017-09-26] MEDS: Piperacill/Tazo 2.25gm in Dex 2.25 GM/50 ML BAG IVPB SCH ×4 (01:20→19:49)
[2017-09-26] MEDS: Sodium Chloride 0.9% 1,000 ML IV SCH ×3 (06:15→21:47)
--- NOTE | 2017-09-26 07:36 | CP.PCM.PN ---
<Ting Cleaning - Last Filed: 09/27/17 06:45> Subjective - Date & Time of Evaluation Date of Evaluation: 09/26/17 Time of Evaluation: 07:36 - Subjective Subjective: Medicine progress note for Dr. Matthews's service Patient was seen and examined at bedside in no acute distress. Patient's daughters were at bedside. Patient was eating breakfast without difficulty. She reports feeling better today and has less pain s/p procedure. Patient denies chest pain, nausea, vomiting, fevers, headaches. Objective - Vital Signs/Intake and Output Vital Signs (last 24 hours): Temp Pulse Resp BP Pulse Ox 99.5 F 109 H 20 98/59 L 98 09/26/17 04:00 09/26/17 03:08 09/26/17 03:08 09/26/17 03:08 09/26/17 03:08 - Medications Medications: Current Medications Acetaminophen (Tylenol 325mg Tab) 650 mg PO Q6 PRN PRN Reason: Pain, Mild (1-3) Last Admin: 09/26/17 03:10 Dose: 650 mg Allopurinol (Zyloprim) 100 mg PO DAILY [facility] Last Admin: 09/25/17 10:26 Dose: 100 mg Dextrose (Dextrose 50% Inj) 0 ml IV STAT PRN; Protocol PRN Reason: Hypoglycemia Protocol Dextrose (Glutose 15) 0 gm PO ONCE PRN; Protocol PRN Reason: Hypoglycemia Protocol Doxercalciferol (Hectorol) 0.5 mcg PO DAILY [facility] Last Admin: 09/25/17 10:30 Dose: Not Given Epoetin David (Procrit) 10,000 unit IV TTS [facility] Stop: 10/02/17 10:01 Last Admin: 09/25/17 13:52 Dose: 10,000 unit Ergocalciferol (Drisdol 50,000 Intl Units Cap) 1 cap PO QWK [facility] Last Admin: 09/25/17 14:36 Dose: Not Given Fentanyl (Fentanyl) 50 mcg IV Q10M PRN PRN Reason: Pain, moderate (4-7) Last Admin: 09/24/17 23:38 Dose: 50 mcg Ferrous Sulfate (Feosol) 325 mg PO DAILY [facility] Last Admin: 09/25/17 10:26 Dose: 325 mg Gabapentin (Neurontin) 300 mg PO HS [facility] Last Admin: 09/25/17 21:46 Dose: 300 mg Glucagon (Glucagen Diagnostic Kit) 0 mg IM STAT PRN; Protocol PRN Reason: Hypoglycemia Protocol Heparin Sodium (Porcine) (Heparin) 1,000 units IVP TTS [facility] Stop: 10/09/17 10:01 Hydromorphone HCl (Dilaudid) 0.5 mg IVP Q3H PRN PRN Reason: Pain, severe (8-10) Last Admin: 09/25/17 09:46 Dose: 0.5 mg Dextrose (Dextrose 5% In Water 1000 Ml) 1,000 mls @ 0 mls/hr IV .Q0M PRN; Protocol; Per Protocol PRN Reason: Hypoglycemia Protocol Piperacillin Sod/Tazobactam Sod (Zosyn 2.25 Gm Iv Premix) 2.25 gm in 50 mls @ 100 mls/hr IVPB Q6H [facility] Last Admin: 09/26/17 07:10 Dose: 100 mls/hr Sodium Chloride (Sodium Chloride 0.9%) 1,000 mls @ 70 mls/hr IV .[id number] [facility] Last Admin: 09/26/17 06:15 Dose: 70 mls/hr Insulin Human Regular (Novolin R) 0 unit SC ACHS [facility] PRN Reason: Protocol Last Admin: 09/25/17 21:46 Dose: Not Given [id number] Ethyl Esters (Lovaza) 1 gm PO DAILY [facility] Last Admin: 09/25/17 10:26 Dose: 1 gm Ondansetron HCl (Zofran Inj) 4 mg IVP Q4H PRN PRN Reason: Nausea/Vomiting Pantoprazole Sodium (Protonix Inj) 40 mg IVP DAILY [facility] Last Admin: 09/25/17 10:21 Dose: 40 mg Sevelamer Carbonate (Renvela) 800 mg PO TID [facility] Last Admin: 09/25/17 17:13 Dose: 800 mg Vitamin B Complex/Vit C/Folic Acid (Nephro-Leslye) 1 tab PO DAILY [facility] Last Admin: 09/25/17 10:30 Dose: Not Given - Labs Labs: 09/25/17 07:45 09/25/17 07:45 PT 11.1 SECONDS (9.7-12.2) 09/24/17 13:18 INR 1.0 09/24/17 13:18 APTT 27 SECONDS (21-34) 09/24/17 13:18 - Additional Findings Additional findings: - Head Exam Head Exam: ATRAUMATIC, NORMOCEPHALIC - Eye Exam Eye Exam: EOMI - ENT Exam ENT Exam: Mucous Membranes Moist - Respiratory Exam Respiratory Exam: Clear to Ausculation Bilateral, NORMAL BREATHING PATTERN. absent: Rales, Rhonchi, Wheezes, Respiratory Distress - Cardiovascular Exam Cardiovascular Exam: REGULAR RHYTHM, +S1, +S2 - GI/Abdominal Exam GI & Abdominal Exam: Soft, Tenderness (mild; post-op; dressing clean, dry, intact), Normal Bowel Sounds. absent: Distended, Firm - Extremities Exam Extremities Exam: absent: Pedal Edema, Tenderness - Neurological Exam Neurological Exam: Alert, Awake - Psychiatric Exam Psychiatric exam: Normal Affect, Normal Mood - Skin Skin Exam: Dry, Intact, Normal Color, Warm Assessment and Plan - Assessment and Plan (Free Text) Plan: Appendicitis * Admit to med-surg * NO WBC * Troponin negative x 1 * Lipase 272 * CT A/P (09/24/17): Findings concerning for acute appendicitis. Cholelithiasis and thickening of GB wall. Consider further eval with US. * CXR (09/24/17): Mild venous congestion. Mild cardiomegaly. Right side venous catheter into right atrium. * Gen Surgery consult: Dr. Thompson, help appreciated * s/p lap appendectomy converted to open appendectomy (09/25/17) * advanced diet to regular diet * encourage ambulate/PT/IS Medication: * Zosyn 3.375gm Q6H IV (start 09/24/17) * Zofran 4mg IV Q4H PRN * LR @ 125mg/hr IV * Dilaudid 0.5mg IV Q3H Possible Cholecystitis * Gen Surgery consult: Dr. Thompson, help appreciated * no surgery at this time * CT A/P (09/24/17): Multiple tiny gallstone seen. Mild thickening of GB wall, unsharp suggesting possible inflammation. No pericholecystic fluid seen. (see full report) * Abd US (09/24/17): contracted GB with multiple small stones no dilatation; nontender over GB. 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 * f/u recs * Renal-Leslye 800 mg PO TID * Renvela 800mg PO TID HTN * Elevated on Admission * HOLD Lopressor 100mg PO Daily * Hydralazine IVP Q6H for SBP > 160 CHF (diastolic) * Myocardial perfusion scan 11/2016 - EF 55-60% * HOLD Torsemide 100mg PO Daily * HOLD Lopressor 100mg PO Daily Type two diabetes mellitus * A1c 6.9 (05/2017) * Diagnosed ~3 years ago * BG log at bedside shows sugars routinely > 250 * Accuchecks ACHS * ISS * Levemir 20 units SC QAM * Hypoglycemia protocol DM neuropathy * Continue home medication- Gabapentin 300mg PO HS Proteinuria * UA (09/24/17) 3+ protein * Will consider BRENNA when pt can start PO intake Hx of Anemia * Continue home medication Feosol 325mg PO Daily * Hgb 10.2 on admission, up from prior (baseline 8.0) Dizziness * CT HEAD (09/24/17): No intracranial mass, hemorrhage, or evidence of infarct. Small old bilateral basal ganglia/right thalamic lacunar infarcts. * Antivert given once in ED Prophylaxis * Protonix 40mg IV Daily * SCDs Held due to peripheral edema * Hold anticoagulation until surgical team gives ok * PT/OT <Isael Matthews Jr. - Last Filed: 09/27/17 19:33> Objective - Vital Signs/Intake and Output Vital Signs (last 24 hours): Temp Pulse Resp BP Pulse Ox 98.8 F 94 H 20 97/61 L 100 09/27/17 16:00 09/27/17 16:00 09/27/17 16:00 09/27/17 16:00 09/27/17 16:00 Intake and Output: 09/27/17 09/28/17 18:59 06:59 Intake Total 500 Balance 500 - Medications Medications: Current Medications Acetaminophen (Tylenol 325mg Tab) 650 mg PO Q6 PRN PRN Reason: Pain, Mild (1-3) Last Admin: 09/27/17 09:33 Dose: 650 mg Allopurinol (Zyloprim) 100 mg PO DAILY [facility] Last Admin: 09/27/17 09:34 Dose: 100 mg Benzocaine/Menthol (Cepacol Sore Throat) 1 mishel MT Q2H PRN PRN Reason: Sore Throat Dextrose (Dextrose 50% Inj) 0 ml IV STAT PRN; Protocol PRN Reason: Hypoglycemia Protocol Dextrose (Glutose 15) 0 gm PO ONCE PRN; Protocol PRN Reason: Hypoglycemia Protocol Doxercalciferol (Hectorol) 0.5 mcg PO DAILY [facility] Last Admin: 09/27/17 09:34 Dose: 0.5 mcg Epoetin David (Procrit) 10,000 unit IV TTS [facility] Stop: 10/02/17 10:01 Last Admin: 09/27/17 12:21 Dose: 10,000 unit Ergocalciferol (Drisdol 50,000 Intl Units Cap) 1 cap PO QWK [facility] Last Admin: 09/26/17 10:33 Dose: 1 cap Ferrous Sulfate (Feosol) 325 mg PO DAILY [facility] Last Admin: 09/27/17 09:35 Dose: 325 mg Gabapentin (Neurontin) 300 mg PO HS [facility] Last Admin: 09/26/17 21:44 Dose: 300 mg Glucagon (Glucagen Diagnostic Kit) 0 mg IM STAT PRN; Protocol PRN Reason: Hypoglycemia Protocol Heparin Sodium (Porcine) (Heparin) 1,000 units IVP TTS [facility] Stop: 10/09/17 10:01 Last Admin: 09/27/17 12:22 Dose: Not Given Hydromorphone HCl (Dilaudid) 0.5 mg IVP Q3H PRN PRN Reason: Pain, severe (8-10) Last Admin: 09/27/17 18:47 Dose: 0.5 mg Dextrose (Dextrose 5% In Water 1000 Ml) 1,000 mls @ 0 mls/hr IV .Q0M PRN; Protocol; Per Protocol PRN Reason: Hypoglycemia Protocol Piperacillin Sod/Tazobactam Sod (Zosyn 2.25 Gm Iv Premix) 2.25 gm in 50 mls @ 100 mls/hr IVPB Q6H [facility] Last Admin: 09/27/17 18:46 Dose: 100 mls/hr Sodium Chloride (Sodium Chloride 0.9%) 1,000 mls @ 70 mls/hr IV .[id number] [facility] Last Admin: 09/27/17 14:09 Dose: 70 mls/hr Insulin Human Regular (Novolin R) 0 unit SC ACHS [facility] PRN Reason: Protocol Last Admin: 09/27/17 17:10 Dose: Not Given Ozffb-5-Ijoc Ethyl Esters (Lovaza) 1 gm PO DAILY [facility] Last Admin: 09/27/17 09:35 Dose: 1 gm Ondansetron HCl (Zofran Inj) 4 mg IVP Q4H PRN PRN Reason: Nausea/Vomiting Pantoprazole Sodium (Protonix Inj) 40 mg IVP DAILY [facility] Last Admin: 09/27/17 09:33 Dose: 40 mg Sevelamer Carbonate (Renvela) 800 mg PO TID [facility] Last Admin: 09/27/17 18:45 Dose: 800 mg Vitamin B Complex/Vit C/Folic Acid (Nephro-Leslye) 1 tab PO DAILY [facility] Last Admin: 09/27/17 09:34 Dose: 1 tab - Labs Labs: 09/27/17 07:34 09/27/17 07:34 PT 11.1 SECONDS (9.7-12.2) 09/24/17 13:18 INR 1.0 09/24/17 13:18 APTT 27 SECONDS (21-34) 09/24/17 13:18 Attending/Attestation - Attestation I have personally seen and examined this patient.: Yes I have fully participated in the care of the patient.: Yes I have reviewed all pertinent clinical information, including history, physical exam and plan: Yes Notes (Text): 09/27/17 19:33 Agree with resident note and plan of care
[2017-09-26] MEDS: (Novolin R) Insulin Human Regular 100 units/ml vial SC SCH ×4 (08:14→21:45)
[2017-09-26 08:59] LABS: BASO # 0.1 K/uL (0.0-0.2); BASO % 0.7 % (0.0-2.0); EOS # 0.3 K/uL (0.0-0.7); EOS % 2.6 % (0.0-4.0); HEMOGLOBIN 8.9 g/dL (11.0-16.0); LYMPH # 1.4 K/uL (1.0-4.3); LYMPH % 14.1 % (20.0-40.0); MEAN CELL VOLUME 87.1 fL (81.0-99.0); MEAN CORPUSCULAR HEMOGLOBIN 27.4 pg (27.0-31.0); MEAN CORPUSCULAR HGB CONC 31.5 g/dL (33.0-37.0); MEAN PLATELET VOLUME 10.3 fL (7.2-11.7); MONO # 1.1 K/uL (0.0-0.8); MONO % 10.8 % (0.0-10.0); NEUT # 7.1 K/uL (1.8-7.0); NEUT % 71.8 % (50.0-75.0); NRBC % 0.2 % (0.0-2.0); RBC 3.25 Mil/uL (3.80-5.20); RED CELL DISTRIBUTION WIDTH 19.7 % (11.5-14.5); WHITE BLOOD COUNT 9.9 K/uL (4.8-10.8)
[2017-09-26 09:18] LABS: ALBUMIN 3.2 g/dL (3.5-5.0); CALCIUM 7.9 mg/dl (8.6-10.4); MAGNESIUM 1.7 mg/dL (1.6-2.3)
[2017-09-26] MEDS ORDERED: Influenza Vaccine 60 mcg/0.5 mL SYR (4YR UP) IM ONE (10:00)
--- NOTE | 2017-09-26 10:16 | CP.PCM.PN ---
Subjective - Date & Time of Evaluation Date of Evaluation: 09/26/17 Time of Evaluation: 10:30 - Subjective Subjective: General Surgery Note for Dr. Thompson Patient seen and examined at bedside. No acute event overnight. Patient states pain has improved. She is eating today. Still no BM. Patient feeling better. Objective - Vital Signs/Intake and Output Vital Signs (last 24 hours): Temp Pulse Resp BP Pulse Ox 99 F 89 20 90/59 L 95 09/26/17 08:41 09/26/17 08:41 09/26/17 08:41 09/26/17 08:41 09/26/17 08:41 Intake and Output: 09/26/17 09/26/17 06:59 18:59 Intake Total 600 Balance 600 - Medications Medications: Current Medications Acetaminophen (Tylenol 325mg Tab) 650 mg PO Q6 PRN PRN Reason: Pain, Mild (1-3) Last Admin: 09/26/17 03:10 Dose: 650 mg Allopurinol (Zyloprim) 100 mg PO DAILY [facility] Last Admin: 09/25/17 10:26 Dose: 100 mg Dextrose (Dextrose 50% Inj) 0 ml IV STAT PRN; Protocol PRN Reason: Hypoglycemia Protocol Dextrose (Glutose 15) 0 gm PO ONCE PRN; Protocol PRN Reason: Hypoglycemia Protocol Doxercalciferol (Hectorol) 0.5 mcg PO DAILY [facility] Last Admin: 09/25/17 10:30 Dose: Not Given Epoetin David (Procrit) 10,000 unit IV TTS [facility] Stop: 10/02/17 10:01 Last Admin: 09/25/17 13:52 Dose: 10,000 unit Ergocalciferol (Drisdol 50,000 Intl Units Cap) 1 cap PO QWK [facility] Last Admin: 09/25/17 14:36 Dose: Not Given Fentanyl (Fentanyl) 50 mcg IV Q10M PRN PRN Reason: Pain, moderate (4-7) Last Admin: 09/24/17 23:38 Dose: 50 mcg Ferrous Sulfate (Feosol) 325 mg PO DAILY [facility] Last Admin: 09/25/17 10:26 Dose: 325 mg Gabapentin (Neurontin) 300 mg PO HS [facility] Last Admin: 09/25/17 21:46 Dose: 300 mg Glucagon (Glucagen Diagnostic Kit) 0 mg IM STAT PRN; Protocol PRN Reason: Hypoglycemia Protocol Heparin Sodium (Porcine) (Heparin) 1,000 units IVP TTS [facility] Stop: 10/09/17 10:01 Hydromorphone HCl (Dilaudid) 0.5 mg IVP Q3H PRN PRN Reason: Pain, severe (8-10) Last Admin: 09/25/17 09:46 Dose: 0.5 mg Dextrose (Dextrose 5% In Water 1000 Ml) 1,000 mls @ 0 mls/hr IV .Q0M PRN; Protocol; Per Protocol PRN Reason: Hypoglycemia Protocol Piperacillin Sod/Tazobactam Sod (Zosyn 2.25 Gm Iv Premix) 2.25 gm in 50 mls @ 100 mls/hr IVPB Q6H [facility] Last Admin: 09/26/17 07:10 Dose: 100 mls/hr Sodium Chloride (Sodium Chloride 0.9%) 1,000 mls @ 70 mls/hr IV .[id number] [facility] Last Admin: 09/26/17 06:15 Dose: 70 mls/hr Insulin Human Regular (Novolin R) 0 unit SC ACHS [facility] PRN Reason: Protocol Last Admin: 09/26/17 08:14 Dose: Not Given Ygiwa-4-Txir Ethyl Esters (Lovaza) 1 gm PO DAILY [facility] Last Admin: 09/25/17 10:26 Dose: 1 gm Ondansetron HCl (Zofran Inj) 4 mg IVP Q4H PRN PRN Reason: Nausea/Vomiting Pantoprazole Sodium (Protonix Inj) 40 mg IVP DAILY [facility] Last Admin: 09/25/17 10:21 Dose: 40 mg Sevelamer Carbonate (Renvela) 800 mg PO TID [facility] Last Admin: 09/25/17 17:13 Dose: 800 mg Vitamin B Complex/Vit C/Folic Acid (Nephro-Leslye) 1 tab PO DAILY [facility] Last Admin: 09/25/17 10:30 Dose: Not Given - Labs Labs: 09/26/17 08:52 09/26/17 08:52 PT 11.1 SECONDS (9.7-12.2) 09/24/17 13:18 INR 1.0 09/24/17 13:18 APTT 27 SECONDS (21-34) 09/24/17 13:18 - Constitutional Appears: No Acute Distress - Head Exam Head Exam: ATRAUMATIC, NORMOCEPHALIC - Eye Exam Eye Exam: EOMI, Normal appearance - ENT Exam ENT Exam: Mucous Membranes Moist - Respiratory Exam Respiratory Exam: NORMAL BREATHING PATTERN - Cardiovascular Exam Cardiovascular Exam: REGULAR RHYTHM - GI/Abdominal Exam GI & Abdominal Exam: Soft. absent: Distended, Guarding, Tenderness, Rebound Additional comments: dressings clean and dry - Neurological Exam Neurological Exam: Alert, Awake, Oriented x3 - Psychiatric Exam Psychiatric exam: Normal Affect, Normal Mood - Skin Skin Exam: Dry, Intact, Normal Color, Warm Assessment and Plan - Assessment and Plan (Free Text) Plan: 72 F s/p laparocopic converted to open appendectomy POD#2 -Regular diet -Analgesics PRN -OOB/Ambulation/IS -PT -Clear for discharge from surgical standpoint -Discussed with Dr. Jay Hernandez PGY1
[2017-09-26] MEDS: Multivitamin Vitamin B Complex (Nephro-Vite) Tab PO SCH (10:33)
[2017-09-26] MEDS: Ergocalciferol 50,000 Intl Units Cap PO SCH (10:33)
[2017-09-26] MEDS: Omega-3-Acid Ethyl Esters 1 GM Cap PO SCH (10:34)
--- NOTE | 2017-09-26 23:42 | CP.PCM.PN ---
Subjective - Date & Time of Evaluation Date of Evaluation: 09/26/17 Time of Evaluation: 15:00 - Subjective Subjective: SEEN ON RENAL F/U FEELS IMPROVED .. STILL WITH LOCAL ABDO PAIN DAUGHTER ON BED SIDE .. ALL QEUSTIONS ANSWERED S/P AP Objective - Vital Signs/Intake and Output Vital Signs (last 24 hours): Temp Pulse Resp BP Pulse Ox 101.1 F H 101 H 20 96/55 L 97 09/26/17 21:00 09/26/17 16:00 09/26/17 16:00 09/26/17 16:00 09/26/17 16:00 Intake and Output: 09/26/17 09/27/17 18:59 06:59 Intake Total 670 Balance 670 - Medications Medications: Current Medications Acetaminophen (Tylenol 325mg Tab) 650 mg PO Q6 PRN PRN Reason: Pain, Mild (1-3) Last Admin: 09/26/17 17:29 Dose: 650 mg Allopurinol (Zyloprim) 100 mg PO DAILY [facility] Last Admin: 09/26/17 10:33 Dose: 100 mg Dextrose (Dextrose 50% Inj) 0 ml IV STAT PRN; Protocol PRN Reason: Hypoglycemia Protocol Dextrose (Glutose 15) 0 gm PO ONCE PRN; Protocol PRN Reason: Hypoglycemia Protocol Doxercalciferol (Hectorol) 0.5 mcg PO DAILY [facility] Last Admin: 09/26/17 10:33 Dose: 0.5 mcg Epoetin David (Procrit) 10,000 unit IV TTS [facility] Stop: 10/02/17 10:01 Last Admin: 09/25/17 13:52 Dose: 10,000 unit Ergocalciferol (Drisdol 50,000 Intl Units Cap) 1 cap PO QWK [facility] Last Admin: 09/26/17 10:33 Dose: 1 cap Ferrous Sulfate (Feosol) 325 mg PO DAILY [facility] Last Admin: 09/26/17 10:33 Dose: 325 mg Gabapentin (Neurontin) 300 mg PO HS [facility] Last Admin: 09/26/17 21:44 Dose: 300 mg Glucagon (Glucagen Diagnostic Kit) 0 mg IM STAT PRN; Protocol PRN Reason: Hypoglycemia Protocol Heparin Sodium (Porcine) (Heparin) 1,000 units IVP TTS [facility] Stop: 10/09/17 10:01 Hydromorphone HCl (Dilaudid) 0.5 mg IVP Q3H PRN PRN Reason: Pain, severe (8-10) Last Admin: 09/25/17 09:46 Dose: 0.5 mg Dextrose (Dextrose 5% In Water 1000 Ml) 1,000 mls @ 0 mls/hr IV .Q0M PRN; Protocol; Per Protocol PRN Reason: Hypoglycemia Protocol Piperacillin Sod/Tazobactam Sod (Zosyn 2.25 Gm Iv Premix) 2.25 gm in 50 mls @ 100 mls/hr IVPB Q6H [facility] Last Admin: 09/26/17 19:49 Dose: 100 mls/hr Sodium Chloride (Sodium Chloride 0.9%) 1,000 mls @ 70 mls/hr IV .[id number] [facility] Last Admin: 09/26/17 21:47 Dose: 70 mls/hr Insulin Human Regular (Novolin R) 0 unit SC ACHS [place] PRN Reason: Protocol Last Admin: 09/26/17 21:45 Dose: Not Given Dgewb-6-Ulnw Ethyl Esters (Lovaza) 1 gm PO DAILY [facility] Last Admin: 09/26/17 10:34 Dose: 1 gm Ondansetron HCl (Zofran Inj) 4 mg IVP Q4H PRN PRN Reason: Nausea/Vomiting Pantoprazole Sodium (Protonix Inj) 40 mg IVP DAILY [facility] Last Admin: 09/26/17 10:41 Dose: 40 mg Sevelamer Carbonate (Renvela) 800 mg PO TID [facility] Last Admin: 09/26/17 17:32 Dose: 800 mg Vitamin B Complex/Vit C/Folic Acid (Nephro-Leslye) 1 tab PO DAILY [facility] Last Admin: 09/26/17 10:33 Dose: 1 tab - Labs Labs: 09/26/17 08:52 09/26/17 08:52 PT 11.1 SECONDS (9.7-12.2) 09/24/17 13:18 INR 1.0 09/24/17 13:18 APTT 27 SECONDS (21-34) 09/24/17 13:18 Assessment and Plan - Assessment and Plan (Free Text) Assessment: ESRD .. RECIEVED HD YESTERDAY .. NEXT HD IN AM ANEMIA OF CKD .. ON EPO ABDO PAIN .. S/P AP MMP P : C/O CURRENT CARE C/O PRESENT MANAGEMENT HD IN AM
[2017-09-27] MEDS: Sodium Chloride 0.9% 1,000 ML IV SCH ×2 (00:39→14:09)
[2017-09-27] MEDS: Piperacill/Tazo 2.25gm in Dex 2.25 GM/50 ML BAG IVPB SCH ×4 (01:16→18:46)
[2017-09-27 07:51] LABS: BASO % 0.4 % (0.0-2.0); EOS # 0.3 K/uL (0.0-0.7); EOS % 3.5 % (0.0-4.0); HEMOGLOBIN 8.9 g/dL (11.0-16.0); LYMPH # 1.4 K/uL (1.0-4.3); LYMPH % 15.8 % (20.0-40.0); MEAN CELL VOLUME 86.7 fL (81.0-99.0); MEAN CORPUSCULAR HEMOGLOBIN 28.2 pg (27.0-31.0); MEAN CORPUSCULAR HGB CONC 32.5 g/dL (33.0-37.0); MEAN PLATELET VOLUME 10.4 fL (7.2-11.7); MONO # 0.8 K/uL (0.0-0.8); MONO % 9.2 % (0.0-10.0); NEUT # 6.5 K/uL (1.8-7.0); NEUT % 71.1 % (50.0-75.0); NRBC % 0.2 % (0.0-2.0); RBC 3.15 Mil/uL (3.80-5.20); RED CELL DISTRIBUTION WIDTH 19.4 % (11.5-14.5); WHITE BLOOD COUNT 9.2 K/uL (4.8-10.8)
[2017-09-27] MEDS: (Novolin R) Insulin Human Regular 100 units/ml vial SC SCH ×4 (07:57→21:42)
[2017-09-27 08:21] LABS: ALB/GLOB RATIO 0.9 (1.0-2.1); CALCIUM 7.9 mg/dl (8.6-10.4); MAGNESIUM 1.8 mg/dL (1.6-2.3)
--- NOTE | 2017-09-27 09:16 | CP.PCM.PN ---
Subjective - Date & Time of Evaluation Date of Evaluation: 09/27/17 Time of Evaluation: 07:20 - Subjective Subjective: General Surgery Note for Dr. Thompson Patient seen and examined at bedside. No acute event overnight. Patient admits to epigastric pain and distention this morning. Patient states she has not urinated since procedure. She is eating today but has not had BM yet. Objective - Vital Signs/Intake and Output Vital Signs (last 24 hours): Temp Pulse Resp BP Pulse Ox 98.6 F 91 H 20 105/65 97 09/27/17 08:04 09/27/17 08:04 09/27/17 08:04 09/27/17 08:04 09/27/17 08:04 Intake and Output: 09/27/17 09/27/17 06:59 18:59 Intake Total 1310 Balance 1310 - Medications Medications: Current Medications Acetaminophen (Tylenol 325mg Tab) 650 mg PO Q6 PRN PRN Reason: Pain, Mild (1-3) Last Admin: 09/27/17 01:00 Dose: 650 mg Allopurinol (Zyloprim) 100 mg PO DAILY [facility] Last Admin: 09/26/17 10:33 Dose: 100 mg Dextrose (Dextrose 50% Inj) 0 ml IV STAT PRN; Protocol PRN Reason: Hypoglycemia Protocol Dextrose (Glutose 15) 0 gm PO ONCE PRN; Protocol PRN Reason: Hypoglycemia Protocol Doxercalciferol (Hectorol) 0.5 mcg PO DAILY [facility] Last Admin: 09/26/17 10:33 Dose: 0.5 mcg Epoetin David (Procrit) 10,000 unit IV TTS [facility] Stop: 10/02/17 10:01 Last Admin: 09/25/17 13:52 Dose: 10,000 unit Ergocalciferol (Drisdol 50,000 Intl Units Cap) 1 cap PO QWK [facility] Last Admin: 09/26/17 10:33 Dose: 1 cap Ferrous Sulfate (Feosol) 325 mg PO DAILY [facility] Last Admin: 09/26/17 10:33 Dose: 325 mg Gabapentin (Neurontin) 300 mg PO HS [facility] Last Admin: 09/26/17 21:44 Dose: 300 mg Glucagon (Glucagen Diagnostic Kit) 0 mg IM STAT PRN; Protocol PRN Reason: Hypoglycemia Protocol Heparin Sodium (Porcine) (Heparin) 1,000 units IVP TTS [facility] Stop: 10/09/17 10:01 Hydromorphone HCl (Dilaudid) 0.5 mg IVP Q3H PRN PRN Reason: Pain, severe (8-10) Last Admin: 09/25/17 09:46 Dose: 0.5 mg Dextrose (Dextrose 5% In Water 1000 Ml) 1,000 mls @ 0 mls/hr IV .Q0M PRN; Protocol; Per Protocol PRN Reason: Hypoglycemia Protocol Piperacillin Sod/Tazobactam Sod (Zosyn 2.25 Gm Iv Premix) 2.25 gm in 50 mls @ 100 mls/hr IVPB Q6H [facility] Last Admin: 09/27/17 07:12 Dose: 100 mls/hr Sodium Chloride (Sodium Chloride 0.9%) 1,000 mls @ 70 mls/hr IV .[id number] [facility] Last Admin: 09/27/17 00:39 Dose: Not Given Insulin Human Regular (Novolin R) 0 unit SC ACHS [facility] PRN Reason: Protocol Last Admin: 09/27/17 07:57 Dose: Not Given Rlxel-5-Pgql Ethyl Esters (Lovaza) 1 gm PO DAILY [facility] Last Admin: 09/26/17 10:34 Dose: 1 gm Ondansetron HCl (Zofran Inj) 4 mg IVP Q4H PRN PRN Reason: Nausea/Vomiting Pantoprazole Sodium (Protonix Inj) 40 mg IVP DAILY [facility] Last Admin: 09/26/17 10:41 Dose: 40 mg Sevelamer Carbonate (Renvela) 800 mg PO TID [facility] Last Admin: 09/26/17 17:32 Dose: 800 mg Vitamin B Complex/Vit C/Folic Acid (Nephro-Leslye) 1 tab PO DAILY [facility] Last Admin: 09/26/17 10:33 Dose: 1 tab - Labs Labs: 09/27/17 07:34 09/27/17 07:34 PT 11.1 SECONDS (9.7-12.2) 09/24/17 13:18 INR 1.0 09/24/17 13:18 APTT 27 SECONDS (21-34) 09/24/17 13:18 - Constitutional Appears: No Acute Distress - Head Exam Head Exam: ATRAUMATIC, NORMOCEPHALIC - Eye Exam Eye Exam: EOMI, Normal appearance Pupil Exam: PERRL - ENT Exam ENT Exam: Mucous Membranes Moist - Respiratory Exam Respiratory Exam: NORMAL BREATHING PATTERN - Cardiovascular Exam Cardiovascular Exam: REGULAR RHYTHM - GI/Abdominal Exam GI & Abdominal Exam: Distended (mildly), Soft, Tenderness (epigastric). absent : Firm, Guarding, Rigid, Rebound - Extremities Exam Extremities Exam: absent: Calf Tenderness - Back Exam Back Exam: absent: CVA tenderness (L), CVA tenderness (R) - Neurological Exam Neurological Exam: Alert, Awake, CN II-XII Intact, Oriented x3 - Psychiatric Exam Psychiatric exam: Normal Affect, Normal Mood - Skin Skin Exam: Dry, Intact, Normal Color, Warm Assessment and Plan - Assessment and Plan (Free Text) Plan: 72 F s/p laparocopic converted to open appendectomy POD#3 -Regular diet -Analgesics PRN -OOB/Ambulation/IS -PT -Monitor Urine output -Monitor for fevers -Discussed with Dr. Jay Hernandez PGY1
[2017-09-27] MEDS: Multivitamin Vitamin B Complex (Nephro-Vite) Tab PO SCH (09:34)
[2017-09-27] MEDS: Omega-3-Acid Ethyl Esters 1 GM Cap PO SCH (09:35)
--- NOTE | 2017-09-27 10:25 | RAD ---
HISTORY: distention COMPARISON: No prior. FINDINGS: BOWEL: The left-sided small bowel loops are borderline minimally dilated There is gas in the left and right colon and stomach gas present. BONES: Normal. Thoracolumbar spondylosis. Bilateral hip arthrosis OTHER FINDINGS: Surgical coils project diagonally over lower abdomen. Large body habitus. Bladder with contrast laden urine. IMPRESSION: Findings compatible with a minimal ileus. Assumed postop changes. No high-grade bowel obstruction suggested.
--- NOTE | 2017-09-27 10:58 | CP.PCM.PN ---
<[employer]ing [employer] - Last Filed: 09/27/17 18:21> Subjective - Date & Time of Evaluation Date of Evaluation: 09/27/17 Time of Evaluation: 10:53 - Subjective Subjective: Medicine progress note for Dr. Matthews's service Patient was seen and examined at bedside in no acute distress. Patient's daughters were at bedside. Patient complaining of abdominal pain, gas and fullness. Patient has not had a BM since before the operation. Patient denies chest pain, nausea, vomiting, fevers, headaches. Objective - Vital Signs/Intake and Output Vital Signs (last 24 hours): Temp Pulse Resp BP Pulse Ox 98.6 F 91 H 20 105/65 97 09/27/17 08:04 09/27/17 08:04 09/27/17 08:04 09/27/17 08:04 09/27/17 08:04 Intake and Output: 09/27/17 09/27/17 06:59 18:59 Intake Total 1310 Balance 1310 - Medications Medications: Current Medications Acetaminophen (Tylenol 325mg Tab) 650 mg PO Q6 PRN PRN Reason: Pain, Mild (1-3) Last Admin: 09/27/17 09:33 Dose: 650 mg Allopurinol (Zyloprim) 100 mg PO DAILY [facility] Last Admin: 09/27/17 09:34 Dose: 100 mg Dextrose (Dextrose 50% Inj) 0 ml IV STAT PRN; Protocol PRN Reason: Hypoglycemia Protocol Dextrose (Glutose 15) 0 gm PO ONCE PRN; Protocol PRN Reason: Hypoglycemia Protocol Doxercalciferol (Hectorol) 0.5 mcg PO DAILY [facility] Last Admin: 09/27/17 09:34 Dose: 0.5 mcg Epoetin David (Procrit) 10,000 unit IV TTS [facility] Stop: 10/02/17 10:01 Last Admin: 09/25/17 13:52 Dose: 10,000 unit Ergocalciferol (Drisdol 50,000 Intl Units Cap) 1 cap PO QWK [facility] Last Admin: 09/26/17 10:33 Dose: 1 cap Ferrous Sulfate (Feosol) 325 mg PO DAILY [facility] Last Admin: 09/27/17 09:35 Dose: 325 mg Gabapentin (Neurontin) 300 mg PO HS [facility] Last Admin: 09/26/17 21:44 Dose: 300 mg Glucagon (Glucagen Diagnostic Kit) 0 mg IM STAT PRN; Protocol PRN Reason: Hypoglycemia Protocol Heparin Sodium (Porcine) (Heparin) 1,000 units IVP TTS [facility] Stop: 10/09/17 10:01 Hydromorphone HCl (Dilaudid) 0.5 mg IVP Q3H PRN PRN Reason: Pain, severe (8-10) Last Admin: 09/25/17 09:46 Dose: 0.5 mg Dextrose (Dextrose 5% In Water 1000 Ml) 1,000 mls @ 0 mls/hr IV .Q0M PRN; Protocol; Per Protocol PRN Reason: Hypoglycemia Protocol Piperacillin Sod/Tazobactam Sod (Zosyn 2.25 Gm Iv Premix) 2.25 gm in 50 mls @ 100 mls/hr IVPB Q6H [facility] Last Admin: 09/27/17 07:12 Dose: 100 mls/hr Sodium Chloride (Sodium Chloride 0.9%) 1,000 mls @ 70 mls/hr IV .[id number] [facility] Last Admin: 09/27/17 00:39 Dose: Not Given Insulin Human Regular (Novolin R) 0 unit SC ACHS [place] PRN Reason: Protocol Last Admin: 09/27/17 07:57 Dose: Not Given Pzbfa-0-Puzp Ethyl Esters (Lovaza) 1 gm PO DAILY [facility] Last Admin: 09/27/17 09:35 Dose: 1 gm Ondansetron HCl (Zofran Inj) 4 mg IVP Q4H PRN PRN Reason: Nausea/Vomiting Pantoprazole Sodium (Protonix Inj) 40 mg IVP DAILY [facility] Last Admin: 09/27/17 09:33 Dose: 40 mg Sevelamer Carbonate (Renvela) 800 mg PO TID [facility] Last Admin: 09/27/17 09:34 Dose: 800 mg Vitamin B Complex/Vit C/Folic Acid (Nephro-Leslye) 1 tab PO DAILY [facility] Last Admin: 09/27/17 09:34 Dose: 1 tab - Labs Labs: 09/27/17 07:34 09/27/17 07:34 PT 11.1 SECONDS (9.7-12.2) 09/24/17 13:18 INR 1.0 09/24/17 13:18 APTT 27 SECONDS (21-34) 01/22/18 13:18 - Additional Findings Additional findings: - Head Exam Head Exam: ATRAUMATIC, NORMOCEPHALIC - Eye Exam Eye Exam: EOMI - ENT Exam ENT Exam: Mucous Membranes Moist - Respiratory Exam Respiratory Exam: Clear to Ausculation Bilateral, NORMAL BREATHING PATTERN. absent: Rales, Rhonchi, Wheezes, Respiratory Distress - Cardiovascular Exam Cardiovascular Exam: REGULAR RHYTHM, +S1, +S2 - GI/Abdominal Exam GI & Abdominal Exam: Soft, Tenderness (midline; post-op; dressing clean, dry, intact), Distended, Hypoactive Bowel Sounds. absent: Firm - Extremities Exam Extremities Exam: absent: Pedal Edema, Tenderness - Neurological Exam Neurological Exam: Alert, Awake - Psychiatric Exam Psychiatric exam: Normal Affect, Normal Mood - Skin Skin Exam: Dry, Intact, Normal Color, Warm Assessment and Plan - Assessment and Plan (Free Text) Plan: Appendicitis * Admit to med-surg * NO WBC * Troponin negative x 1 * Lipase 272 * CT A/P (09/24/17): Findings concerning for acute appendicitis. Cholelithiasis and thickening of GB wall. Consider further eval with US. * CXR (09/24/17): Mild venous congestion. Mild cardiomegaly. Right side venous catheter into right atrium. * Gen Surgery consult: Dr. Thompson, help appreciated * s/p lap appendectomy converted to open appendectomy (09/25/17) * advanced diet to regular diet * encourage ambulate/PT/IS * ordered abdomen xray for post-op distention/pain: f/u results Medication: * Zosyn 3.375gm Q6H IV (start 09/24/17) * Zofran 4mg IV Q4H PRN * LR @ 125mg/hr IV * Dilaudid 0.5mg IV Q3H Possible Cholecystitis * Gen Surgery consult: Dr. Thompson, help appreciated * no surgery at this time * CT A/P (09/24/17): Multiple tiny gallstone seen. Mild thickening of GB wall, unsharp suggesting possible inflammation. No pericholecystic fluid seen. (see full report) * Abd US (09/24/17): contracted GB with multiple small stones no dilatation; nontender over GB. 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, opthalmic tech * f/u recs * Renal-Leslye 800 mg PO TID * Renvela 800mg PO TID HTN * Elevated on Admission * HOLD Lopressor 100mg PO Daily * Hydralazine IVP Q6H for SBP > 160 CHF (diastolic) * Myocardial perfusion scan 11/2016 - EF 55-60% * HOLD Torsemide 100mg PO Daily * HOLD Lopressor 100mg PO Daily Type two diabetes mellitus * A1c 6.9 (05/2017) * Diagnosed ~3 years ago * BG log at bedside shows sugars routinely > 250 * Accuchecks ACHS * ISS * Levemir 20 units SC QAM * Hypoglycemia protocol DM neuropathy * Continue home medication- Gabapentin 300mg PO HS Proteinuria * UA (09/24/17) 3+ protein * Will consider BRENNA when pt can start PO intake Hx of Anemia * Continue home medication Feosol 325mg PO Daily * Hgb 10.2 on admission, up from prior (baseline 8.0) Dizziness * CT HEAD (09/24/17): No intracranial mass, hemorrhage, or evidence of infarct. Small old bilateral basal ganglia/right thalamic lacunar infarcts. * Antivert given once in ED Prophylaxis * Protonix 40mg IV Daily * SCDs Held due to peripheral edema * Hold anticoagulation until surgical team gives ok * PT/OT Discussed with Dr. Matthews <Isael Matthews Jr. - Last Filed: 09/27/17 19:37> Objective - Vital Signs/Intake and Output Vital Signs (last 24 hours): Temp Pulse Resp BP Pulse Ox 98.8 F 94 H 20 97/61 L 100 09/27/17 16:00 09/27/17 16:00 09/27/17 16:00 09/27/17 16:00 09/27/17 16:00 Intake and Output: 09/27/17 09/28/17 18:59 06:59 Intake Total 500 Balance 500 - Medications Medications: Current Medications Acetaminophen (Tylenol 325mg Tab) 650 mg PO Q6 PRN PRN Reason: Pain, Mild (1-3) Last Admin: 09/27/17 09:33 Dose: 650 mg Allopurinol (Zyloprim) 100 mg PO DAILY [facility] Last Admin: 09/27/17 09:34 Dose: 100 mg Benzocaine/Menthol (Cepacol Sore Throat) 1 mishel MT Q2H PRN PRN Reason: Sore Throat Dextrose (Dextrose 50% Inj) 0 ml IV STAT PRN; Protocol PRN Reason: Hypoglycemia Protocol Dextrose (Glutose 15) 0 gm PO ONCE PRN; Protocol PRN Reason: Hypoglycemia Protocol Doxercalciferol (Hectorol) 0.5 mcg PO DAILY [facility] Last Admin: 09/27/17 09:34 Dose: 0.5 mcg Epoetin David (Procrit) 10,000 unit IV TTS [facility] Stop: 10/02/17 10:01 Last Admin: 09/27/17 12:21 Dose: 10,000 unit Ergocalciferol (Drisdol 50,000 Intl Units Cap) 1 cap PO QWK [facility] Last Admin: 09/26/17 10:33 Dose: 1 cap Ferrous Sulfate (Feosol) 325 mg PO DAILY [facility] Last Admin: 09/27/17 09:35 Dose: 325 mg Gabapentin (Neurontin) 300 mg PO HS [facility] Last Admin: 09/26/17 21:44 Dose: 300 mg Glucagon (Glucagen Diagnostic Kit) 0 mg IM STAT PRN; Protocol PRN Reason: Hypoglycemia Protocol Heparin Sodium (Porcine) (Heparin) 1,000 units IVP TTS [facility] Stop: 10/09/17 10:01 Last Admin: 09/27/17 12:22 Dose: Not Given Hydromorphone HCl (Dilaudid) 0.5 mg IVP Q3H PRN PRN Reason: Pain, severe (8-10) Last Admin: 09/27/17 18:47 Dose: 0.5 mg Dextrose (Dextrose 5% In Water 1000 Ml) 1,000 mls @ 0 mls/hr IV .Q0M PRN; Protocol; Per Protocol PRN Reason: Hypoglycemia Protocol Piperacillin Sod/Tazobactam Sod (Zosyn 2.25 Gm Iv Premix) 2.25 gm in 50 mls @ 100 mls/hr IVPB Q6H [facility] Last Admin: 09/27/17 18:46 Dose: 100 mls/hr Sodium Chloride (Sodium Chloride 0.9%) 1,000 mls @ 70 mls/hr IV .[id number] [facility] Last Admin: 09/27/17 14:09 Dose: 70 mls/hr Insulin Human Regular (Novolin R) 0 unit SC ACHS [facility] PRN Reason: Protocol Last Admin: 09/27/17 17:10 Dose: Not Given Usgkb-8-Qglx Ethyl Esters (Lovaza) 1 gm PO DAILY [facility] Last Admin: 09/27/17 09:35 Dose: 1 gm Ondansetron HCl (Zofran Inj) 4 mg IVP Q4H PRN PRN Reason: Nausea/Vomiting Pantoprazole Sodium (Protonix Inj) 40 mg IVP DAILY [facility] Last Admin: 09/27/17 09:33 Dose: 40 mg Sevelamer Carbonate (Renvela) 800 mg PO TID [facility] Last Admin: 09/27/17 18:45 Dose: 800 mg Vitamin B Complex/Vit C/Folic Acid (Nephro-Leslye) 1 tab PO DAILY [facility] Last Admin: 09/27/17 09:34 Dose: 1 tab - Labs Labs: 09/27/17 07:34 09/27/17 07:34 PT 11.1 SECONDS (9.7-12.2) 09/24/17 13:18 INR 1.0 09/24/17 13:18 APTT 27 SECONDS (21-34) 09/24/17 13:18 Attending/Attestation - Attestation I have personally seen and examined this patient.: Yes I have fully participated in the care of the patient.: Yes I have reviewed all pertinent clinical information, including history, physical exam and plan: Yes Notes (Text): 09/27/17 19:37 Agree with resident note and plan of care
[2017-09-27] MEDS ORDERED: Benzocaine/Menthol (Cepacol) Lozenge MT PRN (11:26)
[2017-09-27] MEDS: Epoetin Alfa 10,000 unit/ml Dialysis IV SCH (12:21)
--- NOTE | 2017-09-27 18:56 | CP.PCM.PN ---
Subjective - Date & Time of Evaluation Date of Evaluation: 09/27/17 Time of Evaluation: 15:00 - Subjective Subjective: SEEN ON RENAL F/U HAD HER HD TODAY HASNT PASSED BM YET ALL PREVIOUS EMR REVIEWED Objective - Vital Signs/Intake and Output Vital Signs (last 24 hours): Temp Pulse Resp BP Pulse Ox 98.8 F 94 H 20 97/61 L 100 09/27/17 16:00 09/27/17 16:00 09/27/17 16:00 09/27/17 16:00 09/27/17 16:00 Intake and Output: 09/27/17 09/27/17 06:59 18:59 Intake Total 1310 500 Balance 1310 500 - Medications Medications: Current Medications Acetaminophen (Tylenol 325mg Tab) 650 mg PO Q6 PRN PRN Reason: Pain, Mild (1-3) Last Admin: 09/27/17 09:33 Dose: 650 mg Allopurinol (Zyloprim) 100 mg PO DAILY [facility] Last Admin: 09/27/17 09:34 Dose: 100 mg Benzocaine/Menthol (Cepacol Sore Throat) 1 mishel MT Q2H PRN PRN Reason: Sore Throat Dextrose (Dextrose 50% Inj) 0 ml IV STAT PRN; Protocol PRN Reason: Hypoglycemia Protocol Dextrose (Glutose 15) 0 gm PO ONCE PRN; Protocol PRN Reason: Hypoglycemia Protocol Doxercalciferol (Hectorol) 0.5 mcg PO DAILY [facility] Last Admin: 09/27/17 09:34 Dose: 0.5 mcg Epoetin David (Procrit) 10,000 unit IV TTS [facility] Stop: 10/02/17 10:01 Last Admin: 09/27/17 12:21 Dose: 10,000 unit Ergocalciferol (Drisdol 50,000 Intl Units Cap) 1 cap PO QWK [facility] Last Admin: 09/26/17 10:33 Dose: 1 cap Ferrous Sulfate (Feosol) 325 mg PO DAILY [facility] Last Admin: 09/27/17 09:35 Dose: 325 mg Gabapentin (Neurontin) 300 mg PO HS [facility] Last Admin: 09/26/17 21:44 Dose: 300 mg Glucagon (Glucagen Diagnostic Kit) 0 mg IM STAT PRN; Protocol PRN Reason: Hypoglycemia Protocol Heparin Sodium (Porcine) (Heparin) 1,000 units IVP TTS [facility] Stop: 10/09/17 10:01 Last Admin: 09/27/17 12:22 Dose: Not Given Hydromorphone HCl (Dilaudid) 0.5 mg IVP Q3H PRN PRN Reason: Pain, severe (8-10) Last Admin: 09/27/17 18:47 Dose: 0.5 mg Dextrose (Dextrose 5% In Water 1000 Ml) 1,000 mls @ 0 mls/hr IV .Q0M PRN; Protocol; Per Protocol PRN Reason: Hypoglycemia Protocol Piperacillin Sod/Tazobactam Sod (Zosyn 2.25 Gm Iv Premix) 2.25 gm in 50 mls @ 100 mls/hr IVPB Q6H [facility] Last Admin: 09/27/17 18:46 Dose: 100 mls/hr Sodium Chloride (Sodium Chloride 0.9%) 1,000 mls @ 70 mls/hr IV .[id number] [facility] Last Admin: 09/27/17 14:09 Dose: 70 mls/hr Insulin Human Regular (Novolin R) 0 unit SC ACHS [facility] PRN Reason: Protocol Last Admin: 09/27/17 17:10 Dose: Not Given [id number] Ethyl Esters (Lovaza) 1 gm PO DAILY [facility] Last Admin: 09/27/17 09:35 Dose: 1 gm Ondansetron HCl (Zofran Inj) 4 mg IVP Q4H PRN PRN Reason: Nausea/Vomiting Pantoprazole Sodium (Protonix Inj) 40 mg IVP DAILY [facility] Last Admin: 09/27/17 09:33 Dose: 40 mg Sevelamer Carbonate (Renvela) 800 mg PO TID [facility] Last Admin: 09/27/17 18:45 Dose: 800 mg Vitamin B Complex/Vit C/Folic Acid (Nephro-Leslye) 1 tab PO DAILY [facility] Last Admin: 09/27/17 09:34 Dose: 1 tab - Labs Labs: 09/27/17 07:34 09/27/17 07:34 PT 11.1 SECONDS (9.7-12.2) 09/24/17 13:18 INR 1.0 09/24/17 13:18 APTT 27 SECONDS (21-34) 09/24/17 13:18 Assessment and Plan - Assessment and Plan (Free Text) Assessment: ESRD ON HD .. ANEMIA OF CKD ON EPO S/P AP P : C/O CURRENT CARE C/O OBS C/O PRESENT MANAGEMENT
[2017-09-28] MEDS: Piperacill/Tazo 2.25gm in Dex 2.25 GM/50 ML BAG IVPB SCH ×4 (02:15→20:03)
[2017-09-28] MEDS: Sodium Chloride 0.9% 1,000 ML IV SCH ×2 (04:39→19:52)
[2017-09-28 07:43] LABS: BASO % 0.5 % (0.0-2.0); EOS # 0.4 K/uL (0.0-0.7); EOS % 5.1 % (0.0-4.0); HEMOGLOBIN 8.6 g/dL (11.0-16.0); LYMPH # 0.9 K/uL (1.0-4.3); LYMPH % 11.8 % (20.0-40.0); MEAN CELL VOLUME 86.6 fL (81.0-99.0); MEAN CORPUSCULAR HEMOGLOBIN 28.2 pg (27.0-31.0); MEAN CORPUSCULAR HGB CONC 32.6 g/dL (33.0-37.0); MONO # 0.8 K/uL (0.0-0.8); MONO % 10.3 % (0.0-10.0); NEUT # 5.4 K/uL (1.8-7.0); NEUT % 72.3 % (50.0-75.0); NRBC % 0.4 % (0.0-2.0); RBC 3.04 Mil/uL (3.80-5.20); WHITE BLOOD COUNT 7.5 K/uL (4.8-10.8)
[2017-09-28] MEDS: (Novolin R) Insulin Human Regular 100 units/ml vial SC SCH ×4 (07:56→21:56)
[2017-09-28 08:10] LABS: CALCIUM 7.8 mg/dl (8.6-10.4)
[2017-09-28] MEDS: Multivitamin Vitamin B Complex (Nephro-Vite) Tab PO SCH (10:05)
[2017-09-28] MEDS: Omega-3-Acid Ethyl Esters 1 GM Cap PO SCH (10:05)
--- NOTE | 2017-09-28 14:06 | CP.PCM.PN ---
Subjective - Date & Time of Evaluation Date of Evaluation: 09/28/17 Time of Evaluation: 14:04 - Subjective Subjective: Medicine progress note for Dr. Matthews's service Patient was seen and examined at bedside in the morning. Patient's daughter was at bedside. Patient complaining of abdominal pain, gas and fullness. Patient has not had a BM since Sunday and has not urinated today. Patient denies chest pain, nausea, vomiting, fevers, headaches. Objective - Vital Signs/Intake and Output Vital Signs (last 24 hours): Temp Pulse Resp BP Pulse Ox 98.6 F 93 H 20 99/68 L 100 09/28/17 08:48 09/28/17 08:48 09/28/17 08:48 09/28/17 08:48 09/28/17 13:09 Intake and Output: 09/28/17 09/28/17 06:59 18:59 Intake Total 960 660 Balance 960 660 - Medications Medications: Current Medications Acetaminophen (Tylenol 325mg Tab) 650 mg PO Q6 PRN PRN Reason: Pain, Mild (1-3) Last Admin: 09/28/17 10:08 Dose: 650 mg Allopurinol (Zyloprim) 100 mg PO DAILY [facility] Last Admin: 09/28/17 10:05 Dose: 100 mg Benzocaine/Menthol (Cepacol Sore Throat) 1 mishel MT Q2H PRN PRN Reason: Sore Throat Dextrose (Dextrose 50% Inj) 0 ml IV STAT PRN; Protocol PRN Reason: Hypoglycemia Protocol Dextrose (Glutose 15) 0 gm PO ONCE PRN; Protocol PRN Reason: Hypoglycemia Protocol Doxercalciferol (Hectorol) 0.5 mcg PO DAILY [facility] Last Admin: 09/28/17 10:05 Dose: 0.5 mcg Epoetin David (Procrit) 10,000 unit IV TTS [facility] Stop: 10/02/17 10:01 Last Admin: 09/27/17 12:21 Dose: 10,000 unit Ergocalciferol (Drisdol 50,000 Intl Units Cap) 1 cap PO QWK [facility] Last Admin: 09/26/17 10:33 Dose: 1 cap Ferrous Sulfate (Feosol) 325 mg PO DAILY [facility] Last Admin: 09/28/17 10:04 Dose: 325 mg Gabapentin (Neurontin) 300 mg PO HS [facility] Last Admin: 09/27/17 21:43 Dose: 300 mg Glucagon (Glucagen Diagnostic Kit) 0 mg IM STAT PRN; Protocol PRN Reason: Hypoglycemia Protocol Heparin Sodium (Porcine) (Heparin) 1,000 units IVP TTS [facility] Stop: 10/09/17 10:01 Last Admin: 09/27/17 12:22 Dose: Not Given Hydromorphone HCl (Dilaudid) 0.5 mg IVP Q3H PRN PRN Reason: Pain, severe (8-10) Last Admin: 09/28/17 11:12 Dose: 0.5 mg Piperacillin Sod/Tazobactam Sod (Zosyn 2.25 Gm Iv Premix) 2.25 gm in 50 mls @ 100 mls/hr IVPB Q6H [facility] Last Admin: 09/28/17 13:44 Dose: 100 mls/hr Sodium Chloride (Sodium Chloride 0.9%) 1,000 mls @ 70 mls/hr IV .[id number] [facility] Last Admin: 09/28/17 04:39 Dose: 70 mls/hr Insulin Human Regular (Novolin R) 0 unit SC ACHS [facility] PRN Reason: Protocol Last Admin: 09/28/17 11:53 Dose: Not Given [id number] Ethyl Esters (Lovaza) 1 gm PO DAILY [facility] Last Admin: 09/28/17 10:05 Dose: 1 gm Ondansetron HCl (Zofran Inj) 4 mg IVP Q4H PRN PRN Reason: Nausea/Vomiting Last Admin: 09/28/17 13:45 Dose: 4 mg Pantoprazole Sodium (Protonix Inj) 40 mg IVP DAILY [facility] Last Admin: 09/28/17 10:05 Dose: 40 mg Sevelamer Carbonate (Renvela) 800 mg PO TID [facility] Last Admin: 09/28/17 13:44 Dose: 800 mg Vitamin B Complex/Vit C/Folic Acid (Nephro-Leslye) 1 tab PO DAILY [facility] Last Admin: 09/28/17 10:05 Dose: 1 tab - Labs Labs: 09/28/17 07:14 09/28/17 07:14 PT 11.1 SECONDS (9.7-12.2) 09/24/17 13:18 INR 1.0 09/24/17 13:18 APTT 27 SECONDS (21-34) 09/24/17 13:18 - Additional Findings Additional findings: - Head Exam Head Exam: ATRAUMATIC, NORMOCEPHALIC - Eye Exam Eye Exam: EOMI - ENT Exam ENT Exam: Mucous Membranes Moist - Respiratory Exam Respiratory Exam: Clear to Ausculation Bilateral, NORMAL BREATHING PATTERN. absent: Rales, Rhonchi, Wheezes, Respiratory Distress - Cardiovascular Exam Cardiovascular Exam: REGULAR RHYTHM, +S1, +S2 - GI/Abdominal Exam GI & Abdominal Exam: Soft, Tenderness (midline; post-op; dressing clean, dry, intact), Distended, Normoactive Bowel Sounds. - Extremities Exam Extremities Exam: absent: Tenderness - Neurological Exam Neurological Exam: Alert, Awake - Psychiatric Exam Psychiatric exam: Normal Affect, Normal Mood - Skin Skin Exam: Dry, Intact, Normal Color, Warm Assessment and Plan - Assessment and Plan (Free Text) Plan: Appendicitis * Admit to med-surg * NO WBC * Troponin negative x 1 * Lipase 272 * CT A/P (09/24/17): Findings concerning for acute appendicitis. Cholelithiasis and thickening of GB wall. Consider further eval with US. * CXR (09/24/17): Mild venous congestion. Mild cardiomegaly. Right side venous catheter into right atrium. * Gen Surgery consult: Dr. Thompson, help appreciated * s/p lap appendectomy converted to open appendectomy (09/25/17) * advanced diet to regular diet * encourage ambulate/PT/IS * ordered abdomen xray for post-op distention/pain: minimal ileus; assumed postop changed; no high-grade obstruction suggested * Ordered tap water enema Medication: * Zosyn 3.375gm Q6H IV (start 09/24/17) * Zofran 4mg IV Q4H PRN * LR @ 125mg/hr IV * Dilaudid 0.5mg IV Q3H Possible Cholecystitis * Gen Surgery consult: Dr. Thompson, help appreciated * no surgery at this time * CT A/P (09/24/17): Multiple tiny gallstone seen. Mild thickening of GB wall, unsharp suggesting possible inflammation. No pericholecystic fluid seen. (see full report) * Abd US (09/24/17): contracted GB with multiple small stones no dilatation; nontender over GB. 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, staff electronic warfare officer * f/u recs * Renal-Leslye 800 mg PO TID * Renvela 800mg PO TID HTN * Elevated on Admission * HOLD Lopressor 100mg PO Daily * Hydralazine IVP Q6H for SBP > 160 CHF (diastolic) * Myocardial perfusion scan 11/2016 - EF 55-60% * HOLD Torsemide 100mg PO Daily * HOLD Lopressor 100mg PO Daily Type two diabetes mellitus * A1c 6.9 (05/2017) * Diagnosed ~3 years ago * BG log at bedside shows sugars routinely > 250 * Accuchecks ACHS * ISS * Levemir 20 units SC QAM * Hypoglycemia protocol DM neuropathy * Continue home medication- Gabapentin 300mg PO HS Proteinuria * UA (09/24/17) 3+ protein * Will consider BRENNA when pt can start PO intake Hx of Anemia * Continue home medication Feosol 325mg PO Daily * Hgb 10.2 on admission, up from prior (baseline 8.0) Dizziness * CT HEAD (09/24/17): No intracranial mass, hemorrhage, or evidence of infarct. Small old bilateral basal ganglia/right thalamic lacunar infarcts. * Antivert given once in ED Constipation * ordered abdomen xray for post-op distention/pain: minimal ileus; assumed postop changed; no high-grade obstruction suggested * Lactulose given on 09/27/17 * Ordered tap water enema on 09/28 Urinary Retention * as per daughters, patient still produces urine; however, has not urinated today, 09/28/17 * Bladder scan; will straight cath if >200ml; Granda ordered Prophylaxis * Protonix 40mg IV Daily * SCDs Held due to peripheral edema * Heparin 1000 u IV TTS as per Dr. Fox * PT/OT Discussed with Dr. Matthews
--- NOTE | 2017-09-28 18:14 | CP.PCM.PN ---
Subjective - Date & Time of Evaluation Date of Evaluation: 09/28/17 Time of Evaluation: 08:11 - Subjective Subjective: General Surgery Progress Note for Dr. Conley Pt seen and examined this am at bedside no acute events overnight, no fevers chills or chest pain, tolerating diet. Objective - Vital Signs/Intake and Output Vital Signs (last 24 hours): Temp Pulse Resp BP Pulse Ox 98.5 F 86 20 100/68 100 09/28/17 16:00 09/28/17 16:00 09/28/17 16:00 09/28/17 16:00 09/28/17 16:00 Intake and Output: 09/28/17 09/28/17 06:59 18:59 Intake Total 960 810 Balance 960 810 - Medications Medications: Current Medications Acetaminophen (Tylenol 325mg Tab) 650 mg PO Q6 PRN PRN Reason: Pain, Mild (1-3) Last Admin: 09/28/17 10:08 Dose: 650 mg Allopurinol (Zyloprim) 100 mg PO DAILY [facility] Last Admin: 09/28/17 10:05 Dose: 100 mg Benzocaine/Menthol (Cepacol Sore Throat) 1 mishel MT Q2H PRN PRN Reason: Sore Throat Dextrose (Dextrose 50% Inj) 0 ml IV STAT PRN; Protocol PRN Reason: Hypoglycemia Protocol Dextrose (Glutose 15) 0 gm PO ONCE PRN; Protocol PRN Reason: Hypoglycemia Protocol Doxercalciferol (Hectorol) 0.5 mcg PO DAILY [facility] Last Admin: 09/28/17 10:05 Dose: 0.5 mcg Epoetin David (Procrit) 10,000 unit IV TTS [facility] Stop: 10/02/17 10:01 Last Admin: 09/27/17 12:21 Dose: 10,000 unit Ergocalciferol (Drisdol 50,000 Intl Units Cap) 1 cap PO QWK [facility] Last Admin: 09/26/17 10:33 Dose: 1 cap Ferrous Sulfate (Feosol) 325 mg PO DAILY [facility] Last Admin: 09/28/17 10:04 Dose: 325 mg Gabapentin (Neurontin) 300 mg PO HS [facility] Last Admin: 09/27/17 21:43 Dose: 300 mg Glucagon (Glucagen Diagnostic Kit) 0 mg IM STAT PRN; Protocol PRN Reason: Hypoglycemia Protocol Heparin Sodium (Porcine) (Heparin) 1,000 units IVP TTS [facility] Stop: 10/09/17 10:01 Last Admin: 09/27/17 12:22 Dose: Not Given Hydromorphone HCl (Dilaudid) 0.5 mg IVP Q3H PRN PRN Reason: Pain, severe (8-10) Last Admin: 09/28/17 15:02 Dose: 0.5 mg Piperacillin Sod/Tazobactam Sod (Zosyn 2.25 Gm Iv Premix) 2.25 gm in 50 mls @ 100 mls/hr IVPB Q6H [facility] Last Admin: 09/28/17 13:44 Dose: 100 mls/hr Sodium Chloride (Sodium Chloride 0.9%) 1,000 mls @ 70 mls/hr IV .[id number] [facility] Last Admin: 09/28/17 04:39 Dose: 70 mls/hr Insulin Human Regular (Novolin R) 0 unit SC ACHS [facility] PRN Reason: Protocol Last Admin: 09/28/17 11:53 Dose: Not Given Ihjye-2-Mjfx Ethyl Esters (Lovaza) 1 gm PO DAILY [facility] Last Admin: 09/28/17 10:05 Dose: 1 gm Ondansetron HCl (Zofran Inj) 4 mg IVP Q4H PRN PRN Reason: Nausea/Vomiting Last Admin: 09/28/17 13:45 Dose: 4 mg Pantoprazole Sodium (Protonix Inj) 40 mg IVP DAILY [facility] Last Admin: 09/28/17 10:05 Dose: 40 mg Sevelamer Carbonate (Renvela) 800 mg PO TID [facility] Last Admin: 09/28/17 13:44 Dose: 800 mg Vitamin B Complex/Vit C/Folic Acid (Nephro-Leslye) 1 tab PO DAILY [facility] Last Admin: 09/28/17 10:05 Dose: 1 tab - Labs Labs: 09/28/17 07:14 09/28/17 07:14 PT 11.1 SECONDS (9.7-12.2) 09/24/17 13:18 INR 1.0 09/24/17 13:18 APTT 27 SECONDS (21-34) 09/24/17 13:18 - Constitutional Appears: No Acute Distress - Head Exam Head Exam: ATRAUMATIC, NORMOCEPHALIC - Eye Exam Eye Exam: EOMI, Normal appearance Pupil Exam: PERRL - ENT Exam ENT Exam: Mucous Membranes Moist - Respiratory Exam Respiratory Exam: NORMAL BREATHING PATTERN - Cardiovascular Exam Cardiovascular Exam: REGULAR RHYTHM - GI/Abdominal Exam GI & Abdominal Exam: Distended (mildly), Soft, Tenderness (epigastric). absent : Firm, Guarding, Rigid, Rebound - Extremities Exam Extremities Exam: absent: Calf Tenderness - Back Exam Back Exam: absent: CVA tenderness (L), CVA tenderness (R) - Neurological Exam Neurological Exam: Alert, Awake, CN II-XII Intact, Oriented x3 - Psychiatric Exam Psychiatric exam: Normal Affect, Normal Mood - Skin Skin Exam: Dry, Intact, Normal Color, Warm Assessment and Plan - Assessment and Plan (Free Text) Assessment: 72 F s/p laparocopic converted to open appendectomy POD#4 Regular diet Pt clear for discharge from a surgical perspective Discuss with Dr. Jay Frost PGY2
--- NOTE | 2017-09-28 21:37 | CP.PCM.PN ---
Subjective - Date & Time of Evaluation Date of Evaluation: 09/28/17 Time of Evaluation: 15:00 - Subjective Subjective: SEEN ON RENAL F/U STILL WITH ABDO FULLNESS HAD HER HD YESTERDAY .. NEXT HD TOMORROW Objective - Vital Signs/Intake and Output Vital Signs (last 24 hours): Temp Pulse Resp BP Pulse Ox 97.8 F 86 20 100/68 100 09/28/17 20:02 09/28/17 16:00 09/28/17 16:00 09/28/17 16:00 09/28/17 16:00 Intake and Output: 09/28/17 09/29/17 18:59 06:59 Intake Total 810 Balance 810 - Medications Medications: Current Medications Acetaminophen (Tylenol 325mg Tab) 650 mg PO Q6 PRN PRN Reason: Pain, Mild (1-3) Last Admin: 09/28/17 20:02 Dose: 650 mg Allopurinol (Zyloprim) 100 mg PO DAILY [facility] Last Admin: 09/28/17 10:05 Dose: 100 mg Benzocaine/Menthol (Cepacol Sore Throat) 1 mishel MT Q2H PRN PRN Reason: Sore Throat Dextrose (Dextrose 50% Inj) 0 ml IV STAT PRN; Protocol PRN Reason: Hypoglycemia Protocol Dextrose (Glutose 15) 0 gm PO ONCE PRN; Protocol PRN Reason: Hypoglycemia Protocol Doxercalciferol (Hectorol) 0.5 mcg PO DAILY [facility] Last Admin: 09/28/17 10:05 Dose: 0.5 mcg Epoetin David (Procrit) 10,000 unit IV TTS [facility] Stop: 10/02/17 10:01 Last Admin: 09/27/17 12:21 Dose: 10,000 unit Ergocalciferol (Drisdol 50,000 Intl Units Cap) 1 cap PO QWK [facility] Last Admin: 09/26/17 10:33 Dose: 1 cap Ferrous Sulfate (Feosol) 325 mg PO DAILY [facility] Last Admin: 09/28/17 10:04 Dose: 325 mg Gabapentin (Neurontin) 300 mg PO HS [facility] Last Admin: 09/27/17 21:43 Dose: 300 mg Glucagon (Glucagen Diagnostic Kit) 0 mg IM STAT PRN; Protocol PRN Reason: Hypoglycemia Protocol Heparin Sodium (Porcine) (Heparin) 1,000 units IVP TTS [facility] Stop: 10/09/17 10:01 Last Admin: 09/27/17 12:22 Dose: Not Given Hydromorphone HCl (Dilaudid) 0.5 mg IVP Q3H PRN PRN Reason: Pain, severe (8-10) Last Admin: 09/28/17 15:02 Dose: 0.5 mg Piperacillin Sod/Tazobactam Sod (Zosyn 2.25 Gm Iv Premix) 2.25 gm in 50 mls @ 100 mls/hr IVPB Q6H [facility] Last Admin: 09/28/17 20:03 Dose: 100 mls/hr Sodium Chloride (Sodium Chloride 0.9%) 1,000 mls @ 70 mls/hr IV .[id number] [facility] Last Admin: 09/28/17 19:52 Dose: Not Given Insulin Human Regular (Novolin R) 0 unit SC ACHS [facility] PRN Reason: Protocol Last Admin: 09/28/17 17:10 Dose: Not Given Lkhzk-0-[id number] Ethyl Esters (Lovaza) 1 gm PO DAILY [facility] Last Admin: 09/28/17 10:05 Dose: 1 gm Ondansetron HCl (Zofran Inj) 4 mg IVP Q4H PRN PRN Reason: Nausea/Vomiting Last Admin: 09/28/17 13:45 Dose: 4 mg Pantoprazole Sodium (Protonix Inj) 40 mg IVP DAILY [facility] Last Admin: 09/28/17 10:05 Dose: 40 mg Sevelamer Carbonate (Renvela) 800 mg PO TID [facility] Last Admin: 09/28/17 18:50 Dose: 800 mg Vitamin B Complex/Vit C/Folic Acid (Nephro-Leslye) 1 tab PO DAILY [facility] Last Admin: 09/28/17 10:05 Dose: 1 tab - Labs Labs: 09/28/17 07:14 09/28/17 07:14 PT 11.1 SECONDS (9.7-12.2) 09/24/17 13:18 INR 1.0 09/24/17 13:18 APTT 27 SECONDS (21-34) 09/24/17 13:18 Assessment and Plan - Assessment and Plan (Free Text) Assessment: C/O CURRENT CARE HD IN AM
[2017-09-29] MEDS: Piperacill/Tazo 2.25gm in Dex 2.25 GM/50 ML BAG IVPB SCH ×4 (01:30→19:12)
--- NOTE | 2017-09-29 07:41 | CP.PCM.PN ---
Subjective - Date & Time of Evaluation Date of Evaluation: 09/29/17 Time of Evaluation: 07:39 - Subjective Subjective: PGY-[address] Matthews's service: Pt seen and examined at bedside. Nursing reports no acute events overnight. POD #5 s/p open appendectomy. Patient's daughter was at bedside. Pt abdominal pain/ fullness improved after BM this morning. She denies n/v, and is tolerating diet. Objective - Vital Signs/Intake and Output Vital Signs (last 24 hours): Temp Pulse Resp BP Pulse Ox 98.3 F 100 H 20 101/67 97 09/29/17 00:17 09/29/17 00:17 09/29/17 00:17 09/29/17 00:17 09/29/17 00:17 Intake and Output: 09/29/17 09/29/17 06:59 18:59 Intake Total 350 170 Output Total 300 Balance 50 170 - Medications Medications: Current Medications Acetaminophen (Tylenol 325mg Tab) 650 mg PO Q6 PRN PRN Reason: Pain, Mild (1-3) Last Admin: 09/28/17 20:02 Dose: 650 mg Allopurinol (Zyloprim) 100 mg PO DAILY [facility] Last Admin: 09/28/17 10:05 Dose: 100 mg Benzocaine/Menthol (Cepacol Sore Throat) 1 mishel MT Q2H PRN PRN Reason: Sore Throat Dextrose (Dextrose 50% Inj) 0 ml IV STAT PRN; Protocol PRN Reason: Hypoglycemia Protocol Dextrose (Glutose 15) 0 gm PO ONCE PRN; Protocol PRN Reason: Hypoglycemia Protocol Doxercalciferol (Hectorol) 0.5 mcg PO DAILY [facility] Last Admin: 09/28/17 10:05 Dose: 0.5 mcg Epoetin David (Procrit) 10,000 unit IV TTS [facility] Stop: 10/02/17 10:01 Last Admin: 09/27/17 12:21 Dose: 10,000 unit Ergocalciferol (Drisdol 50,000 Intl Units Cap) 1 cap PO QWK [facility] Last Admin: 09/26/17 10:33 Dose: 1 cap Ferrous Sulfate (Feosol) 325 mg PO DAILY [facility] Last Admin: 09/28/17 10:04 Dose: 325 mg Gabapentin (Neurontin) 300 mg PO HS [facility] Last Admin: 09/28/17 21:57 Dose: 300 mg Glucagon (Glucagen Diagnostic Kit) 0 mg IM STAT PRN; Protocol PRN Reason: Hypoglycemia Protocol Heparin Sodium (Porcine) (Heparin) 1,000 units IVP TTS [facility] Stop: 10/09/17 10:01 Last Admin: 09/27/17 12:22 Dose: Not Given Hydromorphone HCl (Dilaudid) 0.5 mg IVP Q3H PRN PRN Reason: Pain, severe (8-10) Last Admin: 09/28/17 15:02 Dose: 0.5 mg Piperacillin Sod/Tazobactam Sod (Zosyn 2.25 Gm Iv Premix) 2.25 gm in 50 mls @ 100 mls/hr IVPB Q6H [facility] Last Admin: 09/29/17 01:30 Dose: 100 mls/hr Sodium Chloride (Sodium Chloride 0.9%) 1,000 mls @ 70 mls/hr IV .[id number] [facility] Last Admin: 09/28/17 19:52 Dose: Not Given Insulin Human Regular (Novolin R) 0 unit SC ACHS [place] PRN Reason: Protocol Last Admin: 09/28/17 21:56 Dose: Not Given Gicxd-9-Kuqe Ethyl Esters (Lovaza) 1 gm PO DAILY [facility] Last Admin: 09/28/17 10:05 Dose: 1 gm Ondansetron HCl (Zofran Inj) 4 mg IVP Q4H PRN PRN Reason: Nausea/Vomiting Last Admin: 09/28/17 13:45 Dose: 4 mg Pantoprazole Sodium (Protonix Inj) 40 mg IVP DAILY [facility] Last Admin: 09/28/17 10:05 Dose: 40 mg Sevelamer Carbonate (Renvela) 800 mg PO TID [facility] Last Admin: 09/28/17 18:50 Dose: 800 mg Vitamin B Complex/Vit C/Folic Acid (Nephro-Leslye) 1 tab PO DAILY [facility] Last Admin: 09/28/17 10:05 Dose: 1 tab - Labs Labs: 09/28/17 07:14 09/28/17 07:14 PT 11.1 SECONDS (9.7-12.2) 09/24/17 13:18 INR 1.0 09/24/17 13:18 APTT 27 SECONDS (21-34) 09/24/17 13:18 - Additional Findings Additional findings: - Head Exam Head Exam: ATRAUMATIC, NORMOCEPHALIC - Eye Exam Eye Exam: EOMI - ENT Exam ENT Exam: Mucous Membranes Moist - Respiratory Exam Respiratory Exam: Clear to Ausculation Bilateral, NORMAL BREATHING PATTERN. absent: Rales, Rhonchi, Wheezes, Respiratory Distress - Cardiovascular Exam Cardiovascular Exam: REGULAR RHYTHM, +S1, +S2 - GI/Abdominal Exam GI & Abdominal Exam: Soft, Tenderness (minimal, surgical dressing clean, dry, intact), Distended, Normoactive Bowel Sounds. - Extremities Exam Extremities Exam: absent: Tenderness - Neurological Exam Neurological Exam: Alert, Awake - Psychiatric Exam Psychiatric exam: Normal Affect, Normal Mood - Skin Skin Exam: Dry, Intact, Normal Color, Warm Assessment and Plan - Assessment and Plan (Free Text) Plan: Appendicitis * Admit to med-surg * NO WBC * Troponin negative x 1 * Lipase 272 * CT A/P (09/24/17): Findings concerning for acute appendicitis. Cholelithiasis and thickening of GB wall. Consider further eval with US. * CXR (09/24/17): Mild venous congestion. Mild cardiomegaly. Right side venous catheter into right atrium. * Gen Surgery consult: Dr. Thompson, help appreciated * s/p lap appendectomy converted to open appendectomy (09/25/17) * advanced diet to regular diet * encourage ambulate/PT/IS * ordered abdomen xray for post-op distention/pain: minimal ileus; assumed postop changed; no high-grade obstruction suggested * Ordered tap water enema Medication: * Zosyn 3.375gm Q6H IV (start 09/24/17) * Zofran 4mg IV Q4H PRN * LR @ 125mg/hr IV * Dilaudid 0.5mg IV Q3H Possible Cholecystitis * Gen Surgery consult: Dr. Thompson, help appreciated * no surgery at this time * CT A/P (09/24/17): Multiple tiny gallstone seen. Mild thickening of GB wall, unsharp suggesting possible inflammation. No pericholecystic fluid seen. (see full report) * Abd US (09/24/17): contracted GB with multiple small stones no dilatation; nontender over GB. 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 * f/u recs * Renal-Leslye 800 mg PO TID * Renvela 800mg PO TID HTN * Elevated on Admission * HOLD Lopressor 100mg PO Daily * Hydralazine IVP Q6H for SBP > 160 CHF (diastolic) * Myocardial perfusion scan 11/2016 - EF 55-60% * HOLD Torsemide 100mg PO Daily * HOLD Lopressor 100mg PO Daily Type two diabetes mellitus * A1c 6.9 (05/2017) * Diagnosed ~3 years ago * BG log at bedside shows sugars routinely > 250 * Accuchecks ACHS * ISS * Levemir 20 units SC QAM * Hypoglycemia protocol DM neuropathy * Continue home medication- Gabapentin 300mg PO HS Proteinuria * UA (09/24/17) 3+ protein * Will consider BRENNA when pt can start PO intake Hx of Anemia * Continue home medication Feosol 325mg PO Daily * Hgb 10.2 on admission, up from prior (baseline 8.0) Dizziness * CT HEAD (09/24/17): No intracranial mass, hemorrhage, or evidence of infarct. Small old bilateral basal ganglia/right thalamic lacunar infarcts. * Antivert given once in ED Constipation * ordered abdomen xray for post-op distention/pain: minimal ileus; assumed postop changed; no high-grade obstruction suggested * Lactulose given on 09/27/17 * Ordered tap water enema on 09/28 Urinary Retention * as per daughters, patient still produces urine; however, has not urinated today, 09/28/17 * Bladder scan; will straight cath if >200ml; Granda ordered Prophylaxis * Protonix 40mg IV Daily * SCDs Held due to peripheral edema * Heparin 1000 u IV TTS as per Dr. Fox * PT/OT Disposition: DC planning for sunday (10/01/17) Discussed with Dr. Matthews
[2017-09-29] MEDS: (Novolin R) Insulin Human Regular 100 units/ml vial SC SCH ×4 (08:17→22:00)
[2017-09-29 08:41] LABS: BASO % 0.6 % (0.0-2.0); EOS # 0.4 K/uL (0.0-0.7); EOS % 6.2 % (0.0-4.0); HEMOGLOBIN 8.6 g/dL (11.0-16.0); LYMPH % 16.5 % (20.0-40.0); MEAN CELL VOLUME 86.8 fL (81.0-99.0); MEAN CORPUSCULAR HGB CONC 32.2 g/dL (33.0-37.0); MEAN PLATELET VOLUME 9.2 fL (7.2-11.7); MONO # 0.8 K/uL (0.0-0.8); MONO % 13.5 % (0.0-10.0); NEUT # 3.8 K/uL (1.8-7.0); NEUT % 63.2 % (50.0-75.0); NRBC % 0.5 % (0.0-2.0); RBC 3.08 Mil/uL (3.80-5.20); RED CELL DISTRIBUTION WIDTH 18.9 % (11.5-14.5)
[2017-09-29 09:34] LABS: CALCIUM 7.7 mg/dl (8.6-10.4)
[2017-09-29] MEDS: Sodium Chloride 0.9% 1,000 ML IV SCH (09:56)
[2017-09-29] MEDS: Omega-3-Acid Ethyl Esters 1 GM Cap PO SCH (09:56)
[2017-09-29] MEDS: Multivitamin Vitamin B Complex (Nephro-Vite) Tab PO SCH (09:56)
[2017-09-29] MEDS: Epoetin Alfa 10,000 unit/ml Dialysis IV SCH (11:44)
--- NOTE | 2017-09-29 18:13 | CP.PCM.PN ---
Subjective - Date & Time of Evaluation Date of Evaluation: 09/29/17 Time of Evaluation: 16:00 - Subjective Subjective: SEEN ON RENAL F/U SEEN ON HD FEELS IMPROVED DID PASS BM TODAY Objective - Vital Signs/Intake and Output Vital Signs (last 24 hours): Temp Pulse Resp BP Pulse Ox 98.7 F 89 20 108/68 96 09/29/17 16:00 09/29/17 16:00 09/29/17 16:00 09/29/17 16:00 09/29/17 16:00 Intake and Output: 09/29/17 09/29/17 06:59 18:59 Intake Total 350 470 Output Total 300 Balance 50 470 - Medications Medications: Current Medications Acetaminophen (Tylenol 325mg Tab) 650 mg PO Q6 PRN PRN Reason: Pain, Mild (1-3) Last Admin: 09/29/17 09:59 Dose: 650 mg Allopurinol (Zyloprim) 100 mg PO DAILY [facility] Last Admin: 09/29/17 09:57 Dose: Not Given Benzocaine/Menthol (Cepacol Sore Throat) 1 mishel MT Q2H PRN PRN Reason: Sore Throat Dextrose (Dextrose 50% Inj) 0 ml IV STAT PRN; Protocol PRN Reason: Hypoglycemia Protocol Dextrose (Glutose 15) 0 gm PO ONCE PRN; Protocol PRN Reason: Hypoglycemia Protocol Doxercalciferol (Hectorol) 0.5 mcg PO DAILY [facility] Last Admin: 09/29/17 09:56 Dose: Not Given Epoetin David (Procrit) 10,000 unit IV TTS [facility] Stop: 10/02/17 10:01 Last Admin: 09/29/17 11:44 Dose: 10,000 unit Ergocalciferol (Drisdol 50,000 Intl Units Cap) 1 cap PO QWK [facility] Last Admin: 09/26/17 10:33 Dose: 1 cap Ferrous Sulfate (Feosol) 325 mg PO DAILY [facility] Last Admin: 09/29/17 09:56 Dose: Not Given Gabapentin (Neurontin) 300 mg PO HS [facility] Last Admin: 09/28/17 21:57 Dose: 300 mg Glucagon (Glucagen Diagnostic Kit) 0 mg IM STAT PRN; Protocol PRN Reason: Hypoglycemia Protocol Heparin Sodium (Porcine) (Heparin) 1,000 units IVP TTS [facility] Stop: 10/09/17 10:01 Last Admin: 09/29/17 11:44 Dose: 1,000 units Hydromorphone HCl (Dilaudid) 0.5 mg IVP Q3H PRN PRN Reason: Pain, severe (8-10) Last Admin: 09/29/17 08:51 Dose: 0.5 mg Piperacillin Sod/Tazobactam Sod (Zosyn 2.25 Gm Iv Premix) 2.25 gm in 50 mls @ 100 mls/hr IVPB Q6H [facility] Last Admin: 09/29/17 14:18 Dose: 100 mls/hr Sodium Chloride (Sodium Chloride 0.9%) 1,000 mls @ 70 mls/hr IV .[id number] [facility] Last Admin: 09/29/17 09:56 Dose: Not Given Insulin Human Regular (Novolin R) 0 unit SC ACHS [facility] PRN Reason: Protocol Last Admin: 09/29/17 17:03 Dose: Not Given Iylcx-6-Lyhd Ethyl Esters (Lovaza) 1 gm PO DAILY [facility] Last Admin: 09/29/17 09:56 Dose: Not Given Ondansetron HCl (Zofran Inj) 4 mg IVP Q4H PRN PRN Reason: Nausea/Vomiting Last Admin: 09/28/17 13:45 Dose: 4 mg Pantoprazole Sodium (Protonix Inj) 40 mg IVP DAILY [facility] Last Admin: 09/29/17 10:00 Dose: 40 mg Sevelamer Carbonate (Renvela) 800 mg PO TID [facility] Last Admin: 09/29/17 17:37 Dose: 800 mg Vitamin B Complex/Vit C/Folic Acid (Nephro-Leslye) 1 tab PO DAILY [facility] Last Admin: 09/29/17 09:56 Dose: Not Given - Labs Labs: 09/29/17 08:37 09/29/17 08:37 PT 11.1 SECONDS (9.7-12.2) 09/24/17 13:18 INR 1.0 09/24/17 13:18 APTT 27 SECONDS (21-34) 09/24/17 13:18 Assessment and Plan - Assessment and Plan (Free Text) Assessment: ESRD ON HD .. TO C/O NEXT WEEK ON W C/O PRESENT CARE
--- NOTE | 2017-09-29 19:00 | CP.PCM.PN ---
Subjective - Date & Time of Evaluation Date of Evaluation: 09/29/17 Time of Evaluation: 18:57 - Subjective Subjective: General Surgery Progress Note for Dr Thompson This pt was seen and examined this AM at bedside no acute events overnight. Pt denies any abdominal pain chest pain SOB nausea vomiting. She is tolerating diet. Objective - Vital Signs/Intake and Output Vital Signs (last 24 hours): Temp Pulse Resp BP Pulse Ox 98.7 F 89 20 108/68 96 09/29/17 16:00 09/29/17 16:00 09/29/17 16:00 09/29/17 16:00 09/29/17 16:00 Intake and Output: 09/29/17 09/29/17 06:59 18:59 Intake Total 350 470 Output Total 300 Balance 50 470 - Medications Medications: Current Medications Acetaminophen (Tylenol 325mg Tab) 650 mg PO Q6 PRN PRN Reason: Pain, Mild (1-3) Last Admin: 09/29/17 09:59 Dose: 650 mg Allopurinol (Zyloprim) 100 mg PO DAILY [facility] Last Admin: 09/29/17 09:57 Dose: Not Given Benzocaine/Menthol (Cepacol Sore Throat) 1 mishel MT Q2H PRN PRN Reason: Sore Throat Dextrose (Dextrose 50% Inj) 0 ml IV STAT PRN; Protocol PRN Reason: Hypoglycemia Protocol Dextrose (Glutose 15) 0 gm PO ONCE PRN; Protocol PRN Reason: Hypoglycemia Protocol Doxercalciferol (Hectorol) 0.5 mcg PO DAILY [facility] Last Admin: 09/29/17 09:56 Dose: Not Given Epoetin David (Procrit) 10,000 unit IV TTS [facility] Stop: 10/02/17 10:01 Last Admin: 09/29/17 11:44 Dose: 10,000 unit Ergocalciferol (Drisdol 50,000 Intl Units Cap) 1 cap PO QWK [facility] Last Admin: 09/26/17 10:33 Dose: 1 cap Ferrous Sulfate (Feosol) 325 mg PO DAILY [facility] Last Admin: 09/29/17 09:56 Dose: Not Given Gabapentin (Neurontin) 300 mg PO HS [facility] Last Admin: 09/28/17 21:57 Dose: 300 mg Glucagon (Glucagen Diagnostic Kit) 0 mg IM STAT PRN; Protocol PRN Reason: Hypoglycemia Protocol Heparin Sodium (Porcine) (Heparin) 1,000 units IVP TTS [facility] Stop: 10/09/17 10:01 Last Admin: 09/29/17 11:44 Dose: 1,000 units Hydromorphone HCl (Dilaudid) 0.5 mg IVP Q3H PRN PRN Reason: Pain, severe (8-10) Last Admin: 09/29/17 08:51 Dose: 0.5 mg Piperacillin Sod/Tazobactam Sod (Zosyn 2.25 Gm Iv Premix) 2.25 gm in 50 mls @ 100 mls/hr IVPB Q6H [facility] Last Admin: 09/29/17 14:18 Dose: 100 mls/hr Sodium Chloride (Sodium Chloride 0.9%) 1,000 mls @ 70 mls/hr IV .[id number] [facility] Last Admin: 09/29/17 09:56 Dose: Not Given Insulin Human Regular (Novolin R) 0 unit SC ACHS [facility] PRN Reason: Protocol Last Admin: 09/29/17 17:03 Dose: Not Given Wucel-4-Kokk Ethyl Esters (Lovaza) 1 gm PO DAILY [facility] Last Admin: 09/29/17 09:56 Dose: Not Given Ondansetron HCl (Zofran Inj) 4 mg IVP Q4H PRN PRN Reason: Nausea/Vomiting Last Admin: 09/28/17 13:45 Dose: 4 mg Pantoprazole Sodium (Protonix Inj) 40 mg IVP DAILY [facility] Last Admin: 09/29/17 10:00 Dose: 40 mg Sevelamer Carbonate (Renvela) 800 mg PO TID [facility] Last Admin: 09/29/17 17:37 Dose: 800 mg Vitamin B Complex/Vit C/Folic Acid (Nephro-Leslye) 1 tab PO DAILY [facility] Last Admin: 09/29/17 09:56 Dose: Not Given - Labs Labs: 09/29/17 08:37 09/29/17 08:37 PT 11.1 SECONDS (9.7-12.2) 09/24/17 13:18 INR 1.0 09/24/17 13:18 APTT 27 SECONDS (21-34) 09/24/17 13:18 - Constitutional Appears: No Acute Distress - Head Exam Head Exam: ATRAUMATIC, NORMOCEPHALIC - Eye Exam Eye Exam: EOMI, Normal appearance Pupil Exam: PERRL - ENT Exam ENT Exam: Mucous Membranes Moist - Respiratory Exam Respiratory Exam: NORMAL BREATHING PATTERN - Cardiovascular Exam Cardiovascular Exam: REGULAR RHYTHM - GI/Abdominal Exam GI & Abdominal Exam: Distended (mildly), Soft, Tenderness (epigastric). absent : Firm, Guarding, Rigid, Rebound - Extremities Exam Extremities Exam: absent: Calf Tenderness - Back Exam Back Exam: absent: CVA tenderness (L), CVA tenderness (R) - Neurological Exam Neurological Exam: Alert, Awake, CN II-XII Intact, Oriented x3 - Psychiatric Exam Psychiatric exam: Normal Affect, Normal Mood - Skin Skin Exam: Dry, Intact, Normal Color, Warm Assessment and Plan - Assessment and Plan (Free Text) Assessment: 72 F s/p laparocopic converted to open appendectomy POD#5 Regular diet Pt clear for discharge from a surgical perspective if you feel patient requires further surgical evaluation please call surgical corsetier. Discuss with Dr. Jay Frost PGY2
[2017-09-30] MEDS: Sodium Chloride 0.9% 1,000 ML IV SCH (00:09)
[2017-09-30] MEDS: Piperacill/Tazo 2.25gm in Dex 2.25 GM/50 ML BAG IVPB SCH ×3 (01:02→13:27)
--- NOTE | 2017-09-30 01:22 | RAD ---
EXAM: XR Chest, 1 View EXAM DATE/TIME: 09/30/2017 12:13 AM CLINICAL HISTORY: 72 years old, female; Signs and symptoms; Fever TECHNIQUE: Frontal view of the chest. COMPARISON: Prior images are not available for review. FINDINGS: Tubes and catheters: There is a double-lumen right jugular catheter, tip is in the right atrium Heart, mediastinum and meenakshi: The heart is enlarged. Aorta is uncoiled. There is mediastinal and hilar prominence most likely vascular. Vascularity: There is mild vascular congestion. Lungs: There is prominence of interstitial markings. There patchy opacities at both lung bases. Pleural spaces: There may be small effusions. Bony structures: Bony structures are mildly osteopenic. There are degenerative changes. Upper abdomen: There is mild gaseous distention of upper bowel loops IMPRESSION: Cardiomegaly and vascular congestion; patchy airspace disease at the lung bases infiltrate and/or atelectasis with small effusions
--- NOTE | 2017-09-30 07:44 | CP.PCM.PN ---
Subjective - Date & Time of Evaluation Date of Evaluation: 09/30/17 Time of Evaluation: 07:43 - Subjective Subjective: PGY-[address] Matthews's service: Pt seen and examined at bedside. Nursing reports no acute events overnight. POD #6 s/p open appendectomy. Pt denies any abdominal pain, chest pain, SOB nausea, vomiting. She is tolerating diet. Family at bedside asking when she will be discharged. Objective - Vital Signs/Intake and Output Vital Signs (last 24 hours): Temp Pulse Resp BP Pulse Ox 98.2 F 82 20 109/66 96 09/30/17 04:50 09/30/17 00:00 09/30/17 00:00 09/30/17 00:00 09/30/17 00:00 Intake and Output: 09/30/17 09/30/17 06:59 18:59 Intake Total 250 Balance 250 - Medications Medications: Current Medications Acetaminophen (Tylenol 325mg Tab) 650 mg PO Q6 PRN PRN Reason: Pain, Mild (1-3) Last Admin: 09/30/17 00:15 Dose: 650 mg Allopurinol (Zyloprim) 100 mg PO DAILY [facility] Last Admin: 09/29/17 09:57 Dose: Not Given Benzocaine/Menthol (Cepacol Sore Throat) 1 mishel MT Q2H PRN PRN Reason: Sore Throat Dextrose (Dextrose 50% Inj) 0 ml IV STAT PRN; Protocol PRN Reason: Hypoglycemia Protocol Dextrose (Glutose 15) 0 gm PO ONCE PRN; Protocol PRN Reason: Hypoglycemia Protocol Doxercalciferol (Hectorol) 0.5 mcg PO DAILY [facility] Last Admin: 09/29/17 09:56 Dose: Not Given Epoetin David (Procrit) 10,000 unit IV TTS [facility] Stop: 10/02/17 10:01 Last Admin: 09/29/17 11:44 Dose: 10,000 unit Ergocalciferol (Drisdol 50,000 Intl Units Cap) 1 cap PO QWK [facility] Last Admin: 09/26/17 10:33 Dose: 1 cap Ferrous Sulfate (Feosol) 325 mg PO DAILY [facility] Last Admin: 09/29/17 09:56 Dose: Not Given Gabapentin (Neurontin) 300 mg PO HS [facility] Last Admin: 09/29/17 23:00 Dose: 300 mg Glucagon (Glucagen Diagnostic Kit) 0 mg IM STAT PRN; Protocol PRN Reason: Hypoglycemia Protocol Heparin Sodium (Porcine) (Heparin) 1,000 units IVP TTS [facility] Stop: 10/09/17 10:01 Last Admin: 09/29/17 11:44 Dose: 1,000 units Hydromorphone HCl (Dilaudid) 0.5 mg IVP Q3H PRN PRN Reason: Pain, severe (8-10) Last Admin: 09/29/17 08:51 Dose: 0.5 mg Piperacillin Sod/Tazobactam Sod (Zosyn 2.25 Gm Iv Premix) 2.25 gm in 50 mls @ 100 mls/hr IVPB Q6H [facility] Last Admin: 09/30/17 07:01 Dose: 100 mls/hr Sodium Chloride (Sodium Chloride 0.9%) 1,000 mls @ 70 mls/hr IV .[id number] [facility] Last Admin: 09/30/17 00:09 Dose: Not Given Insulin Human Regular (Novolin R) 0 unit SC ACHS [place] PRN Reason: Protocol Last Admin: 09/29/17 22:00 Dose: Not Given Gvhzk-4-Juvu Ethyl Esters (Lovaza) 1 gm PO DAILY [facility] Last Admin: 09/29/17 09:56 Dose: Not Given Ondansetron HCl (Zofran Inj) 4 mg IVP Q4H PRN PRN Reason: Nausea/Vomiting Last Admin: 09/28/17 13:45 Dose: 4 mg Pantoprazole Sodium (Protonix Inj) 40 mg IVP DAILY [facility] Last Admin: 09/29/17 10:00 Dose: 40 mg Sevelamer Carbonate (Renvela) 800 mg PO TID [facility] Last Admin: 09/29/17 17:37 Dose: 800 mg Vitamin B Complex/Vit C/Folic Acid (Nephro-Leslye) 1 tab PO DAILY [facility] Last Admin: 09/29/17 09:56 Dose: Not Given - Labs Labs: 09/29/17 08:37 09/29/17 08:37 PT 11.1 SECONDS (9.7-12.2) 09/24/17 13:18 INR 1.0 09/24/17 13:18 APTT 27 SECONDS (21-34) 09/24/17 13:18 - Additional Findings Additional findings: - Head Exam Head Exam: ATRAUMATIC, NORMOCEPHALIC - Eye Exam Eye Exam: EOMI - ENT Exam ENT Exam: Mucous Membranes Moist - Respiratory Exam Respiratory Exam: Clear to Ausculation Bilateral, NORMAL BREATHING PATTERN. absent: Rales, Rhonchi, Wheezes, Respiratory Distress - Cardiovascular Exam Cardiovascular Exam: REGULAR RHYTHM, +S1, +S2 - GI/Abdominal Exam GI & Abdominal Exam: Soft, Tenderness (minimal, surgical dressing clean, dry, intact), Distended, Normoactive Bowel Sounds. - Extremities Exam Extremities Exam: absent: Tenderness - Neurological Exam Neurological Exam: Alert, Awake - Psychiatric Exam Psychiatric exam: Normal Affect, Normal Mood - Skin Skin Exam: Dry, Intact, Normal Color, Warm Assessment and Plan - Assessment and Plan (Free Text) Plan: Appendicitis * Admit to med-surg * NO WBC * Troponin negative x 1 * Lipase 272 * CT A/P (09/24/17): Findings concerning for acute appendicitis. Cholelithiasis and thickening of GB wall. Consider further eval with US. * CXR (09/24/17): Mild venous congestion. Mild cardiomegaly. Right side venous catheter into right atrium. * Gen Surgery consult: Dr. Thompson, help appreciated * s/p lap appendectomy converted to open appendectomy (09/25/17) * advanced diet to regular diet * encourage ambulate/PT/IS * stable for discharge Medication: * Zofran 4mg IV Q4H PRN Possible Cholecystitis * Gen Surgery consult: Dr. Thompsno, help appreciated * no surgery at this time * CT A/P (09/24/17): Multiple tiny gallstone seen. Mild thickening of GB wall, unsharp suggesting possible inflammation. No pericholecystic fluid seen. (see full report) * Abd US (09/24/17): contracted GB with multiple small stones no dilatation; nontender over GB. 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, director of marketing * f/u recs * Renal-Leslye 800 mg PO TID * Renvela 800mg PO TID HTN * Elevated on Admission * HOLD Lopressor 100mg PO Daily * Hydralazine IVP Q6H for SBP > 160 CHF (diastolic) * Myocardial perfusion scan 11/2016 - EF 55-60% * HOLD Torsemide 100mg PO Daily * HOLD Lopressor 100mg PO Daily Type two diabetes mellitus * A1c 6.9 (05/2017) * Diagnosed ~3 years ago * BG log at bedside shows sugars routinely > 250 * Accuchecks ACHS * ISS * Levemir 20 units SC QAM * Hypoglycemia protocol DM neuropathy * Continue home medication- Gabapentin 300mg PO HS Proteinuria * UA (09/24/17) 3+ protein * Will consider BRENNA when pt can start PO intake Hx of Anemia * Continue home medication Feosol 325mg PO Daily * Hgb 10.2 on admission, up from prior (baseline 8.0) Dizziness * CT HEAD (09/24/17): No intracranial mass, hemorrhage, or evidence of infarct. Small old bilateral basal ganglia/right thalamic lacunar infarcts. * Antivert given once in ED Constipation * resolved 09/29 * ordered abdomen xray for post-op distention/pain: minimal ileus; assumed postop changed; no high-grade obstruction suggested * Lactulose given on 09/27/17 * Ordered tap water enema on 09/28 Urinary Retention * as per daughters, patient still produces urine; however, has not urinated today, 09/28/17 * Bladder scan; will straight cath if >200ml; Granda ordered Prophylaxis * Protonix 40mg IV Daily * SCDs Held due to peripheral edema * Heparin 1000 u IV TTS as per Dr. Fox * PT/OT Disposition: DC planning for sunday (10/01/17) Discussed with Dr. Matthews
[2017-09-30] MEDS: (Novolin R) Insulin Human Regular 100 units/ml vial SC SCH ×4 (08:45→22:58)
[2017-09-30] MEDS: Multivitamin Vitamin B Complex (Nephro-Vite) Tab PO SCH (10:14)
[2017-09-30] MEDS: Omega-3-Acid Ethyl Esters 1 GM Cap PO SCH (10:14)
[2017-09-30 13:57] LABS: BASO % 0.6 % (0.0-2.0); EOS # 0.3 K/uL (0.0-0.7); HEMOGLOBIN 8.3 g/dL (11.0-16.0); LYMPH # 1.1 K/uL (1.0-4.3); LYMPH % 15.5 % (20.0-40.0); MEAN CELL VOLUME 86.8 fL (81.0-99.0); MEAN CORPUSCULAR HEMOGLOBIN 27.3 pg (27.0-31.0); MEAN CORPUSCULAR HGB CONC 31.4 g/dL (33.0-37.0); MEAN PLATELET VOLUME 9.6 fL (7.2-11.7); MONO # 0.9 K/uL (0.0-0.8); MONO % 13.1 % (0.0-10.0); NEUT # 4.5 K/uL (1.8-7.0); NEUT % 65.8 % (50.0-75.0); NRBC % 0.2 % (0.0-2.0); RBC 3.04 Mil/uL (3.80-5.20); RED CELL DISTRIBUTION WIDTH 19.8 % (11.5-14.5); WHITE BLOOD COUNT 6.8 K/uL (4.8-10.8)
[2017-09-30 14:26] LABS: CALCIUM 7.6 mg/dl (8.6-10.4)
[2017-09-30] MEDS ORDERED: Piperacill/Tazo 2.25gm in Dex 2.25 GM/50 ML BAG IVPB SCH (19:15)
[2017-10-01] MEDS: (Novolin R) Insulin Human Regular 100 units/ml vial SC SCH ×3 (07:49→18:02)
[2017-10-01 08:25] VITALS: RESP 20
[2017-10-01 08:34] LABS: BASO % 0.6 % (0.0-2.0); EOS # 0.4 K/uL (0.0-0.7); EOS % 5.6 % (0.0-4.0); HEMOGLOBIN 8.2 g/dL (11.0-16.0); LYMPH # 1.1 K/uL (1.0-4.3); LYMPH % 16.5 % (20.0-40.0); MEAN CELL VOLUME 86.6 fL (81.0-99.0); MEAN CORPUSCULAR HEMOGLOBIN 27.4 pg (27.0-31.0); MEAN CORPUSCULAR HGB CONC 31.6 g/dL (33.0-37.0); MEAN PLATELET VOLUME 9.9 fL (7.2-11.7); MONO # 0.8 K/uL (0.0-0.8); MONO % 12.6 % (0.0-10.0); NEUT # 4.3 K/uL (1.8-7.0); NEUT % 64.7 % (50.0-75.0); NRBC % 0.2 % (0.0-2.0); RBC 2.99 Mil/uL (3.80-5.20); RED CELL DISTRIBUTION WIDTH 19.4 % (11.5-14.5); WHITE BLOOD COUNT 6.7 K/uL (4.8-10.8)
[2017-10-01 09:12] LABS: ALB/GLOB RATIO 1.1 (1.0-2.1); CALCIUM 7.3 mg/dl (8.6-10.4)
[2017-10-01] MEDS ORDERED: Pantoprazole 40 mg EC Tab PO SCH (10:00)
[2017-10-01] MEDS: Multivitamin Vitamin B Complex (Nephro-Vite) Tab PO SCH (10:08)
[2017-10-01] MEDS: Omega-3-Acid Ethyl Esters 1 GM Cap PO SCH (10:08)
[2017-10-01 10:37] LABS: SQUAMOUS EPITHIAL 13 /hpf (0-5); URINE AMORPHOUS SEDIMENT RARE /ul (<OCC); URINE BILIRUBIN NEGATIVE (NEGATIVE); URINE BLOOD 2+ (NEGATIVE); URINE CLARITY Hazy (Clear); URINE COLOR Amber (YELLOW); URINE GLUCOSE (UA) NORMAL (Normal); URINE LEUKOCYTE ESTERASE NEG Leu/uL (Negative); URINE NITRATE NEGATIVE (NEGATIVE); URINE PROTEIN 2+ mg/dL (NEGATIVE); URINE UROBILINOGEN NORMAL mg/dL (0.2-1.0)
--- NOTE | 2017-10-01 12:58 | CP.PCM.DIS ---
Provider - Provider Date of Admission: 09/24/17 17:27 Attending physician: Isael Matthews Jr, MD Consults: General Surgery: Dr. Thompson Nephrology: Dr. Fox Time Spent in preparation of Discharge (in minutes): 45 Hospital Course - Lab Results Lab Results: Micro Results 09/30/17 00:55 Blood Blood Culture - Preliminary NO GROWTH AFTER 24 HOURS 09/30/17 00:25 Blood Blood Culture - Preliminary NO GROWTH AFTER 24 HOURS Most Recent Lab Values WBC 6.7 K/uL (4.8-10.8) 10/01/17 08:18 RBC 2.99 Mil/uL (3.80-5.20) L 10/01/17 08:18 Hgb 8.2 g/dL (11.0-16.0) L 10/01/17 08:18 Hct 25.9 % (34.0-47.0) L 10/01/17 08:18 MCV 86.6 fL (81.0-99.0) 10/01/17 08:18 MCH 27.4 pg (27.0-31.0) 10/01/17 08:18 MCHC 31.6 g/dL (33.0-37.0) L 10/01/17 08:18 RDW 19.4 % (11.5-14.5) H 10/01/17 08:18 Plt Count 236 K/uL (130-400) 10/01/17 08:18 MPV 9.9 fL (7.2-11.7) 10/01/17 08:18 Neut % (Auto) 64.7 % (50.0-75.0) 10/01/17 08:18 Lymph % (Auto) 16.5 % (20.0-40.0) L 10/01/17 08:18 [place] % (Auto) 12.6 % (0.0-10.0) H 10/01/17 08:18 Eos % (Auto) 5.6 % (0.0-4.0) H 10/01/17 08:18 Baso % (Auto) 0.6 % (0.0-2.0) 10/01/17 08:18 Neut # 4.3 K/uL (1.8-7.0) 10/01/17 08:18 Lymph # 1.1 K/uL (1.0-4.3) 10/01/17 08:18 [place] # 0.8 K/uL (0.0-0.8) 10/01/17 08:18 Eos # 0.4 K/uL (0.0-0.7) 10/01/17 08:18 Baso # 0.0 K/uL (0.0-0.2) 10/01/17 08:18 Neutrophils % (Manual) 80 % (50-75) H 09/25/17 07:45 Band Neutrophils % 9 % (0-2) H 09/25/17 07:45 Lymphocytes % (Manual) 8 % (20-40) L 09/25/17 07:45 Monocytes % (Manual) 3 % (0-10) 09/25/17 07:45 Platelet Estimate Normal (NORMAL) 09/25/17 07:45 Hypochromasia (manual) Slight 09/25/17 07:45 Basophilic Stippling Slight 09/25/17 07:45 Anisocytosis (manual) Moderate 09/25/17 07:45 Stomatocytes Slight 09/25/17 07:45 PT 11.1 SECONDS (9.7-12.2) 09/24/17 13:18 INR 1.0 09/24/17 13:18 APTT 27 SECONDS (21-34) 09/24/17 13:18 Sodium 135 mmol/L (132-148) 10/01/17 08:18 Potassium 3.8 mmol/L (3.6-5.2) 10/01/17 08:18 Chloride 95 mmol/L (98-107) L 10/01/17 08:18 Carbon Dioxide 27 mmol/L (22-30) 10/01/17 08:18 Anion Gap 16 (10-20) 10/01/17 08:18 BUN 31 mg/dL (7-17) H 10/01/17 08:18 Creatinine 7.2 mg/dL (0.7-1.2) H 10/01/17 08:18 Est GFR ( Amer) 7 10/01/17 08:18 Est GFR (Non-Af Amer) 6 10/01/17 08:18 POC Glucose (mg/dL) 88 mg/dL (65-110) 10/01/17 07:11 Random Glucose 81 mg/dL (65-105) 10/01/17 08:18 Calcium 7.3 mg/dl (8.6-10.4) L 10/01/17 08:18 Phosphorus 4.7 mg/dL (2.5-4.5) H 09/27/17 07:34 Magnesium 1.8 mg/dL (1.6-2.3) 09/27/17 07:34 Total Bilirubin 0.4 mg/dL (0.2-1.3) 10/01/17 08:18 AST 26 U/L (14-36) 10/01/17 08:18 ALT 19 U/L (9-52) 10/01/17 08:18 Alkaline Phosphatase 66 U/L (38-126) 10/01/17 08:18 Troponin I < 0.0120 ng/mL (0.00-0.120) 09/24/17 13:18 Total Protein 5.8 g/dL (6.3-8.3) L 10/01/17 08:18 Albumin 3.0 g/dL (3.5-5.0) L 10/01/17 08:18 Globulin 2.8 gm/dL (2.2-3.9) 10/01/17 08:18 Albumin/Globulin Ratio 1.1 (1.0-2.1) 10/01/17 08:18 Lipase 272 U/L (23-300) 09/24/17 13:18 Urine Color Sarah (YELLOW) 10/01/17 10:17 Urine Clarity Hazy (Clear) 10/01/17 10:17 Urine pH 5.0 (5.0-8.0) 10/01/17 10:17 Ur Specific [place] 1.027 (1.003-1.030) 10/01/17 10:17 Urine Protein 2+ mg/dL (NEGATIVE) H 10/01/17 10:17 Urine Glucose (UA) Normal mg/dL (Normal) 10/01/17 10:17 Urine Ketones Negative mg/dL (NEGATIVE) 10/01/17 10:17 Urine Blood 2+ (NEGATIVE) H 10/01/17 10:17 Urine Nitrate Negative (NEGATIVE) 10/01/17 10:17 Urine Bilirubin Negative (NEGATIVE) 10/01/17 10:17 Urine Urobilinogen Normal mg/dL (0.2-1.0) 10/01/17 10:17 Ur Leukocyte Esterase Neg Aiden/uL (Negative) 10/01/17 10:17 Urine WBC (Auto) 9 /hpf (0-5) H 10/01/17 10:17 Urine RBC (Auto) 13 /hpf (0-3) H 10/01/17 10:17 Ur Squamous Epith Cells 13 /hpf (0-5) H 10/01/17 10:17 Amorphous Sediment Rare /ul (<OCC) H 10/01/17 10:17 Urine Bacteria Rare (<OCC) 09/24/17 12:12 - Hospital Course Hospital Course: CC: Abdominal pain, N/V, Dizziness Patient is a 72yo female, with PMHx of end stage renal disease on dialysis (MWF) , hypertension, and type two diabetes, DM peripheral neuropathy, DM retinopathy , presenting to [facility] ED for persistent abdominal pain, N/V, and dizziness. Patient daughter, son-in-law at bedside helping provide history. Patient reports she began feeling nauseous on Sunday, vomiting after taking her AM medications. She felt better after vomiting but dizziness persisted through the weekend. Her abdominal pain began again this AM, located beneath the umbilicus, again causing her to throw up after her medications. When she told her daughter she felt like she was going to pass out her family decided to bring her to [facility]. Patient's last dialysis was 4 days ago. She denies any fever, chills, chest pain, shortness of breath. Patient lives with her daughter, who provides patient her medication. PMHx: end stage renal disease on dialysis (MWF), hypertension, and type two diabetes (diagnosed 3 yrs ago), DM peripheral neuropathy, DM retinopathy PSHx: , fistula formation (~6 months ago) Fam Hx: Pt denies Soc HX: denies tobacco use, alcohol, or illicit drug use Allergies: NKA Meds: SEE EMR Hospital Course: Patient was admitted on 09/24/17 for appendicitis. In the ED, labs were drawn, imaging done, and mediations were given. General surgery, Dr. Thompson, was consulted. Nephrology was consulted, Dr. Fox, for history of ESRD with dialysis (MWF). CT of the abdomen pelvis showed findings concerning for acute appendicitis and possible cholecystitis with multiple tiny gallstones and mild thickening of gallbladder wall. Laparoscopic appendectomy converted to open appendectomy was performed on 09/25. Surgery determined no intervention was necessary at this time for possible cholecystitis. Patient received dialysis Sunday, , and Sunday. Her chronic medical conditions of HTN , diastolic CHF, DM2, and history of anemia were all managed throughout hospital course. Patient had post-op ileus which required an enema, as well as urinary retention for one day. Patient is currently post-op day #7, received dialysis and currently denies any abdominal pain, constipation, urinary retention, chest pain, nausea, vomiting, and SOB. She has had two bowel movements today. She is tolerating a regular diet and has been encouraged to ambulate and is stable for discharge. Patient is to restart dialysis schedule of MWF. Discharge Exam - Head Exam Head Exam: ATRAUMATIC, NORMOCEPHALIC - Eye Exam Eye Exam: EOMI, Normal appearance - ENT Exam ENT Exam: Mucous Membranes Moist - Respiratory Exam Respiratory Exam: Clear to PA & Lateral, NORMAL BREATHING PATTERN, UNREMARKABLE. absent: Rales, Rhonchi, Wheezes, Respiratory Distress - Cardiovascular Exam Cardiovascular Exam: REGULAR RHYTHM, +S1, +S2 - GI/Abdominal Exam GI & Abdominal Exam: Normal Bowel Sounds, Soft. absent: Distended, Firm, Tenderness Additional comments: s/p appendectomy- clean, dry, minor in place, intact - Extremities Exam Extremities exam: pedal edema (chronic), tenderness (chronic) - Neurological Exam Neurological exam: Alert, Oriented x3 - Psychiatric Exam Psychiatric exam: Normal Affect, Normal Mood - Skin Skin Exam: Dry, Intact, Normal Color, Warm Discharge Plan - Follow Up Plan Condition: FAIR Disposition: HOME/ ROUTINE Instructions: Heart Failure (DC), Appendicitis (DC), Dizziness (GEN) Additional Instructions: Patient is stable for discharge to home. Patient must continue home medications. Patient must continue MWF dialysis schedule. Patient must follow up with their PMD within 1-2 weeks of discharge. Patient must follow up with their mule tender within 1 week of discharge. Patient must follow up with general surgeon, Dr. Thompson, within 1 week of discharge. If symptoms worsen or reoccur, patient should return to the ED. Referrals: Addis Fox MD [Staff Provider] - Luis Thompson Jr., MD [Staff Provider] -
[2017-10-01] MEDS ORDERED: Epoetin Alfa 10,000 unit/ml Dialysis IV SCH (16:00)
[2017-10-01 16:46] VITALS: TEMP 98.5; O2SAT 95
[2017-10-01 17:09] VITALS: PULSE 87
--- NOTE | 2017-10-01 17:57 | CP.PCM.PN ---
Subjective - Date & Time of Evaluation Date of Evaluation: 10/01/17 Time of Evaluation: 15:00 - Subjective Subjective: SEEN ON RENAL F/U SEEN ON HD . FOR D/C TODAY FEELS BETTER Objective - Vital Signs/Intake and Output Vital Signs (last 24 hours): Temp Pulse Resp BP Pulse Ox 98.5 F 88 20 119/68 95 10/01/17 16:15 10/01/17 16:15 10/01/17 16:15 10/01/17 16:15 10/01/17 16:15 Intake and Output: 10/01/17 10/01/17 06:59 18:59 Intake Total 350 200 Output Total 150 Balance 350 50 - Medications Medications: Current Medications Acetaminophen (Tylenol 325mg Tab) 650 mg PO Q6 PRN PRN Reason: Pain, Mild (1-3) Last Admin: 10/01/17 12:26 Dose: 650 mg Allopurinol (Zyloprim) 100 mg PO DAILY [facility] Last Admin: 10/01/17 10:09 Dose: 100 mg Benzocaine/Menthol (Cepacol Sore Throat) 1 mishel MT Q2H PRN PRN Reason: Sore Throat Dextrose (Dextrose 50% Inj) 0 ml IV STAT PRN; Protocol PRN Reason: Hypoglycemia Protocol Dextrose (Glutose 15) 0 gm PO ONCE PRN; Protocol PRN Reason: Hypoglycemia Protocol Doxercalciferol (Hectorol) 0.5 mcg PO DAILY [facility] Last Admin: 10/01/17 10:08 Dose: 0.5 mcg Epoetin David (Procrit) 10,000 unit IV MWF [facility] Stop: 10/07/17 16:01 Last Admin: 10/01/17 16:05 Dose: 10,000 unit Ergocalciferol (Drisdol 50,000 Intl Units Cap) 1 cap PO QWK [facility] Last Admin: 09/26/17 10:33 Dose: 1 cap Ferrous Sulfate (Feosol) 325 mg PO DAILY [facility] Last Admin: 10/01/17 10:08 Dose: 325 mg Gabapentin (Neurontin) 300 mg PO HS [facility] Last Admin: 09/30/17 21:33 Dose: 300 mg Glucagon (Glucagen Diagnostic Kit) 0 mg IM STAT PRN; Protocol PRN Reason: Hypoglycemia Protocol Insulin Human Regular (Novolin R) 0 unit SC [facility] PRN Reason: Protocol Last Admin: 10/01/17 12:07 Dose: Not Given Srqae-3-Upnn Ethyl Esters (Lovaza) 1 gm PO DAILY [facility] Last Admin: 10/01/17 10:08 Dose: 1 gm Ondansetron HCl (Zofran Inj) 4 mg IVP Q4H PRN PRN Reason: Nausea/Vomiting Last Admin: 09/28/17 13:45 Dose: 4 mg Pantoprazole Sodium (Protonix Ec Tab) 40 mg PO DAILY [facility] Last Admin: 10/01/17 10:08 Dose: 40 mg Sevelamer Carbonate (Renvela) 800 mg PO TID [facility] Last Admin: 10/01/17 13:58 Dose: Not Given Vitamin B Complex/Vit C/Folic Acid (Nephro-Leslye) 1 tab PO DAILY [facility] Last Admin: 10/01/17 10:08 Dose: 1 tab - Labs Labs: 10/01/17 08:18 10/01/17 08:18 PT 11.1 SECONDS (9.7-12.2) 09/24/17 13:18 INR 1.0 09/24/17 13:18 APTT 27 SECONDS (21-34) 09/24/17 13:18 Assessment and Plan - Assessment and Plan (Free Text) Assessment: ESRD ON HD M W F .. ANEMIA OF CKD .. ON EPO C/O CURRENT CARE WILL F/U AN OUT PT
[2017-10-01 19:26] VITALS: BP 96/64
== END 2017-10-01 18:50 | disposition home or self-care (01) | DRG 341 ==
LOC: C.ER 10:49 → C.9E 17:27 → C.3T 20:15
PROVIDERS: ADMIT Internal Medicine; ATTEND Internal Medicine
PROC: 0DJD4ZZ Inspection of Lower Intestinal Tract, Percutaneous Endoscopic Approach (ICD-10-PCS; 2017-09-24)
PROC: 0DTJ0ZZ Resection of Appendix, Open Approach (ICD-10-PCS; principal; 2017-09-24 20:58)
PROC: 5A1D70Z Performance of Urinary Filtration, Intermittent, Less than 6 Hours Per Day (ICD-10-PCS; 2017-09-25)
PROC: 5A1D70Z Performance of Urinary Filtration, Intermittent, Less than 6 Hours Per Day (ICD-10-PCS; 2017-09-27)
PROC: 5A1D70Z Performance of Urinary Filtration, Intermittent, Less than 6 Hours Per Day (ICD-10-PCS; 2017-09-29)
PROC: 5A1D70Z Performance of Urinary Filtration, Intermittent, Less than 6 Hours Per Day (ICD-10-PCS; 2017-10-01)
DX: K35.80 Unspecified acute appendicitis (principal); N18.6 End stage renal disease; I13.2 Hypertensive heart and chronic kidney disease with heart failure and with stage 5 chronic kidney disease, or end stage renal disease; E11.22 Type 2 diabetes mellitus with diabetic chronic kidney disease; K56.7 Ileus, unspecified; I50.30 Unspecified diastolic (congestive) heart failure; Z68.1 Body mass index [BMI] 19.9 or less, adult; I50.32 Chronic diastolic (congestive) heart failure; D63.1 Anemia in chronic kidney disease; H54.7 Unspecified visual loss; Z99.2 Dependence on renal dialysis; Z79.4 Long term (current) use of insulin; R33.9 Retention of urine, unspecified

== ENCOUNTER 2017-10-25 08:58 | Day surgery (SDC) | payer MEDICARE ==
[~2017-10-25 08:58] MED LIST: Midazolam 2 MG/2 ML VIAL ONE
[2017-10-25 09:09] VITALS: BMI 36.6
[2017-10-25 09:26] LABS: BASO # 0.1 K/uL (0.0-0.2); BASO % 1.3 % (0.0-2.0); EOS # 0.3 K/uL (0.0-0.7); EOS % 5.3 % (0.0-4.0); LYMPH # 1.3 K/uL (1.0-4.3); LYMPH % 23.7 % (20.0-40.0); MEAN CELL VOLUME 87.2 fL (81.0-99.0); MEAN CORPUSCULAR HEMOGLOBIN 27.1 pg (27.0-31.0); MEAN CORPUSCULAR HGB CONC 31.1 g/dL (33.0-37.0); MEAN PLATELET VOLUME 10.1 fL (7.2-11.7); MONO # 0.5 K/uL (0.0-0.8); MONO % 9.6 % (0.0-10.0); NEUT # 3.3 K/uL (1.8-7.0); NEUT % 60.1 % (50.0-75.0); NRBC % 0.6 % (0.0-2.0); RBC 3.94 Mil/uL (3.80-5.20); WHITE BLOOD COUNT 5.5 K/uL (4.8-10.8)
[2017-10-25 09:28] LABS: HEMOGLOBIN 10.7 g/dL (11.0-16.0)
[2017-10-25 09:34] LABS: PROTHROMBIN TIME 11.5 SECONDS (9.7-12.2)
[2017-10-25 09:41] LABS: CALCIUM 8.6 mg/dl (8.6-10.4)
[2017-10-25] MEDS ORDERED: Iodixanol 320 MG/ML 200 ML BOTTLE IV ONE (09:57)
[2017-10-25] MEDS ORDERED: Iodixanol 320 MG/ML 100 ML BOTTLE IV ONE (09:58)
[2017-10-25] MEDS ORDERED: Lidocaine 2% Inj (20ml) ONE (09:58)
[2017-10-25] MEDS ORDERED: Midazolam 2 MG/2 ML VIAL ONE ×2 (10:09)
[2017-10-25] MEDS ORDERED: DiphenhydrAMINE 50 mg/ml Inj ONE (10:09)
--- NOTE | 2017-10-25 11:43 | PCM.SURG1 ---
Surgeon's Initial Post Op Note - Surgeon's Notes Surgeon: suhail Lead Enterprise Architect: 0 Type of Anesthesia: IV Sedation Anesthesia Administered By: araceli Pre-Operative Diagnosis: immature av fistula right arm Operative Findings: narrowed mid portion of av fistula. final result no residula waist Post-Operative Diagnosis: same Operation Performed: fistulogram right arm. balloon angioplasty 5/6/7 mm of fistula Specimen/Specimens Removed: 0 Estimated Blood Loss: EBL {In ML}: 20 Blood Products Given: N/A Drains Used: No Drains Post-Op Condition: Good Date of Surgery/Procedure: 10/25/17 Time of Surgery/Procedure: 11:44
--- NOTE | 2017-10-26 08:54 | VAS ---
DATE: 10/25/2017 PREOPERATIVE DIAGNOSIS: Immature fistula, difficult to access, right arm. PROCEDURE CARRIED OUT: Fistulogram, right arm, with balloon angioplasty of midportion of fistula. SURGEON: Luis Thompson Jr., MD DIRECTOR OF RECRUITMENT: None. ANESTHESIOLOGIST: Dr. Gilman. TYPE OF ANESTHESIA: Local with sedation. INDICATIONS: The patient is a 72-year-old woman with fistula in the right arm. She has had difficulty in access. OPERATIVE FINDINGS: The central veins were widely patent without any evidence of significant stenosis. There was a residual indwelling catheter in the right jugular vein. The arterial anastomosis was visualized and was noted to have significant stenosis. In the midportion, the fistula had multiple stenosis and one small pseudoaneurysm at puncture site. Subsequent to this, a 5-Cypriot sheath was inserted and a balloon angioplasty using a 6 mm balloon without resistance waist was carried out. This was then deflated again with a 4 mm balloon at a higher pressure just in the area. Subsequent to this, we dilated 7 mm balloon. The final completion pictures showed no residual waist at the area of high grade stenosis with marked improvement in the cosmetic results. After this being done, pressure was applied to the puncture site which was adjacent to the arterial anastomosis and the procedure was terminated. Blood loss for the procedure was less than 20 mL. OPERATION CARRIED OUT: 1. Fistulogram, right arm. 2. Balloon angioplasty using 4, 5, 6, and 7 balloon of the right arm fistula. Luis Thompson Jr., MD
== END 2017-10-25 15:08 | disposition home or self-care (01) ==
LOC: C.SPRAD 08:58 → C.SDS 08:58 → C.SPRAD 15:08
PROVIDERS: ATTEND Surgery Vascular Surgery
DX: T82.858A Stenosis of other vascular prosthetic devices, implants and grafts, initial encounter (principal); T82.898A Other specified complication of vascular prosthetic devices, implants and grafts, initial encounter; Y83.8 Other surgical procedures as the cause of abnormal reaction of the patient, or of later complication, without mention of misadventure at the time of the procedure; E11.9 Type 2 diabetes mellitus without complications
CPT/HCPCS: 36415; 36902; 36907; 80048; 85025; 85610; 85730; J1200; J1644; J2250; J3010; Q9966; Q9967

== ENCOUNTER 2017-12-25 09:39 | Day surgery (SDC) | payer MEDICARE ==
[2017-12-25 10:28] VITALS: BMI 20.1
[2017-12-25 11:45] LABS: PROTHROMBIN TIME 10.8 SECONDS (9.7-12.2)
[2017-12-25] MEDS ORDERED: Lidocaine/Epinephrine 1% 1:100000 10 ML IJ ONE (12:02)
[2017-12-25] MEDS ORDERED: Iodixanol 320 MG/ML 200 ML BOTTLE IV ONE (12:15)
[2017-12-25] MEDS ORDERED: Iodixanol 320 MG/ML 100 ML BOTTLE IV ONE (12:30)
[2017-12-25] MEDS ORDERED: ceFAZolin 1 gm in NS 1 GM/100 ML BAG IVPB ONE (12:52)
--- NOTE | 2017-12-25 13:44 | PCM.SURG1 ---
Surgeon's Initial Post Op Note - Surgeon's Notes Surgeon: suhail Patent Drafter: 0 Type of Anesthesia: IV Sedation Anesthesia Administered By: sky Pre-Operative Diagnosis: malfunctioning fistula Operative Findings: severe stenosis in mid portion of fistula/resistant to balloon angioplasty Post-Operative Diagnosis: same Operation Performed: fistula gram. balloon angioplasty and stent (via Bahn) to mid portion of fistula. required high pressure balloon for dilatation Specimen/Specimens Removed: 0 Estimated Blood Loss: EBL {In ML}: 50 Blood Products Given: N/A Drains Used: No Drains Post-Op Condition: Good Date of Surgery/Procedure: 12/25/17 Time of Surgery/Procedure: 13:44
--- NOTE | 2017-12-26 10:37 | VAS ---
DATE: 12/25/2017. PREOPERATIVE DIAGNOSIS: Malfunction fistula, right arm. POSTOPERATIVE DIAGNOSIS: Malfunction fistula, right arm. PROCEDURE CARRIED OUT: Fistulogram, right arm, balloon angioplasty and deployment of covered stent in cephalic vein fistula. SURGEON: Luis Thompson Jr., MD. RUBBER PRESS OPERATOR: None. ANESTHESIOLOGIST: Mr. Roy. TYPE OF ANESTHESIA: Local with sedation. INDICATIONS: The patient is a 72-year-old woman on dialysis cephalic vein fistula and there is multiple problems since its origin. OPERATIVE FINDINGS: The cephalic arch was slightly narrowed and this was dilated to 5 mm balloon. In the mid portion of the fistula, there is severe stenosis, proximal aneurysmal dilatation and distally very small. Initially, we dilated everything with a 5 mm balloon, but at one point there was resistant stenosis, which we could not dilate even with a 5 mm balloon and focal balloon dilation. After multiple attempts of dilating this with variety of devices, we eventually placed a covered a 6 mm x 10 cm covered stent Viabahn and even inside of this with forceful dilation including high pressure balloons, we were unable to dilate this, eventually; however, using the shoulders of the balloon we were able to dilate this open with very good cosmetic results. After completion of the procedure, the patient had excellent flow to the fistula. PROCEDURE: The patient was given local anesthesia, puncture was made using micropuncture technique, guidewire was advanced centrally. Fistulogram was taken which showed the proximal atrial anastomosis was widely patent and that there were severe stenosis at multiple points throughout the fistula. There was some narrowing at the cephalic arch entry. Subsequently this was dilated as I said and then multiple balloons were placed, eventually we deployed a 6 mm Viabahn stent in the mid portion with excellent cosmetic results after which ultimately dilated. Pressure was then applied to the puncture site and the procedure terminated. The operation carried out was fistulogram, right arm and deployment of 10 cm x 6 mm Viabahn stent. Luis Thompson Jr., MD cc: [facility].
--- NOTE | 2017-12-27 00:03 | CARD ---
APPROVED REPORT EKG Measurement Heart [id number] <Conclusion> Normal sinus rhythm Voltage criteria for left ventricular hypertrophy Abnormal ECG
== END 2017-12-25 15:06 | disposition home or self-care (01) ==
LOC: C.SPRAD 09:39
PROVIDERS: ATTEND Surgery Vascular Surgery
DX: T82.858A Stenosis of other vascular prosthetic devices, implants and grafts, initial encounter (principal); E11.22 Type 2 diabetes mellitus with diabetic chronic kidney disease; N18.6 End stage renal disease; I12.0 Hypertensive chronic kidney disease with stage 5 chronic kidney disease or end stage renal disease
CPT/HCPCS: 36415; 36903; 85610; 85730; C1725; C1769; C1876; C1887; C1893; J0690; J1644; Q9967

== ENCOUNTER 2018-01-20 19:57 | Inpatient (IN) | payer MEDICARE, MEDICAID ==
[2018-01-20 19:57] VITALS: BMI 33.8
--- NOTE | 2018-01-20 20:30 | C.PDOC ---
History Of Present Illness 73 y/o female with known history of renal failure who was referred to the ED by her vascular surgeon for a nonfunctioning AV-fistula. Dialysis unit attempted to access the fistula two days ago, and Dr. Thompson is planning on revising it tomorrow. Depending on her labs she will either go to his service, or the hospital service. Patient denies fever, chills, shortness of breath, chest pain , nausea, or vomiting. She complains of loss of appetite. Chief Complaint (Nursing): Medical Clearance History Per: Fine Hairer (daughter acted as an educational interpreter) Onset/Duration Of Symptoms: Unknown Recent travel outside of the [place]: No Past Medical History Vital Signs: Last Vital Signs Temp 98.1 F 01/20/18 22:02 Pulse 63 01/20/18 22:02 Resp 18 01/20/18 22:02 BP 136/80 01/20/18 22:02 Pulse Ox 100 01/20/18 22:02 - Medical History PMH: Anemia (IRON INFUSION TREATMENTS), Arthritis (KNEE), CHF (Questionable on xray. Pt denies), HTN, Peripheral Edema ( Chronic), End Stage Renal Disease, Chronic Kidney Disease Surgical History: Appendectomy - [facility] Procedures (09/24/17) BYPASS RIGHT RADIAL ARTERY TO LOWER ARM VEIN, OPEN APPROACH (05/13/17) INSERT INFUSION DEV IN R INT JUGULAR VEIN, PERC (05/13/17) INSPECTION OF LOWER INTESTINAL TRACT, PERC ENDO APPROACH (09/24/17) PERFORMANCE OF URINARY FILTRATION, MULTIPLE (05/13/17) RESECTION OF APPENDIX, OPEN APPROACH (09/24/17) Family History: States: Unknown Family Hx - Social History Hx Alcohol Use: No Hx Substance Use: No - Immunization History Hx Tetanus Toxoid Vaccination: No Hx Influenza Vaccination: No Hx Pneumococcal Vaccination: No Review Of Systems Except As Marked, All Systems Reviewed And Found Negative. Constitutional: Positive for: Other (loss of appetite) Physical Exam - Physical Exam Appears: Well, No Acute Distress Skin: Normal Color, Warm, Dry Eye(s): bilateral: Normal Inspection, PERRL, EOMI Nose: Normal Throat: Normal Neck: Normal Chest: Other (Right chest dialysis catheter that appears to be in the right subclavian.) Cardiovascular: Rhythm Regular Respiratory: Normal Breath Sounds Gastrointestinal/Abdominal: Normal Exam Back: Normal Inspection Extremity: Normal ROM, Swelling (Bipedal pitting tender edema below the knees. ) , Other (Pulsetile fisutal to the right AC. ) ED Course And Treatment - Laboratory Results Result Diagrams: 01/20/18 20:34 01/20/18 20:34 ECG: Interpreted By Me ECG Rhythm: Sinus Rhythm (NSR has voltage criteria for LVH otherwise normal EKG) O2 Sat by Pulse Oximetry: 99 (RA) Pulse Ox Interpretation: Normal Medical Decision Making Medical Decision Making: Impression: Chronic renal failure patient with nonfunctioning AV fistula. Will draw basic labs and admit to the appropriate service depending on results. Labs reviewed and are significant for creatinine of 8.5, BUN of 52. Hemoglobin is 9.9, glucose 154. Otherwise labs are unremarkable. 21:46: Spoke with vice president planning to alert them that the patient is being admitted under Dr. Thompson's service. Admission orders placed. Disposition - Disposition Disposition: HOSPITALIZED Disposition Time: 23:34 Condition: GOOD - Clinical Impression Clinical Impression: Chronic renal disease, Failing arteriovenous fistula - Scribe Statement The provider has reviewed the documentation as recorded by the Scribe Renay Kwok
[2018-01-20 20:38] LABS: BASO % 0.8 % (0.0-2.0); EOS # 0.2 K/uL (0.0-0.7); EOS % 4.7 % (0.0-4.0); HEMOGLOBIN 9.9 g/dL (11.0-16.0); LYMPH # 1.7 K/uL (1.0-4.3); LYMPH % 32.5 % (20.0-40.0); MEAN CELL VOLUME 89.1 fL (81.0-99.0); MEAN CORPUSCULAR HEMOGLOBIN 29.3 pg (27.0-31.0); MEAN CORPUSCULAR HGB CONC 32.9 g/dL (33.0-37.0); MEAN PLATELET VOLUME 10.5 fL (7.2-11.7); MONO # 0.4 K/uL (0.0-0.8); MONO % 8.6 % (0.0-10.0); NEUT # 2.8 K/uL (1.8-7.0); NEUT % 53.4 % (50.0-75.0); NRBC % 1.2 % (0.0-2.0); RBC 3.4 Mil/uL (3.80-5.20); RED CELL DISTRIBUTION WIDTH 19.2 % (11.5-14.5); WHITE BLOOD COUNT 5.2 K/uL (4.8-10.8)
[2018-01-20 20:56] LABS: ALBUMIN 3.9 g/dL (3.5-5.0)
[2018-01-20] MEDS: Sodium Chloride 0.9% 1,000 ML IV SCH (22:20)
--- NOTE | 2018-01-20 22:27 | CP.PCM.HP ---
History of Present Illness - History of Present Illness History of Present Illness: Vascular Surgery Note For Dr. Thompson This is a 72F with a PMH of ESRD on dialysis (MWF), HTN, and IDDM, peripheral neuropathy, and DM retinopathy. She presentsdue to difficulty with diaylisys. She has a fistula on her LUE that the dialysis center has been unable to use.. She also has a permacath in place however the dialysis center said they were unable to use that as well. The patient otherwise has no other complaints at this time she denies any fevers chills chest pain nause vomiting or diarrhea. PMH: ESRD, IDDM, Peripheral neuropath PSH: AVF, Permacath, Appy, ALL: Betadine, Latex Social: Denies Etoh, tobacco, drugs Present on Admission - Present on Admission Any Indicators Present on Admission: No Review of Systems - Review of Systems All systems: reviewed and no additional remarkable complaints except Past Patient History - Past Medical History & Family History Past Medical History?: Yes - Past Social History Smoking Status: Never Smoked - CARDIAC Hx Congestive Heart Failure: Yes (Questionable on xray. Pt denies) Hx Hypertension: Yes Hx Peripheral Edema: Yes ( Chronic) - PULMONARY Hx Respiratory Disorders: No - NEUROLOGICAL Hx Neurological Disorder: No - HEENT Hx HEENT Problems: Yes (Retina disease) Hx Cataracts: Yes Other/Comment: Diabetic blindness - RENAL Hx Chronic Kidney Disease: Yes - ENDOCRINE/METABOLIC Hx Endocrine Disorders: Yes Hx Diabetes Mellitus Type 1: Yes - HEMATOLOGICAL/ONCOLOGICAL Hx Anemia: Yes (IRON INFUSION TREATMENTS) - INTEGUMENTARY Hx Dermatological Problems: No - MUSCULOSKELETAL/RHEUMATOLOGICAL Hx Arthritis: Yes (KNEE) - GASTROINTESTINAL Hx Gastrointestinal Disorders: No - GENITOURINARY/GYNECOLOGICAL Hx Genitourinary Disorders: No - PSYCHIATRIC Hx Substance Use: No - SURGICAL HISTORY Hx Appendectomy: Yes - ANESTHESIA Hx Anesthesia: Yes Hx Anesthesia Reactions: No Hx Malignant Hyperthermia: No Meds Allergies/Adverse Reactions: Allergies Allergy/AdvReac Type Severity Reaction Status Date / Time povidone-iodine Allergy Severe RASH Verified 01/18/18 13:41 [From Betadine] soap [From Betadine] Allergy Severe RASH Verified 01/18/18 13:41 Latex, Natural Rubber Allergy Intermediate ITCHING Verified 10/25/17 09:09 durapore tape Allergy Intermediate ITCHING Uncoded 10/25/17 09:09 Physical Exam - Constitutional Appears: Non-toxic, No Acute Distress - Head Exam Head Exam: ATRAUMATIC, NORMOCEPHALIC - Eye Exam Eye Exam: EOMI - ENT Exam ENT Exam: Mucous Membranes Moist - Respiratory Exam Respiratory Exam: NORMAL BREATHING PATTERN - Cardiovascular Exam Cardiovascular Exam: +S1, +S2 - GI/Abdominal Exam GI & Abdominal Exam: Soft. absent: Rebound, Rigid, Tenderness - Extremities Exam Extremities exam: Positive for: normal inspection Additional comments: Left AVF - Neurological Exam Neurological exam: Alert, Oriented x3 - Psychiatric Exam Psychiatric exam: Normal Affect, Normal Mood - Skin Skin Exam: Dry, Intact Results - Vital Signs Recent Vital Signs: Last Vital Signs Temp 98.1 F 01/20/18 22:02 Pulse 63 01/20/18 22:02 Resp 18 01/20/18 22:02 BP 136/80 01/20/18 22:02 Pulse Ox 100 01/20/18 22:02 - Labs Result Diagrams: 01/20/18 20:34 01/20/18 20:34 Labs: Laboratory Results - last 24 hr 01/20/18 01/20/18 01/20/18 20:34 20:34 20:34 WBC 5.2 RBC 3.40 L Hgb 9.9 L Hct 30.2 L MCV 89.1 MCH 29.3 MCHC 32.9 L RDW 19.2 H Plt Count 138 MPV 10.5 Neut % (Auto) 53.4 Lymph % (Auto) 32.5 [place] % (Auto) 8.6 Eos % (Auto) 4.7 H Baso % (Auto) 0.8 Neut # (Auto) 2.8 Lymph # (Auto) 1.7 [place] # (Auto) 0.4 Eos # (Auto) 0.2 Baso # (Auto) 0.0 PT 11.0 INR 1.0 APTT 29 Sodium 139 Potassium 5.1 Chloride 103 Carbon Dioxide 21 L Anion Gap 20 BUN 56 H Creatinine 8.5 H* D Est GFR ( Amer) 6 Est GFR (Non-Af Amer) 5 Random Glucose 154 H Calcium 9.0 Total Bilirubin 0.8 AST 42 H D ALT 24 Alkaline Phosphatase 54 Total Protein 7.6 Albumin 3.9 Globulin 3.8 Albumin/Globulin Ratio 1.0 Assessment & Plan - Assessment and Plan (Free Text) Assessment: 73F with ESRD with malfunctioning AVF and permacath OR in AM for Permacath exchange and fistulagram NPO AM labs IVF D/W Dr. Jay Frost PGY2
[2018-01-21] MEDS ORDERED: Dextrose 50% SYRINGE Inj (50 ml) IV STA (06:26)
[2018-01-21] MEDS ORDERED: HEPARIN-NS 5,000 UNITS/500 ML 10,000 UNIT/1,000 ML BAG IV ONE (07:22)
[2018-01-21] MEDS ORDERED: Iohexol 240 200 ML ONE ×2 (07:23→09:04)
[2018-01-21 07:29] LABS: BASO % 0.8 % (0.0-2.0); EOS # 0.2 K/uL (0.0-0.7); EOS % 4.4 % (0.0-4.0); HEMOGLOBIN 9.6 g/dL (11.0-16.0); LYMPH # 1.4 K/uL (1.0-4.3); LYMPH % 30.9 % (20.0-40.0); MEAN CELL VOLUME 89.7 fL (81.0-99.0); MEAN CORPUSCULAR HEMOGLOBIN 29.9 pg (27.0-31.0); MEAN CORPUSCULAR HGB CONC 33.4 g/dL (33.0-37.0); MEAN PLATELET VOLUME 10.5 fL (7.2-11.7); MONO # 0.4 K/uL (0.0-0.8); MONO % 8.4 % (0.0-10.0); NEUT # 2.5 K/uL (1.8-7.0); NEUT % 55.5 % (50.0-75.0); NRBC % 0.7 % (0.0-2.0); RBC 3.21 Mil/uL (3.80-5.20); RED CELL DISTRIBUTION WIDTH 19.3 % (11.5-14.5); WHITE BLOOD COUNT 4.5 K/uL (4.8-10.8)
[2018-01-21] MEDS ORDERED: Sodium Chloride 0.9% 500 ML IV ONE (07:40)
[2018-01-21] MEDS ORDERED: Propofol 10 mg/ml Inj (20 ML) ONE (07:47)
[2018-01-21] MEDS ORDERED: Midazolam 2 MG/2 ML VIAL ONE (07:47)
[2018-01-21] MEDS ORDERED: Vancomycin 1 gm/D5W 200 ml 1 GM/200 ML BAG IVPB ONE (07:57)
[2018-01-21] MEDS ORDERED: Rocuronium 10 mg/ml (10 ml) ONE ×2 (08:09→09:05)
[2018-01-21 08:17] LABS: CALCIUM 8.4 mg/dl (8.6-10.4)
[2018-01-21] MEDS ORDERED: Neostigmine Methylsulfate 3mg/3ml Syringe IV ONE (09:05)
--- NOTE | 2018-01-21 09:43 | PCM.SURG1 ---
Surgeon's Initial Post Op Note - Surgeon's Notes Surgeon: Dr. Thompson Technical Supervisor: PGY1 Type of Anesthesia: General Endo Pre-Operative Diagnosis: Endstage renal disease; non functioning fistula Operative Findings: stenosis throughout entire fistula. Dilation attempted, distal arterial stenosis. Will need to plan for further intervention. for details see op note Post-Operative Diagnosis: as above Operation Performed: Permacath removal and plaement over guidewire. Fistulagram with balloon dilatation Specimen/Specimens Removed: none Estimated Blood Loss: EBL {In ML}: 25 Drains Used: No Drains Date of Surgery/Procedure: 01/21/18 Time of Surgery/Procedure: 09:43
[2018-01-21] MEDS: Sodium Chloride 0.9% 1,000 ML IV SCH (09:44)
[2018-01-21] MEDS ORDERED: [UNRECOGNIZED DRUG - OTHER] PO SCH (10:00)
[2018-01-21] MEDS ORDERED: OMEGA 3 FATTY ACIDS PO SCH (10:00)
[2018-01-21] MEDS ORDERED: Insulin Detemir 100 units/ml Vial (Levemir) SC SCH (10:00)
[2018-01-21] MEDS ORDERED: VITAMIN D PO SCH (10:00)
--- NOTE | 2018-01-21 10:29 | RAD ---
HISTORY: s/p Permacath COMPARISON: Chest radiograph dated 09/30/2017 FINDINGS: LUNGS: Pulmonary vascular congestion. No right basilar opacity. PLEURA: No significant pleural effusion identified, no pneumothorax apparent. CARDIOVASCULAR: Atherosclerotic aortic calcifications. Cardiomediastinal silhouette stably EMLA. OSSEOUS STRUCTURES: Unchanged. VISUALIZED UPPER ABDOMEN: Normal. OTHER FINDINGS: Right internal jugular access tunneled hemodialysis catheter with tips at the cavoatrial junction. IMPRESSION: Right internal jugular access tunneled hemodialysis catheter with tips at the cavoatrial junction. No appreciable pneumothorax. Right basilar opacity. Pulmonary vascular congestion.
--- NOTE | 2018-01-21 11:15 | RAD ---
PROCEDURE: Intraoperative Fluoroscopy. HISTORY: RENAL FAILURE FINDINGS: Fluoroscopic assistance was provided. Fluoroscopy time = 158.7 seconds. Radiation dose = 19.557 mGy. Please refer to the operative report from YESSENIA Forrester.
--- NOTE | 2018-01-21 11:15 | RAD ---
PROCEDURE: Intraoperative Fluoroscopy. HISTORY: RENAL FAILURE FINDINGS: Fluoroscopic assistance was provided. Fluoroscopy time = 21.5 seconds. Radiation dose = 1.47 mGy Please refer to the operative report from YESSENIA Forrester.
[2018-01-21] MEDS ORDERED: Omega-3-Acid Ethyl Esters 1 GM Cap PO SCH (11:30)
[2018-01-21] MEDS ORDERED: Epoetin Alfa 4000 UNIT/ML Inj IV ONE (11:30)
--- NOTE | 2018-01-21 12:01 | CARD ---
APPROVED REPORT EKG Measurement Heart [id number] ND [id number] <Conclusion> Normal sinus rhythm Minimal voltage criteria for LVH, may be normal variant Borderline ECG
[2018-01-21] MEDS ORDERED: EPOETIN ALFA 4,000 UNIT/ML ML Dialysis IV ONE (17:00)
--- NOTE | 2018-01-21 17:33 | OP ---
PROCEDURE DATE: 01/21/2018 PREOPERATIVE DIAGNOSIS: Renal failure. POSTOPERATIVE DIAGNOSIS: Renal failure. PROCEDURES CARRIED OUT: 1. Placement of Perm-A-Cath in right jugular vein with C-arm fluoroscopy. 2. Fistulogram, right arm with balloon angioplasty x2. SURGEON: Luis Thompson Jr., MD SPECIALTY COOK: Dr. Russell. ANESTHESIOLOGIST: Mr. Thierno CRNA. INDICATIONS: The patient is an older woman, on dialysis, had a fistula in the right arm, which was revised recently. We placed in a [id number] stent. There has been continued problems with access. OPERATIVE FINDINGS: Catheter was replaced uneventfully. We made a cut down in the neck, dissected out the old catheter, placed a wire through this. Placed a new catheter over this and brought it out through a new exit site. After that, it was secured to the skin. This was the catheter that originated on the right chest wall, went through the jugular vein, and terminated at the superior vena cava. There was excellent flow. It was secured to the skin and that part of the procedure was terminated. Then we turned out attention to the right arm. Using ultrasound guidance, it was punctured. The fistula in the right arm, I took multiple fistulograms, which showed a stenosis at the venous end of the previously placed stent, and also showed stenosis in an unrelated segment, anterior to the previously placed stent. These were both dilated successfully with a 6-mm balloon, but further imaging showed that the arterial anastomosis which originated on the radial artery and extended up to the shunt, was diffusely narrowed. Given the circumstances, the multiple areas of stenosis and stricture, I felt that this was going to require open surgical revision. It is not amendable to endovascular repair. Thus, we terminated the procedure and concluded the intervention. So the operation carried out was Perm-A-Cath right jugular vein and fistulogram of right arm with balloon angioplasty of intra-fistula stenosis x2. At the end of the procedure, there was excellent flow, but the problem remains with the diffuse stenosis adjacent to the arterial anastomosis coming off the radial artery. Luis Thompson Jr., MD [facility] # [id number]
[2018-01-21 18:17] VITALS: BP 125/70; PULSE 75; RESP 20; TEMP 97.4; O2SAT 100
--- NOTE | 2018-01-21 18:44 | CP.PCM.CON ---
History of Present Illness - History of Present Illness History of Present Illness: REASONS FOR CONSULT : ESRD ON HD M W F .. IN NEED FOR HD TODAY ANEMIA OF CKD MALFUNCTIONING HD FISTULA MALFUNCTIONING HD TUNNELLED CATH PT WAS SEEN ON RENAL CONSULT .. MO WAS SEEN ON HD .. S/P OR FOR AVF REPAIR AND TUNNELLED HD CATH REPLACEMENT PT IS WELL KNOWN TO ME .. MY HD PT .. THE HD CATH WAS NOT WORKING WELL AND THE AVF WAS DIFICULT TO BE USED .. PT WAS ADMITTED FOR THAT This is a 72F with a PMH of ESRD on dialysis (MWF), HTN, and IDDM, peripheral neuropathy, and DM retinopathy. She presentsdue to difficulty with diaylisys. She has a fistula on her LUE that the dialysis center has been unable to use.. She also has a permacath in place however the dialysis center said they were unable to use that as well. The patient otherwise has no other complaints at this time she denies any fevers chills chest pain nause vomiting or diarrhea. PMH: ESRD, IDDM, Peripheral neuropath PSH: AVF, Permacath, Appy, ALL: Betadine, Latex Social: Denies Etoh, tobacco, drugs Present on Admission - Present on Admission Any Indicators Present on Admission: No Review of Systems - Review of Systems All systems: reviewed and no additional remarkable complaints except Past Patient History - Past Medical History & Family History Past Medical History?: Yes - Past Social History Smoking Status: Never Smoked - CARDIAC Hx Congestive Heart Failure: Yes (Questionable on xray. Pt denies) Hx Hypertension: Yes Hx Peripheral Edema: Yes ( Chronic) - PULMONARY Hx Respiratory Disorders: No - NEUROLOGICAL Hx Neurological Disorder: No - HEENT Hx HEENT Problems: Yes (Retina disease) Hx Cataracts: Yes Other/Comment: Diabetic blindness - RENAL Hx Chronic Kidney Disease: Yes - ENDOCRINE/METABOLIC Hx Endocrine Disorders: Yes Hx Diabetes Mellitus Type 1: Yes - HEMATOLOGICAL/ONCOLOGICAL Hx Anemia: Yes (IRON INFUSION TREATMENTS) - INTEGUMENTARY Hx Dermatological Problems: No - MUSCULOSKELETAL/RHEUMATOLOGICAL Hx Arthritis: Yes (KNEE) - GASTROINTESTINAL Hx Gastrointestinal Disorders: No - GENITOURINARY/GYNECOLOGICAL Hx Genitourinary Disorders: No - PSYCHIATRIC Hx Substance Use: No - SURGICAL HISTORY Hx Appendectomy: Yes - ANESTHESIA Hx Anesthesia: Yes Hx Anesthesia Reactions: No Hx Malignant Hyperthermia: No Meds Allergies/Adverse Reactions: Allergies Allergy/AdvReac Type Severity Reaction Status Date / Time povidone-iodine Allergy Severe RASH Verified 01/18/18 13:41 [From Betadine] soap [From Betadine] Allergy Severe RASH Verified 01/18/18 13:41 Latex, Natural Rubber Allergy Intermediate ITCHING Verified 10/25/17 09:09 durapore tape Allergy Intermediate ITCHING Uncoded 10/25/17 09:09 - Medications Medications: Current Medications Ergocalciferol (Drisdol 50,000 Intl Units Cap) 1 cap PO QWK [facility] Ferrous Sulfate (Feosol) 325 mg PO DAILY [facility] Last Admin: 01/21/18 12:26 Dose: 325 mg Gabapentin (Neurontin) 300 mg PO HS [facility] Insulin Detemir (Levemir) 20 unit SC DAILY [facility] Last Admin: 01/21/18 10:43 Dose: Not Given Metoprolol Tartrate (Lopressor) 100 mg PO DAILY [facility] Last Admin: 01/21/18 06:19 Dose: Not Given Zntet-6-Mbhz Ethyl Esters (Lovaza) 1 gm PO Q24H [facility] Last Admin: 01/21/18 12:26 Dose: 1 gm Pneumococcal Polyvalent Vaccine (Pneumovax 23 Vaccine) 0.5 ml IM .ONCE ONE Stop: 01/22/18 12:01 Results - Vital Signs Recent Vital Signs: Last Vital Signs Temp 97.4 F L 01/21/18 18:16 Pulse 75 01/21/18 18:16 Resp 20 01/21/18 18:16 BP 125/70 01/21/18 18:16 Pulse Ox 100 01/21/18 18:16 - Labs Result Diagrams: 01/21/18 07:20 01/21/18 07:20 Labs: Laboratory Results - last 24 hr 01/20/18 01/20/18 01/20/18 20:34 20:34 20:34 WBC 5.2 RBC 3.40 L Hgb 9.9 L Hct 30.2 L MCV 89.1 MCH 29.3 MCHC 32.9 L RDW 19.2 H Plt Count 138 MPV 10.5 Neut % (Auto) 53.4 Lymph % (Auto) 32.5 [place] % (Auto) 8.6 Eos % (Auto) 4.7 H Baso % (Auto) 0.8 Neut # (Auto) 2.8 Lymph # (Auto) 1.7 [place] # (Auto) 0.4 Eos # (Auto) 0.2 Baso # (Auto) 0.0 PT 11.0 INR 1.0 APTT 29 Sodium 139 Potassium 5.1 Chloride 103 Carbon Dioxide 21 L Anion Gap 20 BUN 56 H Creatinine 8.5 H* D Est GFR ( Amer) 6 Est GFR (Non-Af Amer) 5 POC Glucose (mg/dL) Random Glucose 154 H Calcium 9.0 Total Bilirubin 0.8 AST 42 H D ALT 24 Alkaline Phosphatase 54 Total Protein 7.6 Albumin 3.9 Globulin 3.8 Albumin/Globulin Ratio 1.0 01/21/18 01/21/18 01/21/18 06:23 06:24 06:56 WBC RBC Hgb Hct MCV MCH MCHC RDW Plt Count MPV Neut % (Auto) Lymph % (Auto) [place] % (Auto) Eos % (Auto) Baso % (Auto) Neut # (Auto) Lymph # (Auto) [place] # (Auto) Eos # (Auto) Baso # (Auto) PT INR APTT Sodium Potassium Chloride Carbon Dioxide Anion Gap BUN Creatinine Est GFR ( Amer) Est GFR (Non-Af Amer) POC Glucose (mg/dL) 66 74 126 H Random Glucose Calcium Total Bilirubin AST ALT Alkaline Phosphatase Total Protein Albumin Globulin Albumin/Globulin Ratio 01/21/18 01/21/18 01/21/18 07:20 07:20 16:50 WBC 4.5 L RBC 3.21 L Hgb 9.6 L Hct 28.8 L MCV 89.7 MCH 29.9 MCHC 33.4 RDW 19.3 H Plt Count 121 L MPV 10.5 Neut % (Auto) 55.5 Lymph % (Auto) 30.9 [place] % (Auto) 8.4 Eos % (Auto) 4.4 H Baso % (Auto) 0.8 Neut # (Auto) 2.5 Lymph # (Auto) 1.4 [place] # (Auto) 0.4 Eos # (Auto) 0.2 Baso # (Auto) 0.0 PT INR APTT Sodium 143 Potassium 4.4 Chloride 106 Carbon Dioxide 23 Anion Gap 19 BUN 55 H Creatinine 8.8 H* Est GFR ( Amer) 5 Est GFR (Non-Af Amer) 4 POC Glucose (mg/dL) 102 Random Glucose 110 H Calcium 8.4 L Total Bilirubin AST ALT Alkaline Phosphatase Total Protein Albumin Globulin Albumin/Globulin Ratio 01/21/18 18:10 WBC RBC Hgb Hct MCV MCH MCHC RDW Plt Count MPV Neut % (Auto) Lymph % (Auto) [place] % (Auto) Eos % (Auto) Baso % (Auto) Neut # (Auto) Lymph # (Auto) [place] # (Auto) Eos # (Auto) Baso # (Auto) PT INR APTT Sodium Potassium Chloride Carbon Dioxide Anion Gap BUN Creatinine Est GFR ( Amer) Est GFR (Non-Af Amer) POC Glucose (mg/dL) 95 Random Glucose Calcium Total Bilirubin AST ALT Alkaline Phosphatase Total Protein Albumin Globulin Albumin/Globulin Ratio Assessment & Plan - Assessment and Plan (Free Text) Assessment: ESRD ON HD .. SEEN ON HD NOW ANEMIA OF CKD .. GETTING EPO 10.000 IU ON HD NOW S/P AVF REPAIR AND CATH REPLACEMENT MMP P HD NOW .. PT GETING IT C/O CURRENT CARE MAY BE D/C POST HD WILL F/U AN OUT PT - Date & Time Date: 01/21/18 Time: 15:00
[2018-01-21] MEDS ORDERED: Pneumococcal 23-Valent Vaccine IM ONE (20:16)
--- NOTE | 2018-01-21 20:16 | CP.PCM.DIS ---
Provider - Provider Date of Admission: 01/20/18 21:44 Attending physician: Luis Thompson Jr, MD Time Spent in preparation of Discharge (in minutes): 45 Hospital Course - Lab Results Lab Results: Most Recent Lab Values WBC 4.5 K/uL (4.8-10.8) L 01/21/18 07:20 RBC 3.21 Mil/uL (3.80-5.20) L 01/21/18 07:20 Hgb 9.6 g/dL (11.0-16.0) L 01/21/18 07:20 Hct 28.8 % (34.0-47.0) L 01/21/18 07:20 MCV 89.7 fL (81.0-99.0) 01/21/18 07:20 MCH 29.9 pg (27.0-31.0) 01/21/18 07:20 MCHC 33.4 g/dL (33.0-37.0) 01/21/18 07:20 RDW 19.3 % (11.5-14.5) H 01/21/18 07:20 Plt Count 121 K/uL (130-400) L 01/21/18 07:20 MPV 10.5 fL (7.2-11.7) 01/21/18 07:20 Neut % (Auto) 55.5 % (50.0-75.0) 01/21/18 07:20 Lymph % (Auto) 30.9 % (20.0-40.0) 01/21/18 07:20 [place] % (Auto) 8.4 % (0.0-10.0) 01/21/18 07:20 Eos % (Auto) 4.4 % (0.0-4.0) H 01/21/18 07:20 Baso % (Auto) 0.8 % (0.0-2.0) 01/21/18 07:20 Neut # (Auto) 2.5 K/uL (1.8-7.0) 01/21/18 07:20 Lymph # (Auto) 1.4 K/uL (1.0-4.3) 01/21/18 07:20 [place] # (Auto) 0.4 K/uL (0.0-0.8) 01/21/18 07:20 Eos # (Auto) 0.2 K/uL (0.0-0.7) 01/21/18 07:20 Baso # (Auto) 0.0 K/uL (0.0-0.2) 01/21/18 07:20 PT 11.0 SECONDS (9.7-12.2) 01/20/18 20:34 INR 1.0 01/20/18 20:34 APTT 29 SECONDS (21-34) 01/20/18 20:34 Sodium 143 mmol/L (132-148) 01/21/18 07:20 Potassium 4.4 mmol/L (3.6-5.2) 01/21/18 07:20 Chloride 106 mmol/L (98-107) 01/21/18 07:20 Carbon Dioxide 23 mmol/L (22-30) 01/21/18 07:20 Anion Gap 19 (10-20) 01/21/18 07:20 BUN 55 mg/dL (7-17) H 01/21/18 07:20 Creatinine 8.8 mg/dL (0.7-1.2) H* 01/21/18 07:20 Est GFR ( Amer) 5 01/21/18 07:20 Est GFR (Non-Af Amer) 4 01/21/18 07:20 POC Glucose (mg/dL) 95 mg/dL (65-110) 01/21/18 18:10 Random Glucose 110 mg/dL (65-105) H 01/21/18 07:20 Calcium 8.4 mg/dl (8.6-10.4) L 01/21/18 07:20 Total Bilirubin 0.8 mg/dL (0.2-1.3) 01/20/18 20:34 AST 42 U/L (14-36) H D 01/20/18 20:34 ALT 24 U/L (9-52) 01/20/18 20:34 Alkaline Phosphatase 54 U/L (38-126) 01/20/18 20:34 Total Protein 7.6 g/dL (6.3-8.3) 01/20/18 20:34 Albumin 3.9 g/dL (3.5-5.0) 01/20/18 20:34 Globulin 3.8 gm/dL (2.2-3.9) 01/20/18 20:34 Albumin/Globulin Ratio 1.0 (1.0-2.1) 01/20/18 20:34 - Hospital Course Hospital Course: 72F with a PMH of ESRD on dialysis (MWF), HTN, and IDDM, peripheral neuropathy, and DM retinopathy. She presented to [facility] [place] due to difficulty with dialysis. She has a fistula on her LUE that the dialysis center has been unable to use. She also has a permacath in place however the dialysis center said they were unable to use that as well. Patient was admitted and taken to the OR for Permacath exchange and fistulagram. Permacath was placed successfully without any immediate complications. Fistulagram was performed and stenosis was noted throughout the entire graft. balloon dilation was used. Patient tolerated the procedure well and was discharged to PACU in stable condition. Patient was cleared for dialysis immediately postop. Dialysis was successful. Patient is cleared for discharge and to follow up in [address] Thompson. Discharge Exam - Head Exam Head Exam: ATRAUMATIC, NORMOCEPHALIC - Eye Exam Eye Exam: EOMI, Scleral icterus - Respiratory Exam Respiratory Exam: Accessory Muscle Use, Respiratory Distress, NORMAL BREATHING PATTERN - Cardiovascular Exam Cardiovascular Exam: Bradycardia, Tachycardia, +S1, +S2 - Extremities Exam Additional comments: Permacath dressing C/D/I scar on RUE from fistula - Neurological Exam Neurological exam: Oriented x3 - Psychiatric Exam Psychiatric exam: Normal Affect - Skin Skin Exam: Warm Discharge Plan - Follow Up Plan Condition: GOOD Disposition: HOME/ ROUTINE
[2018-01-22] MEDS ORDERED: Pneumococcal 23-Valent Vaccine IM ONE (12:00)
[2018-01-28] MEDS ORDERED: Ergocalciferol 50,000 Intl Units Cap PO SCH (10:00)
== END 2018-01-21 21:03 | disposition home or self-care (01) | DRG 252 ==
LOC: C.ER 19:57 → C.9E 21:44 → C.6T 22:12
PROVIDERS: ADMIT Surgery Vascular Surgery; ATTEND Surgery Vascular Surgery
PROC: 037Y3ZZ Dilation of Upper Artery, Percutaneous Approach (ICD-10-PCS; 2018-01-21)
PROC: B51WYZZ Fluoroscopy of Dialysis Shunt/Fistula using Other Contrast (ICD-10-PCS; 2018-01-21)
PROC: 02PY33Z Removal of Infusion Device from Great Vessel, Percutaneous Approach (ICD-10-PCS; 2018-01-21)
PROC: 02HV33Z Insertion of Infusion Device into Superior Vena Cava, Percutaneous Approach (ICD-10-PCS; 2018-01-21)
PROC: 5A1D70Z Performance of Urinary Filtration, Intermittent, Less than 6 Hours Per Day (ICD-10-PCS; 2018-01-21)
PROC: 057Y3ZZ Dilation of Upper Vein, Percutaneous Approach (ICD-10-PCS; principal; 2018-01-21 13:15)
DX: T82.49XA Other complication of vascular dialysis catheter, initial encounter (principal); N18.6 End stage renal disease; I13.2 Hypertensive heart and chronic kidney disease with heart failure and with stage 5 chronic kidney disease, or end stage renal disease; T82.858A Stenosis of other vascular prosthetic devices, implants and grafts, initial encounter; E10.22 Type 1 diabetes mellitus with diabetic chronic kidney disease; D63.1 Anemia in chronic kidney disease; E10.319 Type 1 diabetes mellitus with unspecified diabetic retinopathy without macular edema; E10.42 Type 1 diabetes mellitus with diabetic polyneuropathy; I50.9 Heart failure, unspecified; H54.7 Unspecified visual loss; Z99.2 Dependence on renal dialysis; Z79.4 Long term (current) use of insulin; Z90.49 Acquired absence of other specified parts of digestive tract

== ENCOUNTER 2018-02-07 08:17 | Day surgery (SDC) | payer MEDICARE, OTHER ==
[2018-01-18 13:22] VITALS: BMI 33.8
[2018-02-07] MEDS ORDERED: Lidocaine Hydrochloride 10 ML INJ ONE (08:33)
[2018-02-07] MEDS ORDERED: ceFAZolin 1 gm in NS 0 GM/0 ML BAG IVPB ONE (08:33)
[2018-02-07] MEDS ORDERED: HEPARIN-NS 5,000 UNITS/500 ML 5,000 UNIT/500 ML BAG IV ONE ×2 (08:33→10:15)
[2018-02-07] MEDS ORDERED: Etomidate 20 mg/10ml Inj IV ONE (08:45)
[2018-02-07] MEDS ORDERED: Succinylcholine Chloride 20 mg/ml Syr (5 ml) IV ONE (08:45)
[2018-02-07] MEDS ORDERED: Iohexol 240 200 ML ONE (09:58)
[2018-02-07] MEDS ORDERED: Propofol 10 mg/ml Inj (20 ML) ONE (10:10)
[2018-02-07] MEDS ORDERED: ceFAZolin IV 2 gm in Dextrose 2 GM/50 ML BAG IVPB ONE (10:14)
[2018-02-07] MEDS ORDERED: ePHEDrine 50 mg/ml Inj ONE (11:20)
[2018-02-07] MEDS ORDERED: Phenylephrine 10 mg/ml Inj ONE (11:20)
[2018-02-07] MEDS ORDERED: Neostigmine Methylsulfate 3mg/3ml Syringe IV ONE (12:33)
--- NOTE | 2018-02-07 12:43 | PCM.SURG1 ---
Surgeon's Initial Post Op Note - Surgeon's Notes Surgeon: Dr. Thompson Medical Information Specialist: Milady Clifton PGY2 Type of Anesthesia: General Endo Pre-Operative Diagnosis: ESRD needing HD Operative Findings: good flow to central venous. Post-Operative Diagnosis: SAme Operation Performed: R AV shunt placement brachial artery-axillary vein Specimen/Specimens Removed: None Estimated Blood Loss: EBL {In ML}: 50 Blood Products Given: N/A Drains Used: No Drains Post-Op Condition: Good Date of Surgery/Procedure: 02/07/18 Time of Surgery/Procedure: 12:43
[2018-02-07] MEDS ORDERED: Oxycodone/Acetaminophen 5/325 mg Tab PO PRN (12:44)
[2018-02-07] MEDS ORDERED: Sodium Chloride 0.9% 1,000 ML IV SCH (12:45)
[2018-02-07] MEDS ORDERED: Sodium Chloride 0.9% 1,000 ML IV ONE (12:50)
[2018-02-07 15:09] VITALS: RESP 18
[2018-02-07 17:32] VITALS: BP 100/62; PULSE 80; TEMP 97.7; O2SAT 96
--- NOTE | 2018-02-07 22:57 | OP ---
PROCEDURE DATE: 02/07/2018 PREOPERATIVE DIAGNOSIS: Renal failure. POSTOPERATIVE DIAGNOSIS: Renal failure. PROCEDURE CARRIED OUT: Hybrid shunt, left upper arm. SURGEON: Luis Thompson Jr., MD FACE WORKER: Dr. Romero. ANESTHESIOLOGIST: Dr. Farley. INDICATIONS: The patient is an elderly woman who had a fistula created in the left arm, which has required multiple revisions, stent placement, etc. The arterial which was adequate, however, this proximal portion of the fistula is arthritic. OPERATIVE FINDINGS: A completion arteriogram showed excellent flow into the central veins without any evidence of residual stenosis. No evidence of stenosis at the point of the catheter. Secondly, the area where the stent was placed was widely patent without any evidence of stenosis. DESCRIPTION OF PROCEDURE: The patient was given general anesthesia and intravenous antibiotics. The arm was prepped and draped. An incision was made exposing the artery and ligating the previous part of fistula with two separate incisions. After we had dissected out the artery, we then made a small incision towards the axilla using ultrasound guidance, we punctured the basilic vein, advanced the guidewire and then eventually a sheath here, deployed the stent and brought it through the subcutaneous tissues and then anastomosed and heparin was given and the vessels were controlled to the artery. The balloon had been inflated and the distal portion of the graft where was the stent was widely patent. The completion angiogram again was widely patent without any evidence of significant stenosis. The procedure was then terminated after the skin was closed, excellent flow on Dopplers at the wrist. Blood loss for the procedure was 50 mL. Operation carried out, placement of hybrid shunt to left upper arm. Luis Thompson Jr., MD
== END 2018-02-07 17:30 | disposition home or self-care (01) ==
LOC: C.SDS 08:17 → C.OPSURG 08:17 → C.SDS 17:30
PROVIDERS: ATTEND Surgery Vascular Surgery
DX: N18.6 End stage renal disease (principal)
CPT/HCPCS: 36415; 36819; 80048; 82948; 86850; 86900; J0690; J1644; J2001; J2370; J2704; J2710; J2765; J3010; J7030; Q9966

== ENCOUNTER 2018-02-19 10:13 | Day surgery (SDC) | payer MEDICARE, OTHER ==
[2018-02-19] MEDS ORDERED: ceFAZolin IV 1 gm in Dextrose 1 GM/50 ML BAG IVPB ONE (11:45)
[2018-02-19] MEDS ORDERED: Lidocaine Hydrochloride 10 ML INJ ONE (11:46)
[2018-02-19] MEDS ORDERED: HEPARIN-NS 5,000 UNITS/500 ML 5,000 UNIT/500 ML BAG IV ONE (11:46)
[2018-02-19] MEDS ORDERED: Propofol 10 mg/ml Inj (20 ML) ONE (12:02)
[2018-02-19] MEDS ORDERED: Iodixanol 320 MG/ML 200 ML BOTTLE IV ONE (12:02)
[2018-02-19] MEDS ORDERED: Neostigmine Methylsulfate 3mg/3ml Syringe IV ONE (13:10)
[2018-02-19] MEDS ORDERED: Oxycodone/Acetaminophen 5/325 mg Tab PO PRN (13:20)
--- NOTE | 2018-02-19 13:25 | PCM.SURG1 ---
Surgeon's Initial Post Op Note - Surgeon's Notes Surgeon: Dr. Thompson Vocational Nurse: Milady Clifton PGy2 Type of Anesthesia: General LMA, Local Pre-Operative Diagnosis: steal syndrome. Operative Findings: No central venous stenosis, No anastomotic stenosis . cold hand. good O2 wave form and dopplerable radial pulse after clip. Post-Operative Diagnosis: Same Operation Performed: shuntogram and revision of R AV shunt. Specimen/Specimens Removed: None Estimated Blood Loss: EBL {In ML}: 10 Blood Products Given: N/A Drains Used: No Drains Post-Op Condition: Good Date of Surgery/Procedure: 02/19/18 Time of Surgery/Procedure: 13:27
[2018-02-19] MEDS ORDERED: HYDROmorphone 0.5 mg/0.5 ml ISec IVP PRN (13:38)
[2018-02-19] MEDS ORDERED: Sodium Chloride 0.9% 1,000 ML IV SCH (13:45)
[2018-02-19 14:39] VITALS: TEMP 97
--- NOTE | 2018-02-19 14:51 | RAD ---
PROCEDURE: Intraoperative Fluoroscopy. HISTORY: RENAL FAILURE FINDINGS: Fluoroscopic assistance was provided for upper extremity vascular procedure. Please refer to the operative report from YESSENIA Forrester. 44 seconds fluoroscopy time was utilized with a cumulative radiation dose of 3.61 mGy.
[2018-02-19 15:27] VITALS: BP 123/67; PULSE 66; RESP 18; O2SAT 96
--- NOTE | 2018-02-20 00:12 | OP ---
PROCEDURE DATE: 02/19/2018 PREOPERATIVE DIAGNOSES: 1. Steal syndrome, right hand. 2. Recent arteriovenous shunt. PROCEDURES CARRIED OUT: 1. Shuntogram, right arm. 2. Revision of arteriovenous fistula with clipping adjacent to arterial anastomosis. SURGEON: Luis Thompson Jr., MD [facility] DIRECTOR: Dr. Rodríguez. ANESTHESIOLOGIST: Kirill Lagos CRNA INDICATIONS: The patient is an elderly woman, previous fistula in the right arm, which was very sclerotic. We converted this to an AV shunt. OPERATIVE FINDINGS: The initial shuntogram showed that the arterial anastomosis was widely patent. There was no evidence of any injury to the artery, and the proximal portion of both the brachial and ulnar arteries was seen and was normal. In addition, it showed the central veins in the arm showing all the way up to the point of the superior vena cava, and there was no residual stenosis or narrowing in this. The previously placed graft was widely patent, and the stent part of this was widely patent. Subsequent to this, we then attached a pulse oximeter to the fingertip to allow for intraoperative monitoring. We then addressed without any changes in this, there was no perceptible flow to the hand. We then placed a 2-mm across this which resulted in an improvement of flow, good Doppler signals, and good pulse oximetry tracings. We then terminated the procedure after we closed the wound. BLOOD LOSS FOR THE PROCEDURE: Zero. OPERATIONS CARRIED OUT: 1. Fistulogram/shuntogram, right arm. 2. Revision of arteriovenous fistula with plication. Luis Thompson Jr., MD
== END 2018-02-19 16:17 | disposition home or self-care (01) ==
LOC: C.SDS 10:13
PROVIDERS: ATTEND Surgery Vascular Surgery
DX: T82.898A Other specified complication of vascular prosthetic devices, implants and grafts, initial encounter (principal); I12.0 Hypertensive chronic kidney disease with stage 5 chronic kidney disease or end stage renal disease; N18.6 End stage renal disease; E11.22 Type 2 diabetes mellitus with diabetic chronic kidney disease; Z99.2 Dependence on renal dialysis; Z79.4 Long term (current) use of insulin
CPT/HCPCS: 36415; 36832; 80048; 82948; J0690; J2704; J2710; J3010; J7040

== ENCOUNTER 2018-05-20 21:31 | Emergency (ER) | payer MEDICARE ==
[2018-05-20 21:31] VITALS: BMI 33.8
[2018-05-20 21:49] VITALS: O2SAT 98
--- NOTE | 2018-05-20 23:03 | C.PDOC ---
History Of Present Illness 73-year-old female with PMHx of diabetes, hypertension, and renal disease (HD M- W-F) brought in by family complaining of left foot pain and swelling since yesterday. As per daughter, patient accidentally jammed her left foot when closing the bathroom door around 9:00pm last night. She applied Neosporin but did not take anything for pain relief. Today when patient returned from her dialysis session daughter noticed swelling to the left 2nd and 3rd toes, prompting concern. She also noticed the right 1st toe was bleeding. Otherwise patient denies any fall or blunt trauma. No numbness, tingling, or extremity weakness. Patient has been ambulating using her walker. Of note patient is followed by podiatry (Dr. Eisenberg), where daughter states the patient gets her nails filed. Time Seen by Provider: 05/20/18 23:02 Chief Complaint (Nursing): Lower Extremity Problem/Injury History Per: Public Relations Counselor (Daughter at bedside) History/Exam Limitations: no limitations Onset/Duration Of Symptoms: Days Current Symptoms Are (Timing): Still Present Recent travel outside of the [place]: No Past Medical History Reviewed: Historical Data, Nursing Documentation, Vital Signs Vital Signs: Last Vital Signs Temp 98.2 F 05/21/18 01:12 Pulse 77 05/21/18 01:12 Resp 17 05/21/18 01:12 BP 132/68 05/21/18 01:12 Pulse Ox 98 05/21/18 01:18 - Medical History PMH: Anemia (IRON INFUSION TREATMENTS), Arthritis (KNEE), CHF (Questionable on xray. Pt denies), HTN, Peripheral Edema ( Chronic), End Stage Renal Disease, Chronic Kidney Disease Surgical History: Appendectomy - [facility] Procedures (01/20/18) BYPASS RIGHT RADIAL ARTERY TO LOWER ARM VEIN, OPEN APPROACH (05/13/17) DILATION OF UPPER ARTERY, PERCUTANEOUS APPROACH (01/20/18) DILATION OF UPPER VEIN, PERCUTANEOUS APPROACH (01/20/18) FLUOROSCOPY OF DIALYSIS SHUNT/FISTULA USING OTHER CONTRAST (01/20/18) INSERT INFUSION DEV IN R INT JUGULAR VEIN, PERC (05/13/17) INSERTION OF INFUSION DEV INTO SUP VENA CAVA, PERC APPROACH (01/20/18) INSPECTION OF LOWER INTESTINAL TRACT, PERC ENDO APPROACH (09/24/17) PERFORMANCE OF URINARY FILTRATION, MULTIPLE (05/13/17) REMOVAL OF INFUSION DEVICE FROM GREAT VESSEL, PERC APPROACH (01/20/18) RESECTION OF APPENDIX, OPEN APPROACH (09/24/17) Family History: States: Unknown Family Hx - Social History Hx Alcohol Use: No Hx Substance Use: No - Immunization History Hx Tetanus Toxoid Vaccination: No Hx Influenza Vaccination: No Hx Pneumococcal Vaccination: No Review Of Systems Constitutional: Negative for: Fever Cardiovascular: Negative for: Chest Pain Respiratory: Negative for: Shortness of Breath Gastrointestinal: Negative for: Nausea, Vomiting Musculoskeletal: Positive for: Foot Pain (left foot pain + swelling to toes, right toe wound/bleeding). Negative for: Other (pedal edema) Skin: Negative for: Rash Neurological: Negative for: Weakness, Numbness, Incoordination Physical Exam - Physical Exam Appears: Non-toxic, No Acute Distress Skin: Warm, Dry Head: Atraumatic, Normacephalic Eye(s): bilateral: Normal Inspection Oral Mucosa: Moist Neck: Trachea Midline, No Midline Cervical Tenderness, No Paracervical Tenderness, Supple, Other (No meningeal signs) Chest: Symmetrical Cardiovascular: Rhythm Regular, Other (No rubs) Respiratory: No Rales, No Rhonchi, No Wheezing Gastrointestinal/Abdominal: Soft, No Tenderness, No Distention Extremity: Normal ROM (with full ROM of digits), Tenderness (mild tenderness on palpation of the blisters and skin break), Capillary Refill (less than 2 sec), Other (Blisters noted to left foot at 2nd and 3rd digits, Right 1st toe with 1 mm break in skin and scant blood, no subungual hematoma, Neurovascularly intact) Extremity: Right: Other (Right upper extremity with fistula, good bruit and thrill), Bilateral: No Pedal Edema, Normal Color And Temperature Pulses: Left Dorsalis Pedis: Normal, Right Dorsalis Pedis: Normal Neurological/Psych: Oriented x3 ED Course And Treatment - Laboratory Results Result Diagrams: 05/21/18 00:01 05/21/18 00:01 O2 Sat by Pulse Oximetry: 98 (RA) Pulse Ox Interpretation: Normal Medical Decision Making Medical Decision Makin yr old female w/ hx of DM2, HTN, ESRD on HD MWF s/p dialysis today p/w R and L foot pain s/p trauma to b/l toes. Good N/V status and Good cap refill w/ negative thompsons test. No indication for imaging of ankle given negative [place] ankle. No indication of deep ulcer after probing. No crepitus or erythema. No subungual hematoma. Initial Plan: --CMP --CBC --Left foot x-ray --Right foot x-ray --Tylenol 650 mg PO Progress/Updates: 1146: Appreciate consult w/ Podiatry resident: will see pt. 1315 labs reviewed: largely at baseline seen by podiatry resident: to follow w/ Dr. Cherry tomorrow blisters drained by podiatry Xray reviewed by myself and podiatry: no fracture noted Will cover w/ abx for home Disposition - Disposition Disposition Time: 13:18 Condition: GOOD Forms: [facility] (Latvian) - Clinical Impression Clinical Impression: Foot trauma - Scribe Statement The provider has reviewed the documentation as recorded by the Juan Carlosibel Balbuena Provider Attestation: All medical record entries made by the Juan Carlosibe were at my direction and personally dictated by me. I have reviewed the chart and agree that the record accurately reflects my personal performance of the history, physical exam, medical decision making, and the department course for this patient. I have also personally directed, reviewed, and agree with the discharge instructions and disposition.
[2018-05-21 00:12] LABS: BASO # 0.1 K/uL (0.0-0.2); BASO % 1.3 % (0.0-2.0); EOS # 0.3 K/uL (0.0-0.7); EOS % 3.6 % (0.0-4.0); HEMOGLOBIN 13.2 g/dL (11.0-16.0); LYMPH # 1.2 K/uL (1.0-4.3); LYMPH % 17.5 % (20.0-40.0); MEAN CELL VOLUME 99.7 fL (81.0-99.0); MEAN CORPUSCULAR HEMOGLOBIN 32.4 pg (27.0-31.0); MEAN CORPUSCULAR HGB CONC 32.5 g/dL (33.0-37.0); MEAN PLATELET VOLUME 10.8 fL (7.2-11.7); MONO # 0.8 K/uL (0.0-0.8); MONO % 10.8 % (0.0-10.0); NEUT # 4.7 K/uL (1.8-7.0); NEUT % 66.8 % (50.0-75.0); NRBC % 0.4 % (0.0-2.0); RBC 4.08 Mil/uL (3.80-5.20); RED CELL DISTRIBUTION WIDTH 19.4 % (11.5-14.5); WHITE BLOOD COUNT 7.1 K/uL (4.8-10.8)
[2018-05-21 00:26] LABS: ALB/GLOB RATIO 1.2 (1.0-2.1); ALBUMIN 4.3 g/dL (3.5-5.0); CALCIUM 8.9 mg/dl (8.6-10.4)
[2018-05-21 01:13] VITALS: BP 132/68; PULSE 77; RESP 17; TEMP 98.2
--- NOTE | 2018-05-21 08:24 | RAD ---
Date of service: 05/20/2018 PROCEDURE: Left Foot Radiographs. HISTORY: trauma COMPARISON: None. FINDINGS: BONES: No fracture JOINTS: Normal. SOFT TISSUES: Normal. OTHER FINDINGS: Inferior calcaneal spur . Jesus's tendon insetional enesthesophyte. Atherosclerotic vascular calcifications present.. Decreased plantar arch suggested IMPRESSION: No fracture Inferior calcaneal spur . Jesus's tendon insetional enesthesophyte. Atherosclerotic vascular calcifications present.. Decreased plantar arch suggested
--- NOTE | 2018-05-21 08:26 | RAD ---
Date of service: 05/20/2018 PROCEDURE: Right Foot Radiographs. HISTORY: trauma COMPARISON: None. FINDINGS: BONES: No fracture JOINTS: Arthrosis SOFT TISSUES: Atherosclerotic vascular calcifications present. OTHER FINDINGS: Inferior calcaneal spur . Montfort's tendon insetional enesthesophyte. IMPRESSION: Arthrosis. No fracture Other findings as above.
--- NOTE | 2018-05-21 10:27 | CP.PCM.CON ---
History of Present Illness - History of Present Illness History of Present Illness: Podiatry consult note for Dr. Eisenberg 73-year-old female with PMHx of diabetes, hypertension, and renal disease (HD M- W-F) brought in by family complaining of left foot pain and swelling since yesterday. Patient ambulates into ED with a walker. Daughter is seen accompanying the patient. Patient accidentally jammed her left foot when closing the bathroom door around 9:00pm last night. States she applied antibacterial ointment but hasn't noticed any changes. Denies taking pain medications. After noticing swelling to the left foot toes patients daughter brought her into the ED. She also noticed the right 1st toe was bleeding, however does not recall any trauma. Otherwise patient denies any fall or blunt trauma. No numbness, tingling, or extremity weakness. Patients daughter states she sees Dr Eisenberg regularly. Patient denies f/n/v/sob. Pmhx: diabetes, hypertension, and renal disease Allergies: iodine, latex Social: denies smoking or drinking alcohol. Past Patient History - Past Medical History & Family History Past Medical History?: Yes - Past Social History Smoking Status: Never Smoked - CARDIAC Hx Congestive Heart Failure: Yes (Questionable on xray. Pt denies) Hx Hypertension: Yes Hx Peripheral Edema: Yes ( Chronic) - PULMONARY Hx Respiratory Disorders: No - NEUROLOGICAL Hx Neurological Disorder: No - HEENT Hx HEENT Problems: Yes (Retinal disease) Hx Cataracts: Yes Other/Comment: Diabetic blindness - RENAL Hx Chronic Kidney Disease: Yes - ENDOCRINE/METABOLIC Hx Endocrine Disorders: Yes Hx Diabetes Mellitus Type 2: Yes - HEMATOLOGICAL/ONCOLOGICAL Hx Anemia: Yes (IRON INFUSION TREATMENTS) - INTEGUMENTARY Hx Dermatological Problems: No - MUSCULOSKELETAL/RHEUMATOLOGICAL Hx Arthritis: Yes (KNEE) - GASTROINTESTINAL Hx Gastrointestinal Disorders: No - GENITOURINARY/GYNECOLOGICAL Hx Genitourinary Disorders: No - PSYCHIATRIC Hx Substance Use: No - SURGICAL HISTORY Hx Appendectomy: Yes - ANESTHESIA Hx Anesthesia: Yes Hx Anesthesia Reactions: No Hx Malignant Hyperthermia: No Meds Home Medications: Home Medication List Medication Instructions Recorded Confirmed Type Doxycycline Monohydrate 100 mg PO BID 14 Days #28 tablet 05/21/18 Rx Allergies/Adverse Reactions: Allergies Allergy/AdvReac Type Severity Reaction Status Date / Time povidone-iodine Allergy Severe RASH Verified 01/18/18 13:41 [From Betadine] soap [From Betadine] Allergy Severe RASH Verified 01/18/18 13:41 Latex, Natural Rubber Allergy Intermediate ITCHING Verified 10/25/17 09:09 durapore tape Allergy Intermediate ITCHING Uncoded 10/25/17 09:09 Physical Exam - Constitutional Appears: Well, Non-toxic, No Acute Distress - Head Exam Head Exam: ATRAUMATIC, NORMOCEPHALIC - Extremities Exam Additional comments: Bilateral lower extremity exam: Vascular: DP/PT 1/4 b/l, CFT <4 secs x10, TG warm to cool,+2 pitting edema pretibial and perimalleolar., no erythema noted Derm: Fluid filled blisters noted on the dorsal aspect of the left second and third toe , no erythema noted surrounding the blisters, no other open lesions noted, dried sanguinous fluid noted on the right hallucal nail, no clinical signs of infection Ortho: Pain on palpation to the left second and third toe, and pain on palpation to the right hallucal nail, no pain on range of motion of the foot or ankle joints Neuro: protective sensation grossly diminished. - Neurological Exam Neurological exam: Alert, Oriented x3 - Psychiatric Exam Psychiatric exam: Normal Affect, Normal Mood - Skin Skin Exam: Normal Color Results - Vital Signs Recent Vital Signs: Last Vital Signs Temp 98.2 F 05/21/18 01:12 Pulse 77 05/21/18 01:12 Resp 17 05/21/18 01:12 BP 132/68 05/21/18 01:12 Pulse Ox 98 05/21/18 01:30 - Labs Result Diagrams: 05/21/18 00:01 05/21/18 00:01 Labs: Laboratory Results - last 24 hr 05/21/18 05/21/18 00:01 00:01 WBC 7.1 D RBC 4.08 Hgb 13.2 D Hct 40.7 MCV 99.7 H D MCH 32.4 H MCHC 32.5 L RDW 19.4 H Plt Count 114 L MPV 10.8 Neut % (Auto) 66.8 Lymph % (Auto) 17.5 L Baldwin % (Auto) 10.8 H Eos % (Auto) 3.6 Baso % (Auto) 1.3 Neut # (Auto) 4.7 Lymph # (Auto) 1.2 Baldwin # (Auto) 0.8 Eos # (Auto) 0.3 Baso # (Auto) 0.1 Sodium 143 Potassium 4.3 Chloride 95 L Carbon Dioxide 37 H Anion Gap 16 BUN 18 H Creatinine 5.2 H Est GFR ( Amer) 10 Est GFR (Non-Af Amer) 8 Random Glucose 159 H Calcium 8.9 Total Bilirubin 0.5 AST 27 ALT 27 Alkaline Phosphatase 86 Total Protein 7.8 Albumin 4.3 Globulin 3.5 Albumin/Globulin Ratio 1.2 Assessment & Plan - Assessment and Plan (Free Text) Assessment: 73 yo female with pmhx of diabetes and ESRD presents to the ED with serous fluid filled blisters on the left second and third toe, noninfected. Plan: Patient seen and evaluated History and plan discussed in detail with the attending, Dr Eisenberg Chart, labs and vitals reviewed; afebrile and absent leukocytosis Bilateral feet x-rays ordered and reviewed; no signs of osseous deformity noted , no fractures Serous fluid filled blisters drained using a 23 G needle. Patient tolerated procedure without any complications Left Toes dressed with wet to dry dressing Right foot dressed with DSD Patient to follow up with Dr. Eisenberg/Dilip tomorrow. Patient showed verbal understanding All questions were answered to satisfaction Thank you for the consult
== END 2018-05-21 01:29 | disposition home or self-care (01) ==
LOC: C.ER 21:31
DX: S90.425A Blister (nonthermal), left lesser toe(s), initial encounter (principal); W23.0XXA Caught, crushed, jammed, or pinched between moving objects, initial encounter; E11.9 Type 2 diabetes mellitus without complications; I50.9 Heart failure, unspecified; I12.0 Hypertensive chronic kidney disease with stage 5 chronic kidney disease or end stage renal disease; N18.6 End stage renal disease; Z99.2 Dependence on renal dialysis

== ENCOUNTER 2018-08-14 17:27 | Inpatient (IN) | payer MEDICARE, OTHER ==
[2018-08-14 17:33] VITALS: BMI 33.8
--- NOTE | 2018-08-14 19:16 | CP.PCM.CON ---
History of Present Illness - History of Present Illness History of Present Illness: Vascular Surgery Consult Note for Dr. Thompson This 73F with a PMH of HTN, DM, Anemia, Renal Insufficiency, Chronic Back pain presents due to malfunction of her AVF she reports she last had dialysis on sunday she is usually on a sunday dialysis schedule. She went to a vascular ceneter yesterday where they attempted a therapeutic fistulagram however they were unsuccessful. Today she presents without any symptoms for dialysis access. She denies any systemic symptoms. She also complains of right toe pain. She reports that it is chronic pain and it limits her mobility. PMD: Dr. Miller Fnps: Dr. Cage PMHx: HTN, DM, Anemia, Renal Insufficiency, Chronic Back pain PSHx: x1, permacath, AVF, open Appy, multiple fistulagrams with balloon dilations, AV shunt Family Hx: Denies NKDA Review of Systems - Review of Systems Review of Systems: 12 point review of symptoms conducted and negative aside from toe pain Past Patient History - Past Medical History & Family History Past Medical History?: Yes - Past Social History Smoking Status: Never Smoked - CARDIAC Hx Congestive Heart Failure: Yes (Questionable on xray. Pt denies) Hx Hypertension: Yes Hx Peripheral Edema: Yes ( Chronic) - PULMONARY Hx Respiratory Disorders: No - NEUROLOGICAL Hx Neurological Disorder: No - HEENT Hx HEENT Problems: Yes (Retinal disease) Hx Cataracts: Yes Other/Comment: Diabetic blindness - RENAL Hx Chronic Kidney Disease: Yes Hx Dialysis: Yes Type of Dialysis Access: R AVS Date of Last Dialysis Treatment: 08/09/18 - ENDOCRINE/METABOLIC Hx Endocrine Disorders: Yes Hx Diabetes Mellitus Type 2: Yes - HEMATOLOGICAL/ONCOLOGICAL Hx Anemia: Yes (IRON INFUSION TREATMENTS) - INTEGUMENTARY Hx Dermatological Problems: No - MUSCULOSKELETAL/RHEUMATOLOGICAL Hx Arthritis: Yes (KNEE) - GASTROINTESTINAL Hx Gastrointestinal Disorders: No - GENITOURINARY/GYNECOLOGICAL Hx Genitourinary Disorders: No - PSYCHIATRIC Hx Psychophysiologic Disorder: No Hx Substance Use: No - SURGICAL HISTORY Hx Appendectomy: Yes Hx Vascular Access Device: Yes (R AVS) - ANESTHESIA Hx Anesthesia: Yes Hx Anesthesia Reactions: No Hx Malignant Hyperthermia: No Meds Allergies/Adverse Reactions: Allergies Allergy/AdvReac Type Severity Reaction Status Date / Time povidone-iodine Allergy Severe RASH Verified 01/18/18 13:41 [From Betadine] soap [From Betadine] Allergy Severe RASH Verified 01/18/18 13:41 Latex, Natural Rubber Allergy Intermediate ITCHING Verified 10/25/17 09:09 dur[place] tape Allergy Intermediate ITCHING Uncoded 10/25/17 09:09 Physical Exam - Constitutional Appears: Non-toxic, No Acute Distress - Head Exam Head Exam: ATRAUMATIC, NORMOCEPHALIC - Eye Exam Eye Exam: EOMI - ENT Exam ENT Exam: Mucous Membranes Moist - Neck Exam Neck exam: Positive for: Normal Inspection - Respiratory Exam Respiratory Exam: Clear to Auscultation Bilateral - Cardiovascular Exam Cardiovascular Exam: REGULAR RHYTHM - GI/Abdominal Exam GI & Abdominal Exam: Normal Bowel Sounds, Soft - Back Exam Back exam: NORMAL INSPECTION - Neurological Exam Neurological exam: Alert, Oriented x3 - Psychiatric Exam Psychiatric exam: Normal Affect, Normal Mood - Skin Skin Exam: Dry, Intact Results - Vital Signs Recent Vital Signs: Last Vital Signs Temp 98 F 08/14/18 17:34 Pulse 75 08/14/18 17:34 Resp 18 08/14/18 17:34 BP 169/77 H 08/14/18 17:34 Pulse Ox 96 08/14/18 17:34 Assessment & Plan - Assessment and Plan (Free Text) Assessment: 73F with ESRD without functional dialysis access F/U Labs AM labs NPO past midnight OR tomorrow AM D/W Dr. Jay Frost PGY3
[2018-08-14 19:30] LABS: BASO # 0.1 K/uL (0.0-0.2); BASO % 1.3 % (0.0-2.0); EOS # 0.3 K/uL (0.0-0.7); EOS % 3.3 % (0.0-4.0); LYMPH % 23.5 % (20.0-40.0); MEAN CORPUSCULAR HEMOGLOBIN 31.5 pg (27.0-31.0); MEAN CORPUSCULAR HGB CONC 32.7 g/dL (33.0-37.0); MEAN PLATELET VOLUME 10.3 fL (7.2-11.7); MONO # 0.8 K/uL (0.0-0.8); MONO % 9.7 % (0.0-10.0); NEUT # 5.3 K/uL (1.8-7.0); NEUT % 62.2 % (50.0-75.0); NRBC % 0.3 % (0.0-2.0); RBC 3.47 Mil/uL (3.80-5.20); RED CELL DISTRIBUTION WIDTH 16.8 % (11.5-14.5); WHITE BLOOD COUNT 8.6 K/uL (4.8-10.8)
[2018-08-14 19:32] LABS: HEMOGLOBIN 10.9 g/dL (11.0-16.0); MEAN CELL VOLUME 96.4 fL (81.0-99.0)
[2018-08-14 19:46] LABS: ALBUMIN 3.9 g/dL (3.5-5.0); CALCIUM 8.9 mg/dl (8.6-10.4)
--- NOTE | 2018-08-14 20:06 | C.PDOC ---
History Of Present Illness 73 year old female with ESRD on dialysis is sent to the ED for evaluation for fistula on her right arm. Patient had trouble with her fistula since last Sunday. Patient went to dialysis on Sunday but they were having trouble with her port. Patient was seen by surgeon on [place] for evaluation of her port and patient had a stent put in place. Patient went back to dialysis today but port was still not able to be uses. Patient touched base with Dr. Thompson and was sent here for admission for vascular access for dialysis. Patient also c/o non healing ulcer on right great toe, however patient already has scheduled appointment with vascular. Patient denies fever, chills, nausea, vomit, diarrhea, CP, SOB, rash, weakness, numbness. Time Seen by Provider: 08/14/18 18:43 Chief Complaint (Nursing): Vascular Access Device Problem History Per: Patient History/Exam Limitations: no limitations Onset/Duration Of Symptoms: Days Current Symptoms Are (Timing): Still Present Recent travel outside of the [place]: No Additional History Per: Patient Past Medical History Reviewed: Historical Data, Nursing Documentation, Vital Signs Vital Signs: Last Vital Signs Temp 98 F 08/14/18 17:34 Pulse 75 08/14/18 17:34 Resp 18 08/14/18 17:34 BP 169/77 H 08/14/18 17:34 Pulse Ox 96 08/14/18 17:34 - Medical History PMH: Anemia (IRON INFUSION TREATMENTS), Arthritis (KNEE), CHF (Questionable on xray. Pt denies), HTN, Peripheral Edema ( Chronic), End Stage Renal Disease, Chronic Kidney Disease Surgical History: Appendectomy - [facility] Procedures (01/20/18) BYPASS RIGHT RADIAL ARTERY TO LOWER ARM VEIN, OPEN APPROACH (05/13/17) DILATION OF UPPER ARTERY, PERCUTANEOUS APPROACH (01/20/18) DILATION OF UPPER VEIN, PERCUTANEOUS APPROACH (01/20/18) FLUOROSCOPY OF DIALYSIS SHUNT/FISTULA USING OTHER CONTRAST (01/20/18) INSERT INFUSION DEV IN R INT JUGULAR VEIN, PERC (05/13/17) INSERTION OF INFUSION DEV INTO SUP VENA CAVA, PERC APPROACH (01/20/18) INSPECTION OF LOWER INTESTINAL TRACT, PERC ENDO APPROACH (09/24/17) PERFORMANCE OF URINARY FILTRATION, MULTIPLE (05/13/17) REMOVAL OF INFUSION DEVICE FROM GREAT VESSEL, PERC APPROACH (01/20/18) RESECTION OF APPENDIX, OPEN APPROACH (09/24/17) Family History: States: Unknown Family Hx - Social History Hx Alcohol Use: No Hx Substance Use: No - Immunization History Hx Tetanus Toxoid Vaccination: No Hx Influenza Vaccination: No Hx Pneumococcal Vaccination: No Review Of Systems Constitutional: Negative for: Fever, Chills Eyes: Negative for: Vision Change Cardiovascular: Negative for: Chest Pain, Palpitations Respiratory: Negative for: Cough, Shortness of Breath Gastrointestinal: Negative for: Nausea, Vomiting, Abdominal Pain Musculoskeletal: Positive for: Arm Pain Skin: Negative for: Rash Neurological: Negative for: Weakness, Numbness, Headache Physical Exam - Physical Exam Appears: Non-toxic, No Acute Distress Skin: Normal Color, Warm, Dry Head: Atraumatic, Normacephalic Eye(s): bilateral: Normal Inspection Neck: Normal ROM, Supple Chest: Symmetrical Cardiovascular: Rhythm Regular Respiratory: Normal Breath Sounds, No Rales, No Rhonchi, No Wheezing Gastrointestinal/Abdominal: Soft, No Tenderness, No Guarding, No Rebound Extremity: Normal ROM, Tenderness (right arm fistula area, warm to touch), Capillary Refill (< 2 seconds), Swelling (right arm fistula area), Other (fistul a right arm, warm to touch no thrill or bruit) Pulses: Left Radial: Normal, Right Radial: Normal Neurological/Psych: Oriented x3, Normal Speech, Normal Cognition, Normal Motor, Normal Sensation Gait: Steady ED Course And Treatment - Laboratory Results Result Diagrams: 08/14/18 19:21 08/14/18 19:21 Lab Interpretation: Abnormal (K+ 5.1, BUN 50, Cr 10.2) O2 Sat by Pulse Oximetry: 96 (ON RA) Pulse Ox Interpretation: Normal Progress Note: Patient was seen in the ED by surgery resident and Dr Thompson will arrange for access in AM. - Physician Consult Information Time Consulting Physician Contacted: 20:21 Physician Contacted: Addis Fox Outcome Of Conversation: Patient does not need emergency dialysis tonight. Advise admission to Dr Hendrickson service. Case discussed with Dr Hendrickson and he will accept care of the patient. Medical Decision Making Medical Decision Making: Plan: * Labs * Dr. Fox spoken with will like patient to be admitted under Dr. hendrickson Disposition - Disposition Disposition: HOSPITALIZED Disposition Time: 20:23 Condition: STABLE - POA Present On Arrival: None - Clinical Impression Clinical Impression: ESRD on dialysis, AV fistula occlusion - Scribe Statement The provider has reviewed the documentation as recorded by the Scribe Fernando Christian All medical record entries made by the Scribe were at my direction and personally dictated by me. I have reviewed the chart and agree that the record accurately reflects my personal performance of the history, physical exam, [facility] decision making, and the department course for this patient. I have also personally directed, reviewed, and agree with the discharge instructions and disposition.
[2018-08-15] MEDS ORDERED: Sodium Chloride 0.9% 1,000 ML IV SCH (06:15)
[2018-08-15] MEDS: (Novolin R) Insulin Human Regular 100 units/ml vial SC SCH ×4 (07:09→22:18)
[2018-08-15 07:49] LABS: INR 1.1; PROTHROMBIN TIME 12.3 SECONDS (9.7-12.2)
[2018-08-15 08:12] LABS: ALB/GLOB RATIO 1.1 (1.0-2.1); ALBUMIN 3.3 g/dL (3.5-5.0); CALCIUM 8.3 mg/dl (8.6-10.4)
--- NOTE | 2018-08-15 08:14 | RAD ---
Date of service: 08/15/2018 HISTORY: for O.R. COMPARISON: 01/21/2018 FINDINGS: LUNGS: Prior coalescent pulmonary venous congestion and at the vague bilateral pulmonary opacities have largely cleared and/or improved. Trace residual pulmonary venous congestion inferred. No consolidation noted. PLEURA: No significant pleural effusion identified, no pneumothorax apparent. CARDIOVASCULAR: There is presence of aortic atherosclerotic calcification on x-ray. Tortuous unfolded thoracic aorta Cardiomegaly-similar marked improvement in the prior bilateral pulmonary venous congestion. Minimal pulmonary venous congestion residual noted Prior hemodialysis catheter removed. Partially visualized stent right upper extremity OSSEOUS STRUCTURES: Bilateral shoulder arthrosis. Thoraco lumbar spondylosis. VISUALIZED UPPER ABDOMEN: Normal. OTHER FINDINGS: None. IMPRESSION: Marked interval improvement in the prior pulmonary venous congestion. Interval removal prior right hemodialysis catheter.
[2018-08-15] MEDS ORDERED: FOLIC ACID PO SCH (10:00)
[2018-08-15] MEDS ORDERED: OMEGA 3 FATTY ACIDS PO SCH (10:00)
[2018-08-15] MEDS ORDERED: [UNRECOGNIZED DRUG - OTHER] PO SCH (10:00)
[2018-08-15] MEDS ORDERED: BERBERINE PO SCH (10:00)
[2018-08-15] MEDS ORDERED: VIT B COMPLEX AND C PO SCH (10:00)
[2018-08-15] MEDS ORDERED: HOPS PO SCH (10:00)
[2018-08-15] MEDS ORDERED: VIT D3 VIT K PO SCH (10:00)
[2018-08-15] MEDS: Dextrose 5%/0.45% NS 1,000 ML IV SCH (12:20)
--- NOTE | 2018-08-15 13:38 | CP.PCM.CON ---
History of Present Illness - History of Present Illness History of Present Illness: Podiatry Consult Note - Dr. Cherry 73 year old female patient PMHx including DM, HTN, ESRD on HD MWF, anemia seen and evaluated for right great toe pain. Patient is accompanied by mother at bedside who relays HPI. Per daughter, patient presented to ED in May after striking her left foot and right great toe; since then patient has been complaining of pain, foul odor, and discoloration around her great toe. Patient states she sees Dr. Eisenberg/Dilip who wanted her to present to ED for further evaluation however has not been able to come until today. Patient states great toe is painful to touch which affects her mobility; denies seeing any drainage from digit. PMH: DM, HTN, ESRD on HD MWF, anemia, chronic back pain PSH: , permacath AVF, appendectomy, fistulagram w/balloon dilations, AV shunt placement FH: Denies SH: Denies ETOH/tobacco Allergies: iodine, latex Review of Systems - Review of Systems All systems: reviewed and no additional remarkable complaints except (as per HPI) Past Patient History - Past Medical History & Family History Past Medical History?: Yes - Past Social History Smoking Status: Never Smoked - CARDIAC Hx Congestive Heart Failure: Yes (Questionable on xray. Pt denies) Hx Hypertension: Yes Hx Peripheral Edema: Yes ( Chronic) - PULMONARY Hx Respiratory Disorders: No - NEUROLOGICAL Hx Neurological Disorder: No - HEENT Hx HEENT Problems: Yes (Retinal disease) Hx Cataracts: Yes Other/Comment: Diabetic blindness - RENAL Hx Chronic Kidney Disease: Yes Date of Last Dialysis Treatment: 08/09/18 - ENDOCRINE/METABOLIC Hx Endocrine Disorders: Yes Hx Diabetes Mellitus Type 2: Yes - HEMATOLOGICAL/ONCOLOGICAL Hx Anemia: Yes (IRON INFUSION TREATMENTS) - INTEGUMENTARY Hx Dermatological Problems: No - MUSCULOSKELETAL/RHEUMATOLOGICAL Hx Arthritis: Yes (KNEE) Hx Falls: No - GASTROINTESTINAL Hx Gastrointestinal Disorders: No - GENITOURINARY/GYNECOLOGICAL Hx Genitourinary Disorders: No - PSYCHIATRIC Hx Substance Use: No - SURGICAL HISTORY Hx Appendectomy: Yes - ANESTHESIA Hx Anesthesia: Yes Hx Anesthesia Reactions: No Hx Malignant Hyperthermia: No Meds Allergies/Adverse Reactions: Allergies Allergy/AdvReac Type Severity Reaction Status Date / Time povidone-iodine Allergy Severe RASH Verified 01/18/18 13:41 [From Betadine] soap [From Betadine] Allergy Severe RASH Verified 01/18/18 13:41 Latex, Natural Rubber Allergy Intermediate ITCHING Verified 10/25/17 09:09 durapore tape Allergy Intermediate ITCHING Uncoded 10/25/17 09:09 - Medications Medications: Current Medications Allopurinol (Zyloprim) 300 mg PO DAILY [facility] Last Admin: 08/15/18 10:00 Dose: Not Given Gabapentin (Neurontin) 300 mg PO HS [facility] Home Med (Folic Acid/Vit B Complex And C [Ramonita-Leslye Tablet]) 1 tab PO DAILY [facility] Last Admin: 08/15/18 10:00 Dose: Not Given Home Med ([place]-3 Fatty Acids/Fish Oil [Fish Oil 1,000 Mg Capsule]) 360 mg PO DAILY [facility] Last Admin: 08/15/18 10:00 Dose: Not Given Home Med (Vit D3-Vit K/Berberine/Hops [Ostera Tablet]) 1 tab PO DAILY [facility] Last Admin: 08/15/18 10:00 Dose: Not Given Dextrose/Sodium Chloride (Dextrose 5%/0.45% Ns 1000 Ml) 1,000 mls @ 80 mls/hr IV .[id number] [facility] Last Admin: 08/15/18 12:20 Dose: 80 mls/hr Insulin Human Regular (Novolin R) 0 unit SC ACHS [facility]; Protocol Last Admin: 08/15/18 12:17 Dose: Not Given Metoprolol Tartrate (Lopressor) 100 mg PO DAILY [facility] Last Admin: 08/15/18 10:00 Dose: Not Given Pneumococcal Polyvalent Vaccine (Pneumovax 23 Vaccine) 0.5 ml IM .ONCE ONE Stop: 08/17/18 14:01 Sevelamer Carbonate (Renvela) 800 mg PO TID [facility] Last Admin: 08/15/18 13:25 Dose: Not Given Physical Exam - Constitutional Appears: Chronically Ill - Extremities Exam Additional comments: RLE focused physical exam: VASC: DP/PT pulses nonpalpable 2/2 edema. CFT delayed to digits, unable to assess hallux. +2 pitting edema. NEURO: Protective sensation grossly diminished. DERM: Dusky discoloration noted to hallux extending proximally into midshaft of 1st metatarsal; +malodor, neg drainage/purulence/fluctuance. ORTHO: Pain on palpation distal tuft of hallux. Hallucal IPJ and 1st MPJ ROM limited secondary to guarding. - Neurological Exam Neurological exam: Alert - Psychiatric Exam Psychiatric exam: Normal Affect, Normal Mood Results - Vital Signs Recent Vital Signs: Last Vital Signs Temp 98.9 F 08/15/18 07:50 Pulse 77 08/15/18 07:50 Resp 20 08/15/18 07:50 BP 96/60 L 08/15/18 07:50 Pulse Ox 95 08/15/18 07:50 - Labs Result Diagrams: 08/14/18 19:21 08/15/18 07:37 Labs: Laboratory Results - last 24 hr 08/14/18 08/14/18 08/15/18 19:21 19:21 06:11 WBC 8.6 RBC 3.47 L Hgb 10.9 L D Hct 33.4 L MCV 96.4 D MCH 31.5 H MCHC 32.7 L RDW 16.8 H Plt Count 235 D MPV 10.3 Neut % (Auto) 62.2 Lymph % (Auto) 23.5 [place] % (Auto) 9.7 Eos % (Auto) 3.3 Baso % (Auto) 1.3 Neut # (Auto) 5.3 Lymph # (Auto) 2.0 [place] # (Auto) 0.8 Eos # (Auto) 0.3 Baso # (Auto) 0.1 PT INR APTT Sodium 138 Potassium 5.1 Chloride 95 L Carbon Dioxide 29 Anion Gap 19 BUN 50 H Creatinine 10.2 H* D Est GFR ( Amer) 4 Est GFR (Non-Af Amer) 4 POC Glucose (mg/dL) 82 Random Glucose 119 H Calcium 8.9 Total Bilirubin 0.8 AST 35 ALT 17 Alkaline Phosphatase 55 Total Protein 7.8 Albumin 3.9 Globulin 3.8 Albumin/Globulin Ratio 1.0 08/15/18 08/15/18 08/15/18 07:37 07:37 10:58 WBC RBC Hgb Hct MCV MCH MCHC RDW Plt Count MPV Neut % (Auto) Lymph % (Auto) [place] % (Auto) Eos % (Auto) Baso % (Auto) Neut # (Auto) Lymph # (Auto) [place] # (Auto) Eos # (Auto) Baso # (Auto) PT 12.3 H INR 1.1 APTT 29 Sodium 138 Potassium 3.7 Chloride 96 L Carbon Dioxide 28 Anion Gap 18 BUN 49 H Creatinine 11.0 H* Est GFR ( Amer) 4 Est GFR (Non-Af Amer) 3 POC Glucose (mg/dL) 78 Random Glucose 84 Calcium 8.3 L Total Bilirubin 0.5 AST 12 L D ALT 20 Alkaline Phosphatase 58 Total Protein 6.4 Albumin 3.3 L Globulin 3.1 Albumin/Globulin Ratio 1.1 Assessment & Plan - Assessment and Plan (Free Text) Assessment: 73F PMHx DM, HTN, ESRD on HD MWF, anemia, chronic back pain with right hallux gangrenous changes Plan: Patient seen and evaluated Discussed with attending, Dr. Cherry Arterial US ordered f/u Local wound care: DSD right foot Pain control per primary team Podiatry will continue to follow
[2018-08-15] MEDS ORDERED: Sodium Chloride 0.9% 1,000 ML IV ONE (16:30)
[2018-08-15] MEDS ORDERED: Lidocaine Hydrochloride 10 ML INJ ONE (16:31)
[2018-08-15] MEDS ORDERED: Iohexol 240 (50 ml) ONE (16:31)
[2018-08-15] MEDS ORDERED: HEPARIN-NS 5,000 UNITS/500 ML 5,000 UNIT/500 ML BAG IV ONE (16:32)
[2018-08-15] MEDS ORDERED: Propofol 10 mg/ml Inj (20 ML) ONE (16:36)
[2018-08-15] MEDS ORDERED: ceFAZolin 1 gm in NS 1 GM/100 ML BAG IVPB ONE (16:48)
[2018-08-15] MEDS ORDERED: HYDROmorphone 0.5 mg/0.5 ml ISec IVP PRN (17:35)
--- NOTE | 2018-08-15 17:35 | PCM.SURG1 ---
Surgeon's Initial Post Op Note - Surgeon's Notes Surgeon: suhail Rn Document Improvement Specialist: 0 Type of Anesthesia: General LMA Anesthesia Administered By: araceli Pre-Operative Diagnosis: renal failure/clotted fistula right arm Operative Findings: right jugular occluded. right subclavian used Post-Operative Diagnosis: same Operation Performed: permacath right subclavian. with US and micropuncture technique Specimen/Specimens Removed: none Estimated Blood Loss: EBL {In ML}: 40 Blood Products Given: N/A Drains Used: No Drains Post-Op Condition: Good Date of Surgery/Procedure: 08/15/18 Time of Surgery/Procedure: 17:36
--- NOTE | 2018-08-15 18:02 | RAD ---
Date of service: 08/15/2018 HISTORY: SUBCLAVIAN PERMACATH COMPARISON: August 15, 2018 study performed 07:38. FINDINGS: LUNGS: Mild pulmonary vascular congestion. PLEURA: No significant pleural effusion identified, no pneumothorax apparent. No pneumothorax following dialysis catheter placement. CARDIOVASCULAR: No atherosclerotic calcification present Cardiomegaly. Dialysis catheter identified inserted via right-sided approach. OSSEOUS STRUCTURES: No significant abnormalities. VISUALIZED UPPER ABDOMEN: Normal. OTHER FINDINGS: None. IMPRESSION: No adverse findings common no pneumothorax following dialysis catheter placement. New/acute pulmonary vascular congestion.
[2018-08-16] MEDS: Dextrose 5%/0.45% NS 1,000 ML IV SCH (03:48)
--- NOTE | 2018-08-16 03:57 | OP ---
PROCEDURE DATE: 08/15/2018 PREOPERATIVE DIAGNOSIS: Renal failure. POSTOPERATIVE DIAGNOSIS: Renal failure. PROCEDURE CARRIED OUT: Placement of right subclavian Perm-A-Cath, arrow-type catheter with C-arm fluoroscopy, ultrasound-guided puncture, and micropuncture technique. SURGEON: Luis Thompson Jr., MD [place] ACCESS DEVELOPER: None. ANESTHESIOLOGIST: Deion Gilman MD TYPE OF ANESTHESIA: General anesthesia. INDICATIONS: A 73-year-old woman with multiple access problems in right arm, now presents with clotted shunt, unable to get dialysis for several days. OPERATIVE FINDINGS: The jugular vein was patent on the right side, however, unable to advance the micro wire through the inlet. Because of this, we bent in an attempt to placing this. We then using micropuncture technique and ultrasound guidance punctured the right subclavian vein. We were able to pass the catheter low relatively steep right angle from subclavian to the innominate. At the termination of the procedure, the catheter originated on the right chest wall, went to the subclavian vein, and terminated just at the beginning of the right atrium. DESCRIPTION OF PROCEDURE: The patient was given general anesthesia. Intravenous antibiotics had been administered. Using ultrasound guidance, we punctured the right jugular vein. Multiple punctures were made successfully; however, we were unable to advance the catheter centrally. After a number of attempts, we have bent this, attempted anatomic puncture of the jugular vein which was unsuccessful. We now went to the right subclavian vein, punctured using ultrasound guidance and micropuncture technique, advanced the right catheter sheath etc over this. At one point, there was some difficulty because of angulation, we took a venogram at that point that showed clearly in the central vein. There was no apparent obstruction. We then deployed the catheter successfully, an arrow-type catheter. Although it was a little bit on the x-rays and anticipated with the patient's body habitus that this will retrograde, this will come out as she is progressing. She seems is in upright position. Catheter was secured to the skin. The procedure was terminated. OPERATION CARRIED OUT: Placement of right subclavian Perm-A-Cath, arrow-type catheter with ultrasound-guidance and micropuncture technique. Luis Thompson Jr., MD
--- NOTE | 2018-08-16 04:46 | HP ---
HISTORY OF PRESENT ILLNESS: This is a 73-year-old -[place] female with multiple past medical history, presented to emergency room with missing hemodialysis and nonfunctioning right upper extremity AV shunt. The patient also was found to have a gangrene of the right big toe, and she was admitted for further management. The patient is a poor historian and she otherwise denied. Her review of system is negative. ALLERGIES: POSITIVE FOR IODINE AND LATEX. SOCIAL HISTORY: No history of smoking, EtOH or substance abuse. FAMILY HISTORY: Noncontributory. PAST MEDICAL HISTORY: Hypertension, type 2 diabetes mellitus, end-stage renal disease, on hemodialysis, peripheral vascular disease. MEDICATIONS: Reviewed as per MAR and ordered. PHYSICAL EXAMINATION: GENERAL: The patient is not in any cardiopulmonary distress. VITAL SIGNS: Blood pressure 138/77, temperature 97.5, respiratory rate 18, and pulse 86. HEENT: Pupils equal, reactive to light. Normal-appearing mucosa of the conjunctivae. NECK: Supple. No JVD. No carotid bruit. No lymph node. No thyromegaly. CHEST AND LUNGS: Bilateral symmetrical expansion. Good air exchange. No rales, no rhonchi. CARDIOVASCULAR SYSTEM: PMI not localized. S1, S2. No additional sounds. ABDOMEN: Normoactive bowel sounds. No tenderness. No organomegaly. No masses. EXTREMITIES: No cyanosis, no clubbing. There are gangrenous changes on the right big toe with foul smelling. CENTRAL NERVOUS SYSTEM: Alert, awake, oriented x2. Moves all extremities equally. ASSESSMENT: Malfunctioning right upper extremity AV shunt, end-stage renal disease, on hemodialysis, hypertension, type 2 diabetes mellitus, infected right big toe. PLAN: Podiatry consult. Vascular surgery consult. Arterial Doppler. Resume the patient's home medications. Accu-Cheks with insulin coverage. Nephrology consult for dialysis order after placing a dialysis access. Cuba Hendrickson MD
[2018-08-16] MEDS: (Novolin R) Insulin Human Regular 100 units/ml vial SC SCH ×4 (07:30→21:31)
[2018-08-16] MEDS ORDERED: HOPS PO SCH (10:00)
[2018-08-16] MEDS ORDERED: BERBERINE PO SCH (10:00)
[2018-08-16] MEDS ORDERED: VIT D3 VIT K PO SCH (10:00)
--- NOTE | 2018-08-16 10:26 | VASCLAB ---
Date of service: 08/15/2018 STUDY DESCRIPTION: Lower Extremity Arterial Exam (PVR). HISTORY: Non healing leg ulcers. PRIORS: None. TECHNIQUE: Pulse volume recording waveforms and segmental pressures of bilateral lower extremities at multiple levels were obtained. Ankle Brachial Indices (ABIs) were calculated. Report prepared by GLENNA Mejia RIGHT LOWER EXTREMITY: * Brachial artery: Pressure - mmHg. * High thigh: Pressure - mmHg: Ratio - : PVR waveform - * Low thigh: Pressure - mmHg: Ratio - PVR waveform: Reduced * Calf: Pressure - mmHg: Ratio - PVR waveform: Reduced * Posterior tibial Artery: Pressure - mmHg: Ratio - PVR waveform: Reduced * Dorsalis pedis Artery: Pressure - mmHg: Ratio - PVR waveform: Reduced * Great toe: Pressure - mmHg: Ratio - PVR waveform: Ankle brachial index (JENNIFER): LEFT LOWER EXTREMITY: * Brachial artery: Pressure - 143 mmHg. * High thigh: Pressure - mmHg: Ratio - : PVR waveform - * Low thigh: Pressure - 220 mmHg: Ratio - NC PVR waveform: Reduced * Calf: Pressure - 169 mmHg: Ratio - 1.18 PVR waveform: Reduced * Posterior tibial Artery: Pressure - mmHg: Ratio - PVR waveform: Reduced * Dorsalis pedis Artery: Pressure - 129 mmHg: Ratio - 0.90 PVR waveform: Reduced * Great toe: Pressure - mmHg: Ratio - PVR waveform: Ankle brachial index (JENNIFER): 0.90 OTHER FINDINGS: Right: Unable to obtain right ankle brachial index due to absent audible pulses. Left: IMPRESSION: Right: This exam reveals multi level decreased perfusion of the right lower extremity, noted at the iliac, superficial femoral, popliteal, tibial and distal small artery levels. Left: This exam reveals mildly decreased perfusion of the left lower extremity, noted at the superficial femoral, popliteal and tibial artery levels.
[2018-08-16] MEDS: Multivitamin Vitamin B Complex (Nephro-Vite) Tab PO SCH (10:36)
[2018-08-16] MEDS: Omega-3-Acid Ethyl Esters 1 GM Cap PO SCH (10:36)
--- NOTE | 2018-08-16 11:01 | RAD ---
Date of service: 08/15/2018 PROCEDURE: Intraoperative Fluoroscopy. HISTORY: RENAL FAILURE FINDINGS: Fluoroscopic assistance was provided for right-sided PermCath placement. Please refer to the operative report from YESSENIA Forrester.
--- NOTE | 2018-08-16 13:08 | CP.PCM.PN ---
Subjective - Date & Time of Evaluation Date of Evaluation: 08/16/18 Time of Evaluation: 13:05 - Subjective Subjective: Podiatry - Dr. Cherry 73F seen and evaluated at bedside this AM for right hallux gangrenous changes. Patient resting comfortably, NAD. Patient s/p permacath right subclavian, tolerated well. Patient reports continued pain to right great toe, unchanged. Objective - Vital Signs/Intake and Output Vital Signs (last 24 hours): Temp Pulse Resp BP Pulse Ox 98.3 F 93 H 20 126/74 90 L 08/16/18 07:40 08/16/18 10:37 08/16/18 07:40 08/16/18 10:37 08/16/18 07:40 - Medications Medications: Current Medications Allopurinol (Zyloprim) 300 mg PO DAILY [facility] Last Admin: 08/16/18 10:36 Dose: 300 mg Gabapentin (Neurontin) 300 mg PO HS [facility] Last Admin: 08/15/18 22:34 Dose: 300 mg Dextrose/Sodium Chloride (Dextrose 5%/0.45% Ns 1000 Ml) 1,000 mls @ 80 mls/hr IV .[id number] [facility] Last Admin: 08/16/18 03:48 Dose: 80 mls/hr Insulin Human Regular (Novolin R) 0 unit SC ACHS [facility]; Protocol Last Admin: 08/16/18 11:51 Dose: Not Given Metoprolol Tartrate (Lopressor) 100 mg PO DAILY [facility] Last Admin: 08/16/18 10:36 Dose: 100 mg Nccac-2-Pvlq Ethyl Esters (Lovaza) 1 gm PO DAILY [facility] Last Admin: 08/16/18 10:36 Dose: 1 gm Pneumococcal Polyvalent Vaccine (Pneumovax 23 Vaccine) 0.5 ml IM .ONCE ONE Stop: 08/17/18 14:01 Sevelamer Carbonate (Renvela) 800 mg PO TIDCC [facility] Last Admin: 08/16/18 12:39 Dose: 800 mg Vitamin B Complex/Vit C/Folic Acid (Nephro-Leslye) 1 tab PO DAILY [facility] Last Admin: 08/16/18 10:36 Dose: 1 tab - Labs Labs: 08/14/18 19:21 08/15/18 07:37 PT 12.3 SECONDS (9.7-12.2) H 08/15/18 07:37 INR 1.1 12/13/18 07:37 APTT 29 SECONDS (21-34) 08/15/18 07:37 - Constitutional Appears: Non-toxic, No Acute Distress - Extremities Exam Additional comments: RLE focused physical exam: VASC: PT pulse weakly palpable 1/4. DP nonpalpable. CFT delayed to digits, unable to assess hallux. +2 pitting edema. NEURO: Protective sensation grossly diminished. DERM: Dusky discoloration noted to hallux extending proximally into midshaft of 1st metatarsal; +malodor, neg drainage/purulence/fluctuance. ORTHO: Pain on palpation distal tuft of hallux. Hallucal IPJ and 1st MPJ ROM limited secondary to guarding. - Neurological Exam Neurological Exam: Alert, Awake, Oriented x3 - Psychiatric Exam Psychiatric exam: Normal Affect, Normal Mood Assessment and Plan - Assessment and Plan (Free Text) Assessment: 73F PMHx DM, HTN, ESRD on HD MWF, anemia, chronic back pain with right hallux gangrenous changes Plan: Patient seen and evaluated with attending, Dr. Dilip PINTO Arterial US: -Unable to obtain right JENNIFER due to absent audible pulses -Bilat. multilevel decreased perfusion; R decreased at iliac, superficial femoral, popliteal, tibial, and distal small aa.; L decreased at SFA, popliteal, and tibial aa. Vascular consulted - angio ordered Local wound care: DSD right foot -Dakins 1/4 strength ordered -to be applied QSHIFT Pain control per primary team Podiatry will continue to follow
--- NOTE | 2018-08-16 15:47 | CP.PCM.CON ---
History of Present Illness - History of Present Illness History of Present Illness: REASONS FOR CONSULT : ESRD ON HD M W F CLOTTED AVF PT WAS SEEN YESTERDAY ON HD AND ALSO TODAY . PT WENT TO HER HD ON SUN .. COULD GET HER TREATMENT2/2 CLOTTED AVF History Of Present Illness 73 year old female with ESRD on dialysis is sent to the ED for evaluation for fistula on her right arm. Patient had trouble with her fistula since last Sunday. Patient went to dialysis on Sunday but they were having trouble with her port. Patient was seen by surgeon on [place] for evaluation of her port and patient had a stent put in place. Patient went back to dialysis today but port was still not able to be uses. Patient touched base with Dr. Thompson and was sent here for admission for vascular access for dialysis. Patient also c/o non healing ulcer on right great toe, however patient already has scheduled appointment with vascular. Patient denies fever, chills, nausea, vomit, diarrhea, CP, SOB, rash, weakness, numbness. Time Seen by Provider: 08/14/18 18:43 Chief Complaint (Nursing): Vascular Access Device Problem History Per: Patient History/Exam Limitations: no limitations Onset/Duration Of Symptoms: Days Current Symptoms Are (Timing): Still Present Recent travel outside of the [place]: No Additional History Per: Patient Past Medical History Reviewed: Historical Data, Nursing Documentation, Vital Signs Vital Signs: Last Vital Signs Temp 98 F 08/14/18 17:34 Pulse 75 08/14/18 17:34 Resp 18 08/14/18 17:34 BP 169/77 H 08/14/18 17:34 Pulse Ox 96 08/14/18 17:34 - Medical History PMH: Anemia (IRON INFUSION TREATMENTS), Arthritis (KNEE), CHF (Questionable on xray. Pt denies), HTN, Peripheral Edema ( Chronic), End Stage Renal Disease, Chronic Kidney Disease Surgical History: Appendectomy - [facility] Procedures (01/20/18) BYPASS RIGHT RADIAL ARTERY TO LOWER ARM VEIN, OPEN APPROACH (05/13/17) DILATION OF UPPER ARTERY, PERCUTANEOUS APPROACH (01/20/18) DILATION OF UPPER VEIN, PERCUTANEOUS APPROACH (01/20/18) FLUOROSCOPY OF DIALYSIS SHUNT/FISTULA USING OTHER CONTRAST (01/20/18) INSERT INFUSION DEV IN R INT JUGULAR VEIN, PERC (05/13/17) INSERTION OF INFUSION DEV INTO SUP VENA CAVA, PERC APPROACH (01/20/18) INSPECTION OF LOWER INTESTINAL TRACT, PERC ENDO APPROACH (09/24/17) PERFORMANCE OF URINARY FILTRATION, MULTIPLE (05/13/17) REMOVAL OF INFUSION DEVICE FROM GREAT VESSEL, PERC APPROACH (01/20/18) RESECTION OF APPENDIX, OPEN APPROACH (09/24/17) Family History: States: Unknown Family Hx - Social History Hx Alcohol Use: No Hx Substance Use: No - Immunization History Hx Tetanus Toxoid Vaccination: No Hx Influenza Vaccination: No Hx Pneumococcal Vaccination: No Review Of Systems Constitutional: Negative for: Fever, Chills Eyes: Negative for: Vision Change Cardiovascular: Negative for: Chest Pain, Palpitations Respiratory: Negative for: Cough, Shortness of Breath Gastrointestinal: Negative for: Nausea, Vomiting, Abdominal Pain Musculoskeletal: Positive for: Arm Pain Skin: Negative for: Rash Neurological: Negative for: Weakness, Numbness, Headache Physical Exam - Physical Exam Appears: Non-toxic, No Acute Distress Skin: Normal Color, Warm, Dry Head: Atraumatic, Normacephalic Eye(s): bilateral: Normal Inspection Neck: Normal ROM, Supple Chest: Symmetrical Cardiovascular: Rhythm Regular Respiratory: Normal Breath Sounds, No Rales, No Rhonchi, No Wheezing Gastrointestinal/Abdominal: Soft, No Tenderness, No Guarding, No Rebound Extremity: Normal ROM, Tenderness (right arm fistula area, warm to touch), Capillary Refill (< 2 seconds), Swelling (right arm fistula area), Other (fistula right arm, warm to touch no thrill or bruit) Pulses: Left Radial: Normal, Right Radial: Normal Neurological/Psych: Oriented x3, Normal Speech, Normal Cognition, Normal Motor, Normal Sensation Gait: Steady ED Course And Treatment - Laboratory Results Past Patient History - Past Medical History & Family History Past Medical History?: Yes - Past Social History Smoking Status: Never Smoked - CARDIAC Hx Congestive Heart Failure: Yes (Questionable on xray. Pt denies) Hx Hypertension: Yes - PULMONARY Hx Respiratory Disorders: No - NEUROLOGICAL Hx Neurological Disorder: No - HEENT Hx HEENT Problems: Yes (Retinal disease) Hx Cataracts: Yes Other/Comment: Diabetic blindness - RENAL Hx Chronic Kidney Disease: Yes Date of Last Dialysis Treatment: 08/09/18 - ENDOCRINE/METABOLIC Hx Diabetes Mellitus Type 2: Yes - HEMATOLOGICAL/ONCOLOGICAL Hx Anemia: Yes (IRON INFUSION TREATMENTS) - INTEGUMENTARY Hx Dermatological Problems: No - MUSCULOSKELETAL/RHEUMATOLOGICAL Hx Arthritis: Yes (KNEE) - GASTROINTESTINAL Hx Gastrointestinal Disorders: No - GENITOURINARY/GYNECOLOGICAL Hx Genitourinary Disorders: No - PSYCHIATRIC Hx Substance Use: No - SURGICAL HISTORY Hx Appendectomy: Yes - ANESTHESIA Hx Anesthesia: Yes Hx Anesthesia Reactions: No Hx Malignant Hyperthermia: No Meds Allergies/Adverse Reactions: Allergies Allergy/AdvReac Type Severity Reaction Status Date / Time povidone-iodine Allergy Severe RASH Verified 01/18/18 13:41 [From Betadine] soap [From Betadine] Allergy Severe RASH Verified 01/18/18 13:41 Latex, Natural Rubber Allergy Intermediate ITCHING Verified 10/25/17 09:09 durapore tape Allergy Intermediate ITCHING Uncoded 10/25/17 09:09 - Medications Medications: Current Medications Allopurinol (Zyloprim) 300 mg PO DAILY [facility] Last Admin: 08/16/18 10:36 Dose: 300 mg Gabapentin (Neurontin) 300 mg PO HS [facility] Last Admin: 08/15/18 22:34 Dose: 300 mg Insulin Human Regular (Novolin R) 0 unit SC [facility]; Protocol Last Admin: 08/16/18 11:51 Dose: Not Given Metoprolol Tartrate (Lopressor) 100 mg PO DAILY [facility] Last Admin: 08/16/18 10:36 Dose: 100 mg Rigsb-5-Svpe Ethyl Esters (Lovaza) 1 gm PO DAILY [facility] Last Admin: 08/16/18 10:36 Dose: 1 gm Pneumococcal Polyvalent Vaccine (Pneumovax 23 Vaccine) 0.5 ml IM .ONCE ONE Stop: 08/17/18 14:01 Sevelamer Carbonate (Renvela) 800 mg PO TIDCC [facility] Last Admin: 08/16/18 12:39 Dose: 800 mg Sodium Hypochlorite (Dakins Solution 0.25%) 0 ml [facility] Vitamin B Complex/Vit C/Folic Acid (Nephro-Leslye) 1 tab PO DAILY [facility] Last Admin: 08/16/18 10:36 Dose: 1 tab Results - Vital Signs Recent Vital Signs: Last Vital Signs Temp 98.3 F 08/16/18 07:40 Pulse 93 H 08/16/18 10:37 Resp 20 08/16/18 07:40 BP 126/74 08/16/18 10:37 Pulse Ox 90 L 08/16/18 07:40 - Labs Result Diagrams: 08/14/18 19:21 08/15/18 07:37 Labs: Laboratory Results - last 24 hr 08/15/18 08/15/18 08/16/18 15:40 22:08 06:22 POC Glucose (mg/dL) 89 102 138 H 08/16/18 11:28 POC Glucose (mg/dL) 145 H Assessment & Plan - Assessment and Plan (Free Text) Assessment: ESRD ON HD M W F CLOTTED AVF MMP P : DR GREER FOR HD ACCESS RECIEVED HER HD YESTERDAY NEXT HD IN AM THEN NEXT WEEK M W F C/O CURRENT CARE C/O PRESENT MANAGEMENT - Date & Time Date: 08/16/18 Time: 14:00
--- NOTE | 2018-08-16 16:54 | CP.PCM.CON ---
History of Present Illness - History of Present Illness History of Present Illness: INFECTIOUS DISEASE CONSULT; HPI; 73 year old female patient PMHx including DM, HTN, ESRD on HD MWF, anemia seen and evaluated for right great toe pain. Patient is accompanied by DAUGHTER at bedside who WHO GAVE THE HISTORY. Per daughter, patient presented to ED in May after striking her left foot and right great toe; since then patient has been complaining of pain, foul odor, and discoloration around her great toe. Patient states she sees Dr. Eisenberg/Dilip who wanted her to present to ED for further evaluation however has not been able to come until today. Patient states great toe is painful to touch which affects her mobility; denies seeing any drainage from digit. PATIENT ALSO DEVELOPED MALFUNCTION OF HER AVF AND SHE REPORTS SHE LAST HAD HEMODIALYSIS ON sunday,. PATIENT WAS FOUND BY VASCULAR SURGERY WITH RIGHT JUGULAR OCCLUSION, AND THE RIGHT SUBCLAVIAN CATHETER PLACED ON 08/15/18 FOR HEMODIALYSIS ACCESS AT [facility] BY DR RODRIGUEZ. INFECTIOUS DISEASE CONSULTATION REQUESTED FOR INFECTED RIGHT FOOT GREAT TOE FOR ONE AND A HALF MONTH. PATIENT NOW HAS DIFFICULTY AMBULATING AND ALSO COMPLAINING OF FOUL ODOR AND DISCOLORATION AROUND THE GREAT TOE.PATIENT DENIES ANY FEVER BUT HAS NOT TAKEN HER TEMP.. PMH: DM, HTN, ESRD on HD MWF, anemia, chronic back pain PSH: , permacath AVF, appendectomy, fistulagram w/balloon dilations, AV shunt placement -ABSENT BRUIT. FH: Denies SH: Denies ETOH/tobacco Allergies: iodine, latex, SOAP, NATURAL RUBBER, dURAPORE TAPE. Review of Systems - Review of Systems All systems: reviewed and no additional remarkable complaints except (RIGHT PAINFUL FOOT WITH DISCOLORATION AND ISCHEMIC GANGRENE.) Past Patient History - Past Medical History & Family History Past Medical History?: Yes - Past Social History Smoking Status: Never Smoked - CARDIAC Hx Congestive Heart Failure: Yes (Questionable on xray. Pt denies) Hx Hypertension: Yes - PULMONARY Hx Respiratory Disorders: No - NEUROLOGICAL Hx Neurological Disorder: No - HEENT Hx HEENT Problems: Yes (Retinal disease) Hx Cataracts: Yes Other/Comment: Diabetic blindness - RENAL Hx Chronic Kidney Disease: Yes Date of Last Dialysis Treatment: 08/09/18 - ENDOCRINE/METABOLIC Hx Diabetes Mellitus Type 2: Yes - HEMATOLOGICAL/ONCOLOGICAL Hx Anemia: Yes (IRON INFUSION TREATMENTS) - INTEGUMENTARY Hx Dermatological Problems: No - MUSCULOSKELETAL/RHEUMATOLOGICAL Hx Arthritis: Yes (KNEE) - GASTROINTESTINAL Hx Gastrointestinal Disorders: No - GENITOURINARY/GYNECOLOGICAL Hx Genitourinary Disorders: No - PSYCHIATRIC Hx Substance Use: No - SURGICAL HISTORY Hx Appendectomy: Yes - ANESTHESIA Hx Anesthesia: Yes Hx Anesthesia Reactions: No Hx Malignant Hyperthermia: No Meds Allergies/Adverse Reactions: Allergies Allergy/AdvReac Type Severity Reaction Status Date / Time povidone-iodine Allergy Severe RASH Verified 01/18/18 13:41 [From Betadine] soap [From Betadine] Allergy Severe RASH Verified 01/18/18 13:41 Latex, Natural Rubber Allergy Intermediate ITCHING Verified 10/25/17 09:09 durapore tape Allergy Intermediate ITCHING Uncoded 10/25/17 09:09 - Medications Medications: Current Medications Allopurinol (Zyloprim) 300 mg PO DAILY [facility] Last Admin: 08/16/18 10:36 Dose: 300 mg Gabapentin (Neurontin) 300 mg PO [facility] Last Admin: 08/15/18 22:34 Dose: 300 mg Insulin Human Regular (Novolin R) 0 unit SC [facility]; Protocol Last Admin: 08/16/18 11:51 Dose: Not Given Metoprolol Tartrate (Lopressor) 100 mg PO DAILY [facility] Last Admin: 08/16/18 10:36 Dose: 100 mg [id number]-9-[id number] Ethyl Esters (Lovaza) 1 gm PO DAILY [facility] Last Admin: 08/16/18 10:36 Dose: 1 gm Pneumococcal Polyvalent Vaccine (Pneumovax 23 Vaccine) 0.5 ml IM .ONCE ONE Stop: 08/17/18 14:01 Sevelamer Carbonate (Renvela) 800 mg PO TIDCC [facility] Last Admin: 08/16/18 12:39 Dose: 800 mg Sodium Hypochlorite (Dakins Solution 0.25%) 0 ml TOP [facility] Vitamin B Complex/Vit C/Folic Acid (Nephro-Leslye) 1 tab PO DAILY [facility] Last Admin: 08/16/18 10:36 Dose: 1 tab Physical Exam - Constitutional Appears: No Acute Distress (OBESE) - Head Exam Head Exam: NORMAL INSPECTION - Eye Exam Eye Exam: EOMI, PERRL - ENT Exam ENT Exam: Normal Oropharynx - Neck Exam Neck exam: Positive for: Normal Inspection. Negative for: Lymphadenopathy, Thyromegaly - Respiratory Exam Respiratory Exam: Decreased Breath Sounds, NORMAL BREATHING PATTERN - Cardiovascular Exam Cardiovascular Exam: REGULAR RHYTHM, +S1, +S2 - GI/Abdominal Exam GI & Abdominal Exam: Normal Bowel Sounds, Soft. absent: Organomegaly - Extremities Exam Extremities exam: Positive for: pedal edema, tenderness (right big toe painful on movement with discoloration of big toe extending onto the dorsu of the foot. Nail dystrophy right big toe noted), pedal pulses present (distant.). Negative for: calf tenderness - Expanded Upper Extremities Exam Right Upper Arm exam: swelling (SWELLING OF THE ARM EXTENDING OVER TO THE HAND AND FINGERS NOTED.). absent: crepitus Forearm Wrist exam: swelling. absent: crepitus Neuro motor exam: finger 2-5 abduction intact Vascular exam: radial pulse (PRESENT. nO BRUIT av SHUNT.) - Neurological Exam Neurological exam: Alert, CN II-XII Intact, Oriented x3, Reflexes Normal - Psychiatric Exam Psychiatric exam: Normal Mood - Skin Skin Exam: Normal Color, Warm Results - Vital Signs Recent Vital Signs: Last Vital Signs Temp 98.8 F 08/16/18 15:30 Pulse 77 08/16/18 15:30 Resp 20 08/16/18 15:30 BP 130/75 08/16/18 15:30 Pulse Ox 95 08/16/18 15:30 - Labs Result Diagrams: 08/14/18 19:21 08/15/18 07:37 Labs: Laboratory Results - last 24 hr 08/15/18 08/16/18 08/16/18 22:08 06:22 11:28 POC Glucose (mg/dL) 102 138 H 145 H - Imaging and Cardiology Chest x-ray Status: Report reviewed by me (CHEST X-RAY 08/15/18 NEW pvc, NO PNEUMOTHORAX AFTER PLACEMENT OF RT. SUBCLAVIAN CATHETER) Assessment & Plan (1) Ischemic gangrene Assessment and Plan: SEEN BY PODIATRY.. PANCULTURE. WOUND CULTURE. ESR. XRAY RT FOOT 3 VIEW R/O OSTEMYLITIS/GAS IN TISSUES. START IV ZOSYN 2.25 GM IVPB Q 8HRLY 08/16/18/ ADD IV CLEOCIN 300MG IV PB Q 8HRLY. ADD IV VANCOMYCIN 1GM IVPB POST EACH HD MWF X 6 DOSES. F/U VANCO LEVEL PRIOR TO 3RD DOSE AND MAINTAIN BETWEEN 10-20MG/DL. Status: Acute (2) AV fistula occlusion Assessment and Plan: S/P RT SUBCLAVIAN HD CATHETHER PLACEMENT 08/15/18 Status: Acute (3) ESRD on dialysis Assessment and Plan: HD ON MWF. LAST HD ON Sunday08/09/18 PER CHART. Status: Acute (4) Diabetes mellitus Status: Acute
[2018-08-16] MEDS: Piperacill/Tazo 2.25gm in Dex 2.25 GM/50 ML BAG IVPB SCH (18:19)
[2018-08-16] MEDS: Dakin's Topical 0.25%-Half Strength (480 ml) TOP SCH (21:51)
--- NOTE | 2018-08-16 22:02 | PN ---
DATE: 08/16/2018 SUBJECTIVE: The patient is seen today, 08/16/2018. She is still having pain and foul-smelling of the right foot. PHYSICAL EXAMINATION: VITAL SIGNS: Blood pressure is 130/75, temperature 98.8, respiratory rate 20 and pulse 77. HEENT: Pupils equal and reactive to light. Normal-appearing mucosa of the conjunctivae, oropharynx, and nasal membrane mucosa. NECK: Supple. No JVD. No carotid bruit. No lymph node. No thyromegaly. CHEST: Lungs, bilateral symmetrical expansion. Good air exchange. No rales, no rhonchi. CARDIOVASCULAR SYSTEM: PMI not localized. S1, S2. No additional sounds. ABDOMEN: Normoactive bowel sounds. No tenderness. No organomegaly. No masses. EXTREMITIES: No cyanosis, clubbing, no edema. Right toe has foul-smelling and gangrenous changes. CENTRAL NERVOUS SYSTEM: Alert, awake, oriented x2 and moves all extremities equally. ASSESSMENT: 1. Infected right foot with gangrenous changes of the right big toe. 2. Hypertension. 3. End-stage renal disease on hemodialysis. 4. Gouty arthritis. PLAN: ID consult, podiatry consult, and follow recommendations. Start IV antibiotics. Continue hemodialysis through the new tunneled catheter placed by Vascular Surgery. Sushil MD Emeka
[2018-08-17] MEDS: Piperacill/Tazo 2.25gm in Dex 2.25 GM/50 ML BAG IVPB SCH ×3 (00:36→21:13)
[2018-08-17] MEDS: Clindamycin 300 MG in Sodium Chloride 0.9% 50 ML IVPB SCH ×3 (02:16→18:09)
[2018-08-17] MEDS: (Novolin R) Insulin Human Regular 100 units/ml vial SC SCH ×4 (07:30→21:15)
[2018-08-17] MEDS: Omega-3-Acid Ethyl Esters 1 GM Cap PO SCH (10:33)
[2018-08-17] MEDS: Multivitamin Vitamin B Complex (Nephro-Vite) Tab PO SCH (10:33)
--- NOTE | 2018-08-17 10:44 | CP.PCM.PN ---
Subjective - Date & Time of Evaluation Date of Evaluation: 08/17/18 Time of Evaluation: 10:43 - Subjective Subjective: severe pvd r sfa/pop/ and more severe tibial disease will plan therapeutic angio for sunday depending on blood bank laboratory technologist availability Objective - Vital Signs/Intake and Output Vital Signs (last 24 hours): Temp Pulse Resp BP Pulse Ox 99.1 F 86 20 124/76 94 L 08/17/18 07:00 08/17/18 07:00 08/17/18 07:00 08/17/18 07:00 08/17/18 07:00 - Medications Medications: Current Medications Allopurinol (Zyloprim) 300 mg PO DAILY [facility] Last Admin: 08/17/18 10:34 Dose: Not Given Gabapentin (Neurontin) 300 mg PO HS [facility] Last Admin: 08/16/18 21:30 Dose: 300 mg Piperacillin Sod/Tazobactam Sod (Zosyn 2.25 Gm Iv Premix) 2.25 gm in 50 mls @ 100 mls/hr IVPB Q8H [facility]; Protocol Last Admin: 08/17/18 09:00 Dose: Not Given Clindamycin Phosphate 300 mg/ (Sodium Chloride) 52 mls @ 104 mls/hr IVPB Q8H [facility]; Protocol Last Admin: 08/17/18 09:00 Dose: Not Given Vancomycin HCl 1 gm/ Sodium (Chloride) 250 mls @ 166.7 mls/hr IVPB MWF [facility]; Protocol Stop: 08/30/18 10:30 Insulin Human Regular (Novolin R) 0 unit SC [facility]; Protocol Last Admin: 08/17/18 07:30 Dose: Not Given Metoprolol Tartrate (Lopressor) 100 mg PO DAILY [facility] Last Admin: 08/17/18 10:33 Dose: Not Given Saiml-7-Ntwr Ethyl Esters (Lovaza) 1 gm PO DAILY [facility] Last Admin: 08/17/18 10:33 Dose: Not Given Pneumococcal Polyvalent Vaccine (Pneumovax 23 Vaccine) 0.5 ml IM .ONCE ONE Stop: 08/17/18 14:01 Sevelamer Carbonate (Renvela) 800 mg PO TIDCC [facility] Last Admin: 08/17/18 08:48 Dose: 800 mg Sodium Hypochlorite (Dakins Solution 0.25%) 0 ml TOP QSHIFT [facility] Last Admin: 08/16/18 21:51 Dose: 1 applic Vitamin B Complex/Vit C/Folic Acid (Nephro-Leslye) 1 tab PO DAILY [facility] Last Admin: 08/17/18 10:33 Dose: Not Given - Labs Labs: 08/14/18 19:21 08/15/18 07:37 PT 12.3 SECONDS (9.7-12.2) H 08/15/18 07:37 INR 1.1 08/15/18 07:37 APTT 29 SECONDS (21-34) 08/15/18 07:37
[2018-08-17 11:34] LABS: BASO # 0.1 K/uL (0.0-0.2); BASO % 0.7 % (0.0-2.0); EOS # 0.3 K/uL (0.0-0.7); EOS % 4.8 % (0.0-4.0); HEMOGLOBIN 8.5 g/dL (11.0-16.0); LYMPH # 1.2 K/uL (1.0-4.3); LYMPH % 16.8 % (20.0-40.0); MEAN CELL VOLUME 98.3 fL (81.0-99.0); MEAN CORPUSCULAR HEMOGLOBIN 32.2 pg (27.0-31.0); MEAN CORPUSCULAR HGB CONC 32.8 g/dL (33.0-37.0); MEAN PLATELET VOLUME 9.7 fL (7.2-11.7); MONO # 0.8 K/uL (0.0-0.8); MONO % 10.5 % (0.0-10.0); NEUT # 4.8 K/uL (1.8-7.0); NEUT % 67.2 % (50.0-75.0); NRBC % 0.2 % (0.0-2.0); RBC 2.64 Mil/uL (3.80-5.20); RED CELL DISTRIBUTION WIDTH 16.6 % (11.5-14.5); WHITE BLOOD COUNT 7.2 K/uL (4.8-10.8)
[2018-08-17 11:48] LABS: ALBUMIN 3.2 g/dL (3.5-5.0); CALCIUM 8.3 mg/dl (8.6-10.4)
--- NOTE | 2018-08-17 11:57 | CP.PCM.PN ---
Subjective - Date & Time of Evaluation Date of Evaluation: 08/17/18 Time of Evaluation: 11:51 - Subjective Subjective: Podiatry - Dr. Cherry 73 y/o F patient seen and evaluated at bedside at dialysis for right hallux gangrenous changes. Patient resting comfortably, NAD. Patient reports continued pain to right great toe, unchanged. Patient denies any other pedal complaint at this time. SHe denies any overnight F/N/V/C or SOB. Objective - Vital Signs/Intake and Output Vital Signs (last 24 hours): Temp Pulse Resp BP Pulse Ox 99.1 F 86 20 124/76 94 L 08/17/18 07:00 08/17/18 07:00 08/17/18 07:00 08/17/18 07:00 08/17/18 07:00 - Medications Medications: Current Medications Allopurinol (Zyloprim) 300 mg PO DAILY [facility] Last Admin: 08/17/18 10:34 Dose: Not Given Gabapentin (Neurontin) 300 mg PO HS [facility] Last Admin: 08/16/18 21:30 Dose: 300 mg Piperacillin Sod/Tazobactam Sod (Zosyn 2.25 Gm Iv Premix) 2.25 gm in 50 mls @ 100 mls/hr IVPB Q8H [facility]; Protocol Last Admin: 08/17/18 09:00 Dose: Not Given Clindamycin Phosphate 300 mg/ (Sodium Chloride) 52 mls @ 104 mls/hr IVPB Q8H [facility]; Protocol Last Admin: 08/17/18 09:00 Dose: Not Given Vancomycin HCl 1 gm/ Sodium (Chloride) 250 mls @ 166.7 mls/hr IVPB MWF [facility]; Protocol Stop: 08/30/18 10:30 Insulin Human Regular (Novolin R) 0 unit SC [facility]; Protocol Last Admin: 08/17/18 07:30 Dose: Not Given Metoprolol Tartrate (Lopressor) 100 mg PO DAILY [facility] Last Admin: 08/17/18 10:33 Dose: Not Given Fwwmv-6-Coom Ethyl Esters (Lovaza) 1 gm PO DAILY [facility] Last Admin: 08/17/18 10:33 Dose: Not Given Pneumococcal Polyvalent Vaccine (Pneumovax 23 Vaccine) 0.5 ml IM .ONCE ONE Stop: 08/17/18 14:01 Sevelamer Carbonate (Renvela) 800 mg PO TIDCC [facility] Last Admin: 08/17/18 08:48 Dose: 800 mg Sodium Hypochlorite (Dakins Solution 0.25%) 0 ml TOP [facility] Last Admin: 08/16/18 21:51 Dose: 1 applic Vitamin B Complex/Vit C/Folic Acid (Nephro-Leslye) 1 tab PO DAILY [facility] Last Admin: 08/17/18 10:33 Dose: Not Given - Labs Labs: 08/17/18 11:28 08/17/18 11:28 PT 12.3 SECONDS (9.7-12.2) H 08/15/18 07:37 INR 1.1 08/15/18 07:37 APTT 29 SECONDS (21-34) 08/15/18 07:37 - Head Exam Head Exam: ATRAUMATIC, NORMOCEPHALIC - Extremities Exam Additional comments: RLE focused physical exam: VASC: PT pulse weakly palpable 1/4. DP nonpalpable. CFT delayed to digits, unable to assess hallux. +2 pitting edema. NEURO: Protective sensation grossly diminished. DERM: Dusky discoloration noted to hallux extending proximally into midshaft of 1st metatarsal; +malodor, neg drainage/purulence/fluctuance. MSK: Pain on palpation distal tuft of hallux. Hallucal IPJ and 1st MPJ ROM limited secondary to guarding. - Neurological Exam Neurological Exam: Alert, Awake, Oriented x3 - Psychiatric Exam Psychiatric exam: Normal Affect, Normal Mood Assessment and Plan - Assessment and Plan (Free Text) Assessment: 73 y/o F patient with right hallux gangrenous changes Plan: Patient seen and evaluated at the bedside. Plan discussed with Dr. Cherry. Charts, labs and vitals reviewed; Afebrile, No leukocytosis Right foot X-ray; Pending report Wound culture; Gram positive cocci LE angio; Pending report LE Arterial US: -Unable to obtain right JENNIFER due to absent audible pulses -Bilat. multilevel decreased perfusion; R decreased at iliac, superficial femoral, popliteal, tibial, and distal small aa.; L decreased at SFA, popliteal, and tibial aa. Vascular consulted; recommendations appreciated Local wound care right foot: cleaned with Dakins, Dressing using DSD Pain control as per primary team Podiatry will continue to follow up the patient while in house.
--- NOTE | 2018-08-17 13:12 | CP.PCM.PN ---
Subjective - Date & Time of Evaluation Date of Evaluation: 08/17/18 Time of Evaluation: 13:12 - Subjective Subjective: CHIEF COMPLAINTS TODAY : afebrile, c/o pain rt. big toe s/p abdominal angiography,- DR RODRIGUEZ FINDINGS NOTED- SEVERE PERIPHERAL VASCULAR DISEASE ANTHONY. RT SIDE. S/P HD TODAY 08/17/18 ( SUNDAY ) AND THEN MWF PER RENAL. ROS. HEENT : N. Resp : No cough, wheezing ,pleuritic CP ,or hemoptysis Cardio : No anginal CP, PND, orthopnea, palpitation GI : No abd.pain, n/v ,diarrhea or GI bleeding . EMBEDDED ENGINEER : No headache, vertigo, focal deficit. Musculoskel : No joint swelling , Derm : No rash Psych : Normal affect. Ext : No swelling ,calf pain PE. Pt. is alert awake in no distress. V.S As noted in the chart Head ,ear nose,throat and eyes : Normal. Neck : Supple with normal carotids. Lungs: Clear air entry. Heart : S1 & S2 normal with S4. No murmur. Abd : Soft non tender with normal bowel sounds. Neuro : Moves all ext. with no localized deficit. Ext : RT . BIG TOE ISCHEMIC GANGRENE, PERIPHERAL PULSES WEAK. Derm : No rashes or decubitus ulcer. LABS/RADIOLOGY: WOUND CULTURE -GP COCCI -P -IDENTIFICATION. X-RAY RIGHT FOOT -VE FOREIGN BODY. EMPHYSEMATOUS SOFT TISSUE CHANGES SEEN RIGHT GREAT TOE. ( SEE FULL REPORT ) Objective - Vital Signs/Intake and Output Vital Signs (last 24 hours): Temp Pulse Resp BP Pulse Ox 98 F 70 18 127/68 98 08/17/18 11:00 08/17/18 11:00 08/17/18 11:15 08/17/18 12:20 08/17/18 11:15 - Medications Medications: Current Medications Allopurinol (Zyloprim) 300 mg PO DAILY [facility] Last Admin: 08/17/18 10:34 Dose: Not Given Gabapentin (Neurontin) 300 mg PO HS [facility] Last Admin: 08/16/18 21:30 Dose: 300 mg Piperacillin Sod/Tazobactam Sod (Zosyn 2.25 Gm Iv Premix) 2.25 gm in 50 mls @ 100 mls/hr IVPB Q8H [facility]; Protocol Last Admin: 08/17/18 09:00 Dose: Not Given Clindamycin Phosphate 300 mg/ (Sodium Chloride) 52 mls @ 104 mls/hr IVPB Q8H [facility]; Protocol Last Admin: 08/17/18 09:00 Dose: Not Given Vancomycin HCl 1 gm/ Sodium (Chloride) 250 mls @ 166.7 mls/hr IVPB MWF [facility]; Protocol Stop: 08/30/18 10:30 Insulin Human Regular (Novolin R) 0 unit SC ACHS [facility]; Protocol Last Admin: 08/17/18 07:30 Dose: Not Given Metoprolol Tartrate (Lopressor) 100 mg PO DAILY [facility] Last Admin: 08/17/18 10:33 Dose: Not Given Wlifb-3-Fghb Ethyl Esters (Lovaza) 1 gm PO DAILY [facility] Last Admin: 08/17/18 10:33 Dose: Not Given Pneumococcal Polyvalent Vaccine (Pneumovax 23 Vaccine) 0.5 ml IM .ONCE ONE Stop: 08/17/18 14:01 Sevelamer Carbonate (Renvela) 800 mg PO TIDCC [facility] Last Admin: 08/17/18 12:17 Dose: Not Given Sodium Hypochlorite (Dakins Solution 0.25%) 0 ml TOP QSHIFT [facility] Last Admin: 08/16/18 21:51 Dose: 1 applic Vitamin B Complex/Vit C/Folic Acid (Nephro-Leslye) 1 tab PO DAILY [facility] Last Admin: 08/17/18 10:33 Dose: Not Given - Labs Labs: 08/17/18 11:28 08/17/18 11:28 PT 12.3 SECONDS (9.7-12.2) H 08/15/18 07:37 INR 1.1 08/15/18 07:37 APTT 29 SECONDS (21-34) 08/15/18 07:37 Assessment and Plan (1) Ischemic gangrene Status: Acute (2) AV fistula occlusion Status: Acute (3) ESRD on dialysis Status: Acute (4) Diabetes mellitus Status: Acute - Assessment and Plan (Free Text) Plan: CONTINUE IV ZOSYN 2.25 GM IVPB Q 8HRLY 08/16/18/ CONTINUE IV CLEOCIN 300MG IV PB Q 8HRLY.08/16/18 ADD IV VANCOMYCIN 1GM IVPB POST EACH HD MWF X 6 DOSES. ( started 08/17/18 ) F/U VANCO LEVEL PRIOR TO 3RD DOSE AND MAINTAIN BETWEEN 10-20MG/DL. w/u for PVD IN PROGRESS PER VASCULAR SURGERY.. CONTINUE LOCAL WOUND CARE.
[2018-08-17] MEDS ORDERED: Pneumococcal 23-Valent Vaccine IM ONE (14:00)
[2018-08-17] MEDS: Dakin's Topical 0.25%-Half Strength (480 ml) TOP SCH ×2 (14:00→21:14)
[2018-08-17] MEDS ORDERED: Vancomycin 1 GM 1 GM/250 ML BAG IVPB SCH (16:00)
[2018-08-17] MEDS ORDERED: Vancomycin 1 gm/NS 200 ml 1 GM/200 ML BAG IVPB SCH (16:00)
--- NOTE | 2018-08-17 17:37 | RAD ---
Date of service: 08/17/2018 PROCEDURE: Right Foot Radiographs. HISTORY: RT.BIG TOE OM/GAS IN TISSUES COMPARISON: None. FINDINGS: BONES: No acute fracture or destructive bony lesion identified. JOINTS: Normal. SOFT TISSUES: Marked loss of soft tissue at the great toe distally, suggest known ulcer. No retained radiodense foreign body evident although prominent a emphysematous soft tissue changes are seen in the same distribution. OTHER FINDINGS: None. IMPRESSION: No overt radiographic pattern of osteomyelitis great toe although ulceration and emphysema soft tissue changes seen distal to the tuft of the distal phalanx right great toe. No fracture, subluxation or dislocation.
--- NOTE | 2018-08-17 18:53 | CP.PCM.PN ---
Subjective - Date & Time of Evaluation Date of Evaluation: 08/17/18 Time of Evaluation: 15:00 - Subjective Subjective: SEEN ON RENAL F/U RECIEVED HER HS TODAY ALL PREVIOUS EMR REVIEWED Objective - Vital Signs/Intake and Output Vital Signs (last 24 hours): Temp Pulse Resp BP Pulse Ox 97.9 F 83 20 116/65 98 08/17/18 16:38 08/17/18 16:38 08/17/18 16:38 08/17/18 16:38 08/17/18 16:38 - Medications Medications: Current Medications Allopurinol (Zyloprim) 300 mg PO DAILY [facility] Last Admin: 08/17/18 10:34 Dose: Not Given Gabapentin (Neurontin) 300 mg PO HS [facility] Last Admin: 08/16/18 21:30 Dose: 300 mg Piperacillin Sod/Tazobactam Sod (Zosyn 2.25 Gm Iv Premix) 2.25 gm in 50 mls @ 100 mls/hr IVPB Q8H [facility]; Protocol Last Admin: 08/17/18 09:00 Dose: Not Given Clindamycin Phosphate 300 mg/ (Sodium Chloride) 52 mls @ 104 mls/hr IVPB Q8H [facility]; Protocol Last Admin: 08/17/18 18:09 Dose: 104 mls/hr Vancomycin HCl 1 gm/ Sodium (Chloride) 250 mls @ 133 mls/hr IVPB TTS [facility]; Protocol Stop: 08/29/18 11:53 Last Admin: 08/17/18 18:06 Dose: 133 mls/hr Insulin Human Regular (Novolin R) 0 unit SC ACHS [facility]; Protocol Last Admin: 08/17/18 17:21 Dose: Not Given Metoprolol Tartrate (Lopressor) 100 mg PO DAILY [facility] Last Admin: 08/17/18 10:33 Dose: Not Given Ldlsc-4-Vcxl Ethyl Esters (Lovaza) 1 gm PO DAILY [facility] Last Admin: 08/17/18 10:33 Dose: Not Given Sevelamer Carbonate (Renvela) 800 mg PO TIDCC [facility] Last Admin: 08/17/18 18:09 Dose: Not Given Sodium Hypochlorite (Dakins Solution 0.25%) 0 ml TOP QSHIFT [facility] Last Admin: 08/17/18 14:00 Dose: Not Given Vitamin B Complex/Vit C/Folic Acid (Nephro-Leslye) 1 tab PO DAILY [facility] Last Admin: 08/17/18 10:33 Dose: Not Given - Labs Labs: 08/17/18 11:28 08/17/18 11:28 PT 12.3 SECONDS (9.7-12.2) H 08/15/18 07:37 INR 1.1 08/15/18 07:37 APTT 29 SECONDS (21-34) 08/15/18 07:37 Assessment and Plan - Assessment and Plan (Free Text) Assessment: ESRD ON HD T T S ANEMIA OF CKD . . H/H STABLE MMP P : C/O CURRENT CARE C/O PRESENT MANAGEMENT
--- NOTE | 2018-08-17 19:35 | CT ---
Date of service: 08/16/2018 PROCEDURE: CT Angiography Abdomen, Pelvis and Lower Extremity with Contrast HISTORY: GANGRENE RIGHT FOOT COMPARISON: Comparison is made to the previous study dated 09/24/2017 TECHNIQUE: Technique: CT angiography of the abdomen, pelvis and bilateral lower extremities performed in the arterial phase of enhancement. Coronal and sagittal reformats, and well as rotating MIP images of the vessels generated at the workstation. Intravenous contrast dose: 150 mL of Visipaque 320 intravenously. Radiation dose: Total exam DLP = 3036.39 mGy-cm. This CT exam was performed using one or more of the following dose reduction techniques: Automated exposure control, adjustment of the mA and/or kV according to patient size, and/or use of iterative reconstruction technique. FINDINGS: CT ANGIOGRAPHY: ABDOMINAL AORTA:: Diffuse atherosclerotic disease noted in the abdominal aorta associated with foci of calcification and mild mural thickening. MAJOR AORTIC BRANCHES: Celiac [place]: Patent contains foci of atherosclerotic calcification Superior mesenteric artery: Unremarkable. Inferior mesenteric artery: Patent Renal arteries: Patent demonstrate diffuse atherosclerotic disease PELVIC ARTERIES: Right Common Iliac: Patent demonstrate diffuse atherosclerotic calcification and mural thickening Right External Iliac: Patent without evidence of significant stenosis Right Internal Iliac: Patent demonstrate moderate diffuse disease and mural thickening. Left Common Iliac: Patent demonstrate diffuse disease Left External Iliac: Unremarkable. Left Internal Iliac: Demonstrate diffuse disease and mural thickening. RIGHT LOWER EXTREMITY ARTERIES: Right Common Femoral: Mild diffuse mural thickening noted. Right Superficial Femoral: There is focal/short segment of severe approximately 80-90 percent stenosis noted at the mid right superficial femoral artery. There is diffuse irregularity at the distal portion of the right superficial femoral artery contains foci of moderate approximately 60-70 percent stenosis at the junction with the right popliteal artery. Right Profunda Femoris: Patent demonstrate diffuse disease Right Popliteal:Patent demonstrate diffuse disease and foci of xxuo-gd-[id number] stenosis. There is severe stenosis at the distal right popliteal just before the bifurcation Right Anterior Tibial: There is a occlusion and severe stenosis at the origin and proximal right anterior tibial artery which reconstitute shortly and continuous in the right leg with multiple foci of severe stenosis. Right Tibioperoneal Trunk: Severe stenosis Right Posterior Tibial: . patent demonstrate diffuse severe disease. Right Peroneal: Patent up to the level of the ankle demonstrate diffuse disease. Right dorsalis pedis : The proximal portion of right dorsalis pedis is visualized. LEFT LOWER EXTREMITY ARTERIES: Left Common Femoral: Unremarkable. Left Superficial Femoral: Patent demonstrate moderate to severe disease with short segment of cmar-[id number]-[id number] approximately 60 percent stenosis at the midportion. Left Profunda Femoris: Patent Left Popliteal: There is a aeky-xt-wqmybcjj approximately 60-70 percent noted at superficial femoral popliteal junction. There are multiple foci of moderate to severe stenosis in the mid and distal left popliteal artery. Severe stenosis at the most distal portion of the left popliteal artery. Left Anterior Tibial: Occlusion of the left anterior tibial artery shortly after its origin. Left Tibioperoneal Trunk: Patent demonstrate severe disease Left Posterior Tibial: Occlusion of the mid and distal portion Left Peroneal: Patent Left Dorsalis pedis: Not visualized NON-ANGIOGRAPHIC ASPECT OF THE EXAM: LOWER THORAX: Cardiomegaly is noted. No evidence of acute pathology at the lung bases. LIVER: No evidence of acute pathology or suspicious mass. GALLBLADDER AND BILE DUCTS: Gallstones are noted without evidence of acute cholecystitis. PANCREAS: Cholecystitis. SPLEEN: Unremarkable. ADRENALS: Unremarkable. No mass. KIDNEYS AND URETERS: Unremarkable. No hydronephrosis. No solid mass. STOMACH AND BOWEL: Unremarkable. No obstruction. No gross mural thickening. APPENDIX: No evidence of appendicitis. PERITONEUM: Unremarkable. No free fluid. No free air. LYMPH NODES: Unremarkable. No enlarged lymph nodes. BLADDER: Diffuse moderate urinary bladder wall thickening. REPRODUCTIVE: The uterus is prominent in size for the patient's age. BONES: No acute fracture. OTHER FINDINGS: None. IMPRESSION: Severe stenosis at right superficial femoral artery. Severe disease in the right lower extremity utsht-[id number]. Moderate to severe disease in the left superficial femoral left popliteal arteries. Additional findings as discussed above.
--- NOTE | 2018-08-17 22:40 | PN ---
DATE: 08/17/2018 SUBJECTIVE: The patient was seen today, 08/17/2018. She is not in any cardiopulmonary distress. The patient was seen during hemodialysis which she was tolerating well. OBJECTIVE: VITAL SIGNS: Blood pressure 116/65, temperature 97.9, respiratory rate 20, and pulse 83. HEENT: Pupils equal and reactive to light. Normal-appearing mucosa of the conjunctivae, oropharynx, and nasal membrane mucosa. NECK: Supple. No JVD. No carotid bruit. No lymph node. No thyromegaly. CHEST AND LUNGS: Bilateral symmetrical expansion. Good air exchange. No rales, no rhonchi. CARDIOVASCULAR SYSTEM: PMI not localized. S1, S2. No additional sounds. ABDOMEN: Normoactive bowel sounds. No tenderness. No organomegaly. No masses. EXTREMITIES: No cyanosis, no clubbing, no edema. Right big toe has gangrenous changes with foul-smelling. CENTRAL NERVOUS SYSTEM: Alert, awake, oriented x2. Moves all extremities equally. ASSESSMENT: 1. Infected right big toe. 2. End-stage renal disease, on hemodialysis. 3. Hypertension. 4. Type 2 diabetes mellitus. 5. Anemia of chronic disease. PLAN: Continue current medications and follow vascular surgery, podiatry, and infectious disease consultants. Monitor hemoglobin and hematocrit. Procrit during hemodialysis. Cuba Hendrickson MD
[2018-08-18] MEDS: Piperacill/Tazo 2.25gm in Dex 2.25 GM/50 ML BAG IVPB SCH ×3 (00:01→16:20)
[2018-08-18] MEDS: Clindamycin 300 MG in Sodium Chloride 0.9% 50 ML IVPB SCH ×3 (00:02→16:21)
[2018-08-18] MEDS: Dakin's Topical 0.25%-Half Strength (480 ml) TOP SCH ×3 (06:57→21:43)
[2018-08-18] MEDS: (Novolin R) Insulin Human Regular 100 units/ml vial SC SCH ×4 (08:23→22:11)
[2018-08-18 09:01] LABS: ALBUMIN 3.3 g/dL (3.5-5.0); CALCIUM 8.4 mg/dl (8.6-10.4)
[2018-08-18 09:06] LABS: BASO # 0.1 K/uL (0.0-0.2); BASO % 0.8 % (0.0-2.0); EOS # 0.4 K/uL (0.0-0.7); EOS % 5.6 % (0.0-4.0); HEMOGLOBIN 8.9 g/dL (11.0-16.0); LYMPH # 1.2 K/uL (1.0-4.3); LYMPH % 16.9 % (20.0-40.0); MEAN CORPUSCULAR HEMOGLOBIN 32.6 pg (27.0-31.0); MONO # 0.9 K/uL (0.0-0.8); MONO % 12.3 % (0.0-10.0); NEUT # 4.7 K/uL (1.8-7.0); NEUT % 64.4 % (50.0-75.0); NRBC % 0.1 % (0.0-2.0); RBC 2.74 Mil/uL (3.80-5.20); RED CELL DISTRIBUTION WIDTH 16.6 % (11.5-14.5); WHITE BLOOD COUNT 7.3 K/uL (4.8-10.8)
[2018-08-18] MEDS: Omega-3-Acid Ethyl Esters 1 GM Cap PO SCH (09:43)
[2018-08-18] MEDS: Multivitamin Vitamin B Complex (Nephro-Vite) Tab PO SCH (09:43)
--- NOTE | 2018-08-18 13:05 | CP.PCM.PN ---
Subjective - Date & Time of Evaluation Date of Evaluation: 08/18/18 Time of Evaluation: 12:57 - Subjective Subjective: Podiatry progress note for attending Dr. Cherry 73 y/o F patient seen and evaluated at bedside for right hallux gangrenous changes. Patient resting comfortably, NAD. Patient reports continued pain to right great toe, unchanged. Patient denies any other pedal complaint at this time. SHe denies any overnight F/N/V/C or SOB. Objective - Vital Signs/Intake and Output Vital Signs (last 24 hours): Temp Pulse Resp BP Pulse Ox 99.3 F 89 20 134/74 94 L 08/18/18 07:00 08/18/18 09:44 08/18/18 07:00 08/18/18 09:44 08/18/18 07:00 Intake and Output: 08/18/18 08/18/18 06:59 18:59 Intake Total 400 Output Total 200 Balance 200 - Medications Medications: Current Medications Allopurinol (Zyloprim) 300 mg PO DAILY [facility] Last Admin: 08/18/18 09:43 Dose: 300 mg Gabapentin (Neurontin) 300 mg PO HS [facility] Last Admin: 08/17/18 21:10 Dose: 300 mg Piperacillin Sod/Tazobactam Sod (Zosyn 2.25 Gm Iv Premix) 2.25 gm in 50 mls @ 100 mls/hr IVPB Q8H [facility]; Protocol Last Admin: 08/18/18 09:42 Dose: 100 mls/hr Clindamycin Phosphate 300 mg/ (Sodium Chloride) 52 mls @ 104 mls/hr IVPB Q8H [facility]; Protocol Last Admin: 08/18/18 08:23 Dose: 104 mls/hr Vancomycin HCl 1 gm/ Sodium (Chloride) 250 mls @ 133 mls/hr IVPB TTS [facility]; Protocol Stop: 08/29/18 11:53 Last Admin: 08/17/18 18:06 Dose: 133 mls/hr Insulin Human Regular (Novolin R) 0 unit SC ACHS [facility]; Protocol Last Admin: 08/18/18 11:31 Dose: Not Given Metoprolol Tartrate (Lopressor) 100 mg PO DAILY [facility] Last Admin: 08/18/18 09:43 Dose: 100 mg Qubgz-0-Adnw Ethyl Esters (Lovaza) 1 gm PO DAILY [facility] Last Admin: 08/18/18 09:43 Dose: 1 gm Sevelamer Carbonate (Renvela) 800 mg PO TIDCC [facility] Last Admin: 08/18/18 12:31 Dose: 800 mg Sodium Hypochlorite (Dakins Solution 0.25%) 0 ml TOP QSHIFT [facility] Last Admin: 08/18/18 06:57 Dose: Not Given Vitamin B Complex/Vit C/Folic Acid (Nephro-Leslye) 1 tab PO DAILY [facility] Last Admin: 08/18/18 09:43 Dose: 1 tab - Labs Labs: 08/18/18 08:33 08/18/18 08:33 PT 12.3 SECONDS (9.7-12.2) H 08/15/18 07:37 INR 1.1 08/15/18 07:37 APTT 29 SECONDS (21-34) 08/15/18 07:37 - Constitutional Appears: No Acute Distress - Head Exam Head Exam: ATRAUMATIC, NORMOCEPHALIC - Extremities Exam Additional comments: RLE focused physical exam: VASC: PT pulse weakly palpable 1/4. DP nonpalpable. Cap refill delayed to digits, unable to assess hallux. +2 pitting edema. NEURO: Protective sensation grossly diminished. DERM: Dusky discoloration noted to hallux extending proximally into midshaft of 1st metatarsal; +malodor, neg drainage/purulence/fluctuance. MSK: Pain on palpation distal tuft of hallux. Hallucal IPJ and 1st MPJ ROM limited secondary to guarding. - Neurological Exam Neurological Exam: Alert, Awake, Oriented x3 - Psychiatric Exam Psychiatric exam: Normal Affect, Normal Mood Assessment and Plan - Assessment and Plan (Free Text) Assessment: 73 y/o F patient with right hallux gangrenous changes Plan: Patient seen and evaluated at the bedside with Dr. Cherry. Plan discussed with Dr. Cherry. Charts, labs and vitals reviewed; Afebrile, No leukocytosis Right foot X-ray; Pending report Wound culture; Gram positive cocci LE angio; Sever stenosis to the R SFA, R arterial tree below the knee, Moderate to sever stenosis to the L SFA LE Arterial US: -Unable to obtain right JENNIFER due to absent audible pulses -Bilat. multilevel decreased perfusion; R decreased at iliac, superficial femoral, popliteal, tibial, and distal small aa.; L decreased at SFA, popliteal, and tibial aa. Vascular consulted; recommendations appreciated Local wound care right foot: cleaned with Dakins, Dressing using DSD Pain control as per primary team Podiatry will continue to follow up the patient while in house.
[2018-08-19] MEDS: Clindamycin 300 MG in Sodium Chloride 0.9% 50 ML IVPB SCH ×3 (00:01→18:15)
[2018-08-19] MEDS: Piperacill/Tazo 2.25gm in Dex 2.25 GM/50 ML BAG IVPB SCH ×3 (00:02→18:16)
[2018-08-19] MEDS: Dakin's Topical 0.25%-Half Strength (480 ml) TOP SCH ×3 (05:51→21:17)
[2018-08-19] MEDS: (Novolin R) Insulin Human Regular 100 units/ml vial SC SCH ×4 (07:31→21:18)
--- NOTE | 2018-08-19 09:59 | PN ---
DATE: 08/18/2018 SUBJECTIVE: The patient is seen today, 08/18/2018. She is not in any cardiopulmonary distress. The patient is complaining of intermittent pain of the right foot. OBJECTIVE: VITAL SIGNS: Blood pressure 131/75, temperature 99.4, respiratory rate 20 and pulse 75. HEENT: Pupils equal, reactive to light. Normal-appearing mucosa of the conjunctivae, oropharynx and nasal membrane mucosa. NECK: Supple. No JVD. No carotid bruit. No lymph node. No thyromegaly. CHEST AND LUNGS: Bilateral symmetrical expansion. Good air exchange. No rales. No rhonchi. CARDIOVASCULAR SYSTEM: PMI not localized. S1, S2. No additional sounds. ABDOMEN: Normoactive bowel sounds. No tenderness. No organomegaly. No masses. EXTREMITIES: No cyanosis. No clubbing. No edema. There is a gangrenous change in the right foot. BENCH MACHINE OPERATOR: Alert, awake, oriented x2 and moves all extremities equally. ASSESSMENT: 1. Malfunctioning arteriovenous shunt status post tunneled catheter placement. 2. Gangrene of the right foot. 3. Diabetic foot. 4. End-stage renal disease on hemodialysis. PLAN: Continue current medications and antibiotics and follow recommendations of ID, peripheral vascular surgery and plate worker. Cuba Hendrickson MD
[2018-08-19] MEDS: Omega-3-Acid Ethyl Esters 1 GM Cap PO SCH (10:32)
[2018-08-19] MEDS: Multivitamin Vitamin B Complex (Nephro-Vite) Tab PO SCH (10:32)
[2018-08-19 11:17] LABS: BASO % 0.6 % (0.0-2.0); EOS # 0.6 K/uL (0.0-0.7); EOS % 7.5 % (0.0-4.0); HEMOGLOBIN 9.5 g/dL (11.0-16.0); LYMPH # 1.2 K/uL (1.0-4.3); LYMPH % 15.6 % (20.0-40.0); MEAN CELL VOLUME 98.3 fL (81.0-99.0); MEAN CORPUSCULAR HEMOGLOBIN 32.3 pg (27.0-31.0); MEAN CORPUSCULAR HGB CONC 32.9 g/dL (33.0-37.0); MEAN PLATELET VOLUME 10.1 fL (7.2-11.7); MONO # 0.9 K/uL (0.0-0.8); MONO % 11.4 % (0.0-10.0); NEUT % 64.9 % (50.0-75.0); RBC 2.94 Mil/uL (3.80-5.20); RED CELL DISTRIBUTION WIDTH 16.7 % (11.5-14.5); WHITE BLOOD COUNT 7.7 K/uL (4.8-10.8)
[2018-08-19 11:38] LABS: ALBUMIN 3.4 g/dL (3.5-5.0); CALCIUM 8.7 mg/dl (8.6-10.4)
[2018-08-19] MEDS ORDERED: Lidocaine 2% MPF (5 ml) Inj ONE (13:06)
[2018-08-19] MEDS ORDERED: Iodixanol 320 MG/ML 100 ML BOTTLE IV ONE ×3 (14:32→16:32)
--- NOTE | 2018-08-19 17:06 | PCM.SURG1 ---
Surgeon's Initial Post Op Note - Surgeon's Notes Surgeon: suhail [employer] Cutter Hand: 0 Type of Anesthesia: IV Sedation Anesthesia Administered By: ana rosa Pre-Operative Diagnosis: gangrene right great toe Operative Findings: sfa and popliteal stenosis tandem. trifurcation occlusion. proximal peroneal and distal anterior tinbial reconstitution. pressure closre both groins Post-Operative Diagnosis: same Operation Performed: aortofemoral angioplasty via left groin. selective catherization of right femoral artery. pathway atherectomy r sfa and pop. DCB angioplasty of same. subsequent left iliac angiogram via right groin( see dictated report). pressure closures in groin Specimen/Specimens Removed: 0 Estimated Blood Loss: EBL {In ML}: 100 Blood Products Given: N/A Drains Used: No Drains Post-Op Condition: Good Date of Surgery/Procedure: 08/19/18 Time of Surgery/Procedure: 17:08
--- NOTE | 2018-08-19 17:44 | CP.PCM.PN ---
Subjective - Date & Time of Evaluation Date of Evaluation: 08/19/18 Time of Evaluation: 17:41 - Subjective Subjective: Podiatry progress note for attending Dr. Cherry 73 y/o F patient seen and evaluated at bedside for right hallux gangrenous changes. Patient resting comfortably, NAD. Patient reports continued pain to right great toe, unchanged. Patient denies any other pedal complaint at this time. SHe denies any overnight F/N/V/C or SOB. Objective - Vital Signs/Intake and Output Vital Signs (last 24 hours): Temp Pulse Resp BP Pulse Ox 98.1 F 83 18 138/76 90 L 08/19/18 07:57 08/19/18 10:37 08/19/18 07:57 08/19/18 10:37 08/19/18 07:57 - Medications Medications: Current Medications Allopurinol (Zyloprim) 300 mg PO DAILY [facility] Last Admin: 08/19/18 10:41 Dose: 300 mg Clopidogrel Bisulfate (Plavix) 75 mg PO DAILY [facility] Gabapentin (Neurontin) 300 mg PO HS [facility] Last Admin: 08/18/18 21:42 Dose: 300 mg Piperacillin Sod/Tazobactam Sod (Zosyn 2.25 Gm Iv Premix) 2.25 gm in 50 mls @ 100 mls/hr IVPB Q8H [facility]; Protocol Last Admin: 08/19/18 09:25 Dose: 100 mls/hr Clindamycin Phosphate 300 mg/ (Sodium Chloride) 52 mls @ 104 mls/hr IVPB Q8H [facility]; Protocol Last Admin: 08/19/18 09:58 Dose: 104 mls/hr Vancomycin HCl 1 gm/ Sodium (Chloride) 250 mls @ 133 mls/hr IVPB TTS [facility]; Protocol Stop: 08/29/18 11:53 Last Admin: 08/17/18 18:06 Dose: 133 mls/hr Insulin Human Regular (Novolin R) 0 unit SC ACHS [facility]; Protocol Last Admin: 08/19/18 17:27 Dose: Not Given Metoprolol Tartrate (Lopressor) 100 mg PO DAILY [facility] Last Admin: 08/19/18 10:32 Dose: 100 mg Zvbwy-1-Bcmy Ethyl Esters (Lovaza) 1 gm PO DAILY [facility] Last Admin: 08/19/18 10:32 Dose: 1 gm Sevelamer Carbonate (Renvela) 800 mg PO TIDCC [facility] Last Admin: 08/19/18 12:59 Dose: Not Given Sodium Hypochlorite (Dakins Solution 0.25%) 0 ml TOP QSHIFT [facility] Last Admin: 08/19/18 14:30 Dose: Not Given Vitamin B Complex/Vit C/Folic Acid (Nephro-Leslye) 1 tab PO DAILY [facility] Last Admin: 08/19/18 10:32 Dose: 1 tab - Labs Labs: 08/19/18 11:10 08/19/18 11:10 PT 12.3 SECONDS (9.7-12.2) H 08/15/18 07:37 INR 1.1 08/15/18 07:37 APTT 29 SECONDS (21-34) 08/15/18 07:37 - Constitutional Appears: Well, Non-toxic, No Acute Distress - Head Exam Head Exam: ATRAUMATIC, NORMOCEPHALIC - Extremities Exam Additional comments: RLE focused physical exam: VASC: PT pulse weakly palpable 1/4. DP nonpalpable. Cap refill delayed to digits, unable to assess hallux. +2 pitting edema. NEURO: Protective sensation grossly diminished. DERM: Dusky discoloration noted to hallux extending proximally into midshaft of 1st metatarsal; +malodor, neg drainage/purulence/fluctuance. MSK: Pain on palpation distal tuft of hallux. Hallucal IPJ and 1st MPJ ROM limited secondary to guarding. - Neurological Exam Neurological Exam: Alert, Awake, Oriented x3 - Psychiatric Exam Psychiatric exam: Normal Affect, Normal Mood Assessment and Plan - Assessment and Plan (Free Text) Assessment: 73 y/o F patient with right hallux gangrenous changes Plan: Patient seen and evaluated at the bedside with Dr. Cherry. Plan discussed with Dr. Cherry. Charts, labs and vitals reviewed; Afebrile, No leukocytosis Right foot X-ray: No evidence of OM but Right hallux ulceration and emphysema present Wound culture: Gram positive cocci LE angio; Sever stenosis to the R SFA, R arterial tree below the knee, Moderate to sever stenosis to the L SFA LE Arterial US: -Unable to obtain right JENNIFER due to absent audible pulses -Bilat. multilevel decreased perfusion; R decreased at iliac, superficial femoral, popliteal, tibial, and distal small aa.; L decreased at SFA, popliteal, and tibial aa. Vascular consulted; recommendations appreciated Local wound care right foot: cleaned with Dakins, Dressing using DSD Pain control as per primary team Podiatry will continue to follow up the patient while in house.
--- NOTE | 2018-08-19 20:19 | CP.PCM.CON ---
History of Present Illness - History of Present Illness History of Present Illness: CC: Cardiac risk assessment/Pre Op This 73F with a PMH of HTN, DM, Anemia, Renal Insufficiency, Chronic Back pain presents due to malfunction of her AVF she reports she last had dialysis on sunday she is usually on a sunday dialysis schedule. She went to a vascular ceneter yesterday where they attempted a therapeutic fistulagram however they were unsuccessful. Today she presents without any symptoms for dialysis access. She denies any systemic symptoms. She also complains of right toe pain. She reports that it is chronic pain and it limits her mobility. PMD: Dr. Miller Riffler Tender: Dr. Cage PMHx: HTN, DM, Anemia, Renal Insufficiency, Chronic Back pain PSHx: x1, permacath, AVF, open Appy, multiple fistulagrams with balloon dilations, AV shunt Family Hx: Denies NKDA Review of Systems - Review of Systems Review of Systems: 12 point review of symptoms conducted and negative aside from toe pain Physical Exam - Constitutional Appears: Non-toxic, No Acute Distress - Head Exam Head Exam: ATRAUMATIC, NORMOCEPHALIC - Eye Exam Eye Exam: EOMI - ENT Exam ENT Exam: Mucous Membranes Moist - Neck Exam Neck exam: Positive for: Normal Inspection - Respiratory Exam Respiratory Exam: Clear to Auscultation Bilateral - Cardiovascular Exam Cardiovascular Exam: REGULAR RHYTHM - GI/Abdominal Exam GI & Abdominal Exam: Normal Bowel Sounds, Soft - Back Exam Back exam: NORMAL INSPECTION - Neurological Exam Neurological exam: Alert, Oriented x3 - Psychiatric Exam Psychiatric exam: Normal Affect, Normal Mood - Skin Skin Exam: Dry, Intact Assessment & Plan - Assessment and Plan (Free Text) Assessment: 73F with ESRD without functional dialysis access Patient with multiple risk factors Will check ECHO and stress test Past Patient History - Past Medical History & Family History Past Medical History?: Yes - Past Social History Smoking Status: Never Smoked - CARDIAC Hx Congestive Heart Failure: Yes (Questionable on xray. Pt denies) Hx Hypertension: Yes - PULMONARY Hx Respiratory Disorders: No - NEUROLOGICAL Hx Neurological Disorder: No - HEENT Hx HEENT Problems: Yes (Retinal disease) Hx Cataracts: Yes Other/Comment: Diabetic blindness - RENAL Hx Chronic Kidney Disease: Yes Date of Last Dialysis Treatment: 08/09/18 - ENDOCRINE/METABOLIC Hx Diabetes Mellitus Type 2: Yes - HEMATOLOGICAL/ONCOLOGICAL Hx Anemia: Yes (IRON INFUSION TREATMENTS) - INTEGUMENTARY Hx Dermatological Problems: No - MUSCULOSKELETAL/RHEUMATOLOGICAL Hx Arthritis: Yes (KNEE) - GASTROINTESTINAL Hx Gastrointestinal Disorders: No - GENITOURINARY/GYNECOLOGICAL Hx Genitourinary Disorders: No - PSYCHIATRIC Hx Substance Use: No - SURGICAL HISTORY Hx Appendectomy: Yes - ANESTHESIA Hx Anesthesia: Yes Hx Anesthesia Reactions: No Hx Malignant Hyperthermia: No Meds Allergies/Adverse Reactions: Allergies Allergy/AdvReac Type Severity Reaction Status Date / Time povidone-iodine Allergy Severe RASH Verified 01/18/18 13:41 [From Betadine] soap [From Betadine] Allergy Severe RASH Verified 01/18/18 13:41 Latex, Natural Rubber Allergy Intermediate ITCHING Verified 10/25/17 09:09 durapore tape Allergy Intermediate ITCHING Uncoded 10/25/17 09:09 - Medications Medications: Current Medications Acetaminophen (Tylenol 325mg Tab) 650 mg PO Q6 PRN PRN Reason: Pain, moderate (4-7) Last Admin: 08/19/18 18:19 Dose: 650 mg Allopurinol (Zyloprim) 300 mg PO DAILY [facility] Last Admin: 08/19/18 10:41 Dose: 300 mg Clopidogrel Bisulfate (Plavix) 75 mg PO DAILY [facility] Gabapentin (Neurontin) 300 mg PO HS [facility] Last Admin: 08/18/18 21:42 Dose: 300 mg Piperacillin Sod/Tazobactam Sod (Zosyn 2.25 Gm Iv Premix) 2.25 gm in 50 mls @ 100 mls/hr IVPB Q8H [facility]; Protocol Last Admin: 08/19/18 18:16 Dose: 100 mls/hr Clindamycin Phosphate 300 mg/ (Sodium Chloride) 52 mls @ 104 mls/hr IVPB Q8H [facility]; Protocol Last Admin: 08/19/18 18:15 Dose: 104 mls/hr Vancomycin HCl 1 gm/ Sodium (Chloride) 250 mls @ 133 mls/hr IVPB TTS [facility]; Protocol Stop: 08/29/18 11:53 Last Admin: 08/17/18 18:06 Dose: 133 mls/hr Insulin Human Regular (Novolin R) 0 unit SC ACHS [facility]; Protocol Last Admin: 08/19/18 17:27 Dose: Not Given Metoprolol Tartrate (Lopressor) 100 mg PO DAILY [facility] Last Admin: 08/19/18 10:32 Dose: 100 mg [id number] Ethyl Esters (Lovaza) 1 gm PO DAILY [facility] Last Admin: 08/19/18 10:32 Dose: 1 gm Sevelamer Carbonate (Renvela) 800 mg PO TIDCC [facility] Last Admin: 08/19/18 18:15 Dose: 800 mg Sodium Hypochlorite (Dakins Solution 0.25%) 0 ml TOP QSHIFT [facility] Last Admin: 08/19/18 14:30 Dose: Not Given Vitamin B Complex/Vit C/Folic Acid (Nephro-Leslye) 1 tab PO DAILY [facility] Last Admin: 08/19/18 10:32 Dose: 1 tab Results - Vital Signs Recent Vital Signs: Last Vital Signs Temp 97.2 F L 08/19/18 18:00 Pulse 72 08/19/18 18:00 Resp 20 08/19/18 18:00 BP 155/77 H 08/19/18 18:00 Pulse Ox 97 08/19/18 18:00 - Labs Result Diagrams: 08/19/18 11:10 08/19/18 11:10 Labs: Laboratory Results - last 24 hr 08/18/18 08/19/18 08/19/18 21:48 06:23 06:24 WBC RBC Hgb Hct MCV MCH MCHC RDW Plt Count MPV Neut % (Auto) Lymph % (Auto) Childress % (Auto) Eos % (Auto) Baso % (Auto) Neut # (Auto) Lymph # (Auto) Childress # (Auto) Eos # (Auto) Baso # (Auto) Sodium Potassium Chloride Carbon Dioxide Anion Gap BUN Creatinine Est GFR ( Amer) Est GFR (Non-Af Amer) POC Glucose (mg/dL) 101 69 68 Random Glucose Calcium Total Bilirubin AST ALT Alkaline Phosphatase Total Protein Albumin Globulin Albumin/Globulin Ratio Blood Type Antibody Screen 08/19/18 08/19/18 08/19/18 06:53 08:28 11:08 WBC RBC Hgb Hct MCV MCH MCHC RDW Plt Count MPV Neut % (Auto) Lymph % (Auto) Childress % (Auto) Eos % (Auto) Baso % (Auto) Neut # (Auto) Lymph # (Auto) Childress # (Auto) Eos # (Auto) Baso # (Auto) Sodium Potassium Chloride Carbon Dioxide Anion Gap BUN Creatinine Est GFR ( Amer) Est GFR (Non-Af Amer) POC Glucose (mg/dL) 88 106 Random Glucose Calcium Total Bilirubin AST ALT Alkaline Phosphatase Total Protein Albumin Globulin Albumin/Globulin Ratio Blood Type A POSITIVE Antibody Screen Negative 08/19/18 08/19/18 08/19/18 11:10 11:10 14:26 WBC 7.7 RBC 2.94 L Hgb 9.5 L Hct 28.9 L MCV 98.3 MCH 32.3 H MCHC 32.9 L RDW 16.7 H Plt Count 194 MPV 10.1 Neut % (Auto) 64.9 Lymph % (Auto) 15.6 L Childress % (Auto) 11.4 H Eos % (Auto) 7.5 H Baso % (Auto) 0.6 Neut # (Auto) 5.0 Lymph # (Auto) 1.2 Childress # (Auto) 0.9 H Eos # (Auto) 0.6 Baso # (Auto) 0.0 Sodium 137 Potassium 4.4 Chloride 100 Carbon Dioxide 26 Anion Gap 16 BUN 30 H Creatinine 7.9 H* D Est GFR ( Amer) 6 Est GFR (Non-Af Amer) 5 POC Glucose (mg/dL) 85 Random Glucose 117 H Calcium 8.7 Total Bilirubin 0.6 AST 20 ALT 14 Alkaline Phosphatase 56 Total Protein 6.8 Albumin 3.4 L Globulin 3.5 Albumin/Globulin Ratio 1.0 Blood Type Antibody Screen 08/19/18 16:46 WBC RBC Hgb Hct MCV MCH MCHC RDW Plt Count MPV Neut % (Auto) Lymph % (Auto) Childress % (Auto) Eos % (Auto) Baso % (Auto) Neut # (Auto) Lymph # (Auto) Childress # (Auto) Eos # (Auto) Baso # (Auto) Sodium Potassium Chloride Carbon Dioxide Anion Gap BUN Creatinine Est GFR ( Amer) Est GFR (Non-Af Amer) POC Glucose (mg/dL) 102 Random Glucose Calcium Total Bilirubin AST ALT Alkaline Phosphatase Total Protein Albumin Globulin Albumin/Globulin Ratio Blood Type Antibody Screen
--- NOTE | 2018-08-19 20:54 | CP.PCM.PN ---
Subjective - Date & Time of Evaluation Date of Evaluation: 08/19/18 Time of Evaluation: 20:54 - Subjective Subjective: AFEBRILE VSS ON ANTIBIOTICS. s/p aortofemoral angioplasty via left groin. AND ATHERECTOMY 08/19/18 ROS. HEENT : N. Resp : No cough, wheezing ,pleuritic CP ,or hemoptysis Cardio : No anginal CP, PND, orthopnea, palpitation GI : No abd.pain, n/v ,diarrhea or GI bleeding . TELEMARKETING REPRESENTATIVE : No headache, vertigo, focal deficit. Musculoskel : No joint swelling , Derm : No rash Psych : Normal affect. Ext : LEFT GROIN DRESSING .RT . BIG TOE ISCHEMIC GANGRENE. PE. Pt. is alert awake in no distress. V.S As noted in the chart Head ,ear nose,throat and eyes : Normal. Neck : Supple with normal carotids. Lungs: Clear air entry. Heart : S1 & S2 normal with S4. No murmur. Abd : Soft non tender with normal bowel sounds. Neuro : Moves all ext. with no localized deficit. Ext : RT . BIG TOE ISCHEMIC GANGRENE. Derm : No rashes or decubitus ulcer. LABS/RADIOLOGY: WOUND CULTURE -STAPH. EPIDERMIDIS ? SKIN ALFRED X-RAY RIGHT FOOT -VE FOREIGN BODY. EMPHYSEMATOUS SOFT TISSUE CHANGES SEEN RIGHT GREAT TOE. ( SEE FULL REPORT ) Objective - Vital Signs/Intake and Output Vital Signs (last 24 hours): Temp Pulse Resp BP Pulse Ox 97.2 F L 72 20 155/77 H 97 08/19/18 18:00 08/19/18 18:00 08/19/18 18:00 08/19/18 18:00 08/19/18 18:00 - Medications Medications: Current Medications Acetaminophen (Tylenol 325mg Tab) 650 mg PO Q6 PRN PRN Reason: Pain, moderate (4-7) Last Admin: 08/19/18 18:19 Dose: 650 mg Allopurinol (Zyloprim) 300 mg PO DAILY [facility] Last Admin: 08/19/18 10:41 Dose: 300 mg Clopidogrel Bisulfate (Plavix) 75 mg PO DAILY [facility] Gabapentin (Neurontin) 300 mg PO HS [facility] Last Admin: 08/18/18 21:42 Dose: 300 mg Piperacillin Sod/Tazobactam Sod (Zosyn 2.25 Gm Iv Premix) 2.25 gm in 50 mls @ 100 mls/hr IVPB Q8H [facility]; Protocol Last Admin: 08/19/18 18:16 Dose: 100 mls/hr Clindamycin Phosphate 300 mg/ (Sodium Chloride) 52 mls @ 104 mls/hr IVPB Q8H [facility]; Protocol Last Admin: 08/19/18 18:15 Dose: 104 mls/hr Vancomycin HCl 1 gm/ Sodium (Chloride) 250 mls @ 133 mls/hr IVPB TTS [facility]; Protocol Stop: 08/29/18 11:53 Last Admin: 08/17/18 18:06 Dose: 133 mls/hr Insulin Human Regular (Novolin R) 0 unit SC ACHS [facility]; Protocol Last Admin: 08/19/18 17:27 Dose: Not Given Metoprolol Tartrate (Lopressor) 100 mg PO DAILY [facility] Last Admin: 08/19/18 10:32 Dose: 100 mg [id number] Ethyl Esters (Lovaza) 1 gm PO DAILY [facility] Last Admin: 08/19/18 10:32 Dose: 1 gm Sevelamer Carbonate (Renvela) 800 mg PO TIDCC [facility] Last Admin: 08/19/18 18:15 Dose: 800 mg Sodium Hypochlorite (Dakins Solution 0.25%) 0 ml TOP QSHIFT [facility] Last Admin: 08/19/18 14:30 Dose: Not Given Vitamin B Complex/Vit C/Folic Acid (Nephro-Leslye) 1 tab PO DAILY [facility] Last Admin: 08/19/18 10:32 Dose: 1 tab - Labs Labs: 08/19/18 11:10 08/19/18 11:10 PT 12.3 SECONDS (9.7-12.2) H 08/15/18 07:37 INR 1.1 08/15/18 07:37 APTT 29 SECONDS (21-34) 08/15/18 07:37 Assessment and Plan (1) Ischemic gangrene Status: Acute (2) AV fistula occlusion Status: Acute (3) ESRD on dialysis Status: Acute (4) Diabetes mellitus Status: Acute (5) PVD (peripheral vascular disease) Assessment & Plan: VASCULAR W/U NOTED 08/19/18 Status: Acute - Assessment and Plan (Free Text) Plan: CONTINUE IV ZOSYN 2.25 GM IVPB Q 8HRLY 08/16/18/ CONTINUE IV CLEOCIN 300MG IV PB Q 8HRLY.08/16/18 ADD IV VANCOMYCIN 1GM IVPB POST EACH HD MWF X 6 DOSES. ( started 08/17/18 ) F/U VANCO LEVEL PRIOR TO 3RD DOSE AND MAINTAIN BETWEEN 10-20MG/DL. w/u for PVD IN PROGRESS S/P RT. AORTOFEMORAL ANGIOPLASTY /AND ATHERECTOMY PER VASCULAR SURGERY.. CONTINUE LOCAL WOUND CARE.
[2018-08-20] MEDS: Piperacill/Tazo 2.25gm in Dex 2.25 GM/50 ML BAG IVPB SCH ×3 (00:15→17:19)
[2018-08-20] MEDS: Clindamycin 300 MG in Sodium Chloride 0.9% 50 ML IVPB SCH ×3 (00:52→17:50)
--- NOTE | 2018-08-20 02:35 | PN ---
DATE: 08/19/2018 SUBJECTIVE: The patient is seen today, 08/19/2018. She was seen post vascular procedure. She was waking up from sedation. PHYSICAL EXAMINATION: VITAL SIGNS: Blood pressure 155/77, temperature 97.2, respiratory rate 20, and pulse 72. HEENT: Pupils equal, reactive to light. Normal-appearing mucosa of the conjunctivae, oropharynx, and nasal membrane mucosa. NECK: Supple. No JVD. No carotid bruit. No lymph node. No thyromegaly. CHEST AND LUNGS: Bilateral symmetrical expansion. Good air exchange. No rales. No rhonchi. CARDIOVASCULAR SYSTEM: PMI not localized. S1, S2. No additional sounds. ABDOMEN: Normoactive bowel sounds. No tenderness. No organomegaly. No masses. EXTREMITIES: No cyanosis, no clubbing, no edema. ICE PLANT OPERATOR: Alert, awake, and oriented x2. No neurological deficit could be appreciated. ASSESSMENT: 1. Peripheral vascular disease, status post revascularization of the right lower extremity. 2. Gangrene infected right foot/diabetic foot. 3. Hypertension. 4. End-stage renal disease, on hemodialysis. 5. Thrombosed arteriovenous shunt. PLAN: Continue followup recommendations of the Vascular Surgery, Infectious Disease as well as cost clerk. Continue current IV antibiotics. Discussed with the patient's family at the bedside. Cuba Hendrickson MD
[2018-08-20] MEDS: (Novolin R) Insulin Human Regular 100 units/ml vial SC SCH ×4 (07:22→21:35)
[2018-08-20 07:33] LABS: HEMOGLOBIN 8.8 g/dL (11.0-16.0); MEAN CELL VOLUME 98.3 fL (81.0-99.0); MEAN CORPUSCULAR HEMOGLOBIN 32.2 pg (27.0-31.0); MEAN CORPUSCULAR HGB CONC 32.7 g/dL (33.0-37.0); MEAN PLATELET VOLUME 9.6 fL (7.2-11.7); RBC 2.75 Mil/uL (3.80-5.20); RED CELL DISTRIBUTION WIDTH 16.7 % (11.5-14.5); WHITE BLOOD COUNT 7.5 K/uL (4.8-10.8)
--- NOTE | 2018-08-20 08:34 | CP.PCM.PN ---
Subjective - Date & Time of Evaluation Date of Evaluation: 08/20/18 Time of Evaluation: 08:31 - Subjective Subjective: Vascular Surgery Progress Note for Dr. Thompson This 73F was seen and examined this AM at bedside. No acute events overnight. No pain, or hematoma at the groin puncture site. Objective - Vital Signs/Intake and Output Vital Signs (last 24 hours): Temp Pulse Resp BP Pulse Ox 98.9 F 82 18 151/76 H 92 L 08/20/18 07:45 08/20/18 07:45 08/20/18 07:45 08/20/18 07:45 08/20/18 07:45 - Medications Medications: Current Medications Acetaminophen (Tylenol 325mg Tab) 650 mg PO Q6 PRN PRN Reason: Pain, moderate (4-7) Last Admin: 08/19/18 18:19 Dose: 650 mg Allopurinol (Zyloprim) 300 mg PO DAILY [facility] Last Admin: 08/19/18 10:41 Dose: 300 mg Clopidogrel Bisulfate (Plavix) 75 mg PO DAILY [facility] Gabapentin (Neurontin) 300 mg PO HS [facility] Last Admin: 08/19/18 21:17 Dose: 300 mg Piperacillin Sod/Tazobactam Sod (Zosyn 2.25 Gm Iv Premix) 2.25 gm in 50 mls @ 100 mls/hr IVPB Q8H [facility]; Protocol Last Admin: 08/20/18 00:15 Dose: 100 mls/hr Clindamycin Phosphate 300 mg/ (Sodium Chloride) 52 mls @ 104 mls/hr IVPB Q8H [facility]; Protocol Last Admin: 08/20/18 00:52 Dose: 104 mls/hr Vancomycin HCl 1 gm/ Sodium (Chloride) 250 mls @ 133 mls/hr IVPB TTS [facility]; Protocol Stop: 08/29/18 11:53 Last Admin: 08/17/18 18:06 Dose: 133 mls/hr Insulin Human Regular (Novolin R) 0 unit SC ACHS [facility]; Protocol Last Admin: 08/20/18 07:22 Dose: Not Given Metoprolol Tartrate (Lopressor) 100 mg PO DAILY [facility] Last Admin: 08/19/18 10:32 Dose: 100 mg [id number]-[id number] Ethyl Esters (Lovaza) 1 gm PO DAILY [facility] Last Admin: 08/19/18 10:32 Dose: 1 gm Sevelamer Carbonate (Renvela) 800 mg PO TIDCC [facility] Last Admin: 08/19/18 18:15 Dose: 800 mg Sodium Hypochlorite (Dakins Solution 0.25%) 0 ml TOP QSHIFT [facility] Last Admin: 08/19/18 21:17 Dose: 1 applic Vitamin B Complex/Vit C/Folic Acid (Nephro-Leslye) 1 tab PO DAILY [facility] Last Admin: 08/19/18 10:32 Dose: 1 tab - Labs Labs: 08/20/18 07:26 08/19/18 11:10 PT 12.3 SECONDS (9.7-12.2) H 08/15/18 07:37 INR 1.1 08/15/18 07:37 APTT 29 SECONDS (21-34) 08/15/18 07:37 - Constitutional Appears: Non-toxic, No Acute Distress - Head Exam Head Exam: ATRAUMATIC, NORMOCEPHALIC - Eye Exam Eye Exam: EOMI - ENT Exam ENT Exam: Mucous Membranes Moist - Respiratory Exam Respiratory Exam: NORMAL BREATHING PATTERN - Cardiovascular Exam Cardiovascular Exam: +S1, +S2 - GI/Abdominal Exam GI & Abdominal Exam: Soft. absent: Distended, Firm, Guarding, Rigid, Tenderness - Extremities Exam Additional comments: Groin puncture site clean dry intact no hematoma, right tp palpable dp not palpable. - Neurological Exam Neurological Exam: Alert, Awake - Psychiatric Exam Psychiatric exam: Normal Affect, Normal Mood - Skin Skin Exam: Dry, Intact Assessment and Plan - Assessment and Plan (Free Text) Assessment: 73 F with PVD POD#1 s/p diagnostic and therapeutic angiogram with occlusive right sided tibial disease No acute surgical intervention at this time Further recs per Dr. Jay Frost PGY3
[2018-08-20] MEDS: Omega-3-Acid Ethyl Esters 1 GM Cap PO SCH ×2 (10:27→13:22)
[2018-08-20] MEDS: Multivitamin Vitamin B Complex (Nephro-Vite) Tab PO SCH ×2 (10:27→13:23)
--- NOTE | 2018-08-20 10:37 | VAS ---
DATE: 08/19/2018 PREOPERATIVE DIAGNOSIS: Gangrene, right foot. POSTOPERATIVE DIAGNOSIS: Gangrene, right foot. PROCEDURE CARRIED OUT: Aortofemoral angiogram via the left groin with selective catheterization of right femoral artery and then subsequently second puncture, right groin with angiogram of left iliac artery. SURGEON: Luis Thompson Jr., MD ASSISTANTS: None. ANESTHESIOLOGIST: Dr. Campos ANESTHESIA: Local with sedation. INDICATIONS: The patient is an elderly woman on dialysis, presenting with gangrene of the foot. OPERATIVE FINDINGS: 1. The renal arteries were not on the study performed. 2. The aorta and iliac arteries, common, external iliac, common femoral arteries and profunda femoris arteries were widely patent. On the left side, there is a high-grade over 60% stenosis in the distal SFA, but due to the patient's body habitus detailed pictures were not taken below the level of the knee. On the right side, there was a high-grade 90% stenosis in the distal portion of the SFA and tandem stenosis below this is approximately 70%. Below this, the trifurcation was occluded. There was severe tibial disease, but multiple collateral vessels. The proximal portion of all three vessels was occulted. The anterior tibial reconstituted proximally and reconstituted distally going into the foot as the major vessel of the foot. The peroneal artery was occluded proximally, reconstituted distally and provided good inflow into the anterior tibial artery and dorsalis pedis. The posterior tibial artery was not visualized distally. Subsequent to the performance of diagnostic arteriogram, a stiff-angled guidewire was advanced over the aortic bifurcation. A 7-Malaysian sheath was positioned, heparin was given, the lesion was crossed and pathway atherectomy was carried out of the superficial femoral and popliteal artery. We were unable to cross into the tibial vessels. We then carried out a balloon angioplasty using a 5-mm IN.PACT Admiral balloon, which is a drug-coated balloon, to the SFA. The final cosmetic results were excellent. During our removal and attempt to place a Perclose catheter in the groin, there appeared to extravasation. Because of the concern regarding this, we then punctured the right groin, delivered a catheter to the proximal common iliac artery on the left side and carried out angiogram, which did not show any signs of leak, showed a brisk flow into the femoral and superficial femoral and profunda femoris arteries and did not show any significant problem. We then removed the catheter and applied pressure to the groin. BLOOD LOSS: Blood loss for the total procedure was 100 mL. OPERATION CARRIED OUT: Aortofemoral angiogram via the left groin with selective catheterization of right femoral artery, pathway atherectomy, drug-coated balloon angioplasty of the right SFA subsequently we carried out an iliac artery angiogram via the right groin puncture to evaluate for any problems in the groin. Luis Thompson Jr., MD MTDD
--- NOTE | 2018-08-20 12:34 | CP.PCM.PN ---
Subjective - Date & Time of Evaluation Date of Evaluation: 08/20/18 Time of Evaluation: 12:34 - Subjective Subjective: Podiatry Progress Note - Dr. Cherry 73F seen and evaluated this AM for right hallux pain + gangrene. NAD, no acute events overnight. Daughter present at bedside. Patient s/p diagnostic and therapeutic angiogram with occlusive right sided tibial disease with vascular yesterday. Patient reports continued pain to right great toe along with pain more proximal into the arch of her foot. Denies n/v/f/d/c/sob. Objective - Vital Signs/Intake and Output Vital Signs (last 24 hours): Temp Pulse Resp BP Pulse Ox 98.1 F 82 21 144/84 97 08/20/18 11:50 08/20/18 11:50 08/20/18 11:50 08/20/18 11:50 08/20/18 11:50 - Medications Medications: Current Medications Acetaminophen (Tylenol 325mg Tab) 650 mg PO Q6 PRN PRN Reason: Pain, moderate (4-7) Last Admin: 08/19/18 18:19 Dose: 650 mg Allopurinol (Zyloprim) 300 mg PO DAILY [facility] Last Admin: 08/20/18 10:29 Dose: Not Given Clopidogrel Bisulfate (Plavix) 75 mg PO DAILY [facility] Last Admin: 08/20/18 10:27 Dose: Not Given Gabapentin (Neurontin) 300 mg PO HS [facility] Last Admin: 08/19/18 21:17 Dose: 300 mg Piperacillin Sod/Tazobactam Sod (Zosyn 2.25 Gm Iv Premix) 2.25 gm in 50 mls @ 100 mls/hr IVPB Q8H [facility]; Protocol Last Admin: 08/20/18 09:00 Dose: Not Given Clindamycin Phosphate 300 mg/ (Sodium Chloride) 52 mls @ 104 mls/hr IVPB Q8H [facility]; Protocol Last Admin: 08/20/18 09:00 Dose: Not Given Vancomycin HCl 1 gm/ Sodium (Chloride) 250 mls @ 133 mls/hr IVPB TTS [facility]; Protocol Stop: 08/29/18 11:53 Last Admin: 08/20/18 10:00 Dose: Not Given Insulin Human Regular (Novolin R) 0 unit SC ACHS [facility]; Protocol Last Admin: 08/20/18 12:23 Dose: Not Given Metoprolol Tartrate (Lopressor) 100 mg PO DAILY [facility] Last Admin: 08/20/18 10:27 Dose: Not Given [id number] Ethyl Esters (Lovaza) 1 gm PO DAILY [facility] Last Admin: 08/20/18 10:27 Dose: Not Given Sevelamer Carbonate (Renvela) 800 mg PO TIDCC [facility] Last Admin: 08/20/18 08:00 Dose: Not Given Sodium Hypochlorite (Dakins Solution 0.25%) 0 ml TOP QSHIFT [facility] Last Admin: 08/19/18 21:17 Dose: 1 applic Vitamin B Complex/Vit C/Folic Acid (Nephro-Leslye) 1 tab PO DAILY [facility] Last Admin: 08/20/18 10:27 Dose: Not Given - Labs Labs: 08/20/18 07:26 08/19/18 11:10 PT 12.3 SECONDS (9.7-12.2) H 08/15/18 07:37 INR 1.1 08/15/18 07:37 APTT 29 SECONDS (21-34) 08/15/18 07:37 - Constitutional Appears: Non-toxic, No Acute Distress - Extremities Exam Additional comments: RLE focused physical exam: VASC: PT pulse weakly palpable 1/4. DP nonpalpable. Cap refill delayed to digits, unable to assess hallux. +2 pitting edema. NEURO: Protective sensation grossly diminished. DERM: Dusky discoloration noted to hallux extending proximally into midshaft of 1st metatarsal; +malodor, neg drainage/purulence/fluctuance. MSK: Pain on palpation distal tuft of hallux. Hallucal IPJ and 1st MPJ ROM limited secondary to guarding. - Neurological Exam Neurological Exam: Alert, Awake, Oriented x3 - Psychiatric Exam Psychiatric exam: Normal Affect, Normal Mood Assessment and Plan - Assessment and Plan (Free Text) Assessment: 73F with right hallux gangrene Plan: Patient seen and evaluated alongside attending, Dr. Cherry VSCarol, WBC 7.5 WNL Right foot XR: Negative for osteomyelitis; ulceration and emphysema at distal hallucal tuft -RLE MRI ordered R foot WCx: staph epidermidis ?skin darin LE Arterial US: -Unable to obtain right JENNIFER due to absent audible pulses -Bilat. multilevel decreased perfusion; R decreased at iliac, superficial femoral, popliteal, tibial, and distal small aa.; L decreased at SFA, popliteal, and tibial aa. LE angio: Severe stenosis to the R SFA, R arterial tree below the knee, Moderate to sever stenosis to the L SFA -Vascular recs appreciated: s/p diagnostic and therapeutic angiogram with occlu sive right sided tibial disease Will continue to monitor gangrene demarcation Continue local wound care: BING Schneider QSHITAMARA Pain control per primary team Podiatry will continue to follow
[2018-08-20] MEDS: Dakin's Topical 0.25%-Half Strength (480 ml) TOP SCH ×2 (14:49→21:36)
--- NOTE | 2018-08-20 17:01 | CP.PCM.PN ---
Subjective - Date & Time of Evaluation Date of Evaluation: 08/20/18 Time of Evaluation: 17:01 - Subjective Subjective: No acute events overnight. No pain, or hematoma at the groin puncture site. AFEBRILE VSS ON ANTIBIOTICS. s/p aortofemoral angioplasty via left groin. AND ATHERECTOMY 08/19/18 S/P STRESS TEST - SEE REPORT ROS. HEENT : N. Resp : No cough, wheezing ,pleuritic CP ,or hemoptysis Cardio : No anginal CP, PND, orthopnea, palpitation GI : No abd.pain, n/v ,diarrhea or GI bleeding . [employer] : No headache, vertigo, focal deficit. Musculoskel : No joint swelling , Derm : No rash Psych : Normal affect. Ext : LEFT GROIN DRESSING .RT . BIG TOE ISCHEMIC GANGRENE. PE. Pt. is alert awake in no distress. V.S As noted in the chart Head ,ear nose,throat and eyes : Normal. Neck : Supple with normal carotids. Lungs: Clear air entry. Heart : S1 & S2 normal with S4. No murmur. Abd : Soft non tender with normal bowel sounds. Neuro : Moves all ext. with no localized deficit. Ext : RT . BIG TOE ISCHEMIC GANGRENE. Derm : No rashes or decubitus ulcer. LABS/RADIOLOGY: WOUND CULTURE -STAPH. EPIDERMIDIS ? SKIN ALFRED X-RAY RIGHT FOOT -VE FOREIGN BODY. EMPHYSEMATOUS SOFT TISSUE CHANGES SEEN RIGHT GREAT TOE. ( SEE FULL REPORT ) Objective - Vital Signs/Intake and Output Vital Signs (last 24 hours): Temp Pulse Resp BP Pulse Ox 97.6 F 86 20 134/71 97 08/20/18 13:55 08/20/18 13:55 08/20/18 13:55 08/20/18 16:25 08/20/18 13:55 - Medications Medications: Current Medications Acetaminophen (Tylenol 325mg Tab) 650 mg PO Q6 PRN PRN Reason: Pain, moderate (4-7) Last Admin: 08/19/18 18:19 Dose: 650 mg Allopurinol (Zyloprim) 300 mg PO DAILY [facility] Last Admin: 08/20/18 13:22 Dose: 300 mg Clopidogrel Bisulfate (Plavix) 75 mg PO DAILY [facility] Last Admin: 08/20/18 13:23 Dose: 75 mg Gabapentin (Neurontin) 300 mg PO HS [facility] Last Admin: 08/19/18 21:17 Dose: 300 mg Piperacillin Sod/Tazobactam Sod (Zosyn 2.25 Gm Iv Premix) 2.25 gm in 50 mls @ 100 mls/hr IVPB Q8H [facility]; Protocol Last Admin: 08/20/18 09:00 Dose: Not Given Clindamycin Phosphate 300 mg/ (Sodium Chloride) 52 mls @ 104 mls/hr IVPB Q8H [facility]; Protocol Last Admin: 08/20/18 09:00 Dose: Not Given Vancomycin HCl 1 gm/ Sodium (Chloride) 250 mls @ 133 mls/hr IVPB TTS [facility]; Protocol Stop: 08/29/18 11:53 Last Admin: 08/20/18 10:00 Dose: Not Given Insulin Human Regular (Novolin R) 0 unit SC ACHS [facility]; Protocol Last Admin: 08/20/18 12:23 Dose: Not Given Metoprolol Tartrate (Lopressor) 100 mg PO DAILY [facility] Last Admin: 08/20/18 10:27 Dose: Not Given Kyzwn-6-Mngz Ethyl Esters (Lovaza) 1 gm PO DAILY [facility] Last Admin: 08/20/18 13:22 Dose: 1 gm Sevelamer Carbonate (Renvela) 800 mg PO TIDCC [facility] Last Admin: 08/20/18 12:45 Dose: 800 mg Sodium Hypochlorite (Dakins Solution 0.25%) 0 ml TOP QSHIFT [facility] Last Admin: 08/20/18 14:49 Dose: Not Given Vitamin B Complex/Vit C/Folic Acid (Nephro-Leslye) 1 tab PO DAILY [facility] Last Admin: 08/20/18 13:23 Dose: 1 tab - Labs Labs: 08/20/18 07:26 08/19/18 11:10 PT 12.3 SECONDS (9.7-12.2) H 08/15/18 07:37 INR 1.1 08/15/18 07:37 APTT 29 SECONDS (21-34) 08/15/18 07:37 Assessment and Plan (1) Ischemic gangrene Status: Acute (2) AV fistula occlusion Status: Acute (3) ESRD on dialysis Status: Acute (4) Diabetes mellitus Status: Acute (5) PVD (peripheral vascular disease) Status: Acute - Assessment and Plan (Free Text) Plan: CONTINUE IV ZOSYN 2.25 GM IVPB Q 8HRLY 08/16/18/ CONTINUE IV CLEOCIN 300MG IV PB Q 8HRLY.08/16/18 ON IV VANCOMYCIN 1GM IVPB POST EACH HD MWF X 6 DOSES. ( started 08/17/18 ) F/U VANCO LEVEL PRIOR TO 3RD DOSE AND MAINTAIN BETWEEN 10-20MG/DL. PER VASCULAR SURGERY.. CONTINUE LOCAL WOUND CARE.
--- NOTE | 2018-08-20 19:17 | CARD ---
APPROVED REPORT Date of service: 08/20/2018 EXAM: Two-dimensional and M-mode echocardiogram with Doppler and color Doppler. Other Information Quality : GoodRhythm : INDICATION Dizziness and Vertigo Pre-Op ESRD RISK FACTORS Hypertension Obesity Diabetes 2D DIMENSIONS IVSd1.4 (0.7-1.1cm)LVDd4.4 (3.9-5.9cm) PWd1.6 (0.7-1.1cm)LA Iatwpz90 (18-58mL) LVDs3.2 (2.5-4.0cm)FS (%) 27.5 % LVEF (%)53.8 (>50%)LVEF (Virgen's)52.28 % M-Mode DIMENSIONS RVDd1.27 (2.1-3.2cm)Left Atrium (MM)4.93 (2.5-4.0cm) IVSd0.91 (0.7-1.1cm)Aortic Root2.54 (2.2-3.7cm) LVDd5.73 (4.0-5.6cm)Aortic Cusp Exc.1.79 (1.5-2.0cm) PWd1.11 (0.7-1.1cm)FS (%) 39 % LVDs3.48 (2.0-3.8cm)LVEF (%)57 (>50%) Mitral Valve MV E Msceipvn21.1cm/sMV A Ydjbwjkd493.2cm/sE/A ratio0.7 ISPX115.12 cm/s TDI Lateral E' Peak V7.45cm/sMedial E' Peak V6.55cm/sE/Lateral E'11.6 E/Medial E'13.1 Tricuspid Valve TR Peak Gnapylfm627ly/sTR Peak Gr.76qhBvFULY56bgPs LEFT VENTRICLE The left ventricle is normal size. There is mild concentric left ventricular hypertrophy. Left ventricle systolic function is normal. The Ejection Fraction is 60-65%. There is normal LV segmental wall motion. Transmitral Doppler flow pattern is Grade I-abnormal relaxation pattern. There is no ventricular septal defect visualized. RIGHT VENTRICLE The right ventricle is normal size. The right ventricular systolic function is normal. ATRIA The left atrium is mildly dilated. The right atrium size is normal. AORTIC VALVE The aortic valve is mildly sclerotic. The aortic valve is tri-cuspid. No aortic regurgitation is present. There is no aortic valvular stenosis. MITRAL VALVE Mitral annular calcification is mild. There is no evidence of mitral valve prolapse. Mitral regurgitation is trace. ERO 0.1 cm2 TRICUSPID VALVE The tricuspid valve is normal in structure. There is trace to mild tricuspid regurgitation. Right ventricular systolic pressure is estimated at 40-50 mmHg. There is moderate pulmonary hypertension. PULMONIC VALVE The pulmonic valve is not well visualized. There is trace pulmonic valvular regurgitation. GREAT VESSELS The aortic root is normal in size. The ascending aorta is normal in size. The IVC is normal in size and collapses >50% with inspiration. PERICARDIAL EFFUSION There is no pericardial effusion. <Conclusion> There is mild concentric left ventricular hypertrophy. Left ventricle systolic function is normal. The Ejection Fraction is 60-65%. Transmitral Doppler flow pattern is Grade I-abnormal relaxation pattern. Mitral regurgitation is trace. ERO 0.1 cm2 There is moderate pulmonary hypertension.
--- NOTE | 2018-08-20 22:29 | CP.PCM.PN ---
Subjective - Date & Time of Evaluation Date of Evaluation: 08/20/18 Time of Evaluation: 15:10 - Subjective Subjective: Patient s/p stress test Normal stress test and normal EF No cardiac events noted Physical Exam - Constitutional Appears: Non-toxic, No Acute Distress - Head Exam Head Exam: ATRAUMATIC, NORMOCEPHALIC - Eye Exam Eye Exam: EOMI - ENT Exam ENT Exam: Mucous Membranes Moist - Neck Exam Neck exam: Positive for: Normal Inspection - Respiratory Exam Respiratory Exam: Clear to Auscultation Bilateral - Cardiovascular Exam Cardiovascular Exam: REGULAR RHYTHM - GI/Abdominal Exam GI & Abdominal Exam: Normal Bowel Sounds, Soft - Back Exam Back exam: NORMAL INSPECTION - Neurological Exam Neurological exam: Alert, Oriented x3 - Psychiatric Exam Psychiatric exam: Normal Affect, Normal Mood - Skin Skin Exam: Dry, Intact Assessment & Plan - Assessment and Plan (Free Text) Assessment: 73F with ESRD without functional dialysis access Patient with multiple risk factors Normal EF and Normal stress test Objective - Vital Signs/Intake and Output Vital Signs (last 24 hours): Temp Pulse Resp BP Pulse Ox 97.5 F L 80 20 119/67 97 08/20/18 16:55 08/20/18 16:55 08/20/18 16:55 08/20/18 16:55 08/20/18 16:55 - Medications Medications: Current Medications Acetaminophen (Tylenol 325mg Tab) 650 mg PO Q6 PRN PRN Reason: Pain, moderate (4-7) Last Admin: 08/19/18 18:19 Dose: 650 mg Allopurinol (Zyloprim) 300 mg PO DAILY [facility] Last Admin: 08/20/18 13:22 Dose: 300 mg Clopidogrel Bisulfate (Plavix) 75 mg PO DAILY [facility] Last Admin: 08/20/18 13:23 Dose: 75 mg Gabapentin (Neurontin) 300 mg PO HS [facility] Last Admin: 08/20/18 21:35 Dose: 300 mg Piperacillin Sod/Tazobactam Sod (Zosyn 2.25 Gm Iv Premix) 2.25 gm in 50 mls @ 100 mls/hr IVPB Q8H [facility]; Protocol Last Admin: 08/20/18 17:19 Dose: 100 mls/hr Clindamycin Phosphate 300 mg/ (Sodium Chloride) 52 mls @ 104 mls/hr IVPB Q8H [facility]; Protocol Last Admin: 08/20/18 17:50 Dose: 104 mls/hr Vancomycin HCl 1 gm/ Sodium (Chloride) 250 mls @ 133 mls/hr IVPB TTS [facility]; Protocol Stop: 08/29/18 11:53 Last Admin: 08/20/18 18:53 Dose: 133 mls/hr Insulin Human Regular (Novolin R) 0 unit SC ACHS [facility]; Protocol Last Admin: 08/20/18 21:35 Dose: Not Given Metoprolol Tartrate (Lopressor) 100 mg PO DAILY [facility] Last Admin: 08/20/18 10:27 Dose: Not Given Oexlz-6-Yomb Ethyl Esters (Lovaza) 1 gm PO DAILY [facility] Last Admin: 08/20/18 13:22 Dose: 1 gm Sevelamer Carbonate (Renvela) 800 mg PO TIDCC [facility] Last Admin: 08/20/18 17:19 Dose: 800 mg Sodium Hypochlorite (Dakins Solution 0.25%) 0 ml TOP QSHIFT [facility] Last Admin: 08/20/18 21:36 Dose: 1 applic Vitamin B Complex/Vit C/Folic Acid (Nephro-Leslye) 1 tab PO DAILY [facility] Last Admin: 08/20/18 13:23 Dose: 1 tab - Labs Labs: 08/20/18 07:26 08/19/18 11:10 PT 12.3 SECONDS (9.7-12.2) H 08/15/18 07:37 INR 1.1 08/15/18 07:37 APTT 29 SECONDS (21-34) 08/15/18 07:37
[2018-08-21] MEDS: Clindamycin 300 MG in Sodium Chloride 0.9% 50 ML IVPB SCH ×3 (00:58→17:27)
[2018-08-21] MEDS: Piperacill/Tazo 2.25gm in Dex 2.25 GM/50 ML BAG IVPB SCH ×3 (01:59→16:28)
--- NOTE | 2018-08-21 03:29 | PN ---
DATE: 08/20/2018 SUBJECTIVE: The patient is seen today. She is more awake and alert. PHYSICAL EXAMINATION VITAL SIGNS: Blood pressure is 119/67, temperature 97.5, respiratory rate 20 and pulse 80. HEENT: Pupils equal and reactive to light. Normal-appearing mucosa of the conjunctivae, oropharynx and nasal membrane mucosa. NECK: Supple. No JVD. No carotid bruit. No lymph node. No thyromegaly. CHEST AND LUNGS: Bilateral symmetrical expansion. Good air exchange. No rales, no rhonchi. CARDIOVASCULAR SYSTEM: PMI not localized. S1, S2. No additional sounds. ABDOMEN: Normoactive bowel sounds. No tenderness. No organomegaly. No masses. EXTREMITIES: No cyanosis, no clubbing, no edema. Right big toe is gangrenous. CENTRAL NERVOUS SYSTEM: Alert, awake, oriented x2. Moves all extremities equally. ASSESSMENT: 1. Malfunctioning arteriovenous shunt, status post tunneled catheter placement. 2. End-stage renal disease, on hemodialysis. 3. Diabetic foot. 4. Peripheral vascular disease, status post revascularization procedure on the right lower extremity. PLAN: Continue current pain medications and management. Follow recommendations of vascular surgery and infectious disease specialists. Cuba Hendrickson MD
[2018-08-21] MEDS: Dakin's Topical 0.25%-Half Strength (480 ml) TOP SCH ×3 (06:21→21:28)
[2018-08-21] MEDS: (Novolin R) Insulin Human Regular 100 units/ml vial SC SCH ×4 (07:21→21:26)
[2018-08-21] MEDS: Omega-3-Acid Ethyl Esters 1 GM Cap PO SCH (09:54)
[2018-08-21] MEDS: Multivitamin Vitamin B Complex (Nephro-Vite) Tab PO SCH (10:22)
--- NOTE | 2018-08-21 10:30 | CP.PCM.PN ---
Subjective - Date & Time of Evaluation Date of Evaluation: 08/21/18 Time of Evaluation: 10:00 - Subjective Subjective: SEEN ON RENAL F/U FEELS IMPROVED .. STILL PAIN ON R FOOT ON IVAB FOR INF ON HD T T S ALL PREVIOUS EMR REVIEWED Objective - Vital Signs/Intake and Output Vital Signs (last 24 hours): Temp Pulse Resp BP Pulse Ox 98.5 F 100 H 18 132/66 92 L 08/21/18 07:50 08/21/18 09:55 08/21/18 07:50 08/21/18 09:55 08/21/18 07:50 Intake and Output: 08/21/18 08/21/18 06:59 18:59 Intake Total 100 Balance 100 - Medications Medications: Current Medications Acetaminophen (Tylenol 325mg Tab) 650 mg PO Q6 PRN PRN Reason: Pain, moderate (4-7) Last Admin: 08/21/18 08:47 Dose: 650 mg Allopurinol (Zyloprim) 300 mg PO DAILY [facility] Last Admin: 08/21/18 09:54 Dose: 300 mg Clopidogrel Bisulfate (Plavix) 75 mg PO DAILY [facility] Last Admin: 08/21/18 09:54 Dose: 75 mg Gabapentin (Neurontin) 300 mg PO HS [facility] Last Admin: 08/20/18 21:35 Dose: 300 mg Piperacillin Sod/Tazobactam Sod (Zosyn 2.25 Gm Iv Premix) 2.25 gm in 50 mls @ 100 mls/hr IVPB Q8H [facility]; Protocol Last Admin: 08/21/18 08:46 Dose: 100 mls/hr Clindamycin Phosphate 300 mg/ (Sodium Chloride) 52 mls @ 104 mls/hr IVPB Q8H [facility]; Protocol Last Admin: 08/21/18 09:51 Dose: 104 mls/hr Vancomycin HCl 1 gm/ Sodium (Chloride) 250 mls @ 133 mls/hr IVPB TTS [facility]; Protocol Stop: 08/29/18 11:53 Last Admin: 08/20/18 18:53 Dose: 133 mls/hr Insulin Human Regular (Novolin R) 0 unit SC ACHS [facility]; Protocol Last Admin: 08/21/18 07:21 Dose: Not Given Metoprolol Tartrate (Lopressor) 100 mg PO DAILY [facility] Last Admin: 08/21/18 09:54 Dose: 100 mg Bvbdv-5-[place]vum Ethyl Esters (Lovaza) 1 gm PO DAILY [facility] Last Admin: 08/21/18 09:54 Dose: 1 gm Sevelamer Carbonate (Renvela) 800 mg PO TIDCC [facility] Last Admin: 08/21/18 08:46 Dose: 800 mg Sodium Hypochlorite (Dakins Solution 0.25%) 0 ml TOP QSHIFT [facility] Last Admin: 08/21/18 06:21 Dose: 1 applic Vitamin B Complex/Vit C/Folic Acid (Nephro-Leslye) 1 tab PO DAILY [facility] Last Admin: 08/20/18 13:23 Dose: 1 tab - Labs Labs: 08/20/18 07:26 08/19/18 11:10 PT 12.3 SECONDS (9.7-12.2) H 08/15/18 07:37 INR 1.1 08/15/18 07:37 APTT 29 SECONDS (21-34) 08/15/18 07:37 Assessment and Plan - Assessment and Plan (Free Text) Plan: ESRD ON HD S .. TO BE C/O CLOTTED AVF ANEMIA OF CKD .. ON EPO SEVERE PVD .. S/P ANGIOPLASTY MMP P : C/O HD ON T C/O IVAB PER ID C/O PO MEDS PODIATRY WORK APPRECIATED
--- NOTE | 2018-08-21 11:23 | MRI ---
Date of service: 08/21/2018 PROCEDURE: MRI Right Foot HISTORY: Pain. COMPARISON: None available. TECHNIQUE: Multiecho multiplanar sequences were performed through the right foot without the use of intravenous contrast. FINDINGS: BONES: Extensive soft tissue swelling throughout the with marrow signal abnormality throughout the 1st distal phalanx as well as accompanying erosive changes along the distal tip compatible with osteomyelitis in the appropriate clinical setting. Susceptibility artifact noted suggestive of recent instrumentation. Accompanying dorsal soft tissue ulcer measuring roughly 1.7 centimeters. Severe marrow signal abnormality also noted involving the distal 3rd phalanx also suspicious for osteomyelitis. MUSCLES: Normal. SOFT TISSUES: Normal. LISFRANC LIGAMENT: Normal. PLANTAR PLATE: Normal. EXTENSOR TENDONS: Normal. FLEXOR TENDONS: Normal. OTHER FINDINGS: None. IMPRESSION: Extensive soft tissue swelling throughout the with marrow signal abnormality throughout the 1st distal phalanx as well as accompanying erosive changes along the distal tip compatible with osteomyelitis in the appropriate clinical setting. Susceptibility artifact noted suggestive of recent instrumentation. Accompanying dorsal soft tissue ulcer measuring roughly 1.7 centimeters. Severe marrow signal abnormality also noted involving the distal 3rd phalanx also suspicious for osteomyelitis.
--- NOTE | 2018-08-21 11:39 | CP.PCM.PN ---
Subjective - Date & Time of Evaluation Date of Evaluation: 08/21/18 Time of Evaluation: 11:37 - Subjective Subjective: may dc at discretion of PMD fu office Dr Villarreal note reviewed re stress and echo fu office might need additional intervention on lower (tibial) vessels Objective - Vital Signs/Intake and Output Vital Signs (last 24 hours): Temp Pulse Resp BP Pulse Ox 98.5 F 100 H 18 132/66 92 L 08/21/18 07:50 08/21/18 09:55 08/21/18 07:50 08/21/18 09:55 08/21/18 07:50 Intake and Output: 08/21/18 08/21/18 06:59 18:59 Intake Total 100 Balance 100 - Medications Medications: Current Medications Acetaminophen (Tylenol 325mg Tab) 650 mg PO Q6 PRN PRN Reason: Pain, moderate (4-7) Last Admin: 08/21/18 08:47 Dose: 650 mg Allopurinol (Zyloprim) 300 mg PO DAILY [facility] Last Admin: 08/21/18 09:54 Dose: 300 mg Clopidogrel Bisulfate (Plavix) 75 mg PO DAILY [facility] Last Admin: 08/21/18 09:54 Dose: 75 mg Gabapentin (Neurontin) 300 mg PO HS [facility] Last Admin: 08/20/18 21:35 Dose: 300 mg Piperacillin Sod/Tazobactam Sod (Zosyn 2.25 Gm Iv Premix) 2.25 gm in 50 mls @ 100 mls/hr IVPB Q8H [facility]; Protocol Last Admin: 08/21/18 08:46 Dose: 100 mls/hr Clindamycin Phosphate 300 mg/ (Sodium Chloride) 52 mls @ 104 mls/hr IVPB Q8H [facility]; Protocol Last Admin: 08/21/18 09:51 Dose: 104 mls/hr Vancomycin HCl 1 gm/ Sodium (Chloride) 250 mls @ 133 mls/hr IVPB TTS [facility]; Protocol Stop: 08/29/18 11:53 Last Admin: 08/20/18 18:53 Dose: 133 mls/hr Insulin Human Regular (Novolin R) 0 unit SC ACHS [facility]; Protocol Last Admin: 08/21/18 07:21 Dose: Not Given Metoprolol Tartrate (Lopressor) 100 mg PO DAILY [facility] Last Admin: 08/21/18 09:54 Dose: 100 mg Fzaoo-7-Rnjf Ethyl Esters (Lovaza) 1 gm PO DAILY [facility] Last Admin: 08/21/18 09:54 Dose: 1 gm Sevelamer Carbonate (Renvela) 800 mg PO TIDCC [facility] Last Admin: 08/21/18 08:46 Dose: 800 mg Sodium Hypochlorite (Dakins Solution 0.25%) 0 ml TOP QSHIFT [facility] Last Admin: 08/21/18 06:21 Dose: 1 applic Vitamin B Complex/Vit C/Folic Acid (Nephro-Leslye) 1 tab PO DAILY [facility] Last Admin: 08/20/18 13:23 Dose: 1 tab - Labs Labs: 08/20/18 07:26 08/19/18 11:10 PT 12.3 SECONDS (9.7-12.2) H 08/15/18 07:37 INR 1.1 08/15/18 07:37 APTT 29 SECONDS (21-34) 08/15/18 07:37
--- NOTE | 2018-08-21 14:23 | CP.PCM.PN ---
Subjective - Date & Time of Evaluation Date of Evaluation: 08/21/18 Time of Evaluation: 14:23 - Subjective Subjective: AFEBRILE Patient OOB in recliner, NAD. No acute events overnight. Patient s/p stress test. Patient reports pain in right foot unchanged. ROS. HEENT : N. Resp : No cough, wheezing ,pleuritic CP ,or hemoptysis Cardio : No anginal CP, PND, orthopnea, palpitation GI : No abd.pain, n/v ,diarrhea or GI bleeding . [employer] : No headache, vertigo, focal deficit. Musculoskel : No joint swelling , Derm : No rash Psych : Normal affect. Ext : LEFT GROIN DRESSING .RT . BIG TOE ISCHEMIC GANGRENE. HUSSAIN SWELLING IMPROVING. PE. Pt. is alert awake in no distress. V.S As noted in the chart Head ,ear nose,throat and eyes : Normal. Neck : Supple with normal carotids. Lungs: Clear air entry. Heart : S1 & S2 normal with S4. No murmur. Abd : Soft non tender with normal bowel sounds. Neuro : Moves all ext. with no localized deficit. Ext : RT . BIG TOE ISCHEMIC GANGRENE. HUSSAIN SWELLING IMPROVING. Derm : No rashes or decubitus ulcer. LABS/RADIOLOGY: WOUND CULTURE -STAPH. EPIDERMIDIS ? SKIN ALFRED X-RAY RIGHT FOOT -VE FOREIGN BODY. EMPHYSEMATOUS SOFT TISSUE CHANGES SEEN RIGHT GREAT TOE. MRI RT. FOOT fINDINGS CONSISTENT WITH FIRST DISTAL PHALANX EROSIVE CHANGES DISTAL TIP CONSISTENT WITH OSTEOMYELITIS. aLSO SEVERE ABNORMAL MARROW SIGNAL INVOLVING DISTAL THIRD PHALNX ALSO SUSPICIOUS FOR OSTEOMYELITIS. Objective - Vital Signs/Intake and Output Vital Signs (last 24 hours): Temp Pulse Resp BP Pulse Ox 98.5 F 100 H 18 132/66 92 L 08/21/18 07:50 08/21/18 09:55 08/21/18 07:50 08/21/18 09:55 08/21/18 07:50 Intake and Output: 08/21/18 08/21/18 06:59 18:59 Intake Total 100 Balance 100 - Medications Medications: Current Medications Acetaminophen (Tylenol 325mg Tab) 650 mg PO Q6 PRN PRN Reason: Pain, moderate (4-7) Last Admin: 08/21/18 08:47 Dose: 650 mg Allopurinol (Zyloprim) 300 mg PO DAILY [facility] Last Admin: 08/21/18 09:54 Dose: 300 mg Clopidogrel Bisulfate (Plavix) 75 mg PO DAILY [facility] Last Admin: 08/21/18 09:54 Dose: 75 mg Gabapentin (Neurontin) 300 mg PO HS [facility] Last Admin: 08/20/18 21:35 Dose: 300 mg Piperacillin Sod/Tazobactam Sod (Zosyn 2.25 Gm Iv Premix) 2.25 gm in 50 mls @ 100 mls/hr IVPB Q8H [facility]; Protocol Last Admin: 08/21/18 08:46 Dose: 100 mls/hr Clindamycin Phosphate 300 mg/ (Sodium Chloride) 52 mls @ 104 mls/hr IVPB Q8H [facility]; Protocol Last Admin: 08/21/18 09:51 Dose: 104 mls/hr Vancomycin HCl 1 gm/ Sodium (Chloride) 250 mls @ 133 mls/hr IVPB TTS [facility]; Protocol Stop: 08/29/18 11:53 Last Admin: 08/20/18 18:53 Dose: 133 mls/hr Insulin Human Regular (Novolin R) 0 unit SC ACHS [facility]; Protocol Last Admin: 08/21/18 11:38 Dose: Not Given Metoprolol Tartrate (Lopressor) 100 mg PO DAILY [facility] Last Admin: 08/21/18 09:54 Dose: 100 mg Sulse-4-Gynx Ethyl Esters (Lovaza) 1 gm PO DAILY [facility] Last Admin: 08/21/18 09:54 Dose: 1 gm Sevelamer Carbonate (Renvela) 800 mg PO TIDCC [facility] Last Admin: 08/21/18 12:55 Dose: 800 mg Sodium Hypochlorite (Dakins Solution 0.25%) 0 ml TOP QSHIFT [facility] Last Admin: 08/21/18 13:06 Dose: 1 applic Vitamin B Complex/Vit C/Folic Acid (Nephro-Leslye) 1 tab PO DAILY [facility] Last Admin: 08/21/18 10:22 Dose: Not Given - Labs Labs: 08/20/18 07:26 08/19/18 11:10 PT 12.3 SECONDS (9.7-12.2) H 08/15/18 07:37 INR 1.1 08/15/18 07:37 APTT 29 SECONDS (21-34) 08/15/18 07:37 Assessment and Plan (1) Ischemic gangrene Status: Acute (2) AV fistula occlusion Status: Acute (3) ESRD on dialysis Status: Acute (4) Diabetes mellitus Status: Acute (5) PVD (peripheral vascular disease) Status: Acute - Assessment and Plan (Free Text) Plan: CONTINUE IV ZOSYN 2.25 GM IVPB Q 8HRLY 08/16/18/ CONTINUE IV CLEOCIN 300MG IV PB Q 8HRLY.08/16/18 ON IV VANCOMYCIN 1GM IVPB POST EACH HD MWF X 6 DOSES. ( started 08/17/18 ) F/U VANCO LEVEL PRIOR TO 3RD DOSE AND MAINTAIN BETWEEN 10-20MCG/ML PER VASCULAR SURGERY. WILL DISCUSS WITH PODIATRY IF ANY SURGERY CONTEMPLATED. PLEASE DO NOT PUT PICC LINE WITHOUT DISCUSSING WITH VASCULAR SURGERY /PMD PT MAY NEED LEFT ARM FOR VASCULAR ACCESS. CONTINUE LOCAL WOUND CARE.
--- NOTE | 2018-08-21 15:35 | CP.PCM.PN ---
Subjective - Date & Time of Evaluation Date of Evaluation: 08/21/18 Time of Evaluation: 11:00 - Subjective Subjective: Podiatry Progress Note - Dr. Cherry/[place] 73F seen and evaluated this AM for right hallux painful gangrene. Patient OOB in recliner, NAD. No acute events overnight. Patient s/p stress test. Patient reports pain in right foot unchanged. Denies n/v/f/d/c/sob. Objective - Vital Signs/Intake and Output Vital Signs (last 24 hours): Temp Pulse Resp BP Pulse Ox 98.5 F 100 H 18 132/66 92 L 08/21/18 07:50 08/21/18 09:55 08/21/18 07:50 08/21/18 09:55 08/21/18 07:50 Intake and Output: 08/21/18 08/21/18 06:59 18:59 Intake Total 100 Balance 100 - Medications Medications: Current Medications Acetaminophen (Tylenol 325mg Tab) 650 mg PO Q6 PRN PRN Reason: Pain, moderate (4-7) Last Admin: 08/21/18 08:47 Dose: 650 mg Allopurinol (Zyloprim) 300 mg PO DAILY [facility] Last Admin: 08/21/18 09:54 Dose: 300 mg Clopidogrel Bisulfate (Plavix) 75 mg PO DAILY [facility] Last Admin: 08/21/18 09:54 Dose: 75 mg Gabapentin (Neurontin) 300 mg PO HS [facility] Last Admin: 08/20/18 21:35 Dose: 300 mg Piperacillin Sod/Tazobactam Sod (Zosyn 2.25 Gm Iv Premix) 2.25 gm in 50 mls @ 100 mls/hr IVPB Q8H [facility]; Protocol Last Admin: 08/21/18 08:46 Dose: 100 mls/hr Clindamycin Phosphate 300 mg/ (Sodium Chloride) 52 mls @ 104 mls/hr IVPB Q8H [facility]; Protocol Last Admin: 08/21/18 09:51 Dose: 104 mls/hr Vancomycin HCl 1 gm/ Sodium (Chloride) 250 mls @ 133 mls/hr IVPB TTS [facility]; Protocol Stop: 08/29/18 11:53 Last Admin: 08/20/18 18:53 Dose: 133 mls/hr Insulin Human Regular (Novolin R) 0 unit SC ACHS [facility]; Protocol Last Admin: 08/21/18 11:38 Dose: Not Given Metoprolol Tartrate (Lopressor) 100 mg PO DAILY [facility] Last Admin: 08/21/18 09:54 Dose: 100 mg Qcjgp-3-Swid Ethyl Esters (Lovaza) 1 gm PO DAILY [facility] Last Admin: 08/21/18 09:54 Dose: 1 gm Sevelamer Carbonate (Renvela) 800 mg PO TIDCC [facility] Last Admin: 08/21/18 12:55 Dose: 800 mg Sodium Hypochlorite (Dakins Solution 0.25%) 0 ml TOP QSHIFT [facility] Last Admin: 08/21/18 13:06 Dose: 1 applic Vitamin B Complex/Vit C/Folic Acid (Nephro-Leslye) 1 tab PO DAILY [facility] Last Admin: 08/21/18 10:22 Dose: Not Given - Labs Labs: 08/20/18 07:26 08/19/18 11:10 PT 12.3 SECONDS (9.7-12.2) H 08/15/18 07:37 INR 1.1 08/15/18 07:37 APTT 29 SECONDS (21-34) 08/15/18 07:37 - Constitutional Appears: Non-toxic, No Acute Distress - Extremities Exam Additional comments: RLE focused physical exam: VASC: PT pulse weakly palpable 1/4. DP nonpalpable. Cap refill delayed to digits, unable to assess hallux. +2 pitting edema. NEURO: Protective sensation grossly diminished. DERM: Dusky discoloration noted to hallux extending proximally into midshaft of 1st metatarsal; +malodor, neg drainage/purulence/fluctuance. MSK: Pain on palpation distal tuft of hallux. Hallucal IPJ and 1st MPJ ROM limited secondary to guarding. - Neurological Exam Neurological Exam: Alert, Awake, Oriented x3 - Psychiatric Exam Psychiatric exam: Normal Affect, Normal Mood Assessment and Plan - Assessment and Plan (Free Text) Assessment: 73F with right hallux gangrene Plan: Patient seen and evaluated alongside attending, Dr. Eisenberg VSS R foot WCx: staph epidermidis ?skin darin LE Arterial US: -Unable to obtain right JENNIFER due to absent audible pulses -Bilat. multilevel decreased perfusion; R decreased at iliac, superficial femoral, popliteal, tibial, and distal small aa.; L decreased at SFA, popliteal, and tibial aa. LE angio: Severe stenosis to the R SFA, R arterial tree below the knee, Moderate to sever stenosis to the L SFA -Vascular recs appreciated: s/p diagnostic and therapeutic angiogram with occlusive right sided tibial disease Right foot XR: Negative for osteomyelitis; ulceration and emphysema at distal hallucal tuft RLE MRI: Extensive ST swelling throughout with marrow signal abnormality throughout 1st distal phalanx as well as accompanying erosive changes compatible with osteomyelitis. Accompanying dorsal ST ulcer measuring roughly 1.7cm. Severe marrow signal abnormality involving distal 3rd phalanx also suspicious for OM -Per vascular might need additional intervention on tibial vessels No surgical intervention at this time; will continue to monitor gangrene demarcation Continue local wound care: BING Schneider QSHITAMARA Pain control per primary team Podiatry will continue to follow
--- NOTE | 2018-08-21 22:14 | CP.PCM.PN ---
Subjective - Date & Time of Evaluation Date of Evaluation: 08/21/18 Time of Evaluation: 16:15 - Subjective Subjective: Patient seen and evaluated No cardiac events noted Physical Exam - Constitutional Appears: Non-toxic, No Acute Distress - Head Exam Head Exam: ATRAUMATIC, NORMOCEPHALIC - Eye Exam Eye Exam: EOMI - ENT Exam ENT Exam: Mucous Membranes Moist - Neck Exam Neck exam: Positive for: Normal Inspection - Respiratory Exam Respiratory Exam: Clear to Auscultation Bilateral - Cardiovascular Exam Cardiovascular Exam: REGULAR RHYTHM - GI/Abdominal Exam GI & Abdominal Exam: Normal Bowel Sounds, Soft - Back Exam Back exam: NORMAL INSPECTION - Neurological Exam Neurological exam: Alert, Oriented x3 - Psychiatric Exam Psychiatric exam: Normal Affect, Normal Mood - Skin Skin Exam: Dry, Intact Assessment & Plan - Assessment and Plan (Free Text) Assessment: 73F with ESRD without functional dialysis access Patient with multiple risk factors Normal EF and Normal stress test Objective - Vital Signs/Intake and Output Vital Signs (last 24 hours): Temp Pulse Resp BP Pulse Ox 98 F 73 20 150/75 97 08/21/18 15:46 08/21/18 15:46 08/21/18 15:46 08/21/18 15:46 08/21/18 15:46 - Medications Medications: Current Medications Acetaminophen (Tylenol 325mg Tab) 650 mg PO Q6 PRN PRN Reason: Pain, moderate (4-7) Last Admin: 08/21/18 08:47 Dose: 650 mg Allopurinol (Zyloprim) 300 mg PO DAILY [facility] Last Admin: 08/21/18 09:54 Dose: 300 mg Clopidogrel Bisulfate (Plavix) 75 mg PO DAILY [facility] Last Admin: 08/21/18 09:54 Dose: 75 mg Gabapentin (Neurontin) 300 mg PO HS [facility] Last Admin: 08/21/18 21:27 Dose: 300 mg Piperacillin Sod/Tazobactam Sod (Zosyn 2.25 Gm Iv Premix) 2.25 gm in 50 mls @ 100 mls/hr IVPB Q8H [facility]; Protocol Last Admin: 08/21/18 16:28 Dose: 100 mls/hr Clindamycin Phosphate 300 mg/ (Sodium Chloride) 52 mls @ 104 mls/hr IVPB Q8H [facility]; Protocol Last Admin: 08/21/18 17:27 Dose: 104 mls/hr Vancomycin HCl 1 gm/ Sodium (Chloride) 250 mls @ 133 mls/hr IVPB TTS [facility]; Protocol Stop: 08/29/18 11:53 Last Admin: 08/20/18 18:53 Dose: 133 mls/hr Insulin Human Regular (Novolin R) 0 unit SC ACHS [facility]; Protocol Last Admin: 08/21/18 21:26 Dose: Not Given Metoprolol Tartrate (Lopressor) 100 mg PO DAILY [facility] Last Admin: 08/21/18 09:54 Dose: 100 mg Rbsag-5-Wodm Ethyl Esters (Lovaza) 1 gm PO DAILY [facility] Last Admin: 08/21/18 09:54 Dose: 1 gm Sevelamer Carbonate (Renvela) 800 mg PO TIDCC [facility] Last Admin: 08/21/18 17:28 Dose: 800 mg Sodium Hypochlorite (Dakins Solution 0.25%) 0 ml TOP QSHIFT [facility] Last Admin: 08/21/18 21:28 Dose: 1 applic Vitamin B Complex/Vit C/Folic Acid (Nephro-Leslye) 1 tab PO DAILY [facility] Last Admin: 08/21/18 10:22 Dose: Not Given - Labs Labs: 08/20/18 07:26 08/19/18 11:10 PT 12.3 SECONDS (9.7-12.2) H 08/15/18 07:37 INR 1.1 08/15/18 07:37 APTT 29 SECONDS (21-34) 08/15/18 07:37
--- NOTE | 2018-08-21 22:48 | CARD ---
APPROVED REPORT Date of service: 08/20/2018 Protocol: PHARMACOLOGICAL STRESS Test Type: LEXISCAN Test Indications: PRE OP Medications: LIST SCAN Medical History: PRE OP Target HR: 145 bpm Resting ECG: normal Resting Heart Rate: 78 bpm Resting Blood Pressure: 144/74mmHg submaximum (85%): 123 bpm TEST SUMMARY [id number]/74.0. INFUSIONDOSE 100:300.00.01.080/.0. [id number]/70.0. PROCEDURE Pharmacologic stress testing was performed using 0.4mg per 5ml of regadenoson given intravenously over 7-10 seconds. POST EXERCISE Reason for Termination: Protocol Completed Target HR: No Max HR: 80 bpm 58% of Maximum Predicted HR: 145 bpm Exercise duration: 00:30 min:sec, 0 Stage Exercise capacity: 1.0METs Max Blood Pressure: 144/74mmHg Blood Pressure response to exercise: normal resting BP - appropriate response Heart Rate response to exercise: appropriate Chest Pain: No, none Angina index: 0 Arrhythmia: No, none ST Change: No, none Deviation: 0 mm INTERPRETATION Stress EKG Conclusion: Nuclear report to follow EXAM: Myocardial Perfusion REST/STRESS Imaging Protocol The imaging protocol used to acquire images was Rest Tc-99m/stress Tc-99m 1 day Rest Spect myocardial perfusion imaging was performed in supine position 45 minutes following the injection of 12.5 mCi of Tc-99 Myoview. Gated Stress Spect was performed 45 minutes after intravenous 32.1 mCiTc-99 Myoview injection. The images were gated to evaluate regional wall motion and calculate ventricular ejection fraction.Images were reconstructed using backfilter projection method in short horizontal and verticle long axis. Spect slices were generated. RESTING DATA EDV95.23brYE8.20L/min ESV30.00mlMyocardial Yopi136.00g Av. Heart Rate81.00bpm EF68.00% STRESS DATA EDV94.81eiSP1.20L/min ESV31.00mlMyocardial Thpz740.00g EF67.00% Regional WT score at stress:0.00 Regional WM score at stress:0.00 Summed WT score at stress:6.00 Av. Heart Rate82.00bpmSummed WM score at stress:0.00 LV Perf. Quant 17 Seg. SSS4.00 17 Seg. SRS3.00 17 Seg. SDS1.00 Stress Defect Extent (% LAD)0.00Rest Defect Extent (% LAD)0.00Rev. Defect Extent (% LAD)0.00 Stress Defect Extent (% LCX)32.50Rest Defect Extent (% LCX)25.00Rev. Defect Extent (% LCX)0.00 Stress Defect Extent (% RCA)0.00Rest Defect Extent (% RCA)0.00Rev. Defect Extent (% RCA)0.00 Stress Defect Extent (% MILVIA)6.30Rest Defect Extent (% MILVIA)4.80Rev. Defect Extent (% MILVIA)0.00 Other Information Quality:Good IMPRESSION Normal Myocardial Perfusion exercise stress study Left Ventricle LV Function:Left ventricle systolic function is normal. The Ejection Fraction is >55%. Metabolism/Perfusion There are no perfusion/metabolism defects. Conclusion 1. Normal Lexiscan Nuclear Stress test. Normal EF
[2018-08-22] MEDS: Piperacill/Tazo 2.25gm in Dex 2.25 GM/50 ML BAG IVPB SCH ×3 (00:01→17:00)
[2018-08-22] MEDS: Clindamycin 300 MG in Sodium Chloride 0.9% 50 ML IVPB SCH (00:03)
--- NOTE | 2018-08-22 03:58 | PN ---
DATE: 08/21/2018 SUBJECTIVE: The patient is seen today, 08/21/2018. She is not in any cardiopulmonary distress. PHYSICAL EXAMINATION: VITAL SIGNS: Blood pressure is 150/75, temperature 98, respiratory rate 20, and pulse 73. HEENT: Pupils equal, reactive to light. Normal-appearing mucosa of the conjunctivae, oropharynx and nasal membrane mucosa. NECK: Supple. No JVD. No carotid bruit. No lymph node. No thyromegaly. CHEST AND LUNGS: Bilateral symmetrical expansion. Good air exchange. No rales, no rhonchi. CARDIOVASCULAR SYSTEM: PMI not localized. S1, S2. No additional sounds. ABDOMEN: Normoactive bowel sounds. No tenderness. No organomegaly. No masses. EXTREMITIES: No cyanosis, no clubbing, no edema. CENTRAL NERVOUS SYSTEM: Alert, awake, oriented x2. No neurological deficit could be appreciated. LABORATORY DATA: MRI of the right foot showed extensive soft tissue swelling throughout with marrow signal abnormality throughout the distal phalanx as well as accompanying erosive changes along the distal tip compatible with osteomyelitis. Severe marrow signal abnormality also noted involving the distal third phalanx, also suspicious for osteomyelitis. ASSESSMENT: 1. Osteomyelitis of the right foot. 2. Peripheral vascular disease, status post revascularization of the right lower extremity. 3. End-stage renal disease, and hemodialysis currently through a tunneled catheter. 4. Type 2 diabetes mellitus. 5. Hypertension. PLAN: Continue current antibiotics and medications. Follow Infectious Disease recommendations as well as Vascular Surgery and Renal. Cuba Hendrickson MD
[2018-08-22] MEDS: Dakin's Topical 0.25%-Half Strength (480 ml) TOP SCH ×2 (05:37→13:46)
[2018-08-22] MEDS: (Novolin R) Insulin Human Regular 100 units/ml vial SC SCH ×3 (07:55→17:20)
--- NOTE | 2018-08-22 09:28 | CP.PCM.PN ---
Subjective - Date & Time of Evaluation Date of Evaluation: 08/22/18 Time of Evaluation: 09:28 - Subjective Subjective: Podiatry Progress Note - Dr. Cherry/[place] 73F seen and evaluated this AM for right hallux painful gangrene. Patient c/o increased swelling in right foot today, pain unchanged. Denies n/v/f/d/c/sob. Objective - Vital Signs/Intake and Output Vital Signs (last 24 hours): Temp Pulse Resp BP Pulse Ox 97.3 F L 76 20 126/60 99 08/22/18 07:00 08/22/18 07:00 08/22/18 07:00 08/22/18 07:00 08/22/18 07:00 Intake and Output: 08/22/18 08/22/18 06:59 18:59 Intake Total 630 Balance 630 - Medications Medications: Current Medications Acetaminophen (Tylenol 325mg Tab) 650 mg PO Q6 PRN PRN Reason: Pain, moderate (4-7) Last Admin: 08/22/18 00:00 Dose: 650 mg Allopurinol (Zyloprim) 300 mg PO DAILY [facility] Last Admin: 08/21/18 09:54 Dose: 300 mg Clopidogrel Bisulfate (Plavix) 75 mg PO DAILY [facility] Last Admin: 08/21/18 09:54 Dose: 75 mg Gabapentin (Neurontin) 300 mg PO HS [facility] Last Admin: 08/21/18 21:27 Dose: 300 mg Piperacillin Sod/Tazobactam Sod (Zosyn 2.25 Gm Iv Premix) 2.25 gm in 50 mls @ 100 mls/hr IVPB Q8H [facility]; Protocol Last Admin: 08/22/18 00:01 Dose: 100 mls/hr Vancomycin HCl 1 gm/ Sodium (Chloride) 250 mls @ 133 mls/hr IVPB TTS [facility]; Protocol Stop: 08/29/18 11:53 Last Admin: 08/20/18 18:53 Dose: 133 mls/hr Insulin Human Regular (Novolin R) 0 unit SC ACHS [facility]; Protocol Last Admin: 08/22/18 07:55 Dose: Not Given Metoprolol Tartrate (Lopressor) 100 mg PO DAILY [facility] Last Admin: 08/21/18 09:54 Dose: 100 mg Kuotf-1-Brft Ethyl Esters (Lovaza) 1 gm PO DAILY [facility] Last Admin: 08/21/18 09:54 Dose: 1 gm Sevelamer Carbonate (Renvela) 800 mg PO TIDCC [facility] Last Admin: 08/21/18 17:28 Dose: 800 mg Sodium Hypochlorite (Dakins Solution 0.25%) 0 ml TOP QSHIFT [facility] Last Admin: 08/22/18 05:37 Dose: 1 applic Vitamin B Complex/Vit C/Folic Acid (Nephro-Leslye) 1 tab PO DAILY [facility] Last Admin: 08/21/18 10:22 Dose: Not Given - Labs Labs: 08/20/18 07:26 08/19/18 11:10 PT 12.3 SECONDS (9.7-12.2) H 08/15/18 07:37 INR 1.1 08/15/18 07:37 APTT 29 SECONDS (21-34) 08/15/18 07:37 - Constitutional Appears: Non-toxic, No Acute Distress - Extremities Exam Additional comments: RLE focused physical exam: VASC: PT pulse weakly palpable 1/4. DP nonpalpable. Cap refill delayed to digits, unable to assess hallux. +2 pitting edema. NEURO: Protective sensation grossly diminished. DERM: Dusky discoloration noted to hallux extending proximally into midshaft of 1st metatarsal; +malodor, neg drainage/purulence/fluctuance. MSK: Pain on palpation distal tuft of hallux extending proximally into plantar medial arch. Hallucal IPJ and 1st MPJ ROM limited secondary to guarding. - Neurological Exam Neurological Exam: Alert, Awake, Oriented x3 - Psychiatric Exam Psychiatric exam: Normal Affect, Normal Mood Assessment and Plan - Assessment and Plan (Free Text) Assessment: 73F with right hallux gangrene Plan: Patient seen and evaluated Discussed with attending, Dr. Dilip BO R foot WCx: staph epidermidis ?skin darin LE Arterial US: -Unable to obtain right JENNIFER due to absent audible pulses -Bilat. multilevel decreased perfusion; R decreased at iliac, superficial femoral, popliteal, tibial, and distal small aa.; L decreased at SFA, popliteal, and tibial aa. LE angio: Severe stenosis to the R SFA, R arterial tree below the knee, Moderate to severe stenosis to the L SFA -Vascular recs appreciated: s/p diagnostic and therapeutic angiogram with occlusive right sided tibial disease Right foot XR: Negative for osteomyelitis; ulceration and emphysema at distal hallucal tuft RLE MRI: Extensive ST swelling throughout with marrow signal abnormality throughout 1st distal phalanx as well as accompanying erosive changes compatible with osteomyelitis. Accompanying dorsal ST ulcer measuring roughly 1.7cm. Severe marrow signal abnormality involving distal 3rd phalanx also suspicious for OM -Per vascular might need additional intervention on tibial vessels No surgical intervention at this time; will continue to monitor gangrene demarcation Continue local wound care: BING Schneider QSHITAMARA Pain control per primary team Podiatry will continue to follow
[2018-08-22] MEDS: Omega-3-Acid Ethyl Esters 1 GM Cap PO SCH (09:53)
[2018-08-22] MEDS: Multivitamin Vitamin B Complex (Nephro-Vite) Tab PO SCH (09:54)
[2018-08-22 13:16] VITALS: PULSE 81
[2018-08-22 15:49] VITALS: BP 119/60; RESP 20; TEMP 98.2; O2SAT 95
--- NOTE | 2018-08-22 17:13 | CP.PCM.PN ---
Subjective - Date & Time of Evaluation Date of Evaluation: 08/22/18 Time of Evaluation: 17:13 - Subjective Subjective: Alert and orientedxx3, no sob or chest pains, no acute pain on the foot. Objective - Vital Signs/Intake and Output Vital Signs (last 24 hours): Temp Pulse Resp BP Pulse Ox 98.2 F 81 20 119/60 95 08/22/18 15:47 08/22/18 15:47 08/22/18 15:47 08/22/18 15:47 08/22/18 15:47 Intake and Output: 08/22/18 08/22/18 06:59 18:59 Intake Total 630 600 Output Total 3000 Balance 630 -2400 - Medications Medications: Current Medications Acetaminophen (Tylenol 325mg Tab) 650 mg PO Q6 PRN PRN Reason: Pain, moderate (4-7) Last Admin: 08/22/18 12:19 Dose: 650 mg Allopurinol (Zyloprim) 300 mg PO DAILY [facility] Last Admin: 08/22/18 09:55 Dose: Not Given Clopidogrel Bisulfate (Plavix) 75 mg PO DAILY [facility] Last Admin: 08/22/18 09:54 Dose: Not Given Gabapentin (Neurontin) 300 mg PO HS [facility] Last Admin: 08/21/18 21:27 Dose: 300 mg Piperacillin Sod/Tazobactam Sod (Zosyn 2.25 Gm Iv Premix) 2.25 gm in 50 mls @ 100 mls/hr IVPB Q8H [facility]; Protocol Last Admin: 08/22/18 09:54 Dose: Not Given Insulin Human Regular (Novolin R) 0 unit SC ACHS [facility]; Protocol Last Admin: 08/22/18 11:53 Dose: Not Given Metoprolol Tartrate (Lopressor) 100 mg PO DAILY [facility] Last Admin: 08/22/18 09:53 Dose: Not Given Qvnox-5-Bxbf Ethyl Esters (Lovaza) 1 gm PO DAILY [facility] Last Admin: 08/22/18 09:53 Dose: Not Given Sevelamer Carbonate (Renvela) 800 mg PO TIDCC [facility] Last Admin: 08/22/18 11:56 Dose: Not Given Sodium Hypochlorite (Dakins Solution 0.25%) 0 ml TOP QSHIFT [facility] Last Admin: 08/22/18 13:46 Dose: Not Given Vitamin B Complex/Vit C/Folic Acid (Nephro-Leslye) 1 tab PO DAILY [facility] Last Admin: 08/22/18 09:54 Dose: Not Given - Labs Labs: 08/20/18 07:26 08/19/18 11:10 PT 12.3 SECONDS (9.7-12.2) H 08/15/18 07:37 INR 1.1 08/15/18 07:37 APTT 29 SECONDS (21-34) 08/15/18 07:37 Assessment and Plan - Assessment and Plan (Free Text) Assessment: 73 year old female with osteomylietis right foot, seen and examined. Alert and orientedx3, denies acute pain. Discussed with DR Hendrickson, plan to discharge home on levaquin and vancomycin for 6 weeks. Advised follow up with DR Rivera Cherry and DR Thompson for follow up. Advised to follow up with PMD in 1 week.
--- NOTE | 2018-08-22 21:12 | CP.PCM.PN ---
Subjective - Date & Time of Evaluation Date of Evaluation: 08/22/18 Time of Evaluation: 08:40 - Subjective Subjective: Patient seen and evaluated No cardiac events noted Physical Exam - Constitutional Appears: Non-toxic, No Acute Distress - Head Exam Head Exam: ATRAUMATIC, NORMOCEPHALIC - Eye Exam Eye Exam: EOMI - ENT Exam ENT Exam: Mucous Membranes Moist - Neck Exam Neck exam: Positive for: Normal Inspection - Respiratory Exam Respiratory Exam: Clear to Auscultation Bilateral - Cardiovascular Exam Cardiovascular Exam: REGULAR RHYTHM - GI/Abdominal Exam GI & Abdominal Exam: Normal Bowel Sounds, Soft - Back Exam Back exam: NORMAL INSPECTION - Neurological Exam Neurological exam: Alert, Oriented x3 - Psychiatric Exam Psychiatric exam: Normal Affect, Normal Mood - Skin Skin Exam: Dry, Intact Assessment & Plan - Assessment and Plan (Free Text) Assessment: 73F with ESRD Patient with multiple risk factors Normal EF and Normal stress test Cardio f/u as out patient Objective - Vital Signs/Intake and Output Vital Signs (last 24 hours): Temp Pulse Resp BP Pulse Ox 98.2 F 81 20 119/60 95 08/22/18 15:47 08/22/18 15:47 08/22/18 15:47 08/22/18 15:47 08/22/18 15:47 Intake and Output: 08/22/18 08/23/18 18:59 06:59 Intake Total 600 Output Total 3000 Balance -2400 - Labs Labs: 08/20/18 07:26 08/19/18 11:10 PT 12.3 SECONDS (9.7-12.2) H 08/15/18 07:37 INR 1.1 08/15/18 07:37 APTT 29 SECONDS (21-34) 08/15/18 07:37
--- NOTE | 2018-08-22 21:48 | DS ---
REASON FOR ADMISSION: This is a 73-year-old female with history of multiple medical problems who was admitted for malfunctioning AV shunt and placing of tunneled catheter. COURSE OF HOSPITALIZATION: The patient was admitted to medical floor and had a vascular surgery consult to Dr. Thompson who placed the tunneled catheter and the patient was started on hemodialysis. The patient was complaining of pain in the right foot which was found to be gangrenous. The patient had a podiatry consult done by Dr. Rivera Cherry and ID consult by Dr. Nile Raygoza. The patient was started on IV antibiotics. The patient had an MRI of the foot that showed osteomyelitis also. The patient had revascularization surgery done on the right lower extremity, but she will still need bypass surgery for revascularization of the right foot. The patient was discharged home at this point to continue IV vancomycin post dialysis for 6 weeks as well as Levaquin 500 mg daily and to follow up with Vascular Surgery for possible bypass as well as for podiatry surgery for possible digital or transmetatarsal amputation after bypass surgery. FINAL DIAGNOSES: 1. Osteomyelitis of the right foot. 2. Type 2 diabetes mellitus. 3. Hypertension. 4. End-stage renal disease, on hemodialysis. 5. Severe peripheral vascular disease. Cuba Hendrickson MD
--- NOTE | 2018-08-23 01:36 | CP.PCM.PN ---
Subjective - Date & Time of Evaluation Date of Evaluation: 08/23/18 Time of Evaluation: 01:36 - Subjective Subjective: 08/22/18 LATE ENTRY. AFEBRILE Patient OOB in recliner, NAD. No acute events overnight. ROS. HEENT : N. Resp : No cough, wheezing ,pleuritic CP ,or hemoptysis Cardio : No anginal CP, PND, orthopnea, palpitation GI : No abd.pain, n/v ,diarrhea or GI bleeding . ENERGY CONSULTANT : No headache, vertigo, focal deficit. Musculoskel : No joint swelling , Derm : No rash Psych : Normal affect. Ext : LEFT GROIN DRESSING .RT . BIG TOE ISCHEMIC GANGRENE. HUSSAIN SWELLING IMPROVING. PE. Pt. is alert awake in no distress. V.S As noted in the chart Head ,ear nose,throat and eyes : Normal. Neck : Supple with normal carotids. Lungs: Clear air entry. Heart : S1 & S2 normal with S4. No murmur. Abd : Soft non tender with normal bowel sounds. Neuro : Moves all ext. with no localized deficit. Ext : RT . BIG TOE ISCHEMIC GANGRENE. HUSSAIN SWELLING IMPROVING. Derm : No rashes or decubitus ulcer. LABS/RADIOLOGY: WOUND CULTURE -STAPH. EPIDERMIDIS ? SKIN ALFRED X-RAY RIGHT FOOT -VE FOREIGN BODY. EMPHYSEMATOUS SOFT TISSUE CHANGES SEEN RIGHT GREAT TOE. MRI RT. FOOT fINDINGS CONSISTENT WITH FIRST DISTAL PHALANX EROSIVE CHANGES DISTAL TIP CO NSISTENT WITH OSTEOMYELITIS. aLSO SEVERE ABNORMAL MARROW SIGNAL INVOLVING DISTAL THIRD PHALNX ALSO SUSPICIOUS FOR OSTEOMYELITIS. Objective - Vital Signs/Intake and Output Vital Signs (last 24 hours): Temp Pulse Resp BP Pulse Ox 98.2 F 81 20 119/60 95 08/22/18 15:47 08/22/18 15:47 08/22/18 15:47 08/22/18 15:47 08/22/18 15:47 Intake and Output: 08/22/18 08/23/18 18:59 06:59 Intake Total 600 Output Total 3000 Balance -2400 - Labs Labs: 08/20/18 07:26 08/19/18 11:10 PT 12.3 SECONDS (9.7-12.2) H 08/15/18 07:37 INR 1.1 08/15/18 07:37 APTT 29 SECONDS (21-34) 08/15/18 07:37 Assessment and Plan (1) Ischemic gangrene Status: Acute (2) AV fistula occlusion Status: Acute (3) ESRD on dialysis Status: Acute (4) Diabetes mellitus Status: Acute (5) PVD (peripheral vascular disease) Status: Acute - Assessment and Plan (Free Text) Plan: PLAN; CASE DISCUSSED WITH PMD. PATIENT'S RIGHT UPPER ARM AND FOREARM SWOLLEN AND EDEMATOUS. wILL HOLD OFF PLACING picc LINE AT PRESENT. DISCUSSED WITH DR. ZIMMERMAN.pATIENT CAN BE PLACED ON PO LEVAQUIN 750MG PO OD DAILY X 6WEEKS IV VANCOMYCIN 1 G POST EACH HEMODIALYS TTS X 6WEEKS. F/U VANCO TROUGH WEEKLY AND KEEP BETWEEN 10 AND 20MCG/DL. F/U LFTS WEEKLY WITH CBC W DIFF. MONITOR FOR QUINOLONE TOXICITY-TENDINITIS/ARTHRALGIAS, SJS/TENS AND DRUG INDUCED HYPERSENSITIVITY REACTIONS. WILL F/U PT WHILE IN HOSPITAL.
== END 2018-08-22 18:35 | disposition home or self-care (01) | DRG 314 ==
LOC: C.ER 17:27 → C.9E 20:24 → C.5S 23:01
PROVIDERS: ADMIT Internal Medicine; ATTEND Internal Medicine
PROC: 05H533Z Insertion of Infusion Device into Right Subclavian Vein, Percutaneous Approach (ICD-10-PCS; 2018-08-15)
PROC: B516YZA Fluoroscopy of Right Subclavian Vein using Other Contrast, Guidance (ICD-10-PCS; 2018-08-15)
PROC: 02H633Z Insertion of Infusion Device into Right Atrium, Percutaneous Approach (ICD-10-PCS; 2018-08-15)
PROC: 5A1D70Z Performance of Urinary Filtration, Intermittent, Less than 6 Hours Per Day (ICD-10-PCS; 2018-08-15)
PROC: 0JH63XZ Insertion of Tunneled Vascular Access Device into Chest Subcutaneous Tissue and Fascia, Percutaneous Approach (ICD-10-PCS; principal; 2018-08-15 14:30)
PROC: 5A1D70Z Performance of Urinary Filtration, Intermittent, Less than 6 Hours Per Day (ICD-10-PCS; 2018-08-22)
DX: T82.868A Thrombosis due to vascular prosthetic devices, implants and grafts, initial encounter (principal); N18.6 End stage renal disease; I13.2 Hypertensive heart and chronic kidney disease with heart failure and with stage 5 chronic kidney disease, or end stage renal disease; E11.52 Type 2 diabetes mellitus with diabetic peripheral angiopathy with gangrene; M86.9 Osteomyelitis, unspecified; T82.898A Other specified complication of vascular prosthetic devices, implants and grafts, initial encounter; E11.22 Type 2 diabetes mellitus with diabetic chronic kidney disease; E11.621 Type 2 diabetes mellitus with foot ulcer; G89.29 Other chronic pain; H54.7 Unspecified visual loss; I50.9 Heart failure, unspecified; Z99.2 Dependence on renal dialysis; M54.9 Dorsalgia, unspecified; M79.674 Pain in right toe(s); L97.509 Non-pressure chronic ulcer of other part of unspecified foot with unspecified severity; D63.1 Anemia in chronic kidney disease; M10.9 Gout, unspecified; E11.69 Type 2 diabetes mellitus with other specified complication; T82.818A Embolism due to vascular prosthetic devices, implants and grafts, initial encounter; Y83.2 Surgical operation with anastomosis, bypass or graft as the cause of abnormal reaction of the patient, or of later complication, without mention of misadventure at the time of the procedure; Z90.49 Acquired absence of other specified parts of digestive tract; Z91.15 Patient's noncompliance with renal dialysis

== ENCOUNTER 2018-09-07 19:58 | Inpatient (IN) | payer MEDICARE, OTHER ==
[2018-09-07 19:59] VITALS: BMI 33.8
--- NOTE | 2018-09-07 20:24 | C.PDOC ---
History Of Present Illness 73 y/o female comes in complaining of right foot pain that is 6/10. Patient is on dialysis on Sunday, Sunday, Sunday. Denies fever, chills, or any other complaint. Patient has a graft right on the right arm with good thrill and b ruit. Time Seen by Provider: 09/07/18 20:23 Chief Complaint (Nursing): Lower Extremity Problem/Injury History Per: Patient History/Exam Limitations: no limitations Onset/Duration Of Symptoms: Days Current Symptoms Are (Timing): Still Present Severity: Severe Pain Scale Rating Of: 7 Recent travel outside of the [place]: No Additional History Per: Patient Past Medical History Reviewed: Historical Data, Nursing Documentation, Vital Signs Vital Signs: Last Vital Signs Temp 98.2 F 09/07/18 20:03 Pulse 96 H 09/07/18 20:03 Resp 18 09/07/18 20:03 BP 159/84 H 09/07/18 20:03 Pulse Ox 99 09/07/18 20:03 - Medical History PMH: Anemia (IRON INFUSION TREATMENTS), Arthritis (KNEE), CHF (Questionable on xray. Pt denies), HTN, Peripheral Edema ( Chronic), End Stage Renal Disease, Chronic Kidney Disease Surgical History: Appendectomy - [facility] (08/14/18) BYPASS RIGHT RADIAL ARTERY TO LOWER ARM VEIN, OPEN APPROACH (05/13/17) DILATION OF UPPER ARTERY, PERCUTANEOUS APPROACH (01/20/18) DILATION OF UPPER VEIN, PERCUTANEOUS APPROACH (01/20/18) FLUOROSCOPY OF DIALYSIS SHUNT/FISTULA USING OTHER CONTRAST (01/20/18) FLUOROSCOPY OF R SUBCLAV VEIN USING OT CONTRAST, GUIDANCE (08/14/18) INSERT INFUSION DEV IN R INT JUGULAR VEIN, PERC (05/13/17) INSERTION OF INFUSION DEV INTO R SUBCLAV VEIN, PERC APPROACH (08/14/18) INSERTION OF INFUSION DEV INTO SUP VENA CAVA, PERC APPROACH (01/20/18) INSERTION OF INFUSION DEVICE INTO R ATRIUM, PERC APPROACH (08/14/18) INSERTION OF VAD INTO CHEST SUBCU/FASCIA, PERC APPROACH (08/14/18) INSPECTION OF LOWER INTESTINAL TRACT, PERC ENDO APPROACH (09/24/17) PERFORMANCE OF URINARY FILTRATION, MULTIPLE (05/13/17) REMOVAL OF INFUSION DEVICE FROM GREAT VESSEL, PERC APPROACH (01/20/18) RESECTION OF APPENDIX, OPEN APPROACH (09/24/17) Family History: States: No Known Family Hx - Social History Hx Alcohol Use: No Hx Substance Use: No - Immunization History Hx Tetanus Toxoid Vaccination: Yes Hx Influenza Vaccination: Yes (Jun 2018) Hx Pneumococcal Vaccination: Yes Review Of Systems Constitutional: Negative for: Fever, Chills Eyes: Negative for: Vision Change Cardiovascular: Negative for: Chest Pain Respiratory: Negative for: Shortness of Breath Gastrointestinal: Negative for: Abdominal Pain Genitourinary: Negative for: Dysuria Musculoskeletal: Positive for: Foot Pain (Right) Skin: Positive for: Lesions (gangrene r great toe) Neurological: Negative for: Weakness, Numbness Psych: Negative for: Anxiety Physical Exam - Physical Exam Appears: Non-toxic Skin: Warm, Dry, Other (dry gangreen r great toe) Head: Normacephalic Eye(s): bilateral: Normal Inspection Oral Mucosa: Moist Neck: Trachea Midline, Supple Chest: Other (Dialysis port on right chest) Cardiovascular: Rhythm Regular Respiratory: No Rales, No Rhonchi, No Wheezing Gastrointestinal/Abdominal: Soft, No Tenderness, No Distention Back: Normal Inspection Extremity: Pedal Edema (trace, bilaterally), Capillary Refill (3/5 on other 4 toes), Other (Right great toe: Dry gangrene, black) Extremity: Right: Painful To Bear Weight Pulses: Right Dorsalis Pedis: Absent (on R great toe) Neurological/Psych: Oriented x3, Normal Speech Gait: With Assistance ED Course And Treatment - Laboratory Results Result Diagrams: 09/07/18 21:21 09/07/18 21:21 ECG: Interpreted By Me, Viewed By Me ECG Rhythm: Sinus Rhythm (92), Nonspecific Changes O2 Sat by Pulse Oximetry: 99 (RA) Pulse Ox Interpretation: Normal Progress Note: VBG, EKG, labs, and chest XR ordered. Patient was given IV fluids. Disposition Discussed With : Cuba Hendrickson Comment: accepted the pt on his service and took over the care at 9:58 PM Doctor Will See Patient In The: Hospital Counseled Patient/Family Regarding: Studies Performed, Diagnosis - Disposition Disposition: HOSPITALIZED Disposition Time: 20:24 Condition: GUARDED Forms: [facility] (Samoan) - POA Present On Arrival: Poor Glycemic Control, Pressure Ulcer - Clinical Impression Clinical Impression: Arterial, arteriole and capillary disease, ESRD on dialysis, PVD (peripheral vascular disease), Ischemic gangrene, Diabetes mellitus - Scribe Statement The provider has reviewed the documentation as recorded by the Silvana Garcia Provider Attestation: All medical record entries made by the Juan Carlosibel were at my direction and personally dictated by me. I have reviewed the chart and agree that the record accurately reflects my personal performance of the history, physical exam, medical decision making, and the department course for this patient. I have also personally directed, reviewed, and agree with the discharge instructions and disposition. Decision To Admit - Pt Status Changed To: Hospital Disposition Of: Inpatient - Admit Certification Admit to Inpatient:: After my assessment, the patient will require hospitalization for at least two midnights. This is because of the severity of symptoms shown, intensity of services needed, and/or the medical risk in this patient being treated as an outpatient. - InPatient: Physician Admission Certification: I certify that this patient requires 2 or more midnights of care for the following reason:: After my assessment, the patient will require hospitalization for at least two midnights. This is because of the severity of symptoms shown, intensity of services needed, and/or the medical risk in this patient being treated as an outpatient. - . Bed Request Type: Regular Admitting Physician: Cuba Hendrickson Patient Diagnosis: Arterial, arteriole and capillary disease, ESRD on dialysis, PVD (peripheral vascular disease), Ischemic gangrene, Diabetes mellitus
[2018-09-07] MEDS: Sodium Chloride 0.9% 1,000 ML IV SCH (21:00)
[2018-09-07] MEDS ORDERED: Sodium Chloride 0.9% 1,000 ML ONE (21:05)
[2018-09-07 21:06] LABS: VENOUS BLOOD GAS BASE EXCESS 9.1 mmol/L (0.0-2.0); VENOUS BLOOD GAS PCO2 60 mmHg (40-60); VENOUS BLOOD GAS PO2 27 mm/Hg (30-55); VENOUS BLOOD PH 7.39 (7.32-7.43)
[2018-09-07 21:24] LABS: BASO # 0.1 K/uL (0.0-0.2); BASO % 1.2 % (0.0-2.0); EOS # 0.6 K/uL (0.0-0.7); EOS % 7.6 % (0.0-4.0); HEMOGLOBIN 10.4 g/dL (11.0-16.0); LYMPH # 1.3 K/uL (1.0-4.3); LYMPH % 17.8 % (20.0-40.0); MEAN CELL VOLUME 97.2 fL (81.0-99.0); MEAN CORPUSCULAR HEMOGLOBIN 31.1 pg (27.0-31.0); MONO # 0.8 K/uL (0.0-0.8); MONO % 10.6 % (0.0-10.0); NEUT # 4.6 K/uL (1.8-7.0); NEUT % 62.8 % (50.0-75.0); RBC 3.33 Mil/uL (3.80-5.20); RED CELL DISTRIBUTION WIDTH 16.9 % (11.5-14.5); WHITE BLOOD COUNT 7.4 K/uL (4.8-10.8)
--- NOTE | 2018-09-07 21:26 | CP.PCM.CON ---
History of Present Illness - History of Present Illness History of Present Illness: Vascular Surgery Consult Note for Dr. Thompson Consult: Right leg PVD CC: Right leg pain HPI: 73 year old female, past medical history significant for DM, HTN, ESRD on dialysis, presents to the emergency department with right toe ulceration and necrosis secondary to severe peripheral vascular disease. Patient's daughter is at bedside who provided history. Patient follows regularly with director of market analysis. Patient has been having pain in her lower extremities for the past 6 months however 4 months ago she hit her toes on a door and the injury never healed. Operations And Maintenance Manager applied ointments, antibiotics, and debrided tissue but the pain and skin ulceration persisted. An angiogram of the extremity was done a few weeks ago and she was found to have severe atherosclerotic disease and plaque in the right lower extremity and is scheduled for a bypass with Dr. Thompson on 09/09/18. Denies fever, chills, nausea, vomiting, diarrhea, constipation, headaches, dizziness, or urinary symptoms. PMH: See above PSH: Angiogram, Appendectomy FH: Noncontributory SH: Denies tobacco, alcohol, drugs ALL: Betadine, latex Meds: See MAR Review of Systems - Constitutional Constitutional: absent: Chills, Fever - EENT Eyes: absent: Blurred Vision, Change in Vision Nose/Mouth/Throat: absent: Nasal Congestion, Nasal Discharge - Cardiovascular Cardiovascular: absent: Chest Pain, Dyspnea - Respiratory Respiratory: absent: Cough, Dyspnea - Gastrointestinal Gastrointestinal: absent: Abdominal Pain, Nausea, Vomiting - Genitourinary Genitourinary: absent: Difficulty Urinating, Dysuria - Musculoskeletal Musculoskeletal: Arthralgias, Radiating Pain into Limb. absent: Back Pain, Neck Pain - Integumentary Integumentary: Change in Nails, Changing Lesions, Dry Skin, Non-Healing Lesions, Skin Pain, Skin Ulcer - Neurological Neurological: absent: Confusion, Dizziness - Psychiatric Psychiatric: absent: Anxiety, Depression Past Patient History - Past Medical History & Family History Past Medical History?: Yes - Past Social History Smoking Status: Never Smoked - CARDIAC Hx Congestive Heart Failure: Yes (Questionable on xray. Pt denies) Hx Hypertension: Yes Hx Peripheral Edema: Yes ( Chronic) - PULMONARY Hx Respiratory Disorders: No - NEUROLOGICAL Hx Neurological Disorder: No - HEENT Hx HEENT Problems: Yes (Retinal disease) Hx Cataracts: Yes Other/Comment: Diabetic blindness - RENAL Hx Chronic Kidney Disease: Yes - ENDOCRINE/METABOLIC Hx Diabetes Mellitus Type 2: Yes - HEMATOLOGICAL/ONCOLOGICAL Hx Anemia: Yes (IRON INFUSION TREATMENTS) - INTEGUMENTARY Hx Dermatological Problems: No - MUSCULOSKELETAL/RHEUMATOLOGICAL Hx Arthritis: Yes (KNEE) - GASTROINTESTINAL Hx Gastrointestinal Disorders: No - GENITOURINARY/GYNECOLOGICAL Hx Genitourinary Disorders: No - PSYCHIATRIC Hx Substance Use: No - SURGICAL HISTORY Hx Appendectomy: Yes - ANESTHESIA Hx Anesthesia: Yes Hx Anesthesia Reactions: No Hx Malignant Hyperthermia: No Meds Allergies/Adverse Reactions: Allergies Allergy/AdvReac Type Severity Reaction Status Date / Time povidone-iodine Allergy Severe RASH Verified 09/07/18 20:13 [From Betadine] soap [From Betadine] Allergy Severe RASH Verified 09/07/18 20:13 Latex, Natural Rubber Allergy Intermediate ITCHING Verified 09/07/18 20:13 durapore tape Allergy Intermediate ITCHING Uncoded 09/07/18 20:13 - Medications Medications: Current Medications Sodium Chloride (Sodium Chloride 0.9%) 1,000 mls @ 100 mls/hr IV .Q10H LUCILLE Piperacillin Sod/Tazobactam (Sod 3.375 gm/ Sodium Chloride) 100 mls @ 200 mls/hr IVPB Q6H LUCILLE; Protocol Physical Exam - Constitutional Appears: Well, Non-toxic, No Acute Distress - Head Exam Head Exam: ATRAUMATIC, NORMAL INSPECTION, NORMOCEPHALIC - Eye Exam Eye Exam: EOMI - ENT Exam ENT Exam: Mucous Membranes Dry - Respiratory Exam Respiratory Exam: NORMAL BREATHING PATTERN. absent: Respiratory Distress - Cardiovascular Exam Cardiovascular Exam: REGULAR RHYTHM. absent: Tachycardia - GI/Abdominal Exam GI & Abdominal Exam: Normal Bowel Sounds, Soft. absent: Tenderness - Extremities Exam Additional comments: nonpalpable DP/PT pulses on RLE RLE cold and tender to palpation Right toe ulcerated with necrosis and excoriation of skin No active drainage of pus or blood No odor noted Chronic lower extremity edema bilaterally with mild hyperpigmentation of skin - Neurological Exam Neurological exam: Alert, Oriented x3 - Psychiatric Exam Psychiatric exam: Normal Affect, Normal Mood Results - Vital Signs Recent Vital Signs: Last Vital Signs Temp 98.2 F 09/07/18 20:03 Pulse 96 H 09/07/18 21:04 Resp 18 09/07/18 20:03 BP 159/84 H 09/07/18 20:03 Pulse Ox 99 09/07/18 21:04 - Labs Labs: Laboratory Results - last 24 hr 09/07/18 21:00 pO2 27 L VBG pH 7.39 VBG pCO2 60 VBG HCO3 30.7 VBG Total CO2 38.1 H VBG O2 Sat (Calc) 44.5 VBG Base Excess 9.1 H VBG Potassium 3.6 Sodium 141.0 Chloride 103.0 Glucose 127 H Lactate 1.9 FiO2 21.0 Venous Blood Potassium 3.6 Assessment & Plan - Assessment and Plan (Free Text) Assessment: 73F w/ peripheral arterial disease of the lower extremities Scheduled for Bypass on 09/09/18 Plan: NPO past midnight on 09/08/18 AM labs Type and Cross PT/INR IV Abx Analgesics PRN Nephrology consult regarding dialysis Local wound care of the right lower extremity D/w Dr. Jay Salcido PGY1
[2018-09-07] MEDS ORDERED: Piperacillin/Tazobact 3.375 GM in Sodium Chloride 100 ML IVPB SCH (21:30)
[2018-09-07] MEDS: Piperacill/Tazo 3.375gm in Dex 3.375 GM/50 ML BAG IVPB SCH (21:42)
[2018-09-07 21:48] LABS: ALB/GLOB RATIO 1.2 (1.0-2.1); ALBUMIN 4.4 g/dL (3.5-5.0); CALCIUM 8.9 mg/dl (8.6-10.4)
--- NOTE | 2018-09-08 08:04 | CP.PCM.PN ---
Subjective - Date & Time of Evaluation Date of Evaluation: 09/08/18 Time of Evaluation: 08:01 - Subjective Subjective: Vascular Surgery Progress Note for Dr. Thompson 73F seen and evaluate at bedside this morning. No acute events overnight. Patient experiencing pain in the right toe, controlled with pain medication. HD today. Denies f/c, n/v/d, SOB, CP, or urinary symptoms. Objective - Vital Signs/Intake and Output Vital Signs (last 24 hours): Temp Pulse Resp BP Pulse Ox 98.2 F 80 17 102/63 100 09/07/18 20:03 09/08/18 06:30 09/08/18 06:30 09/08/18 06:30 09/08/18 06:30 - Medications Medications: Current Medications Sodium Chloride (Sodium Chloride 0.9%) 1,000 mls @ 100 mls/hr IV .Q10H LUCILLE Last Admin: 09/07/18 21:00 Dose: 100 mls/hr Piperacillin Sod/Tazobactam Sod (Zosyn 3.375 Gm Iv Premix) 3.375 gm in 50 mls @ 200 mls/hr IVPB Q6H LUCILLE; Protocol Last Admin: 09/07/18 21:42 Dose: 200 mls/hr - Labs Labs: 09/07/18 21:21 09/07/18 21:21 - Constitutional Appears: Well, Non-toxic, No Acute Distress - Head Exam Head Exam: ATRAUMATIC, NORMAL INSPECTION, NORMOCEPHALIC - Eye Exam Eye Exam: EOMI - ENT Exam ENT Exam: Mucous Membranes Dry - Respiratory Exam Respiratory Exam: NORMAL BREATHING PATTERN. absent: Respiratory Distress - Extremities Exam Additional comments: Right greater toe necrosis with skin excoriations Tender to palpation Nonpalpable pulses of the right DP/PT Mild hyperpigmentation of bilteral LE - Neurological Exam Neurological Exam: Alert, Awake - Psychiatric Exam Psychiatric exam: Normal Affect, Normal Mood Assessment and Plan - Assessment and Plan (Free Text) Assessment: 73F w/ peripheral arterial disease of the lower extremities Plan: Scheduled for bypass 09/09/18 NPO past midnight AM labs Type and Cross Analgesics PRN Pending nephrology eval for HD today Further management per primary D/w Dr. Jay Salcido PGY1
--- NOTE | 2018-09-08 09:10 | RAD ---
HISTORY: SOB COMPARISON: Chest x-ray performed 08/15/18 TECHNIQUE: Chest, one view. FINDINGS: Right IJ approach dialysis catheter with distal tips at the proximal right atrium. LUNGS: Mild pulmonary venous congestion. Mild bibasilar atelectasis. Right hilar prominence. Please note that chest x-ray has limited sensitivity for the detection of pulmonary masses. PLEURA: No significant pleural effusion identified. No definite pneumothorax. CARDIOVASCULAR: Cardiomegaly. Ectatic aorta. OSSEOUS STRUCTURES: No acute osseous abnormality identified. VISUALIZED UPPER ABDOMEN: Unremarkable. OTHER FINDINGS: Partially imaged right upper extremity stent. IMPRESSION: Mild pulmonary venous congestion. Mild bibasilar atelectasis. Right hilar prominence, may represent vasculature exaggerated by patient obliquity. Partially imaged right upper extremity stent.
[2018-09-08] MEDS ORDERED: Dextrose 50% SYRINGE Inj (50 ml) IV PRN (09:30)
[2018-09-08] MEDS ORDERED: Glucagon Recombinant 1 mg Inj IM PRN (09:30)
[2018-09-08] MEDS: Sodium Chloride 0.9% 1,000 ML IV SCH (09:30)
[2018-09-08] MEDS ORDERED: Sodium Chloride 0.9% 1,000 ML ONE (09:48)
[2018-09-08] MEDS ORDERED: VIT D3 VIT K PO SCH (10:00)
[2018-09-08] MEDS ORDERED: [UNRECOGNIZED DRUG - OTHER] PO SCH (10:00)
[2018-09-08] MEDS ORDERED: BERBERINE PO SCH (10:00)
[2018-09-08] MEDS ORDERED: HOPS PO SCH (10:00)
[2018-09-08] MEDS ORDERED: OMEGA 3 FATTY ACIDS PO SCH (10:00)
[2018-09-08] MEDS ORDERED: VIT B COMPLEX AND C PO SCH (10:00)
[2018-09-08] MEDS ORDERED: FOLIC ACID PO SCH (10:00)
[2018-09-08] MEDS: Piperacill/Tazo 3.375gm in Dex 3.375 GM/50 ML BAG IVPB SCH ×3 (10:35→21:06)
[2018-09-08] MEDS: Omega-3-Acid Ethyl Esters 1 GM Cap PO SCH ×2 (10:37→20:56)
[2018-09-08] MEDS: Saccharomyces Boulardi 250 mg Cap PO SCH (10:38)
[2018-09-08] MEDS: Multivitamin Vitamin B Complex (Nephro-Vite) Tab PO SCH (10:41)
[2018-09-08] MEDS: (Novolog) Insulin Aspart, Recombinant 100 u/ml 10 ml vial SC SCH ×3 (11:40→21:06)
--- NOTE | 2018-09-08 18:01 | CP.PCM.CON ---
History of Present Illness - History of Present Illness History of Present Illness: Podiatry Progress Note: Dr. Cherry 73 year old female patient with PMHx DM, HTN, ESRD, seen and evaluated for right hallux dry gangrene. Patient states that she has been seen this past month for the same complaint and is presenting today for bypass tomorrow, 09/09/18, with Dr. Thompson. She reports significant pain to the R lower extremity. Patient denies any other pedal complaints at this time. Denies n/v/f/d/c/sob. PMHx: DM, HTN, ESRD PSHx: angiogram, appendectomy SHx: Denies tobacco use ALL: Betadine Review of Systems - Review of Systems Review of Systems: As per HPI Past Patient History - Past Medical History & Family History Past Medical History?: Yes - Past Social History Smoking Status: Never Smoked - CARDIAC Hx Congestive Heart Failure: Yes (Questionable on xray. Pt denies) Hx Hypertension: Yes Hx Peripheral Edema: Yes ( Chronic) - PULMONARY Hx Respiratory Disorders: No - NEUROLOGICAL Hx Neurological Disorder: No - HEENT Hx HEENT Problems: Yes (Retinal disease) Hx Cataracts: Yes Other/Comment: Diabetic blindness - RENAL Hx Chronic Kidney Disease: Yes - ENDOCRINE/METABOLIC Hx Diabetes Mellitus Type 2: Yes - HEMATOLOGICAL/ONCOLOGICAL Hx Anemia: Yes (IRON INFUSION TREATMENTS) - INTEGUMENTARY Hx Dermatological Problems: No - MUSCULOSKELETAL/RHEUMATOLOGICAL Hx Arthritis: Yes (KNEE) - GASTROINTESTINAL Hx Gastrointestinal Disorders: No - GENITOURINARY/GYNECOLOGICAL Hx Genitourinary Disorders: No - PSYCHIATRIC Hx Substance Use: No - SURGICAL HISTORY Hx Appendectomy: Yes - ANESTHESIA Hx Anesthesia: Yes Hx Anesthesia Reactions: No Hx Malignant Hyperthermia: No Meds Allergies/Adverse Reactions: Allergies Allergy/AdvReac Type Severity Reaction Status Date / Time povidone-iodine Allergy Severe RASH Verified 09/07/18 20:13 [From Betadine] soap [From Betadine] Allergy Severe RASH Verified 09/07/18 20:13 Latex, Natural Rubber Allergy Intermediate ITCHING Verified 09/07/18 20:13 durapore tape Allergy Intermediate ITCHING Uncoded 09/07/18 20:13 - Medications Medications: Current Medications Allopurinol (Zyloprim) 100 mg PO DAILY [facility] Last Admin: 09/08/18 10:40 Dose: 100 mg Aspirin (Aspirin Chewable) 81 mg PO DAILY [facility] Last Admin: 09/08/18 10:36 Dose: 81 mg Dextrose (Dextrose 50% Inj) 0 ml IV STAT PRN; Protocol PRN Reason: Hypoglycemia Protocol Dextrose (Glutose 15) 0 gm PO ONCE PRN; Protocol PRN Reason: Hypoglycemia Protocol Gabapentin (Neurontin) 300 mg PO HS [facility] Glucagon (Glucagen Diagnostic Kit) 0 mg IM STAT PRN; Protocol PRN Reason: Hypoglycemia Protocol Home Med (Vit D3-Vit K/Berberine/Hops [Ostera Tablet]) 1 tab PO DAILY [facility] Sodium Chloride (Sodium Chloride 0.9%) 1,000 mls @ 100 mls/hr IV .Q10H [facility] Last Admin: 09/08/18 09:30 Dose: 100 mls/hr Piperacillin Sod/Tazobactam Sod (Zosyn 3.375 Gm Iv Premix) 3.375 gm in 50 mls @ 200 mls/hr IVPB Q6H [facility]; Protocol Last Admin: 09/08/18 10:35 Dose: 200 mls/hr Dextrose (Dextrose 5% In Water 1000 Ml) 1,000 mls @ 0 mls/hr IV .Q0M PRN; Protocol PRN Reason: Hypoglycemia Protocol Vancomycin/Sodium Chloride (Vancomycin 1 Gm/Ns 200 Ml) 1 gm in 200 mls @ 133.3 33 mls/hr IVPB MWF [facility] Stop: 09/14/18 09:01 Insulin Aspart (Novolog) 0 unit SC ACHS [facility]; Protocol Last Admin: 09/08/18 16:32 Dose: Not Given Metoprolol Tartrate (Lopressor) 100 mg PO DAILY [facility] Last Admin: 09/08/18 10:42 Dose: 100 mg [id number] Ethyl Esters (Lovaza) 1 gm PO BID [facility] Last Admin: 09/08/18 10:37 Dose: 1 gm Saccharomyces Boulardii (Florastor) 250 mg PO DAILY [facility] Last Admin: 09/08/18 10:38 Dose: 250 mg Sevelamer Carbonate (Renvela) 800 mg PO TIDCC [facility] Last Admin: 09/08/18 14:10 Dose: 800 mg Vitamin B Complex/Vit C/Folic Acid (Nephro-Leslye) 1 tab PO DAILY [facility] Last Admin: 09/08/18 10:41 Dose: 1 tab Physical Exam - Constitutional Appears: Non-toxic, No Acute Distress - Extremities Exam Additional comments: RLE focused physical exam: Vasc: PT pulse weakly palpable 1/4. DP nonpalpable. Cap refill delayed to digits, unable to assess hallux. +2 pitting edema. Ortho: Pain on palpation distal tuft of hallux extending proximally into plantar medial arch. Hallucal IPJ and 1st MPJ ROM limited secondary to guarding. Neuro: Protective sensation grossly diminished. Derm: Black discoloration noted to hallux extending proximally into midshaft of 1st metatarsal; slight malodor, neg drainage/purulence/fluctuance. Hallux firm to touch - Neurological Exam Neurological exam: Alert, Oriented x3 - Psychiatric Exam Psychiatric exam: Normal Affect, Normal Mood Results - Vital Signs Recent Vital Signs: Last Vital Signs Temp 98.7 F 09/08/18 17:22 Pulse 69 09/08/18 17:22 Resp 18 09/08/18 17:22 BP 128/68 09/08/18 17:22 Pulse Ox 99 09/08/18 17:22 - Labs Result Diagrams: 09/07/18 21:21 09/07/18 21:21 Labs: Laboratory Results - last 24 hr 09/07/18 09/07/18 09/07/18 21:00 21:21 21:21 WBC 7.4 RBC 3.33 L Hgb 10.4 L Hct 32.3 L MCV 97.2 MCH 31.1 H MCHC 32.0 L RDW 16.9 H Plt Count 117 L D MPV 11.0 Neut % (Auto) 62.8 Lymph % (Auto) 17.8 L [place] % (Auto) 10.6 H Eos % (Auto) 7.6 H Baso % (Auto) 1.2 Neut # (Auto) 4.6 Lymph # (Auto) 1.3 [place] # (Auto) 0.8 Eos # (Auto) 0.6 Baso # (Auto) 0.1 Differential Comment pO2 27 L VBG pH 7.39 VBG pCO2 60 VBG HCO3 30.7 VBG Total CO2 38.1 H VBG O2 Sat (Calc) 44.5 VBG Base Excess 9.1 H VBG Potassium 3.6 Sodium 141.0 139 Chloride 103.0 96 L Glucose 127 H Lactate 1.9 FiO2 21.0 Potassium 3.9 Carbon Dioxide 32 H Anion Gap 15 BUN 19 H Creatinine 5.3 H Est GFR ( Amer) 10 Est GFR (Non-Af Amer) 8 POC Glucose (mg/dL) Random Glucose 137 H Calcium 8.9 Total Bilirubin 0.6 AST 30 ALT 20 Alkaline Phosphatase 78 Total Protein 8.0 Albumin 4.4 Globulin 3.6 Albumin/Globulin Ratio 1.2 Venous Blood Potassium 3.6 Blood Type Antibody Screen 09/07/18 09/08/18 09/08/18 21:29 06:54 11:38 WBC RBC Hgb Hct MCV MCH MCHC RDW Plt Count MPV Neut % (Auto) Lymph % (Auto) [place] % (Auto) Eos % (Auto) Baso % (Auto) Neut # (Auto) Lymph # (Auto) [place] # (Auto) Eos # (Auto) Baso # (Auto) Differential Comment pO2 VBG pH VBG pCO2 VBG HCO3 VBG Total CO2 VBG O2 Sat (Calc) VBG Base Excess VBG Potassium Sodium Chloride Glucose Lactate FiO2 Potassium Carbon Dioxide Anion Gap BUN Creatinine Est GFR ( Amer) Est GFR (Non-Af Amer) POC Glucose (mg/dL) 92 95 Random Glucose Calcium Total Bilirubin AST ALT Alkaline Phosphatase Total Protein Albumin Globulin Albumin/Globulin Ratio Venous Blood Potassium Blood Type A POSITIVE Antibody Screen Negative 09/08/18 16:27 WBC RBC Hgb Hct MCV MCH MCHC RDW Plt Count MPV Neut % (Auto) Lymph % (Auto) [place] % (Auto) Eos % (Auto) Baso % (Auto) Neut # (Auto) Lymph # (Auto) [place] # (Auto) Eos # (Auto) Baso # (Auto) Differential Comment pO2 VBG pH VBG pCO2 VBG HCO3 VBG Total CO2 VBG O2 Sat (Calc) VBG Base Excess VBG Potassium Sodium Chloride Glucose Lactate FiO2 Potassium Carbon Dioxide Anion Gap BUN Creatinine Est GFR ( Amer) Est GFR (Non-Af Amer) POC Glucose (mg/dL) 98 Random Glucose Calcium Total Bilirubin AST ALT Alkaline Phosphatase Total Protein Albumin Globulin Albumin/Globulin Ratio Venous Blood Potassium Blood Type Antibody Screen Assessment & Plan - Assessment and Plan (Free Text) Assessment: 73 year old female patient with PMHx DM, HTN, ESRD, seen and evaluated for right hallux dry gangrene. Plan: Patient seen and evaluated with attending Dr. Cherry VSS, WBC 7.4 Vasc consult; Scheduled for bypass 09/09/18 RLE MRI (12/19): Extensive ST swelling throughout with marrow signal abnormality throughout 1st distal phalanx as well as accompanying erosive changes compatible with osteomyelitis. Accompanying dorsal ST ulcer measuring roughly 1.7cm. Severe marrow signal abnormality involving distal 3rd phalanx also suspicious for OM Will monitor after bypass and book for amputation later in the week Continue local wound care: [facility] will continue to follow - Date & Time Date: 09/08/18 Time: 18:00
--- NOTE | 2018-09-09 04:34 | HP ---
HISTORY OF PRESENT ILLNESS: This is a 73-year-old female with history of end-stage renal disease, on hemodialysis, currently dialyzed through a tunneled catheter in the right subclavian vein. The patient was admitted through emergency room for peripheral vascular disease with gangrene of the right foot, mainly the big toe. The patient has been on antibiotics of vancomycin and Levaquin for treating osteomyelitis of the right foot. The patient had revascularization procedure done on last admission of the right lower extremity. Recommendation was to do a bypass surgery. The patient had a stress test as an outpatient that was negative. The patient denied to have any chest pain or shortness of breath at this point. Other review of system is negative. ALLERGIES: POSITIVE FOR IODINE AND LATEX. SOCIAL HISTORY: No history of smoking, EtOH, or substance abuse. FAMILY HISTORY: Noncontributory. PAST MEDICAL HISTORY: Type 2 diabetes mellitus, hypertension, osteomyelitis, end-stage renal disease on hemodialysis, and gouty arthritis. FAMILY HISTORY: Noncontributory. MEDICATIONS: Reviewed and ordered as per MAR. PHYSICAL EXAMINATION: GENERAL: The patient is not in any cardiopulmonary distress. VITAL SIGNS: Blood pressure 145/76, temperature 98.6, respiratory rate 17, and pulse 69. HEENT: Pupils equal, reactive to light. Normal-appearing mucosa of the conjunctivae, oropharynx, and nasal membrane mucosa. NECK: Supple. No JVD. No carotid bruit. No lymph node. No thyromegaly. CHEST AND LUNGS: Bilateral symmetrical expansion. Good air exchange. No rales, no rhonchi. CARDIOVASCULAR SYSTEM: PMI not localized. S1, S2. No additional sounds. ABDOMEN: Normoactive bowel sounds. No tenderness. No organomegaly. No masses. EXTREMITIES: Right foot gangrene. No clubbing, no edema. CENTRAL NERVOUS SYSTEM: Alert, awake, oriented x2. No neurological deficits could be appreciated. The patient also has a tunneled catheter on the right subclavian vein. ASSESSMENT: 1. Gangrene of the right foot with severe peripheral vascular disease. 2. End-stage renal disease, on hemodialysis. 3. Hypertension. 4. Gouty arthritis. 5. Type 2 diabetes mellitus. PLAN: We continue to follow recommendations of Surgery. The patient is dialyzed today and given vancomycin during dialysis. Continue Levaquin. Resume the patient's home medications and AccuCheks 4 times daily with insulin coverage. [facility] MD [facility] # [id number]
[2018-09-09] MEDS: Piperacill/Tazo 3.375gm in Dex 3.375 GM/50 ML BAG IVPB SCH ×3 (04:45→10:45)
[2018-09-09 06:35] LABS: HEMOGLOBIN 8.7 g/dL (11.0-16.0); MEAN CELL VOLUME 97.1 fL (81.0-99.0); MEAN CORPUSCULAR HEMOGLOBIN 31.8 pg (27.0-31.0); MEAN CORPUSCULAR HGB CONC 32.8 g/dL (33.0-37.0); MEAN PLATELET VOLUME 10.6 fL (7.2-11.7); RBC 2.73 Mil/uL (3.80-5.20); RED CELL DISTRIBUTION WIDTH 16.5 % (11.5-14.5)
[2018-09-09 06:44] LABS: INR 1.2; PROTHROMBIN TIME 13.2 SECONDS (9.7-12.2)
[2018-09-09 06:53] LABS: CALCIUM 8.3 mg/dl (8.6-10.4)
[2018-09-09] MEDS ORDERED: HEPARIN-NS 5,000 UNITS/500 ML 10,000 UNIT/1,000 ML BAG IV ONE (07:08)
[2018-09-09] MEDS ORDERED: Iodixanol 320 MG/ML 200 ML BOTTLE IV ONE (07:09)
[2018-09-09] MEDS ORDERED: Thrombin Topical 20,000 Intl Units Spray Kit TOP ONE (07:09)
[2018-09-09] MEDS: (Novolog) Insulin Aspart, Recombinant 100 u/ml 10 ml vial SC SCH ×3 (08:23→22:47)
[2018-09-09] MEDS ORDERED: Vancomycin 1 g Inj IVPB SCH (09:00)
[2018-09-09] MEDS: Vancomycin 1 gm/NS 200 ml 1 GM/200 ML BAG IVPB SCH ×2 (10:25→10:38)
[2018-09-09] MEDS ORDERED: Propofol 10 mg/ml Inj (20 ML) ONE (10:32)
[2018-09-09] MEDS ORDERED: Rocuronium 10 mg/ml (5 ml) ONE (10:33)
[2018-09-09] MEDS: Saccharomyces Boulardi 250 mg Cap PO SCH (10:37)
[2018-09-09] MEDS: Omega-3-Acid Ethyl Esters 1 GM Cap PO SCH (10:38)
[2018-09-09] MEDS: Multivitamin Vitamin B Complex (Nephro-Vite) Tab PO SCH (10:38)
[2018-09-09] MEDS ORDERED: Phenylephrine 10 mg/ml Inj ONE (11:49)
[2018-09-09] MEDS ORDERED: HEPARIN-NS 5,000 UNITS/500 ML 5,000 UNIT/500 ML BAG IV ONE (13:40)
[2018-09-09] MEDS ORDERED: Iohexol 240 200 ML ONE (13:40)
[2018-09-09] MEDS ORDERED: Neostigmine Methylsulfate 3mg/3ml Syringe IV ONE (16:07)
[2018-09-09] MEDS ORDERED: HYDROmorphone 0.5 mg/0.5 ml ISec IVP PRN (16:16)
--- NOTE | 2018-09-09 16:16 | PCM.SURG1 ---
Surgeon's Initial Post Op Note - Surgeon's Notes Surgeon: Dr. Thompson Hand Clerical Verifier: Dr. Hill PGY-3 Type of Anesthesia: General Endo Pre-Operative Diagnosis: Peripheral Vascular Disease, Gangrene R hallux Operative Findings: See operative report Post-Operative Diagnosis: Same Operation Performed: Right Popliteal to Anterior Tibial Bypass with Saphenous Vein Graft Specimen/Specimens Removed: none Estimated Blood Loss: EBL {In ML}: 400 Blood Products Given: N/A Drains Used: No Drains Post-Op Condition: Good Date of Surgery/Procedure: 09/09/18 Time of Surgery/Procedure: 16:15
--- NOTE | 2018-09-09 16:36 | RAD ---
Date of service: 09/09/2018 PROCEDURE: Intraoperative Fluoroscopy. HISTORY: PVD/GANGRENE GREAT TOE FINDINGS: Fluoroscopic assistance was provided Fluoroscopy time = 9.3 sec. Radiation dose = 0.35330 mGy-cm. Please refer to the operative report from YESSENIA Forrester.
--- NOTE | 2018-09-09 16:50 | CP.PCM.CON ---
History of Present Illness - History of Present Illness History of Present Illness: Critical Care Consult Note for Dr. Macias' service CC: s/p pop-tib bypass HPI: Patient is a 73 yo female w/ PMH DM, HTN, ESRD on HD, PVD s/p right pop-tib bypass w/ saphenous vein graft admitted for post-procedural care. Patient very groggy during examination. Limited ROS. Patient daughter at bedside stated that patient was conversational before she became groggy. Patient's daughter states no complaints after surgery. PMH: See above PSH: Angiogram, Appendectomy FH: Noncontributory SH: Denies tobacco, alcohol, drugs ALL: Betadine, latex Meds: See MAR Review of Systems - Review of Systems Systems not reviewed;Unavailable: Other (patient very groggy likely 2/2 to anasthesia) Past Patient History - Past Medical History & Family History Past Medical History?: Yes - Past Social History Smoking Status: Never Smoked - CARDIAC Hx Congestive Heart Failure: Yes - PULMONARY Hx Respiratory Disorders: No - NEUROLOGICAL Hx Neurological Disorder: No - HEENT Hx HEENT Problems: Yes (Retinal disease) Hx Cataracts: Yes Other/Comment: Diabetic blindness - RENAL Hx Chronic Kidney Disease: Yes - ENDOCRINE/METABOLIC Hx Diabetes Mellitus Type 2: Yes - HEMATOLOGICAL/ONCOLOGICAL Hx Anemia: Yes (IRON INFUSION TREATMENTS) - INTEGUMENTARY Hx Dermatological Problems: No - MUSCULOSKELETAL/RHEUMATOLOGICAL Hx Arthritis: Yes - GASTROINTESTINAL Hx Gastrointestinal Disorders: No - GENITOURINARY/GYNECOLOGICAL Hx Genitourinary Disorders: No - PSYCHIATRIC Hx Substance Use: No - SURGICAL HISTORY Hx Appendectomy: Yes - ANESTHESIA Hx Anesthesia: Yes Hx Anesthesia Reactions: No Hx Malignant Hyperthermia: No Meds Allergies/Adverse Reactions: Allergies Allergy/AdvReac Type Severity Reaction Status Date / Time povidone-iodine Allergy Severe RASH Verified 09/07/18 20:13 [From Betadine] soap [From Betadine] Allergy Severe RASH Verified 09/07/18 20:13 Latex, Natural Rubber Allergy Intermediate ITCHING Verified 09/07/18 20:13 durapore tape Allergy Intermediate ITCHING Uncoded 09/07/18 20:13 - Medications Medications: Current Medications Acetaminophen (Tylenol 325mg Tab) 650 mg PO Q6 PRN PRN Reason: pain Last Admin: 09/08/18 22:15 Dose: 650 mg Allopurinol (Zyloprim) 100 mg PO DAILY [facility] Last Admin: 09/09/18 10:38 Dose: Not Given Aspirin (Aspirin Chewable) 81 mg PO DAILY [facility] Last Admin: 09/09/18 10:37 Dose: Not Given Calcium/Vitamin D (Oyster Shell Calcium/Vitamin D 500 Mg-200 Iu) 1 tab PO DAILY [facility] Dextrose (Dextrose 50% Inj) 0 ml IV STAT PRN; Protocol PRN Reason: Hypoglycemia Protocol Dextrose (Glutose 15) 0 gm PO ONCE PRN; Protocol PRN Reason: Hypoglycemia Protocol Gabapentin (Neurontin) 300 mg PO HS [facility] Last Admin: 09/08/18 22:15 Dose: 300 mg Glucagon (Glucagen Diagnostic Kit) 0 mg IM STAT PRN; Protocol PRN Reason: Hypoglycemia Protocol Hydromorphone HCl (Dilaudid) 0.5 mg IVP Q5M PRN PRN Reason: Pain, severe (8-10) Stop: 09/09/18 18:16 Piperacillin Sod/Tazobactam Sod (Zosyn 3.375 Gm Iv Premix) 3.375 gm in 50 mls @ 200 mls/hr IVPB Q6H [facility]; Protocol Last Admin: 09/09/18 10:45 Dose: 50 mls Dextrose (Dextrose 5% In Water 1000 Ml) 1,000 mls @ 0 mls/hr IV .Q0M PRN; Protocol PRN Reason: Hypoglycemia Protocol Vancomycin/Sodium Chloride (Vancomycin 1 Gm/Ns 200 Ml) 1 gm in 200 mls @ 133.333 mls/hr IVPB [facility] Stop: 09/14/18 09:01 Last Admin: 09/09/18 10:38 Dose: Not Given Insulin Aspart (Novolog) 0 unit SC [facility]; Protocol Last Admin: 09/09/18 08:23 Dose: Not Given Metoprolol Tartrate (Lopressor) 100 mg PO DAILY [facility] Last Admin: 09/09/18 10:37 Dose: Not Given [id number]-[id number] Ethyl Esters (Lovaza) 1 gm PO BID [facility] Last Admin: 09/09/18 10:38 Dose: Not Given Saccharomyces Boulardii (Florastor) 250 mg PO DAILY [facility] Last Admin: 09/09/18 10:37 Dose: Not Given Sevelamer Carbonate (Renvela) 800 mg PO TIDCC [facility] Last Admin: 09/09/18 08:23 Dose: Not Given Vitamin B Complex/Vit C/Folic Acid (Nephro-Roxana) 1 tab PO DAILY [facility] Last Admin: 09/09/18 10:38 Dose: Not Given Physical Exam - Constitutional Appears: Non-toxic, No Acute Distress - Head Exam Head Exam: NORMAL INSPECTION, NORMOCEPHALIC - Eye Exam Eye Exam: Normal appearance. absent: Nystagmus, Scleral icterus - ENT Exam ENT Exam: Mucous Membranes Moist - Respiratory Exam Respiratory Exam: Clear to Auscultation Bilateral, NORMAL BREATHING PATTERN. absent: Rales, Rhonchi, Wheezes - Cardiovascular Exam Cardiovascular Exam: Bradycardia, REGULAR RHYTHM, +S1, +S2 - GI/Abdominal Exam GI & Abdominal Exam: Normal Bowel Sounds, Soft. absent: Diminished Bowel Sounds, Distended, Firm, Guarding, Hernia, Tenderness - Extremities Exam Extremities exam: Positive for: pedal pulses present Additional comments: Patient right toe was gangrene Patient right leg was in cast with incisional villagran from procedure - Psychiatric Exam Psychiatric exam: Normal Affect, Normal Mood - Skin Skin Exam: Intact, Normal Color Results - Vital Signs Recent Vital Signs: Last Vital Signs Temp 98 F 09/09/18 07:00 Pulse 72 09/09/18 07:00 Resp 20 09/09/18 07:00 BP 118/76 09/09/18 07:00 Pulse Ox 96 09/09/18 07:00 - Labs Result Diagrams: 09/09/18 06:23 09/09/18 06:23 Labs: Laboratory Results - last 24 hr 09/07/18 09/08/18 09/09/18 21:29 20:59 06:23 WBC 6.0 RBC 2.73 L Hgb 8.7 L Hct 26.5 L MCV 97.1 MCH 31.8 H MCHC 32.8 L RDW 16.5 H Plt Count 125 L MPV 10.6 PT INR APTT Sodium Potassium Chloride Carbon Dioxide Anion Gap BUN Creatinine Est GFR ( Amer) Est GFR (Non-Af Amer) POC Glucose (mg/dL) 80 Random Glucose Calcium Blood Type A POSITIVE Antibody Screen Negative 09/09/18 09/09/18 06:23 06:23 WBC RBC Hgb Hct MCV MCH MCHC RDW Plt Count MPV PT 13.2 H INR 1.2 APTT 22 Sodium 138 Potassium 3.6 Chloride 98 Carbon Dioxide 32 H Anion Gap 11 BUN 13 Creatinine 4.0 H Est GFR ( Amer) 13 Est GFR (Non-Af Amer) 11 POC Glucose (mg/dL) Random Glucose 84 D Calcium 8.3 L Blood Type Antibody Screen Assessment & Plan - Assessment and Plan (Free Text) Assessment: Patient is a 73 yo female w/ PMH DM, HTN, ESRD on HD, PVD s/p right pop-tib bypass w/ saphenous vein graft admitted for post-procedural care. Neuro Groggy; alert oriented when awake by daughter CV Lopressor Aspirin Pulm no acute issues maintain spO2>92 GI no acute issues Florastor Heme s/p right pop-tib bypass; Dilaudid prn; Tylenol prn Endo Gabapentin Renal ESRD continue diaylsis as per nephro; Ca/Vit D, Severlamer, Allopurinol, Nephro- roxana ID Zosyn Vanc (MWF post dialysis) cx negative so far Disposition: Patient has pedal pulses s/p bypass. Patient will monitored in ICU overnight. Pending overnight events patient may be downgraded to med-surg floors PGY-1 [facility] d/w Dr. Macias
[2018-09-09] MEDS: HYDROmorphone 0.5 mg/0.5 ml ISec IVP PRN (19:47)
--- NOTE | 2018-09-09 19:52 | CP.PCM.CON ---
History of Present Illness - History of Present Illness History of Present Illness: REASONS FOR CONSULT : ESRD ON HD [facility]one Pratt WAS ADMITTED FOR PAD TO BE DONE BY [facility] HPI: 73 year old female, past medical history significant for DM, HTN, ESRD on dialysis, presents to the emergency department with right toe ulceration and necrosis secondary to severe peripheral vascular disease. Patient's daughter is at bedside who provided history. Patient follows regularly with acquisition editor. Patient has been having pain in her lower extremities for the past 6 months however 4 months ago she hit her toes on a door and the injury never healed. Rda applied ointments, antibiotics, and debrided tissue but the pain and skin ulceration persisted. An angiogram of the extremity was done a few weeks ago and she was found to have severe atherosclerotic disease and plaque in the right lower extremity and is scheduled for a bypass with Dr. Thompson on 09/09/18. Denies fever, chills, nausea, vomiting, diarrhea, constipation, headaches, dizziness, or urinary symptoms. PMH: See above PSH: Angiogram, Appendectomy FH: Noncontributory SH: Denies tobacco, alcohol, drugs ALL: Betadine, latex Meds: See MAR Past Patient History - Past Medical History & Family History Past Medical History?: Yes - Past Social History Smoking Status: Never Smoked - CARDIAC Hx Congestive Heart Failure: Yes - PULMONARY Hx Respiratory Disorders: No - NEUROLOGICAL Hx Neurological Disorder: No - HEENT Hx HEENT Problems: Yes (Retinal disease) Hx Cataracts: Yes Other/Comment: Diabetic blindness - RENAL Hx Chronic Kidney Disease: Yes - ENDOCRINE/METABOLIC Hx Diabetes Mellitus Type 2: Yes - HEMATOLOGICAL/ONCOLOGICAL Hx Anemia: Yes (IRON INFUSION TREATMENTS) - INTEGUMENTARY Hx Dermatological Problems: No - MUSCULOSKELETAL/RHEUMATOLOGICAL Hx Arthritis: Yes - GASTROINTESTINAL Hx Gastrointestinal Disorders: No - GENITOURINARY/GYNECOLOGICAL Hx Genitourinary Disorders: No - PSYCHIATRIC Hx Substance Use: No - SURGICAL HISTORY Hx Appendectomy: Yes - ANESTHESIA Hx Anesthesia: Yes Hx Anesthesia Reactions: No Hx Malignant Hyperthermia: No Meds Allergies/Adverse Reactions: Allergies Allergy/AdvReac Type Severity Reaction Status Date / Time povidone-iodine Allergy Severe RASH Verified 09/07/18 20:13 [From Betadine] soap [From Betadine] Allergy Severe RASH Verified 09/07/18 20:13 Latex, Natural Rubber Allergy Intermediate ITCHING Verified 09/07/18 20:13 durapore tape Allergy Intermediate ITCHING Uncoded 09/07/18 20:13 - Medications Medications: Current Medications Acetaminophen (Tylenol 325mg Tab) 650 mg PO Q6 PRN PRN Reason: pain Last Admin: 09/08/18 22:15 Dose: 650 mg Allopurinol (Zyloprim) 100 mg PO DAILY [facility] Last Admin: 09/09/18 10:38 Dose: Not Given Aspirin (Aspirin Chewable) 81 mg PO DAILY [facility] Last Admin: 09/09/18 10:37 Dose: Not Given Calcium/Vitamin D (Oyster Shell Calcium/Vitamin D 500 Mg-200 Iu) 1 tab PO DAILY [facility] Dextrose (Dextrose 50% Inj) 0 ml IV STAT PRN; Protocol PRN Reason: Hypoglycemia Protocol Dextrose (Glutose 15) 0 gm PO ONCE PRN; Protocol PRN Reason: Hypoglycemia Protocol Gabapentin (Neurontin) 300 mg PO HS [facility] Last Admin: 09/08/18 22:15 Dose: 300 mg Glucagon (Glucagen Diagnostic Kit) 0 mg IM STAT PRN; Protocol PRN Reason: Hypoglycemia Protocol Hydromorphone HCl (Dilaudid) 0.5 mg IVP Q6H PRN PRN Reason: Pain, severe (8-10) Last Admin: 09/09/18 19:47 Dose: 0.5 mg Dextrose (Dextrose 5% In Water 1000 Ml) 1,000 mls @ 0 mls/hr IV .Q0M PRN; Protocol PRN Reason: Hypoglycemia Protocol Vancomycin/Sodium Chloride (Vancomycin 1 Gm/Ns 200 Ml) 1 gm in 200 mls @ 133.333 mls/hr IVPB MWF [facility] Stop: 09/14/18 09:01 Last Admin: 09/09/18 10:38 Dose: Not Given Piperacillin Sod/Tazobactam Sod (Zosyn 2.25 Gm Iv Premix) 2.25 gm in 50 mls @ 100 mls/hr IVPB Q6H [facility]; Protocol Insulin Aspart (Novolog) 0 unit SC ACHS [facility]; Protocol Last Admin: 09/09/18 16:30 Dose: Not Given Metoprolol Tartrate (Lopressor) 100 mg PO DAILY [facility] Last Admin: 09/09/18 10:37 Dose: Not Given [id number] Ethyl Esters (Lovaza) 1 gm PO BID [facility] Last Admin: 09/09/18 10:38 Dose: Not Given Oxycodone/Acetaminophen (Percocet 5/325 Mg Tab) 1 tab PO Q4H PRN PRN Reason: Pain, moderate (4-7) Stop: 09/12/18 19:28 Saccharomyces Boulardii (Florastor) 250 mg PO DAILY [facility] Last Admin: 09/09/18 10:37 Dose: Not Given Sevelamer Carbonate (Renvela) 800 mg PO TIDCC [facility] Last Admin: 09/09/18 08:23 Dose: Not Given Vitamin B Complex/Vit C/Folic Acid (Nephro-Leslye) 1 tab PO DAILY [facility] Last Admin: 09/09/18 10:38 Dose: Not Given Results - Vital Signs Recent Vital Signs: Last Vital Signs Temp 97.4 F L 09/09/18 19:08 Pulse 55 L 09/09/18 19:08 Resp 18 09/09/18 19:08 BP 115/49 L 09/09/18 19:08 Pulse Ox 100 09/09/18 19:08 - Labs Result Diagrams: 09/09/18 06:23 09/09/18 06:23 Labs: Laboratory Results - last 24 hr 09/07/18 09/08/18 09/09/18 21:29 20:59 06:23 WBC 6.0 RBC 2.73 L Hgb 8.7 L Hct 26.5 L MCV 97.1 MCH 31.8 H MCHC 32.8 L RDW 16.5 H Plt Count 125 L MPV 10.6 PT INR APTT Sodium Potassium Chloride Carbon Dioxide Anion Gap BUN Creatinine Est GFR ( Amer) Est GFR (Non-Af Amer) POC Glucose (mg/dL) 80 Random Glucose Calcium Blood Type A POSITIVE Antibody Screen Negative 09/09/18 09/09/18 06:23 06:23 WBC RBC Hgb Hct MCV MCH MCHC RDW Plt Count MPV PT 13.2 H INR 1.2 APTT 22 Sodium 138 Potassium 3.6 Chloride 98 Carbon Dioxide 32 H Anion Gap 11 BUN 13 Creatinine 4.0 H Est GFR ( Amer) 13 Est GFR (Non-Af Amer) 11 POC Glucose (mg/dL) Random Glucose 84 D Calcium 8.3 L Blood Type Antibody Screen Assessment & Plan - Assessment and Plan (Free Text) Assessment: ESRD ON HD Tyrone Rao RECIEVED HER HD YESTERDAY IN PREPARARION FOR ANGIOPLASTY TODAY ANEMIA OF CKD .. ON EPO .. R/O GIB DM HTN SEVERE PAD .. ULCER ON R TOE P : RECIEVED HER HD YESTERDAY S/P ANGIOPLASTY TODAY C/O CURRENT CARE C/O PRESENT MEDS - Date & Time Date: 09/09/18 Time: 15:00
--- NOTE | 2018-09-09 21:34 | CARD ---
APPROVED REPORT Date of service: 09/07/2018 EKG Measurement Heart [id number] <Conclusion> Normal sinus rhythm Voltage criteria for left ventricular hypertrophy Abnormal ECG
[2018-09-09] MEDS: Piperacill/Tazo 2.25gm in Dex 2.25 GM/50 ML BAG IVPB SCH (22:46)
--- NOTE | 2018-09-10 02:10 | OP ---
PROCEDURE DATE: 09/09/2018 PREOPERATIVE DIAGNOSIS: Gangrene of right foot great toe. PROCEDURE CARRIED OUT: Right proximal popliteal to dorsalis pedis artery using reverse saphenous vein with intraoperative arteriogram. SURGEON: Luis Thompson Jr., MD [facility] REPORT DEVELOPER: Jacqueline Hill DO ANESTHESIOLOGIST: Kaveh Valverde MD ESTIMATED BLOOD LOSS: 400 mL. INDICATIONS: The patient is a 73-year-old woman with diabetes, on dialysis who presents with gangrene of the foot. She had previously undergone a right superficial femoral artery angioplasty, but below this she has severe tibial disease. OPERATIVE FINDINGS: The completion arteriogram is showing a satisfactory distal anastomosis. The vessel, however, was very calcified. Vein was of adequate marginal quality. There were no operative complications or problems. The major problems may be operation much more difficult than usual as the patient's body habitus where she had very fat thighs approximately 40 inches in the thigh area. Because of this, the dissection of the vein was quite difficult. DESCRIPTION OF PROCEDURE: The patient was given general anesthesia and intravenous antibiotics. Venodyne boots were not applied. An incision was made on the vein, marked on the skin with intraoperative ultrasound. We were dissecting it out. We then carried this proximally as a size of . It was quite deep under the skin particularly in the thigh portion. After we mobilized the vein, we then inspected pretty defect. After we satisfied with adequate saphenous vein, we then dissected out the dorsalis pedis artery, which was quite calcified and the proximal popliteal distal SFA. After we have done this, we then created a subcutaneous tunnel. The distal anastomosis first using loupe magnification, heparin anticoagulation carried out proximal anastomosis again using the same condition. Heparin was given and was then reversed at the end. Blood loss during the procedure was 400 mL. The patient had excellent Doppler signals and pulse at the graft at the end of the procedure. OPERATION CARRIED OUT: Right popliteal to dorsalis pedis bypass with reverse saphenous vein with intraoperative arteriogram. Luis Thompson Jr., MD cc: Dr. Emeka Cherry DPM [facility] # [id number]
[2018-09-10] MEDS: Piperacill/Tazo 2.25gm in Dex 2.25 GM/50 ML BAG IVPB SCH ×4 (04:42→23:11)
[2018-09-10 06:26] LABS: BASO # 0.1 K/uL (0.0-0.2); BASO % 0.5 % (0.0-2.0); EOS # 0.4 K/uL (0.0-0.7); EOS % 3.6 % (0.0-4.0); HEMOGLOBIN 9.2 g/dL (11.0-16.0); LYMPH # 0.7 K/uL (1.0-4.3); MEAN CELL VOLUME 93.9 fL (81.0-99.0); MEAN CORPUSCULAR HEMOGLOBIN 31.3 pg (27.0-31.0); MEAN CORPUSCULAR HGB CONC 33.3 g/dL (33.0-37.0); MONO % 9.5 % (0.0-10.0); NEUT # 8.8 K/uL (1.8-7.0); NEUT % 80.4 % (50.0-75.0); PLATELET COUNT 156 K/uL (130-400); RBC 2.92 Mil/uL (3.80-5.20); RED CELL DISTRIBUTION WIDTH 18.6 % (11.5-14.5)
[2018-09-10 06:44] LABS: ALB/GLOB RATIO 1.1 (1.0-2.1); ALBUMIN 3.4 g/dL (3.5-5.0); CALCIUM 8.3 mg/dl (8.6-10.4)
[2018-09-10] MEDS: (Novolog) Insulin Aspart, Recombinant 100 u/ml 10 ml vial SC SCH ×4 (08:19→21:46)
[2018-09-10 08:42] LABS: EOSINOPHIL 3 % (0-4); LYMPHOCYTE 4 % (20-40); MONOCYTE 9 % (0-10); NEUTROPHIL 84 % (50-75); PLATELET ESTIMATE NORMAL (NORMAL); TOTAL CELLS COUNTED 100
[2018-09-10 08:43] LABS: ANISOCYTOSIS SLIGHT; HYPOCHROMIC SLIGHT; POLYCHROMIC SLIGHT
--- NOTE | 2018-09-10 09:22 | CP.PCM.PN ---
Subjective - Date & Time of Evaluation Date of Evaluation: 09/10/18 Time of Evaluation: 07:10 - Subjective Subjective: General Surgery Pt seen and examined. Doing well post op. Reports Pain in RLE which is from reperfusion. Objective - Vital Signs/Intake and Output Vital Signs (last 24 hours): Temp Pulse Resp BP Pulse Ox 98 F 90 18 116/56 L 99 09/10/18 04:00 09/10/18 07:00 09/10/18 07:00 09/10/18 06:01 09/10/18 07:00 Intake and Output: 09/10/18 09/10/18 06:59 18:59 Intake Total 420 0 Balance 420 0 - Medications Medications: Current Medications Acetaminophen (Tylenol 325mg Tab) 650 mg PO Q6 PRN PRN Reason: pain Last Admin: 09/08/18 22:15 Dose: 650 mg Allopurinol (Zyloprim) 100 mg PO DAILY [facility] Last Admin: 09/09/18 10:38 Dose: Not Given Aspirin (Aspirin Chewable) 81 mg PO DAILY [facility] Last Admin: 09/09/18 10:37 Dose: Not Given Calcium/Vitamin D (Oyster Shell Calcium/Vitamin D 500 Mg-200 Iu) 1 tab PO DAILY [facility] Dextrose (Dextrose 50% Inj) 0 ml IV STAT PRN; Protocol PRN Reason: Hypoglycemia Protocol Dextrose (Glutose 15) 0 gm PO ONCE PRN; Protocol PRN Reason: Hypoglycemia Protocol Gabapentin (Neurontin) 300 mg PO HS [facility] Last Admin: 09/09/18 22:46 Dose: 300 mg Glucagon (Glucagen Diagnostic Kit) 0 mg IM STAT PRN; Protocol PRN Reason: Hypoglycemia Protocol Hydromorphone HCl (Dilaudid) 0.5 mg IVP Q6H PRN PRN Reason: Pain, severe (8-10) Last Admin: 09/09/18 19:47 Dose: 0.5 mg Dextrose (Dextrose 5% In Water 1000 Ml) 1,000 mls @ 0 mls/hr IV .Q0M PRN; Protocol PRN Reason: Hypoglycemia Protocol Piperacillin Sod/Tazobactam Sod (Zosyn 2.25 Gm Iv Premix) 2.25 gm in 50 mls @ 100 mls/hr IVPB Q6H [facility]; Protocol Last Admin: 09/10/18 04:42 Dose: 100 mls/hr Insulin Aspart (Novolog) 0 unit SC ACHS [facility]; Protocol Last Admin: 09/10/18 08:19 Dose: Not Given Metoprolol Tartrate (Lopressor) 100 mg PO DAILY [facility] Last Admin: 09/09/18 10:37 Dose: Not Given [id number]-[id number] Ethyl Esters (Lovaza) 1 gm PO BID [facility] Last Admin: 09/09/18 10:38 Dose: Not Given Oxycodone/Acetaminophen (Percocet 5/325 Mg Tab) 1 tab PO Q4H PRN PRN Reason: Pain, moderate (4-7) Stop: 09/12/18 19:28 Saccharomyces Boulardii (Florastor) 250 mg PO DAILY [facility] Last Admin: 09/09/18 10:37 Dose: Not Given Sevelamer Carbonate (Renvela) 800 mg PO TIDCC [facility] Last Admin: 09/10/18 08:33 Dose: 800 mg Vitamin B Complex/Vit C/Folic Acid (Nephro-Leslye) 1 tab PO DAILY [facility] Last Admin: 09/09/18 10:38 Dose: Not Given - Labs Labs: 09/10/18 06:10 09/10/18 06:10 PT 13.2 SECONDS (9.7-12.2) H 09/09/18 06:23 INR 1.2 09/09/18 06:23 APTT 22 SECONDS (21-34) 09/09/18 06:23 - Constitutional Appears: Non-toxic, No Acute Distress - Head Exam Head Exam: ATRAUMATIC, NORMOCEPHALIC - Eye Exam Eye Exam: EOMI. absent: Scleral icterus - Respiratory Exam Respiratory Exam: NORMAL BREATHING PATTERN. absent: Respiratory Distress - GI/Abdominal Exam GI & Abdominal Exam: Soft. absent: Distended, Tenderness - Extremities Exam Additional comments: Right greater toe necrosis with skin excoriations Tender to palpation Palpable pulse in right graft Mild hyperpigmentation of bilteral LE - Neurological Exam Neurological Exam: Alert, Awake - Skin Skin Exam: Dry, Warm Assessment and Plan - Assessment and Plan (Free Text) Assessment: 73F POD#1 s/p Right Popliteal to Anterior Tibial Bypass with Saphenous Vein Graft Plan: Brace removed Continue pulse checks PT OOBTC HD per Nephro D/W Dr. Jay Vila PGY4
[2018-09-10] MEDS: Saccharomyces Boulardi 250 mg Cap PO SCH ×2 (10:15→13:26)
[2018-09-10] MEDS: Multivitamin Vitamin B Complex (Nephro-Vite) Tab PO SCH ×2 (10:16→13:25)
[2018-09-10] MEDS: Calcium-Vit D 500 mg-200 Units Tab UD PO SCH (10:16)
[2018-09-10] MEDS: Omega-3-Acid Ethyl Esters 1 GM Cap PO SCH ×3 (10:16→17:47)
--- NOTE | 2018-09-10 10:53 | CP.CCUPN ---
<Nicole Cruz - Last Filed: 09/10/18 10:51> CCU Subjective - Physician Review Subjective (Free Text): 09/10/18 10:51 ICU Progress Note for Dr. 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 Case discussed with ICU team during rounds. Patient is stable to be transferred to med-surg. Nicole Cruz PGY1 CCU Objective - Vital Signs / Intake & Output Vital Signs (Last 4 hours): Vital Signs Temp Pulse Pulse Resp BP BP Pulse Ox 09/10/18 10:21 108/55 L 09/10/18 10:06 101/54 L 09/10/18 09:51 103/61 09/10/18 09:36 108/53 L 09/10/18 09:21 100.7 F H 90 15 101/50 L 100 09/10/18 09:20 100.7 F H 90 15 101/50 L 09/10/18 07:00 90 18 99 Intake and Output (Last 8hrs): Intake & Output 09/09/18 09/10/18 09/10/18 22:59 06:59 14:59 Intake Total 785 250 0 Balance 785 250 0 Intake: IV 100 Intake, IV Amount 40 50 Left Forearm 20 Left Upper arm 20 50 Oral 150 200 0 Blood Product 495 Other: # Bowel Movements 1 - Medications Active Medications: Active Medications Generic Name Dose Route Start Last Admin Trade Name Freq PRN Reason Stop Dose Admin Acetaminophen 650 mg 09/08/18 22:06 09/08/18 22:15 Tylenol 325mg Tab PO 650 mg Q6 PRN Administration pain Allopurinol 100 mg 09/08/18 10:00 09/10/18 10:16 Zyloprim PO Not Given DAILY LUCILLE Aspirin 81 mg 09/08/18 10:00 09/10/18 10:15 Aspirin Chewable PO Not Given DAILY L[facility]LE Calcium/Vitamin D 1 tab 09/10/18 10:00 09/10/18 10:16 Oyster Shell Calcium/Vitamin D 500 Mg-200 Iu PO Not Given DAILY LUCILLE Dextrose 0 ml 09/08/18 09:30 Dextrose 50% Inj IV STAT PRN Hypoglycemia Protocol Protocol Dextrose 0 gm 09/08/18 09:30 Glutose 15 PO ONCE PRN Hypoglycemia Protocol Protocol Gabapentin 300 mg 09/08/18 22:00 09/09/18 22:46 Neurontin PO 300 mg HS [place] Administration Glucagon 0 mg 09/08/18 09:30 Glucagen Diagnostic Kit IM STAT PRN Hypoglycemia Protocol Protocol Hydromorphone HCl 0.5 mg 09/09/18 19:27 09/09/18 19:47 Dilaudid IVP 0.5 mg Q6H PRN Administration Pain, severe (8-10) Dextrose 1,000 mls @ 0 mls/hr 09/08/18 09:30 Dextrose 5% In Water 1000 Ml IV .Q0M PRN Hypoglycemia Protocol Protocol Per Protocol Piperacillin Sod/Tazobactam Sod 2.25 gm in 50 mls @ 100 mls/hr 09/09/18 17:30 09/10/18 04:42 Zosyn 2.25 Gm Iv Premix IVPB 100 mls/hr Q6H [place] Administration Protocol Insulin Aspart 0 unit 09/08/18 11:30 09/10/18 08:19 Novolog SC Not Given ACHS L[facility] Protocol Metoprolol Tartrate 100 mg 09/08/18 10:00 09/10/18 10:11 Lopressor PO Not Given DAILY LUCILLE Onuhh-8-Ajhs Ethyl Esters 1 gm 09/08/18 10:00 09/10/18 10:16 Lovaza PO Not Given BID L[facility] Oxycodone/Acetaminophen 1 tab 09/09/18 19:27 Percocet 5/325 Mg Tab PO 09/12/18 19:28 Q4H PRN Pain, moderate (4-7) Saccharomyces Boulardii 250 mg 09/08/18 10:00 09/10/18 10:15 Florastor PO Not Given DAILY LUCILLE Sevelamer Carbonate 800 mg 09/08/18 12:00 09/10/18 08:33 Renvela PO 800 mg TIDCC L[place] Administration Vitamin B Complex/Vit C/Folic Acid 1 tab 09/08/18 10:00 09/10/18 10:16 Nephro-Leslye PO Not Given DAILY LUCILLE - Patient Studies Lab Studies: Microbiology Studies 09/07/18 21:30 Blood Culture - Preliminary Blood NO GROWTH AFTER 48 HOURS 09/07/18 21:00 Blood Culture - Preliminary Blood NO GROWTH AFTER 48 HOURS Lab Studies 09/10/18 09/10/18 09/10/18 Range/Units 07:11 07:08 06:10 WBC (4.8-10.8) K/uL RBC (3.80-5.20) Mil/uL Hgb (11.0-16.0) g/dL Hct (34.0-47.0) % MCV (81.0-99.0) fL MCH (27.0-31.0) pg MCHC (33.0-37.0) g/dL RDW (11.5-14.5) % Plt Count (130-400) K/uL MPV (7.2-11.7) fL Neut % (Auto) (50.0-75.0) % Lymph % (Auto) (20.0-40.0) % [place] % (Auto) (0.0-10.0) % Eos % (Auto) (0.0-4.0) % Baso % (Auto) (0.0-2.0) % Neut # (Auto) (1.8-7.0) K/uL Lymph # (Auto) (1.0-4.3) K/uL [place] # (Auto) (0.0-0.8) K/uL Eos # (Auto) (0.0-0.7) K/uL Baso # (Auto) (0.0-0.2) K/uL Neutrophils % (Manual) (50-75) % Lymphocytes % (Manual) (20-40) % Monocytes % (Manual) (0-10) % Eosinophils % (Manual) (0-4) % Platelet Estimate (NORMAL) Polychromasia Hypochromasia (manual) Anisocytosis (manual) Sodium 139 (132-148) mmol/L Potassium 4.7 (3.6-5.2) mmol/L Chloride 100 (98-107) mmol/L Carbon Dioxide 29 (22-30) mmol/L Anion Gap 15 (10-20) BUN 20 H (7-17) mg/dL Creatinine 5.7 H (0.7-1.2) mg/dL Est GFR ( Amer) 9 Est GFR (Non-Af Amer) 7 POC Glucose (mg/dL) 139 H (65-110) mg/dL Random Glucose 117 H D (65-105) mg/dL Calcium 8.3 L (8.6-10.4) mg/dl Phosphorus 5.5 H (2.5-4.5) mg/dL Magnesium 1.7 (1.6-2.3) mg/dL Total Bilirubin 0.7 (0.2-1.3) mg/dL AST 25 (14-36) U/L ALT 21 (9-52) U/L Alkaline Phosphatase 49 (38-126) U/L Total Protein 6.3 (6.3-8.3) g/dL Albumin 3.4 L D (3.5-5.0) g/dL Globulin 3.0 (2.2-3.9) gm/dL Albumin/Globulin Ratio 1.1 (1.0-2.1) Blood Type Antibody Screen 09/10/18 09/09/18 09/09/18 Range/Units 06:10 22:27 16:19 WBC 11.0 H D (4.8-10.8) K/uL RBC 2.92 L (3.80-5.20) Mil/uL Hgb 9.2 L (11.0-16.0) g/dL Hct 27.5 L (34.0-47.0) % MCV 93.9 D (81.0-99.0) fL MCH 31.3 H (27.0-31.0) pg MCHC 33.3 (33.0-37.0) g/dL RDW 18.6 H (11.5-14.5) % Plt Count 156 (130-400) K/uL MPV 11.0 (7.2-11.7) fL Neut % (Auto) 80.4 H (50.0-75.0) % Lymph % (Auto) 6.0 L (20.0-40.0) % [place] % (Auto) 9.5 (0.0-10.0) % Eos % (Auto) 3.6 (0.0-4.0) % Baso % (Auto) 0.5 (0.0-2.0) % Neut # (Auto) 8.8 H (1.8-7.0) K/uL Lymph # (Auto) 0.7 L (1.0-4.3) K/uL [place] # (Auto) 1.0 H (0.0-0.8) K/uL Eos # (Auto) 0.4 (0.0-0.7) K/uL Baso # (Auto) 0.1 (0.0-0.2) K/uL Neutrophils % (Manual) 84 H (50-75) % Lymphocytes % (Manual) 4 L (20-40) % Monocytes % (Manual) 9 (0-10) % Eosinophils % (Manual) 3 (0-4) % Platelet Estimate Normal (NORMAL) Polychromasia Slight Hypochromasia (manual) Slight Anisocytosis (manual) Slight Sodium (132-148) mmol/L Potassium (3.6-5.2) mmol/L Chloride (98-107) mmol/L Carbon Dioxide (22-30) mmol/L Anion Gap (10-20) BUN (7-17) mg/dL Creatinine (0.7-1.2) mg/dL Est GFR ( Amer) Est GFR (Non-Af Amer) POC Glucose (mg/dL) 112 H 84 (65-110) mg/dL Random Glucose (65-105) mg/dL Calcium (8.6-10.4) mg/dl Phosphorus (2.5-4.5) mg/dL Magnesium (1.6-2.3) mg/dL Total Bilirubin (0.2-1.3) mg/dL AST (14-36) U/L ALT (9-52) U/L Alkaline Phosphatase (38-126) U/L Total Protein (6.3-8.3) g/dL Albumin (3.5-5.0) g/dL Globulin (2.2-3.9) gm/dL Albumin/Globulin Ratio (1.0-2.1) Blood Type Antibody Screen 09/07/18 Range/Units 21:29 WBC (4.8-10.8) K/uL RBC (3.80-5.20) Mil/uL Hgb (11.0-16.0) g/dL Hct (34.0-47.0) % MCV (81.0-99.0) fL MCH (27.0-31.0) pg MCHC (33.0-37.0) g/dL RDW (11.5-14.5) % Plt Count (130-400) K/uL MPV (7.2-11.7) fL Neut % (Auto) (50.0-75.0) % Lymph % (Auto) (20.0-40.0) % [place] % (Auto) (0.0-10.0) % Eos % (Auto) (0.0-4.0) % Baso % (Auto) (0.0-2.0) % Neut # (Auto) (1.8-7.0) K/uL Lymph # (Auto) (1.0-4.3) K/uL [place] # (Auto) (0.0-0.8) K/uL Eos # (Auto) (0.0-0.7) K/uL Baso # (Auto) (0.0-0.2) K/uL Neutrophils % (Manual) (50-75) % Lymphocytes % (Manual) (20-40) % Monocytes % (Manual) (0-10) % Eosinophils % (Manual) (0-4) % Platelet Estimate (NORMAL) Polychromasia Hypochromasia (manual) Anisocytosis (manual) Sodium (132-148) mmol/L Potassium (3.6-5.2) mmol/L Chloride (98-107) mmol/L Carbon Dioxide (22-30) mmol/L Anion Gap (10-20) BUN (7-17) mg/dL Creatinine (0.7-1.2) mg/dL Est GFR ( Amer) Est GFR (Non-Af Amer) POC Glucose (mg/dL) (65-110) mg/dL Random Glucose (65-105) mg/dL Calcium (8.6-10.4) mg/dl Phosphorus (2.5-4.5) mg/dL Magnesium (1.6-2.3) mg/dL Total Bilirubin (0.2-1.3) mg/dL AST (14-36) U/L ALT (9-52) U/L Alkaline Phosphatase (38-126) U/L Total Protein (6.3-8.3) g/dL Albumin (3.5-5.0) g/dL Globulin (2.2-3.9) gm/dL Albumin/Globulin Ratio (1.0-2.1) Blood Type A POSITIVE Antibody Screen Negative Laboratory Results - last 24 hr 09/07/18 09/09/1809/09/19 21:29 16:19 22:27 WBC RBC Hgb Hct MCV MCH MCHC RDW Plt Count MPV Neut % (Auto) Lymph % (Auto) [place] % (Auto) Eos % (Auto) Baso % (Auto) Neut # (Auto) Lymph # (Auto) [place] # (Auto) Eos # (Auto) Baso # (Auto) Neutrophils % (Manual) Lymphocytes % (Manual) Monocytes % (Manual) Eosinophils % (Manual) Platelet Estimate Polychromasia Hypochromasia (manual) Anisocytosis (manual) Sodium Potassium Chloride Carbon Dioxide Anion Gap BUN Creatinine Est GFR ( Amer) Est GFR (Non-Af Amer) POC Glucose (mg/dL) 84 112 H Random Glucose Calcium Phosphorus Magnesium Total Bilirubin AST ALT Alkaline Phosphatase Total Protein Albumin Globulin Albumin/Globulin Ratio Blood Type A POSITIVE Antibody Screen Negative 09/10/18 09/10/18 09/10/18 06:10 06:10 07:08 WBC 11.0 H D RBC 2.92 L Hgb 9.2 L Hct 27.5 L MCV 93.9 D MCH 31.3 H MCHC 33.3 RDW 18.6 H Plt Count 156 MPV 11.0 Neut % (Auto) 80.4 H Lymph % (Auto) 6.0 L [place] % (Auto) 9.5 Eos % (Auto) 3.6 Baso % (Auto) 0.5 Neut # (Auto) 8.8 H Lymph # (Auto) 0.7 L [place] # (Auto) 1.0 H Eos # (Auto) 0.4 Baso # (Auto) 0.1 Neutrophils % (Manual) 84 H Lymphocytes % (Manual) 4 L Monocytes % (Manual) 9 Eosinophils % (Manual) 3 Platelet Estimate Normal Polychromasia Slight Hypochromasia (manual) Slight Anisocytosis (manual) Slight Sodium 139 Potassium 4.7 Chloride 100 Carbon Dioxide 29 Anion Gap 15 BUN 20 H Creatinine 5.7 H Est GFR ( Amer) 9 Est GFR (Non-Af Amer) 7 POC Glucose (mg/dL) Random Glucose 117 H D Calcium 8.3 L Phosphorus 5.5 H Magnesium 1.7 Total Bilirubin 0.7 AST 25 ALT 21 Alkaline Phosphatase 49 Total Protein 6.3 Albumin 3.4 L D Globulin 3.0 Albumin/Globulin Ratio 1.1 Blood Type Antibody Screen 09/10/18 07:11 WBC RBC Hgb Hct MCV MCH MCHC RDW Plt Count MPV Neut % (Auto) Lymph % (Auto) [place] % (Auto) Eos % (Auto) Baso % (Auto) Neut # (Auto) Lymph # (Auto) [place] # (Auto) Eos # (Auto) Baso # (Auto) Neutrophils % (Manual) Lymphocytes % (Manual) Monocytes % (Manual) Eosinophils % (Manual) Platelet Estimate Polychromasia Hypochromasia (manual) Anisocytosis (manual) Sodium Potassium Chloride Carbon Dioxide Anion Gap BUN Creatinine Est GFR ( Amer) Est GFR (Non-Af Amer) POC Glucose (mg/dL) 139 H Random Glucose Calcium Phosphorus Magnesium Total Bilirubin AST ALT Alkaline Phosphatase Total Protein Albumin Globulin Albumin/Globulin Ratio Blood Type Antibody Screen Fingerstick Blood Sugar Results: 139 Critical Care Progress Note - Nutrition Nutrition: Nutrition Category Date Time Status Renal Diet [DIET] Diets 09/09/18 Lunch Active <Simba Gracia S - Last Filed: 09/10/18 16:38> CCU Subjective - Physician Review Critical Care Time Spent (in minutes): 25 CCU Objective - Vital Signs / Intake & Output Intake and Output (Last 8hrs): Intake & Output 09/10/18 09/10/18 09/10/18 06:59 14:59 22:59 Intake Total 250 0 Balance 250 0 Intake: Intake, IV Amount 50 Left Upper arm 50 Oral 200 0 - Medications Active Medications: Active Medications Generic Name Dose Route Start Last Admin Trade Name Freq PRN Reason Stop Dose Admin Acetaminophen 650 mg 09/08/18 22:06 09/08/18 22:15 Tylenol 325mg Tab PO 650 mg Q6 PRN Administration pain Allopurinol 100 mg 09/08/18 10:00 09/10/18 13:26 Zyloprim PO 100 mg DAILY L[place] Administration Aspirin 81 mg 09/08/18 10:00 09/10/18 13:25 Aspirin Chewable PO 81 mg DAILY [place] Administration Calcium/Vitamin D 1 tab 09/10/18 10:00 09/10/18 10:16 Oyster Shell Calcium/Vitamin D 500 Mg-200 Iu PO Not Given DAILY L[facility] Dextrose 0 ml 09/08/18 09:30 Dextrose 50% Inj IV STAT PRN Hypoglycemia Protocol Protocol Dextrose 0 gm 09/08/18 09:30 Glutose 15 PO ONCE PRN Hypoglycemia Protocol Protocol Gabapentin 300 mg 09/08/18 22:00 09/09/18 22:46 Neurontin PO 300 mg HS [place] Administration Glucagon 0 mg 09/08/18 09:30 Glucagen Diagnostic Kit IM STAT PRN Hypoglycemia Protocol Protocol Hydromorphone HCl 0.5 mg 09/09/18 19:27 09/09/18 19:47 Dilaudid IVP 0.5 mg Q6H PRN Administration Pain, severe (8-10) Dextrose 1,000 mls @ 0 mls/hr 09/08/18 09:30 Dextrose 5% In Water 1000 Ml IV .Q0M PRN Hypoglycemia Protocol Protocol Per Protocol Piperacillin Sod/Tazobactam Sod 2.25 gm in 50 mls @ 100 mls/hr 09/09/18 17:30 09/10/18 13:27 Zosyn 2.25 Gm Iv Premix IVPB 100 mls/hr Q6H [place] Administration Protocol Vancomycin HCl 1,000 mg/ 200 mls @ 166.6 mls/hr 09/10/18 17:00 Sodium Chloride IVPB TTS L[facility] Protocol Insulin Aspart 0 unit 09/08/18 11:30 09/10/18 11:43 Novolog SC Not Given ACHS [place] Protocol Metoprolol Tartrate 100 mg 09/08/18 10:00 09/10/18 10:11 Lopressor PO Not Given DAILY L[facility] Oabez-0-Shmd Ethyl Esters 1 gm 09/08/18 10:00 09/10/18 13:25 Lovaza PO 1 gm BID [place] Administration Oxycodone/Acetaminophen 1 tab 09/09/18 19:27 Percocet 5/325 Mg Tab PO 09/12/18 19:28 Q4H PRN Pain, moderate (4-7) Saccharomyces Boulardii 250 mg 09/08/18 10:00 09/10/18 13:26 Florastor PO 250 mg DAILY [place] Administration Sevelamer Carbonate 800 mg 09/08/18 12:00 09/10/18 13:25 Renvela PO 800 mg TIDCC [place] Administration Vitamin B Complex/Vit C/Folic Acid 1 tab 09/08/18 10:00 09/10/18 13:25 Nephro-Leslye PO 1 tab DAILY [place] Administration - Patient Studies Lab Studies: Microbiology Studies 09/07/18 21:30 Blood Culture - Preliminary Blood NO GROWTH AFTER 48 HOURS 09/07/18 21:00 Blood Culture - Preliminary Blood NO GROWTH AFTER 48 HOURS Lab Studies 09/10/18 09/10/18 09/10/18 Range/Units 11:07 07:11 07:08 WBC (4.8-10.8) K/uL RBC (3.80-5.20) Mil/uL Hgb (11.0-16.0) g/dL Hct (34.0-47.0) % MCV (81.0-99.0) fL MCH (27.0-31.0) pg MCHC (33.0-37.0) g/dL RDW (11.5-14.5) % Plt Count (130-400) K/uL MPV (7.2-11.7) fL Neut % (Auto) (50.0-75.0) % Lymph % (Auto) (20.0-40.0) % [place] % (Auto) (0.0-10.0) % Eos % (Auto) (0.0-4.0) % Baso % (Auto) (0.0-2.0) % Neut # (Auto) (1.8-7.0) K/uL Lymph # (Auto) (1.0-4.3) K/uL [place] # (Auto) (0.0-0.8) K/uL Eos # (Auto) (0.0-0.7) K/uL Baso # (Auto) (0.0-0.2) K/uL Neutrophils % (Manual) (50-75) % Lymphocytes % (Manual) (20-40) % Monocytes % (Manual) (0-10) % Eosinophils % (Manual) (0-4) % Platelet Estimate (NORMAL) Polychromasia Hypochromasia (manual) Anisocytosis (manual) Sodium (132-148) mmol/L Potassium (3.6-5.2) mmol/L Chloride (98-107) mmol/L Carbon Dioxide (22-30) mmol/L Anion Gap (10-20) BUN (7-17) mg/dL Creatinine (0.7-1.2) mg/dL Est GFR ( Amer) Est GFR (Non-Af Amer) POC Glucose (mg/dL) 127 H 139 H (65-110) mg/dL Random Glucose (65-105) mg/dL Calcium (8.6-10.4) mg/dl Phosphorus 5.5 H (2.5-4.5) mg/dL Magnesium 1.7 (1.6-2.3) mg/dL Total Bilirubin (0.2-1.3) mg/dL AST (14-36) U/L ALT (9-52) U/L Alkaline Phosphatase (38-126) U/L Total Protein (6.3-8.3) g/dL Albumin (3.5-5.0) g/dL Globulin (2.2-3.9) gm/dL Albumin/Globulin Ratio (1.0-2.1) Blood Type Antibody Screen 09/10/18 09/10/18 09/09/18 Range/Units 06:10 06:10 22:27 WBC 11.0 H D (4.8-10.8) K/uL RBC 2.92 L (3.80-5.20) Mil/uL Hgb 9.2 L (11.0-16.0) g/dL Hct 27.5 L (34.0-47.0) % MCV 93.9 D (81.0-99.0) fL MCH 31.3 H (27.0-31.0) pg MCHC 33.3 (33.0-37.0) g/dL RDW 18.6 H (11.5-14.5) % Plt Count 156 (130-400) K/uL MPV 11.0 (7.2-11.7) fL Neut % (Auto) 80.4 H (50.0-75.0) % Lymph % (Auto) 6.0 L (20.0-40.0) % [place] % (Auto) 9.5 (0.0-10.0) % Eos % (Auto) 3.6 (0.0-4.0) % Baso % (Auto) 0.5 (0.0-2.0) % Neut # (Auto) 8.8 H (1.8-7.0) K/uL Lymph # (Auto) 0.7 L (1.0-4.3) K/uL [place] # (Auto) 1.0 H (0.0-0.8) K/uL Eos # (Auto) 0.4 (0.0-0.7) K/uL Baso # (Auto) 0.1 (0.0-0.2) K/uL Neutrophils % (Manual) 84 H (50-75) % Lymphocytes % (Manual) 4 L (20-40) % Monocytes % (Manual) 9 (0-10) % Eosinophils % (Manual) 3 (0-4) % Platelet Estimate Normal (NORMAL) Polychromasia Slight Hypochromasia (manual) Slight Anisocytosis (manual) Slight Sodium 139 (132-148) mmol/L Potassium 4.7 (3.6-5.2) mmol/L Chloride 100 (98-107) mmol/L Carbon Dioxide 29 (22-30) mmol/L Anion Gap 15 (10-20) BUN 20 H (7-17) mg/dL Creatinine 5.7 H (0.7-1.2) mg/dL Est GFR ( Amer) 9 Est GFR (Non-Af Amer) 7 POC Glucose (mg/dL) 112 H (65-110) mg/dL Random Glucose 117 H D (65-105) mg/dL Calcium 8.3 L (8.6-10.4) mg/dl Phosphorus (2.5-4.5) mg/dL Magnesium (1.6-2.3) mg/dL Total Bilirubin 0.7 (0.2-1.3) mg/dL AST 25 (14-36) U/L ALT 21 (9-52) U/L Alkaline Phosphatase 49 (38-126) U/L Total Protein 6.3 (6.3-8.3) g/dL Albumin 3.4 L D (3.5-5.0) g/dL Globulin 3.0 (2.2-3.9) gm/dL Albumin/Globulin Ratio 1.1 (1.0-2.1) Blood Type Antibody Screen 09/09/18 09/07/18 Range/Units 16:19 21:29 WBC (4.8-10.8) K/uL RBC (3.80-5.20) Mil/uL Hgb (11.0-16.0) g/dL Hct (34.0-47.0) % MCV (81.0-99.0) fL MCH (27.0-31.0) pg MCHC (33.0-37.0) g/dL RDW (11.5-14.5) % Plt Count (130-400) K/uL MPV (7.2-11.7) fL Neut % (Auto) (50.0-75.0) % Lymph % (Auto) (20.0-40.0) % [place] % (Auto) (0.0-10.0) % Eos % (Auto) (0.0-4.0) % Baso % (Auto) (0.0-2.0) % Neut # (Auto) (1.8-7.0) K/uL Lymph # (Auto) (1.0-4.3) K/uL [place] # (Auto) (0.0-0.8) K/uL Eos # (Auto) (0.0-0.7) K/uL Baso # (Auto) (0.0-0.2) K/uL Neutrophils % (Manual) (50-75) % Lymphocytes % (Manual) (20-40) % Monocytes % (Manual) (0-10) % Eosinophils % (Manual) (0-4) % Platelet Estimate (NORMAL) Polychromasia Hypochromasia (manual) Anisocytosis (manual) Sodium (132-148) mmol/L Potassium (3.6-5.2) mmol/L Chloride (98-107) mmol/L Carbon Dioxide (22-30) mmol/L Anion Gap (10-20) BUN (7-17) mg/dL Creatinine (0.7-1.2) mg/dL Est GFR ( Amer) Est GFR (Non-Af Amer) POC Glucose (mg/dL) 84 (65-110) mg/dL Random Glucose (65-105) mg/dL Calcium (8.6-10.4) mg/dl Phosphorus (2.5-4.5) mg/dL Magnesium (1.6-2.3) mg/dL Total Bilirubin (0.2-1.3) mg/dL AST (14-36) U/L ALT (9-52) U/L Alkaline Phosphatase (38-126) U/L Total Protein (6.3-8.3) g/dL Albumin (3.5-5.0) g/dL Globulin (2.2-3.9) gm/dL Albumin/Globulin Ratio (1.0-2.1) Blood Type A POSITIVE Antibody Screen Negative Laboratory Results - last 24 hr 09/07/18 09/09/18 09/09/18 21:29 16:19 22:27 WBC RBC Hgb Hct MCV MCH MCHC RDW Plt Count MPV Neut % (Auto) Lymph % (Auto) [place] % (Auto) Eos % (Auto) Baso % (Auto) Neut # (Auto) Lymph # (Auto) [place] # (Auto) Eos # (Auto) Baso # (Auto) Neutrophils % (Manual) Lymphocytes % (Manual) Monocytes % (Manual) Eosinophils % (Manual) Platelet Estimate Polychromasia Hypochromasia (manual) Anisocytosis (manual) Sodium Potassium Chloride Carbon Dioxide Anion Gap BUN Creatinine Est GFR ( Amer) Est GFR (Non-Af Amer) POC Glucose (mg/dL) 84 112 H Random Glucose Calcium Phosphorus Magnesium Total Bilirubin AST ALT Alkaline Phosphatase Total Protein Albumin Globulin Albumin/Globulin Ratio Blood Type A POSITIVE Antibody Screen Negative 09/10/18 09/10/18 09/10/18 06:10 06:10 07:08 WBC 11.0 H D RBC 2.92 L Hgb 9.2 L Hct 27.5 L MCV 93.9 D MCH 31.3 H MCHC 33.3 RDW 18.6 H Plt Count 156 MPV 11.0 Neut % (Auto) 80.4 H Lymph % (Auto) 6.0 L [place] % (Auto) 9.5 Eos % (Auto) 3.6 Baso % (Auto) 0.5 Neut # (Auto) 8.8 H Lymph # (Auto) 0.7 L [place] # (Auto) 1.0 H Eos # (Auto) 0.4 Baso # (Auto) 0.1 Neutrophils % (Manual) 84 H Lymphocytes % (Manual) 4 L Monocytes % (Manual) 9 Eosinophils % (Manual) 3 Platelet Estimate Normal Polychromasia Slight Hypochromasia (manual) Slight Anisocytosis (manual) Slight Sodium 139 Potassium 4.7 Chloride 100 Carbon Dioxide 29 Anion Gap 15 BUN 20 H Creatinine 5.7 H Est GFR ( Amer) 9 Est GFR (Non-Af Amer) 7 POC Glucose (mg/dL) Random Glucose 117 H D Calcium 8.3 L Phosphorus 5.5 H Magnesium 1.7 Total Bilirubin 0.7 AST 25 ALT 21 Alkaline Phosphatase 49 Total Protein 6.3 Albumin 3.4 L D Globulin 3.0 Albumin/Globulin Ratio 1.1 Blood Type Antibody Screen 09/10/18 09/10/18 07:11 11:07 WBC RBC Hgb Hct MCV MCH MCHC RDW Plt Count MPV Neut % (Auto) Lymph % (Auto) [place] % (Auto) Eos % (Auto) Baso % (Auto) Neut # (Auto) Lymph # (Auto) [place] # (Auto) Eos # (Auto) Baso # (Auto) Neutrophils % (Manual) Lymphocytes % (Manual) Monocytes % (Manual) Eosinophils % (Manual) Platelet Estimate Polychromasia Hypochromasia (manual) Anisocytosis (manual) Sodium Potassium Chloride Carbon Dioxide Anion Gap BUN Creatinine Est GFR ( Amer) Est GFR (Non-Af Amer) POC Glucose (mg/dL) 139 H 127 H Random Glucose Calcium Phosphorus Magnesium Total Bilirubin AST ALT Alkaline Phosphatase Total Protein Albumin Globulin Albumin/Globulin Ratio Blood Type Antibody Screen Critical Care Progress Note - Nutrition Nutrition: Nutrition Category Date Time Status Renal Diet [DIET] Diets 09/09/18 Lunch Active Attending/Attestation - Attestation I have personally seen and examined this patient.: Yes I have fully participated in the care of the patient.: Yes I have reviewed all pertinent clinical information: Yes Notes (Text): 09/10/18 16:38 Patient seen and examined in the intensive care unit. Stable for transfer to floor
--- NOTE | 2018-09-10 17:42 | CP.PCM.PN ---
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 Discussed case with Dr. Thompson who feels pt should do well with amputation. Pt is scheduled for right partial 1st ray amp on Sunday09/13/2018 at 12:30PM. Consent was done over the phone with Angela Valenzuela and 2 nurse witness and was signed. Pt and daughter understands all risks and alternatives. Both pt and daughter understands that if healing is compromised future surgery and/or limbloss is possible. Cont with medical management. Objective - Vital Signs/Intake and Output Vital Signs (last 24 hours): Temp Pulse Resp BP Pulse Ox 98.7 F 99 H 12 120/56 L 100 09/10/18 12:25 09/10/18 17:06 09/10/18 17:06 09/10/18 17:06 09/10/18 17:00 Intake and Output: 09/10/18 09/10/18 06:59 18:59 Intake Total 420 0 Balance 420 0 - Medications Medications: Current Medications Acetaminophen (Tylenol 325mg Tab) 650 mg PO Q6 PRN PRN Reason: pain Last Admin: 09/08/18 22:15 Dose: 650 mg Allopurinol (Zyloprim) 100 mg PO DAILY [facility] Last Admin: 09/10/18 13:26 Dose: 100 mg Aspirin (Aspirin Chewable) 81 mg PO DAILY [facility] Last Admin: 09/10/18 13:25 Dose: 81 mg Calcium/Vitamin D (Oyster Shell Calcium/Vitamin D 500 Mg-200 Iu) 1 tab PO DAILY [facility] Last Admin: 09/10/18 10:16 Dose: Not Given Dextrose (Dextrose 50% Inj) 0 ml IV STAT PRN; Protocol PRN Reason: Hypoglycemia Protocol Dextrose (Glutose 15) 0 gm PO ONCE PRN; Protocol PRN Reason: Hypoglycemia Protocol Gabapentin (Neurontin) 300 mg PO HS [facility] Last Admin: 09/09/18 22:46 Dose: 300 mg Glucagon (Glucagen Diagnostic Kit) 0 mg IM STAT PRN; Protocol PRN Reason: Hypoglycemia Protocol Hydromorphone HCl (Dilaudid) 0.5 mg IVP Q6H PRN PRN Reason: Pain, severe (8-10) Last Admin: 09/09/18 19:47 Dose: 0.5 mg Dextrose (Dextrose 5% In Water 1000 Ml) 1,000 mls @ 0 mls/hr IV .Q0M PRN; Protocol PRN Reason: Hypoglycemia Protocol Piperacillin Sod/Tazobactam Sod (Zosyn 2.25 Gm Iv Premix) 2.25 gm in 50 mls @ 100 mls/hr IVPB Q6H [place]; Protocol Last Admin: 09/10/18 13:27 Dose: 100 mls/hr Vancomycin HCl 1,000 mg/ (Sodium Chloride) 200 mls @ 166.6 mls/hr IVPB TTS [place]; Protocol Insulin Aspart (Novolog) 0 unit SC ACHS [place]; Protocol Last Admin: 09/10/18 11:43 Dose: Not Given Metoprolol Tartrate (Lopressor) 100 mg PO DAILY [facility] Last Admin: 09/10/18 10:11 Dose: Not Given Ajvid-5-Pirr Ethyl Esters (Lovaza) 1 gm PO BID [facility] Last Admin: 09/10/18 13:25 Dose: 1 gm Oxycodone/Acetaminophen (Percocet 5/325 Mg Tab) 1 tab PO Q4H PRN PRN Reason: Pain, moderate (4-7) Stop: 09/12/18 19:28 Saccharomyces Boulardii (Florastor) 250 mg PO DAILY [facility] Last Admin: 09/10/18 13:26 Dose: 250 mg Sevelamer Carbonate (Renvela) 800 mg PO TIDCC [facility] Last Admin: 09/10/18 13:25 Dose: 800 mg Vitamin B Complex/Vit C/Folic Acid (Nephro-Leslye) 1 tab PO DAILY [facility] Last Admin: 09/10/18 13:25 Dose: 1 tab - Labs Labs: 09/10/18 06:10 09/10/18 06:10 PT 13.2 SECONDS (9.7-12.2) H 09/09/18 06:23 INR 1.2 09/09/18 06:23 APTT 22 SECONDS (21-34) 09/09/18 06:23
[2018-09-10] MEDS: Oxycodone/Acetaminophen 5/325 mg Tab PO PRN (17:48)
--- NOTE | 2018-09-11 02:04 | PN ---
DATE: 09/10/2018 SUBJECTIVE: The patient was seen today, 09/10/1017. She is not in any cardiopulmonary distress, postoperative day #1. PHYSICAL EXAMINATION: VITAL SIGNS: Blood pressure is 96/51, temperature 97, respiratory rate 15, and pulse 100. HEENT: Pupils equal, reactive to light. Normal appearing mucosa of the conjunctivae, oropharynx and nasal membrane mucosa. NECK: Supple. No JVD. No carotid bruit. No lymph node. No thyromegaly. CHEST AND LUNGS: Bilateral symmetrical expansion. Good air exchange. No rales, no rhonchi. CARDIOVASCULAR SYSTEM: PMI not localized. S1, S2. No additional sounds. ABDOMEN: Normoactive bowel sounds. No tenderness. No organomegaly. No masses. EXTREMITIES: Right foot surgically dressed. CENTRAL NERVOUS SYSTEM: Alert, awake, oriented x2. Moves all extremities equally. ASSESSMENT: Gangrene of the right foot, status post bypass surgery for revascularization of the right foot, type 2 diabetes mellitus, end-stage renal disease, on hemodialysis. PLAN: Discussed with Dr. Rivera Cherry, who will plan to do debridement and possible amputation of the great toe in 2 days. Cuba Hendrickson MD
[2018-09-11] MEDS: Piperacill/Tazo 2.25gm in Dex 2.25 GM/50 ML BAG IVPB SCH ×4 (04:41→23:00)
[2018-09-11 05:31] LABS: BASO % 0.4 % (0.0-2.0); EOS # 0.3 K/uL (0.0-0.7); EOS % 3.4 % (0.0-4.0); HEMOGLOBIN 7.6 g/dL (11.0-16.0); LYMPH # 1.1 K/uL (1.0-4.3); LYMPH % 12.3 % (20.0-40.0); MEAN CELL VOLUME 94.6 fL (81.0-99.0); MEAN CORPUSCULAR HEMOGLOBIN 30.9 pg (27.0-31.0); MEAN CORPUSCULAR HGB CONC 32.6 g/dL (33.0-37.0); MEAN PLATELET VOLUME 9.9 fL (7.2-11.7); MONO # 1.1 K/uL (0.0-0.8); MONO % 13.2 % (0.0-10.0); NEUT # 6.1 K/uL (1.8-7.0); NEUT % 70.7 % (50.0-75.0); RBC 2.45 Mil/uL (3.80-5.20); RED CELL DISTRIBUTION WIDTH 18.8 % (11.5-14.5); WHITE BLOOD COUNT 8.7 K/uL (4.8-10.8)
[2018-09-11 05:51] LABS: CALCIUM 8.1 mg/dl (8.6-10.4)
--- NOTE | 2018-09-11 08:17 | CP.PCM.PN ---
Subjective - Date & Time of Evaluation Date of Evaluation: 09/11/18 Time of Evaluation: 07:00 - Subjective Subjective: Vascular Surgery: Dr. Thompson Pt seen and examined. s/p R fem-ant tibial bypass with saphenous vein graft. No acute overnight events. Pt states she feels well and admits to post-op pain in R leg. Tolerating diet, denies nausea/vomiting, fevers/chills. Objective - Vital Signs/Intake and Output Vital Signs (last 24 hours): Temp Pulse Resp BP Pulse Ox 99 F 95 H 16 105/63 100 09/11/18 04:00 09/11/18 06:10 09/11/18 06:10 09/11/18 06:10 09/11/18 04:00 Intake and Output: 09/11/18 09/11/18 06:59 18:59 Intake Total 300 200 Balance 300 200 - Medications Medications: Current Medications Acetaminophen (Tylenol 325mg Tab) 650 mg PO Q6 PRN PRN Reason: pain Last Admin: 09/08/18 22:15 Dose: 650 mg Allopurinol (Zyloprim) 100 mg PO DAILY [facility] Last Admin: 09/10/18 13:26 Dose: 100 mg Aspirin (Aspirin Chewable) 81 mg PO DAILY [facility] Last Admin: 09/10/18 13:25 Dose: 81 mg Calcium/Vitamin D (Oyster Shell Calcium/Vitamin D 500 Mg-200 Iu) 1 tab PO DAILY [facility] Last Admin: 09/10/18 10:16 Dose: Not Given Dextrose (Dextrose 50% Inj) 0 ml IV STAT PRN; Protocol PRN Reason: Hypoglycemia Protocol Dextrose (Glutose 15) 0 gm PO ONCE PRN; Protocol PRN Reason: Hypoglycemia Protocol Gabapentin (Neurontin) 300 mg PO HS [facility] Last Admin: 09/10/18 21:46 Dose: 300 mg Glucagon (Glucagen Diagnostic Kit) 0 mg IM STAT PRN; Protocol PRN Reason: Hypoglycemia Protocol Hydromorphone HCl (Dilaudid) 0.5 mg IVP Q6H PRN PRN Reason: Pain, severe (8-10) Last Admin: 09/09/18 19:47 Dose: 0.5 mg Dextrose (Dextrose 5% In Water 1000 Ml) 1,000 mls @ 0 mls/hr IV .Q0M PRN; Pr otocol PRN Reason: Hypoglycemia Protocol Piperacillin Sod/Tazobactam Sod (Zosyn 2.25 Gm Iv Premix) 2.25 gm in 50 mls @ 100 mls/hr IVPB Q6H [facility]; Protocol Last Admin: 09/11/18 04:41 Dose: 100 mls/hr Vancomycin HCl 1,000 mg/ (Sodium Chloride) 200 mls @ 166.6 mls/hr IVPB TTS [facility]; Protocol Last Admin: 09/10/18 17:48 Dose: 166.6 mls/hr Insulin Aspart (Novolog) 0 unit SC ACHS [facility]; Protocol Last Admin: 09/10/18 21:46 Dose: Not Given Metoprolol Tartrate (Lopressor) 100 mg PO DAILY [facility] Last Admin: 09/10/18 10:11 Dose: Not Given Ixswh-6-Lrhk Ethyl Esters (Lovaza) 1 gm PO BID [facility] Last Admin: 09/10/18 17:47 Dose: 1 gm Oxycodone/Acetaminophen (Percocet 5/325 Mg Tab) 1 tab PO Q4H PRN PRN Reason: Pain, moderate (4-7) Stop: 09/12/18 19:28 Last Admin: 09/10/18 17:48 Dose: 1 tab Saccharomyces Boulardii (Florastor) 250 mg PO DAILY [facility] Last Admin: 09/10/18 13:26 Dose: 250 mg Sevelamer Carbonate (Renvela) 800 mg PO TIDCC [facility] Last Admin: 09/10/18 17:49 Dose: 800 mg Vitamin B Complex/Vit C/Folic Acid (Nephro-Leslye) 1 tab PO DAILY [facility] Last Admin: 09/10/18 13:25 Dose: 1 tab - Labs Labs: 09/11/18 05:20 09/11/18 05:20 PT 13.2 SECONDS (9.7-12.2) H 09/09/18 06:23 INR 1.2 09/09/18 06:23 APTT 22 SECONDS (21-34) 09/09/18 06:23 - Constitutional Appears: Well, No Acute Distress - Head Exam Head Exam: ATRAUMATIC, NORMOCEPHALIC - Eye Exam Eye Exam: Normal appearance - ENT Exam ENT Exam: Mucous Membranes Moist - Respiratory Exam Respiratory Exam: NORMAL BREATHING PATTERN - Cardiovascular Exam Cardiovascular Exam: RRR - GI/Abdominal Exam GI & Abdominal Exam: Soft - Extremities Exam Additional comments: R leg with palpable pulse in graft as well as strong doppler signals; dressing clean/dry - Neurological Exam Neurological Exam: Alert, Awake, Oriented x3 - Skin Skin Exam: Dry, Warm Assessment and Plan - Assessment and Plan (Free Text) Assessment: 73F s/p R pop-anterior tibial bypass with saphenous vein graft; POD#2 Plan: - cont to monitor RLE - encourage ambulation with PT - d/w Dr. Jay Hill
[2018-09-11] MEDS: Multivitamin Vitamin B Complex (Nephro-Vite) Tab PO SCH (10:18)
[2018-09-11] MEDS: Omega-3-Acid Ethyl Esters 1 GM Cap PO SCH ×2 (10:18→17:33)
[2018-09-11] MEDS: (Novolog) Insulin Aspart, Recombinant 100 u/ml 10 ml vial SC SCH ×4 (10:19→21:34)
[2018-09-11] MEDS: Saccharomyces Boulardi 250 mg Cap PO SCH (10:19)
--- NOTE | 2018-09-11 13:58 | CP.PCM.PN ---
Subjective - Date & Time of Evaluation Date of Evaluation: 09/11/18 Time of Evaluation: 13:58 - Subjective Subjective: Podiatry Progress Note- Dr. Cherry 73 year old female patient with PMHx DM, HTN, ESRD, seen and evaluated for right hallux dry gangrene s/p vascular intervention by Dr. Thompson. Patient is seen resting out of bed, in a chair, in NAD. Patient reports pain to the right foot, worse with pressure and touch. Patient reports sleeping okay. Denies nausea, fever, shortness of breath, chest pains or chills. Dressing clean, dry, and intact Objective - Vital Signs/Intake and Output Vital Signs (last 24 hours): Temp Pulse Resp BP Pulse Ox 99 F 95 H 16 105/63 100 09/11/18 04:00 09/11/18 06:10 09/11/18 06:10 09/11/18 06:10 09/11/18 04:00 Intake and Output: 09/11/18 09/11/18 06:59 18:59 Intake Total 300 200 Balance 300 200 - Medications Medications: Current Medications Acetaminophen (Tylenol 325mg Tab) 650 mg PO Q6 PRN PRN Reason: pain Last Admin: 09/08/18 22:15 Dose: 650 mg Allopurinol (Zyloprim) 100 mg PO DAILY [facility] Last Admin: 09/11/18 10:18 Dose: 100 mg Aspirin (Aspirin Chewable) 81 mg PO DAILY [facility] Last Admin: 09/11/18 10:18 Dose: 81 mg Calcium/Vitamin D (Oyster Shell Calcium/Vitamin D 500 Mg-200 Iu) 1 tab PO DAILY [facility] Last Admin: 09/10/18 10:16 Dose: Not Given Dextrose (Dextrose 50% Inj) 0 ml IV STAT PRN; Protocol PRN Reason: Hypoglycemia Protocol Dextrose (Glutose 15) 0 gm PO ONCE PRN; Protocol PRN Reason: Hypoglycemia Protocol Gabapentin (Neurontin) 300 mg PO HS [facility] Last Admin: 09/10/18 21:46 Dose: 300 mg Glucagon (Glucagen Diagnostic Kit) 0 mg IM STAT PRN; Protocol PRN Reason: Hypoglycemia Protocol Hydromorphone HCl (Dilaudid) 0.5 mg IVP Q6H PRN PRN Reason: Pain, severe (8-10) Last Admin: 09/09/18 19:47 Dose: 0.5 mg Piperacillin Sod/Tazobactam Sod (Zosyn 2.25 Gm Iv Premix) 2.25 gm in 50 mls @ 100 mls/hr IVPB Q6H [facility]; Protocol Last Admin: 09/11/18 04:41 Dose: 100 mls/hr Vancomycin HCl 1,000 mg/ (Sodium Chloride) 200 mls @ 166.6 mls/hr IVPB TTS [facility]; Protocol Last Admin: 09/10/18 17:48 Dose: 166.6 mls/hr Insulin Aspart (Novolog) 0 unit SC ACHS [facility]; Protocol Last Admin: 09/11/18 10:19 Dose: Not Given Metoprolol Tartrate (Lopressor) 100 mg PO DAILY [facility] Last Admin: 09/11/18 10:19 Dose: 100 mg Cnsck-6-Ajdg Ethyl Esters (Lovaza) 1 gm PO BID [facility] Last Admin: 09/11/18 10:18 Dose: 1 gm Oxycodone/Acetaminophen (Percocet 5/325 Mg Tab) 1 tab PO Q4H PRN PRN Reason: Pain, moderate (4-7) Stop: 09/12/18 19:28 Last Admin: 09/10/18 17:48 Dose: 1 tab Saccharomyces Boulardii (Florastor) 250 mg PO DAILY [facility] Last Admin: 09/11/18 10:19 Dose: 250 mg Sevelamer Carbonate (Renvela) 800 mg PO TIDCC [facility] Last Admin: 09/11/18 10:18 Dose: 800 mg Vitamin B Complex/Vit C/Folic Acid (Nephro-Leslye) 1 tab PO DAILY [facility] Last Admin: 09/11/18 10:18 Dose: 1 tab - Labs Labs: 09/11/18 05:20 09/11/18 05:20 PT 13.2 SECONDS (9.7-12.2) H 09/09/18 06:23 INR 1.2 09/09/18 06:23 APTT 22 SECONDS (21-34) 09/09/18 06:23 - Constitutional Appears: Well, Non-toxic, No Acute Distress - Extremities Exam Extremities Exam: absent: Calf Tenderness Additional comments: RLE focused physical exam: Vasc: PT and DP palpable. Cap refill delayed to digits, unable to assess hallux secondary to necrotic dry gangrene, increase warmth to the right foot, +2 pitting edema. Ortho: Pain on palpation distal tuft of hallux extending proximally into plantar medial arch. Hallucal IPJ and 1st MPJ ROM limited secondary to guarding. Neuro: Protective sensation grossly diminished. Derm: Black discoloration noted to hallux extending proximally into midshaft of 1st metatarsal; discoloration to the 1st metatarsal is less and improving, slight malodor, negative drainage/purulence/fluctuance. Hallux firm to touch, hallux with dry, necrotic tip - Neurological Exam Neurological Exam: Alert, Awake - Psychiatric Exam Psychiatric exam: Normal Affect, Normal Mood Assessment and Plan - Assessment and Plan (Free Text) Assessment: 73 year old female patient with PMHx DM, HTN, ESRD, seen and evaluated for right hallux dry gangrene. Plan: Patient seen and evaluated Discussed plan in detail with attending Dr. Cherry Labs, chart reviewed Patient is s/p right pop-anterior tibial bypass with saphenous vein graft; POD#[address] Thompson on 09/09/18 RLE MRI (08/21): Extensive ST swelling throughout with marrow signal abnormality throughout 1st distal phalanx as well as accompanying erosive changes compatible with osteomyelitis. Accompanying dorsal ST ulcer measuring roughly 1.7cm. Severe marrow signal abnormality involving distal 3rd phalanx also suspicious for OM Patient will go to the OR for right partial 1st ray amputation Sunday09/13/18 at 12:30PM with Dr. Cherry. Per Dr. Cherry, consent was done over the phone with Angela Valenzuela and 2 nurse witness and was signed. Patient and daughter understands all risks and alternatives. Both pt and daughter understands that if healing is compromised f uture surgery and/or limb loss is possible. Please provide medical clearance for surgery Sunday, Thank you Continue local wound care: [facility] will continue to follow
[2018-09-11] MEDS: Calcium-Vit D 500 mg-200 Units Tab UD PO SCH (14:44)
[2018-09-11] MEDS: Oxycodone/Acetaminophen 5/325 mg Tab PO PRN (14:47)
--- NOTE | 2018-09-11 23:51 | CP.PCM.PN ---
Subjective - Date & Time of Evaluation Date of Evaluation: 09/11/18 Time of Evaluation: 16:00 - Subjective Subjective: SEEN ON RENAL F/U RECIEVED HER HD TODAY FEELS IMPROVED ALL PREVIOUS EMR REVIEWED Objective - Vital Signs/Intake and Output Vital Signs (last 24 hours): Temp Pulse Resp BP Pulse Ox 98.2 F 91 H 18 110/61 100 09/11/18 20:00 09/11/18 20:00 09/11/18 20:00 09/11/18 20:00 09/11/18 20:00 Intake and Output: 09/11/18 09/12/18 18:59 06:59 Intake Total 600 Balance 600 - Medications Medications: Current Medications Acetaminophen (Tylenol 325mg Tab) 650 mg PO Q6 PRN PRN Reason: pain Last Admin: 09/08/18 22:15 Dose: 650 mg Allopurinol (Zyloprim) 100 mg PO DAILY [facility] Last Admin: 09/11/18 10:18 Dose: 100 mg Aspirin (Aspirin Chewable) 81 mg PO DAILY [facility] Last Admin: 09/11/18 10:18 Dose: 81 mg Calcium/Vitamin D (Oyster Shell Calcium/Vitamin D 500 Mg-200 Iu) 1 tab PO DAILY [facility] Last Admin: 09/11/18 14:44 Dose: 1 tab Dextrose (Dextrose 50% Inj) 0 ml IV STAT PRN; Protocol PRN Reason: Hypoglycemia Protocol Dextrose (Glutose 15) 0 gm PO ONCE PRN; Protocol PRN Reason: Hypoglycemia Protocol Gabapentin (Neurontin) 300 mg PO HS [facility] Last Admin: 09/11/18 21:42 Dose: 300 mg Glucagon (Glucagen Diagnostic Kit) 0 mg IM STAT PRN; Protocol PRN Reason: Hypoglycemia Protocol Hydromorphone HCl (Dilaudid) 0.5 mg IVP Q6H PRN PRN Reason: Pain, severe (8-10) Last Admin: 09/09/18 19:47 Dose: 0.5 mg Piperacillin Sod/Tazobactam Sod (Zosyn 2.25 Gm Iv Premix) 2.25 gm in 50 mls @ 100 mls/hr IVPB Q6H [facility]; Protocol Last Admin: 09/11/18 23:00 Dose: 100 mls/hr Vancomycin HCl 1,000 mg/ (Sodium Chloride) 200 mls @ 166.6 mls/hr IVPB TTS [facility]; Protocol Last Admin: 09/10/18 17:48 Dose: 166.6 mls/hr Insulin Aspart (Novolog) 0 unit SC ACHS [facility]; Protocol Last Admin: 09/11/18 21:34 Dose: Not Given Metoprolol Tartrate (Lopressor) 100 mg PO DAILY [facility] Last Admin: 09/11/18 10:19 Dose: 100 mg Qlyma-1-Utdq Ethyl Esters (Lovaza) 1 gm PO BID [facility] Last Admin: 09/11/18 17:33 Dose: 1 gm Oxycodone/Acetaminophen (Percocet 5/325 Mg Tab) 1 tab PO Q4H PRN PRN Reason: Pain, moderate (4-7) Stop: 09/12/18 19:28 Last Admin: 09/11/18 14:47 Dose: 1 tab Saccharomyces Boulardii (Florastor) 250 mg PO DAILY [facility] Last Admin: 09/11/18 10:19 Dose: 250 mg Sevelamer Carbonate (Renvela) 800 mg PO TIDCC [facility] Last Admin: 09/11/18 17:33 Dose: 800 mg Vitamin B Complex/Vit C/Folic Acid (Nephro-Leslye) 1 tab PO DAILY [facility] Last Admin: 09/11/18 10:18 Dose: 1 tab - Labs Labs: 09/11/18 05:20 09/11/18 05:20 PT 13.2 SECONDS (9.7-12.2) H 09/09/18 06:23 INR 1.2 09/09/18 06:23 APTT 22 SECONDS (21-34) 09/09/18 06:23 Assessment and Plan - Assessment and Plan (Free Text) Assessment: ESRD ON HD M W F ANEMIA OF CKD .. H/H STABLE PVD .. S/P BYPASS BY DR GREER MMP P : C/O PRESENT CARE C/O CURRENT MANAGEMENT
[2018-09-12] MEDS: Piperacill/Tazo 2.25gm in Dex 2.25 GM/50 ML BAG IVPB SCH ×4 (04:54→23:58)
[2018-09-12] MEDS: (Novolog) Insulin Aspart, Recombinant 100 u/ml 10 ml vial SC SCH ×4 (07:54→21:50)
--- NOTE | 2018-09-12 08:55 | PN ---
DATE: 09/11/2018 SUBJECTIVE: The patient was seen, 09/11/2018. She is complaining of pain in the right lower extremity and hemoglobin dropped to 7.6, hematocrit 23.2. PHYSICAL EXAMINATION: VITAL SIGNS: Blood pressure was 110/61, temperature 98.2, respiratory rate 18, and pulse 91. HEENT: Pupils equal, reactive to light. Normal-appearing mucosa of the conjunctivae, oropharynx, and nasal membrane mucosa. NECK: Supple. No JVD. No carotid bruit. No lymph node. No thyromegaly. CHEST: Lungs, bilateral symmetrical expansion. Good air exchange. No rales, no rhonchi. CARDIOVASCULAR SYSTEM: PMI not localized to S1, S2. No additional sounds. ABDOMEN: Normoactive bowel sounds. No tenderness. No organomegaly. No masses. EXTREMITIES: No cyanosis, no clubbing, no edema. The right lower extremity is surgically dressed. FURNITURE DETAILER: Alert, awake, oriented x2 and moves all extremities equally. ASSESSMENT: 1. Status post vascular bypass surgery in the right lower extremity. 2. End-stage renal disease ,on hemodialysis. 3. Type 2 diabetes mellitus. 4. Anemia of acute blood loss. PLAN: We will transfuse 2 units of packed RBCs during next hemodialysis and will continue current antibiotics and medications, and the patient is scheduled for amputation of the right big toe by Podiatry on 09/13/2018. Cuba Hendrickson MD
[2018-09-12] MEDS: Omega-3-Acid Ethyl Esters 1 GM Cap PO SCH ×3 (10:20→19:31)
[2018-09-12] MEDS: Saccharomyces Boulardi 250 mg Cap PO SCH (10:21)
[2018-09-12] MEDS: Multivitamin Vitamin B Complex (Nephro-Vite) Tab PO SCH (10:21)
[2018-09-12] MEDS: Calcium-Vit D 500 mg-200 Units Tab UD PO SCH (10:21)
--- NOTE | 2018-09-12 11:42 | CP.PCM.PN ---
Subjective - Date & Time of Evaluation Date of Evaluation: 09/12/18 Time of Evaluation: 07:00 - Subjective Subjective: Vascular Surgery: Dr. Thompson Pt seen and examined. No acute overnight events. States she feels well and pain is well controlled. Pt admits to getting out of bed to chair yesterday. Tolerating diet. Denies nausea/vomiting, fevers/chills. Objective - Vital Signs/Intake and Output Vital Signs (last 24 hours): Temp Pulse Resp BP Pulse Ox 98.8 F 87 18 104/49 L 100 09/12/18 08:00 09/12/18 08:00 09/12/18 08:00 09/12/18 08:00 09/12/18 08:00 Intake and Output: 09/12/18 09/12/18 06:59 18:59 Intake Total 50 Balance 50 - Medications Medications: Current Medications Acetaminophen (Tylenol 325mg Tab) 650 mg PO Q6 PRN PRN Reason: pain Last Admin: 09/08/18 22:15 Dose: 650 mg Allopurinol (Zyloprim) 100 mg PO DAILY [facility] Last Admin: 09/12/18 10:21 Dose: 100 mg Aspirin (Aspirin Chewable) 81 mg PO DAILY [facility] Last Admin: 09/12/18 10:21 Dose: 81 mg Calcium/Vitamin D (Oyster Shell Calcium/Vitamin D 500 Mg-200 Iu) 1 tab PO DAILY [facility] Last Admin: 09/12/18 10:21 Dose: 1 tab Dextrose (Dextrose 50% Inj) 0 ml IV STAT PRN; Protocol PRN Reason: Hypoglycemia Protocol Dextrose (Glutose 15) 0 gm PO ONCE PRN; Protocol PRN Reason: Hypoglycemia Protocol Gabapentin (Neurontin) 300 mg PO HS [facility] Last Admin: 09/11/18 21:42 Dose: 300 mg Glucagon (Glucagen Diagnostic Kit) 0 mg IM STAT PRN; Protocol PRN Reason: Hypoglycemia Protocol Heparin Sodium (Porcine) (Heparin) 5,000 units SC Q12 [facility] Last Admin: 09/12/18 10:24 Dose: 5,000 units Hydromorphone HCl (Dilaudid) 0.5 mg IVP Q6H PRN PRN Reason: Pain, severe (8-10) Last Admin: 09/09/18 19:47 Dose: 0.5 mg Piperacillin Sod/Tazobactam Sod (Zosyn 2.25 Gm Iv Premix) 2.25 gm in 50 mls @ 100 mls/hr IVPB Q6H [facility]; Protocol Last Admin: 09/12/18 10:31 Dose: 100 mls/hr Vancomycin HCl 1,000 mg/ (Sodium Chloride) 200 mls @ 166.6 mls/hr IVPB TTS [facility]; Protocol Last Admin: 09/10/18 17:48 Dose: 166.6 mls/hr Insulin Aspart (Novolog) 0 unit SC ACHS [facility]; Protocol Last Admin: 09/12/18 07:54 Dose: Not Given Metoprolol Tartrate (Lopressor) 100 mg PO DAILY [facility] Last Admin: 09/12/18 10:22 Dose: Not Given Vmulb-7-Wwyw Ethyl Esters (Lovaza) 1 gm PO BID [facility] Last Admin: 09/12/18 10:20 Dose: 1 gm Oxycodone/Acetaminophen (Percocet 5/325 Mg Tab) 1 tab PO Q4H PRN PRN Reason: Pain, moderate (4-7) Stop: 09/12/18 19:28 Last Admin: 09/11/18 14:47 Dose: 1 tab Saccharomyces Boulardii (Florastor) 250 mg PO DAILY [facility] Last Admin: 09/12/18 10:21 Dose: 250 mg Sevelamer Carbonate (Renvela) 800 mg PO TIDCC [facility] Last Admin: 09/12/18 07:53 Dose: 800 mg Vitamin B Complex/Vit C/Folic Acid (Nephro-Leslye) 1 tab PO DAILY [facility] Last Admin: 09/12/18 10:21 Dose: 1 tab - Labs Labs: 09/11/18 05:20 09/11/18 05:20 PT 13.2 SECONDS (9.7-12.2) H 09/09/18 06:23 INR 1.2 09/09/18 06:23 APTT 22 SECONDS (21-34) 09/09/18 06:23 - Constitutional Appears: Well, No Acute Distress - Head Exam Head Exam: ATRAUMATIC, NORMOCEPHALIC - Eye Exam Eye Exam: Normal appearance - ENT Exam ENT Exam: Mucous Membranes Moist - Respiratory Exam Respiratory Exam: NORMAL BREATHING PATTERN - Cardiovascular Exam Cardiovascular Exam: RRR - GI/Abdominal Exam GI & Abdominal Exam: Soft. absent: Tenderness - Extremities Exam Additional comments: RLE with palpable pulse and strong doppler signals in graft, dressing clean/dry/intact - Neurological Exam Neurological Exam: Alert, Awake, Oriented x3 - Skin Skin Exam: Dry, Warm Assessment and Plan - Assessment and Plan (Free Text) Assessment: 73F s/p R pop-anterior tibial bypass with saphenous vein graft; POD#3 Plan: - cont physical therapy - pt scheduled for R toe amputation with podiatry tomorrow AM - no further vascular surgery intervention at this time - f/u with Dr. Thompson in 2 weeks upon discharge - d/w Dr. Jay Plata
--- NOTE | 2018-09-12 13:45 | CP.PCM.PN ---
Subjective - Date & Time of Evaluation Date of Evaluation: 09/12/18 Time of Evaluation: 14:00 - Subjective Subjective: Podiatry Progress Note- Dr. Cherry 73 year old female patient with PMHx DM, HTN, ESRD, seen and evaluated for right hallux dry gangrene s/p vascular intervention by Dr. Thompson. Patient is seen resting in the bed, in NAD. Daugther at bedside during visitation. Patient reports same pain to the foot. Reports pain at the thigh as well. Patient reports sleeping okay. Denies nausea, fever, shortness of breath, chest pains or chills. Dressing clean, dry, and intact. Undertstands surgery is tomorrow and agreeable to partial 1st ray amputation of right foot. Objective - Vital Signs/Intake and Output Vital Signs (last 24 hours): Temp Pulse Resp BP Pulse Ox 97.9 F 83 18 106/49 L 100 09/12/18 12:00 09/12/18 12:00 09/12/18 12:00 09/12/18 12:00 09/12/18 12:00 Intake and Output: 09/12/18 09/12/18 06:59 18:59 Intake Total 50 Balance 50 - Medications Medications: Current Medications Acetaminophen (Tylenol 325mg Tab) 650 mg PO Q6 PRN PRN Reason: pain Last Admin: 09/08/18 22:15 Dose: 650 mg Allopurinol (Zyloprim) 100 mg PO DAILY [facility] Last Admin: 09/12/18 10:21 Dose: 100 mg Aspirin (Aspirin Chewable) 81 mg PO DAILY [facility] Last Admin: 09/12/18 10:21 Dose: 81 mg Calcium/Vitamin D (Oyster Shell Calcium/Vitamin D 500 Mg-200 Iu) 1 tab PO DAILY [facility] Last Admin: 09/12/18 10:21 Dose: 1 tab Dextrose (Dextrose 50% Inj) 0 ml IV STAT PRN; Protocol PRN Reason: Hypoglycemia Protocol Dextrose (Glutose 15) 0 gm PO ONCE PRN; Protocol PRN Reason: Hypoglycemia Protocol Gabapentin (Neurontin) 300 mg PO HS [facility] Last Admin: 09/11/18 21:42 Dose: 300 mg Glucagon (Glucagen Diagnostic Kit) 0 mg IM STAT PRN; Protocol PRN Reason: Hypoglycemia Protocol Heparin Sodium (Porcine) (Heparin) 5,000 units SC Q12 [facility] Last Admin: 09/12/18 10:24 Dose: 5,000 units Hydromorphone HCl (Dilaudid) 0.5 mg IVP Q6H PRN PRN Reason: Pain, severe (8-10) Last Admin: 09/09/18 19:47 Dose: 0.5 mg Piperacillin Sod/Tazobactam Sod (Zosyn 2.25 Gm Iv Premix) 2.25 gm in 50 mls @ 100 mls/hr IVPB Q6H [facility]; Protocol Last Admin: 09/12/18 10:31 Dose: 100 mls/hr Vancomycin HCl 1,000 mg/ (Sodium Chloride) 200 mls @ 166.6 mls/hr IVPB TTS [facility]; Protocol Last Admin: 09/10/18 17:48 Dose: 166.6 mls/hr Insulin Aspart (Novolog) 0 unit SC ACHS [facility]; Protocol Last Admin: 09/12/18 07:54 Dose: Not Given Metoprolol Tartrate (Lopressor) 100 mg PO DAILY [facility] Last Admin: 09/12/18 10:22 Dose: Not Given [id number]-[id number] Ethyl Esters (Lovaza) 1 gm PO BID [facility] Last Admin: 09/12/18 10:20 Dose: 1 gm Oxycodone/Acetaminophen (Percocet 5/325 Mg Tab) 1 tab PO Q4H PRN PRN Reason: Pain, moderate (4-7) Stop: 09/12/18 19:28 Last Admin: 09/11/18 14:47 Dose: 1 tab Saccharomyces Boulardii (Florastor) 250 mg PO DAILY [facility] Last Admin: 09/12/18 10:21 Dose: 250 mg Sevelamer Carbonate (Renvela) 800 mg PO TIDCC [facility] Last Admin: 09/12/18 07:53 Dose: 800 mg Vitamin B Complex/Vit C/Folic Acid (Nephro-Leslye) 1 tab PO DAILY [facility] Last Admin: 09/12/18 10:21 Dose: 1 tab - Labs Labs: 09/11/18 05:20 09/11/18 05:20 PT 13.2 SECONDS (9.7-12.2) H 09/09/18 06:23 INR 1.2 09/09/18 06:23 APTT 22 SECONDS (21-34) 09/09/18 06:23 - Constitutional Appears: Well, Non-toxic, No Acute Distress - Extremities Exam Extremities Exam: absent: Calf Tenderness Additional comments: RLE focused physical exam: Vasc: PT and DP palpable. Cap refill delayed to digits, unable to assess hallux secondary to necrotic dry gangrene, increase warmth to the right foot, +2 pi tting edema. Ortho: Pain on palpation distal tuft of hallux extending proximally into plantar medial arch. Hallucal IPJ and 1st MPJ ROM limited secondary to guarding. Neuro: Protective sensation grossly diminished. Derm: Black discoloration noted to hallux extending proximally into midshaft of 1st metatarsal; discoloration to the 1st metatarsal is less and improving, slight malodor, negative drainage/purulence/fluctuance. Hallux firm to touch, hallux with dry, necrotic tip - Neurological Exam Neurological Exam: Alert, Awake - Psychiatric Exam Psychiatric exam: Normal Affect, Normal Mood Assessment and Plan - Assessment and Plan (Free Text) Assessment: 73 year old female patient with PMHx DM, HTN, ESRD, seen and evaluated for right hallux dry gangrene. Plan: Patient seen and evaluated Discussed plan in detail with attending Dr. Cherry Labs, chart reviewed Patient is s/p right pop-anterior tibial bypass with saphenous vein graft; POD#[address] Thompson on 09/09/18 RLE MRI (08/21): Extensive ST swelling throughout with marrow signal abnormality throughout 1st distal phalanx as well as accompanying erosive changes compatible with osteomyelitis. Accompanying dorsal ST ulcer measuring roughly 1.7cm. Severe marrow signal abnormality involving distal 3rd phalanx also suspicious for OM Patient will go to the OR for right partial 1st ray amputation Sunday09/13/18 at 12:30PM with Dr. Cherry. Per Dr. Cherry, consent was done over the phone with Angela Valenzuela and 2 nurse witness and was signed. Patient and daughter understands all risks and alternatives. Both pt and daughter understands that if healing is compromised future surgery and/or limb loss is possible. Please provide medical clearance for surgery Sunday, Thank you Anticoagulation held NPO status after midnight. Nothing to eat or drink after midnight Continue local wound care: [facility] Podiatry will continue to follow
--- NOTE | 2018-09-13 04:03 | PN ---
DATE: 09/12/2018 SUBJECTIVE: The patient is seen today, 09/12/2018. She was seen during hemodialysis. The patient is not in any cardiopulmonary distress. Pain is controlled. PHYSICAL EXAMINATION: VITAL SIGNS: Blood pressure /61, temperature 97.9, respiratory rate 18, and pulse 90. HEENT: Pupils equal, reactive to light. Normal-appearing mucosa of the conjunctivae, oropharynx and nasal membrane mucosa. NECK: Supple. No JVD. No carotid bruit. No lymph node. No thyromegaly. CHEST AND LUNGS: Bilateral symmetrical expansion. Good air exchange. No rales, no rhonchi. CARDIOVASCULAR SYSTEM: PMI not localized. S1, S2. No additional sounds. ABDOMEN: Normoactive bowel sounds. No tenderness. No organomegaly. No masses. EXTREMITIES: No cyanosis, no clubbing, no edema. CENTRAL NERVOUS SYSTEM: Alert, awake, oriented x2. No neurological deficit could be appreciated. ASSESSMENT AND PLAN: 1. Status post revascularization of the right lower extremity. 2. Gangrene of the right big toe. 3. Hypertension. 4. Type 2 diabetes mellitus. 5. End-stage renal disease, on hemodialysis. The patient is being transfused two units of packed red blood cells due to drop of hemoglobin. The patient has acceptable risk for amputation of the gangrenous part of the right foot. The patient had a negative stress test and she tolerated the bypass surgery well. Cuba Hendrickson MD
[2018-09-13] MEDS: Piperacill/Tazo 2.25gm in Dex 2.25 GM/50 ML BAG IVPB SCH ×4 (06:06→17:56)
[2018-09-13 07:46] LABS: HEMOGLOBIN 8.1 g/dL (11.0-16.0); MEAN CORPUSCULAR HEMOGLOBIN 31.6 pg (27.0-31.0); MEAN PLATELET VOLUME 9.9 fL (7.2-11.7); RBC 2.58 Mil/uL (3.80-5.20); RED CELL DISTRIBUTION WIDTH 17.5 % (11.5-14.5); WHITE BLOOD COUNT 7.6 K/uL (4.8-10.8)
[2018-09-13 07:51] LABS: CALCIUM 8.1 mg/dl (8.6-10.4)
[2018-09-13] MEDS: (Novolog) Insulin Aspart, Recombinant 100 u/ml 10 ml vial SC SCH ×5 (08:24→22:29)
[2018-09-13] MEDS: Omega-3-Acid Ethyl Esters 1 GM Cap PO SCH ×2 (09:15→17:50)
[2018-09-13] MEDS: Multivitamin Vitamin B Complex (Nephro-Vite) Tab PO SCH (09:15)
[2018-09-13] MEDS: Calcium-Vit D 500 mg-200 Units Tab UD PO SCH (09:15)
[2018-09-13] MEDS: Saccharomyces Boulardi 250 mg Cap PO SCH (09:15)
[2018-09-13] MEDS: HYDROmorphone 0.5 mg/0.5 ml ISec IVP PRN (11:00)
[2018-09-13] MEDS ORDERED: Lidocaine 2% MPF (5 ml) Inj ONE (11:44)
[2018-09-13] MEDS ORDERED: Bupivacaine 0.25% 20 ML INJ IJ ONE (11:44)
[2018-09-13] MEDS ORDERED: Midazolam 2 MG/2 ML VIAL ONE (12:08)
--- NOTE | 2018-09-13 13:06 | PCM.SURG1 ---
Surgeon's Initial Post Op Note - Surgeon's Notes Surgeon: Dr. Rivera Cherry, DPM Production Scheduler: Dr. Bess Dale PGY2, Dr. Tamia Andrews PGY1 Type of Anesthesia: IV Sedation, Local Pre-Operative Diagnosis: Right foot hallux dry gangrene Operative Findings: See Dictation. I: None. M: 2-0 Vicryl, 2-0 Prolene, [place] Drain Post-Operative Diagnosis: Same Operation Performed: Right hallux amputation with partial first ray resection Specimen/Specimens Removed: Right hallux, partial first metatarsal Estimated Blood Loss: EBL {In ML}: 10 Blood Products Given: N/A Drains Used: [place] Post-Op Condition: Good Date of Surgery/Procedure: 09/13/18 Time of Surgery/Procedure: 13:06
[2018-09-13] MEDS ORDERED: Oxycodone/Acetaminophen 5/325 mg Tab PO PRN (13:09)
[2018-09-13] MEDS ORDERED: Morphine 4 MG/ML VIAL ONE (13:32)
--- NOTE | 2018-09-13 13:45 | RAD ---
Date of service: 09/13/2018 PROCEDURE: Right Foot Radiographs. HISTORY: s/p partial first ray resection COMPARISON: 08/17/2018 FINDINGS: BONES: Status post amputation 1st digit mid 1st metatarsal. No acute fracture. No other osseous abnormality identified JOINTS: Normal. SOFT TISSUES: Normal. OTHER FINDINGS: None. IMPRESSION: Amputation mid 1st metatarsal.
--- NOTE | 2018-09-13 17:55 | CP.PCM.PN ---
Subjective - Date & Time of Evaluation Date of Evaluation: 09/13/18 Time of Evaluation: 17:00 - Subjective Subjective: SEEN ON RENAL F/U IN BED .. STATES NO PAIN ON R FOOT S/P HALLUX FIRST METATARSAL AMPUTATION ON HD TTS Objective - Vital Signs/Intake and Output Vital Signs (last 24 hours): Temp Pulse Resp BP Pulse Ox 98.2 F 82 20 127/77 100 09/13/18 16:30 09/13/18 16:30 09/13/18 16:30 09/13/18 16:30 09/13/18 16:30 Intake and Output: 09/13/18 09/13/18 06:59 18:59 Intake Total 135 Balance 135 - Medications Medications: Current Medications Acetaminophen (Tylenol 325mg Tab) 650 mg PO Q6 PRN PRN Reason: pain Last Admin: 09/08/18 22:15 Dose: 650 mg Acetaminophen (Tylenol 325mg Tab) 650 mg PO Q6 PRN PRN Reason: Pain, Mild (1-3) Allopurinol (Zyloprim) 100 mg PO DAILY [facility] Last Admin: 09/13/18 09:15 Dose: Not Given Aspirin (Aspirin Chewable) 81 mg PO DAILY [facility] Last Admin: 09/12/18 10:21 Dose: 81 mg Calcium/Vitamin D (Oyster Shell Calcium/Vitamin D 500 Mg-200 Iu) 1 tab PO DAILY [facility] Last Admin: 09/13/18 09:15 Dose: Not Given Dextrose (Dextrose 50% Inj) 0 ml IV STAT PRN; Protocol PRN Reason: Hypoglycemia Protocol Dextrose (Glutose 15) 0 gm PO ONCE PRN; Protocol PRN Reason: Hypoglycemia Protocol Gabapentin (Neurontin) 300 mg PO HS [facility] Last Admin: 09/12/18 21:52 Dose: 300 mg Glucagon (Glucagen Diagnostic Kit) 0 mg IM STAT PRN; Protocol PRN Reason: Hypoglycemia Protocol Heparin Sodium (Porcine) (Heparin) 5,000 units SC Q12 [facility] Last Admin: 09/12/18 10:24 Dose: 5,000 units Hydromorphone HCl (Dilaudid) 0.5 mg IVP Q6H PRN PRN Reason: Pain, severe (8-10) Last Admin: 09/13/18 11:00 Dose: 0.5 mg Piperacillin Sod/Tazobactam Sod (Zosyn 2.25 Gm Iv Premix) 2.25 gm in 50 mls @ 100 mls/hr IVPB Q6H [facility]; Protocol Last Admin: 09/13/18 17:50 Dose: 100 mls/hr Vancomycin HCl 1,000 mg/ (Sodium Chloride) 200 mls @ 166.6 mls/hr IVPB TTS [facility]; Protocol Last Admin: 09/12/18 19:32 Dose: 166.6 mls/hr Insulin Aspart (Novolog) 0 unit SC ACHS [facility]; Protocol Last Admin: 09/13/18 17:36 Dose: Not Given Metoprolol Tartrate (Lopressor) 100 mg PO DAILY [facility] Last Admin: 09/13/18 09:15 Dose: Not Given Cvbuq-9-Vuhe Ethyl Esters (Lovaza) 1 gm PO BID [facility] Last Admin: 09/13/18 17:50 Dose: 1 gm Oxycodone/Acetaminophen (Percocet 5/325 Mg Tab) 1 tab PO Q4H PRN PRN Reason: Pain, moderate (4-7) Stop: 09/16/18 13:10 Oxycodone/Acetaminophen (Percocet 5/325 Mg Tab) 2 tab PO Q4H PRN PRN Reason: Pain, severe (8-10) Stop: 09/16/18 13:10 Saccharomyces Boulardii (Florastor) 250 mg PO DAILY [facility] Last Admin: 09/13/18 09:15 Dose: Not Given Sevelamer Carbonate (Renvela) 800 mg PO TIDCC [facility] Last Admin: 09/13/18 17:50 Dose: 800 mg Vitamin B Complex/Vit C/Folic Acid (Nephro-Leslye) 1 tab PO DAILY [facility] Last Admin: 09/13/18 09:15 Dose: Not Given - Labs Labs: 09/13/18 07:32 09/13/18 07:32 PT 13.2 SECONDS (9.7-12.2) H 09/09/18 06:23 INR 1.2 09/09/18 06:23 APTT 22 SECONDS (21-34) 09/09/18 06:23 Assessment and Plan - Assessment and Plan (Free Text) Assessment: ESRD ON HD TTS .. NEXT HD TOMORROW SAT ANEMIA OF CKD .. ON EPO ELECTROLYTES ABN .. NOW OK PAD .. S/P BYPASS BY DR GREER S/P R HALLUX FIRST METATARSAL AMP MMP P : C/O CURRENT MANAGEMENT C/O CURRENT CARE
[2018-09-13] MEDS: Oxycodone/Acetaminophen 5/325 mg Tab PO PRN (20:37)
[2018-09-14] MEDS: Piperacill/Tazo 2.25gm in Dex 2.25 GM/50 ML BAG IVPB SCH ×4 (00:06→18:23)
[2018-09-14] MEDS: (Novolog) Insulin Aspart, Recombinant 100 u/ml 10 ml vial SC SCH ×4 (08:04→22:00)
[2018-09-14] MEDS: Calcium-Vit D 500 mg-200 Units Tab UD PO SCH (10:02)
[2018-09-14] MEDS: Saccharomyces Boulardi 250 mg Cap PO SCH (10:02)
[2018-09-14] MEDS: Omega-3-Acid Ethyl Esters 1 GM Cap PO SCH ×2 (10:07→18:23)
[2018-09-14] MEDS: Multivitamin Vitamin B Complex (Nephro-Vite) Tab PO SCH (10:08)
--- NOTE | 2018-09-14 10:40 | PN ---
DATE: 09/13/2018 SUBJECTIVE: The patient was seen on September 13, 2018, postoperative. PHYSICAL EXAMINATION: VITAL SIGNS: Blood pressure was 127/77, temperature 98.2, respiratory rate 20 and pulse 82. HEENT: Pupils equal, reactive to light. Normal-appearing mucosa of the conjunctivae, oropharynx and nasal membrane mucosa. NECK: Supple. No JVD. No carotid bruit. No lymph node. No thyromegaly. CHEST AND LUNGS: Bilateral symmetrical expansion. Good air exchange. No rales, no rhonchi. CARDIOVASCULAR: PMI not localized. S1, S2. No additional sounds. ABDOMEN: Normoactive bowel sounds. No tenderness. No organomegaly. No masses. EXTREMITIES: No cyanosis, no clubbing and right foot is surgically dressed postoperative. CENTRAL NERVOUS SYSTEM: Alert, awake, oriented x2. Moves all extremities equally. ASSESSMENT: 1. Gangrene of the right foot, status post revascularization and amputation of the gangrenous part. 2. End-stage renal disease, on hemodialysis. 3. Hypertension. 4. Type 2 diabetes mellitus. PLAN: Continue current medications and treatment and start physical therapy and follow up recommendations of Podiatry and Surgery. Cuba Hendrickson MD
--- NOTE | 2018-09-14 13:49 | CP.PCM.PN ---
Subjective - Date & Time of Evaluation Date of Evaluation: 09/14/18 Time of Evaluation: 13:46 - Subjective Subjective: Pt seen at bedside for f/u s/p right partial 1st ray amp. Pt in dialysis in NAD. Right amp site is healing well. Sutures are intact with no dehiscence. Foot is warm. Drain was pulled. Redressed amp site. Pt to remain strict non w t bearing on right foot. Cont with heparin and ASA. Cont with medical management and IV zosyn. Possible d/c to [facility] on Sunday. Will f/u while in house. Objective - Vital Signs/Intake and Output Vital Signs (last 24 hours): Temp Pulse Resp BP Pulse Ox 98.1 F 61 20 105/66 95 09/14/18 08:00 09/14/18 08:00 09/14/18 08:00 09/14/18 08:00 09/14/18 08:00 Intake and Output: 09/14/18 09/14/18 06:59 18:59 Intake Total 550 Output Total 200 Balance 350 - Medications Medications: Current Medications Acetaminophen (Tylenol 325mg Tab) 650 mg PO Q6 PRN PRN Reason: pain Last Admin: 09/08/18 22:15 Dose: 650 mg Acetaminophen (Tylenol 325mg Tab) 650 mg PO Q6 PRN PRN Reason: Pain, Mild (1-3) Allopurinol (Zyloprim) 100 mg PO DAILY [facility] Last Admin: 09/14/18 10:02 Dose: 100 mg Aspirin (Aspirin Chewable) 81 mg PO DAILY [facility] Last Admin: 09/12/18 10:21 Dose: 81 mg Calcium/Vitamin D (Oyster Shell Calcium/Vitamin D 500 Mg-200 Iu) 1 tab PO DAILY [facility] Last Admin: 09/14/18 10:02 Dose: 1 tab Dextrose (Dextrose 50% Inj) 0 ml IV STAT PRN; Protocol PRN Reason: Hypoglycemia Protocol Dextrose (Glutose 15) 0 gm PO ONCE PRN; Protocol PRN Reason: Hypoglycemia Protocol Gabapentin (Neurontin) 300 mg PO HS [facility] Last Admin: 09/13/18 21:40 Dose: 300 mg Glucagon (Glucagen Diagnostic Kit) 0 mg IM STAT PRN; Protocol PRN Reason: Hypoglycemia Protocol Heparin Sodium (Porcine) (Heparin) 5,000 units SC Q12 [facility] Last Admin: 09/12/18 10:24 Dose: 5,000 units Piperacillin Sod/Tazobactam Sod (Zosyn 2.25 Gm Iv Premix) 2.25 gm in 50 mls @ 100 mls/hr IVPB Q6H [facility]; Protocol Last Admin: 09/14/18 12:30 Dose: 100 mls/hr Vancomycin HCl 1,000 mg/ (Sodium Chloride) 200 mls @ 166.6 mls/hr IVPB TTS [facility]; Protocol Last Admin: 09/14/18 10:33 Dose: 166.6 mls/hr Insulin Aspart (Novolog) 0 unit SC ACHS [facility]; Protocol Last Admin: 09/14/18 12:21 Dose: Not Given Metoprolol Tartrate (Lopressor) 100 mg PO DAILY [facility] Last Admin: 09/14/18 10:02 Dose: 100 mg Hrjwf-9-Hywx Ethyl Esters (Lovaza) 1 gm PO BID [facility] Last Admin: 09/14/18 10:07 Dose: 1 gm Oxycodone/Acetaminophen (Percocet 5/325 Mg Tab) 1 tab PO Q4H PRN PRN Reason: Pain, moderate (4-7) Stop: 09/16/18 13:10 Last Admin: 09/14/18 10:03 Dose: 1 tab Oxycodone/Acetaminophen (Percocet 5/325 Mg Tab) 2 tab PO Q4H PRN PRN Reason: Pain, severe (8-10) Stop: 09/16/18 13:10 Last Admin: 09/13/18 20:37 Dose: 2 tab Saccharomyces Boulardii (Florastor) 250 mg PO DAILY [facility] Last Admin: 09/14/18 10:02 Dose: 250 mg Sevelamer Carbonate (Renvela) 800 mg PO TIDCC [facility] Last Admin: 09/14/18 12:30 Dose: 800 mg Vitamin B Complex/Vit C/Folic Acid (Nephro-Leslye) 1 tab PO DAILY [facility] Last Admin: 09/14/18 10:08 Dose: 1 tab - Labs Labs: 09/13/18 07:32 09/13/18 07:32 PT 13.2 SECONDS (9.7-12.2) H 09/09/18 06:23 INR 1.2 09/09/18 06:23 APTT 22 SECONDS (21-34) 09/09/18 06:23
[2018-09-14] MEDS: Epoetin Alfa 10,000 unit/ml Dialysis IV SCH (16:35)
--- NOTE | 2018-09-14 20:34 | PN ---
DATE: 09/14/2018 SUBJECTIVE: The patient was seen today, 09/14/2018, postoperative day #1. PHYSICAL EXAMINATION: VITAL SIGNS: Blood pressure is 157/75, temperature 98.2, respiratory rate 18 and pulse 78. HEENT: Pupils equal, reactive to light. Normal-appearing mucosa of the conjunctivae, oropharynx and nasal membrane mucosa. NECK: Supple. No JVD. No carotid bruit. No lymph node. No thyromegaly. CHEST AND LUNGS: Bilateral symmetrical expansion. Good air exchange. No rales, no rhonchi. CARDIOVASCULAR: PMI not localized. S1, S2. No additional sounds. ABDOMEN: Normoactive bowel sounds. No tenderness. No organomegaly. No masses. EXTREMITIES: Right foot and leg are surgically dressed. CENTRAL NERVOUS SYSTEM: Alert, awake, oriented x2. Moves all extremities equally. ASSESSMENT: 1. Gangrene of the right foot, status post revascularization bypass surgery and amputation of the right big toe. 2. End-stage renal disease, on hemodialysis, type 2 diabetes mellitus, hypertension. PLAN: Continue current medications and antibiotics and follow recommendations of the consultants. Cuba Hendrickson MD
[2018-09-15] MEDS ORDERED: Piperacill/Tazo 2.25gm in Dex 2.25 GM/50 ML BAG IVPB SCH
[2018-09-15] MEDS: (Novolog) Insulin Aspart, Recombinant 100 u/ml 10 ml vial SC SCH ×4 (08:33→21:32)
[2018-09-15] MEDS: Saccharomyces Boulardi 250 mg Cap PO SCH (10:20)
[2018-09-15] MEDS: Calcium-Vit D 500 mg-200 Units Tab UD PO SCH (10:20)
[2018-09-15] MEDS: Multivitamin Vitamin B Complex (Nephro-Vite) Tab PO SCH (10:20)
[2018-09-15] MEDS: Omega-3-Acid Ethyl Esters 1 GM Cap PO SCH ×2 (10:20→18:55)
--- NOTE | 2018-09-15 11:37 | CP.PCM.PN ---
Subjective - Date & Time of Evaluation Date of Evaluation: 09/15/18 Time of Evaluation: 11:34 - Subjective Subjective: Podiatry Progress Note- Dr. Cherry 73 year old female patient with PMHx DM, HTN, ESRD, seen and evaluated 2 day s/p right partial first ray amputation. Patient admit sto minimal pain. Denies acute overnight events. Dressing clean, dry, and intact. Denies f/n/v/sob. Objective - Vital Signs/Intake and Output Vital Signs (last 24 hours): Temp Pulse Resp BP Pulse Ox 98.3 F 79 20 107/70 95 09/15/18 08:00 09/15/18 08:00 09/15/18 08:00 09/15/18 08:00 09/15/18 08:00 Intake and Output: 09/15/18 09/15/18 06:59 18:59 Intake Total 450 Output Total 200 Balance 250 - Medications Medications: Current Medications Acetaminophen (Tylenol 325mg Tab) 650 mg PO Q6 PRN PRN Reason: pain Last Admin: 09/08/18 22:15 Dose: 650 mg Acetaminophen (Tylenol 325mg Tab) 650 mg PO Q6 PRN PRN Reason: Pain, Mild (1-3) Allopurinol (Zyloprim) 100 mg PO DAILY [facility] Last Admin: 09/15/18 10:20 Dose: 100 mg Aspirin (Aspirin Chewable) 81 mg PO DAILY [facility] Last Admin: 09/15/18 10:20 Dose: 81 mg Calcium/Vitamin D (Oyster Shell Calcium/Vitamin D 500 Mg-200 Iu) 1 tab PO DAILY [facility] Last Admin: 09/15/18 10:20 Dose: 1 tab Dextrose (Dextrose 50% Inj) 0 ml IV STAT PRN; Protocol PRN Reason: Hypoglycemia Protocol Dextrose (Glutose 15) 0 gm PO ONCE PRN; Protocol PRN Reason: Hypoglycemia Protocol Epoetin David (Procrit) 10,000 unit IV TTS [facility] Last Admin: 09/14/18 16:35 Dose: 10,000 unit Gabapentin (Neurontin) 300 mg PO HS [facility] Last Admin: 09/14/18 21:17 Dose: 300 mg Glucagon (Glucagen Diagnostic Kit) 0 mg IM STAT PRN; Protocol PRN Reason: Hypoglycemia Protocol Heparin Sodium (Porcine) (Heparin) 5,000 units SC Q12 [facility] Last Admin: 09/15/18 10:20 Dose: 5,000 units Vancomycin HCl 1,000 mg/ (Sodium Chloride) 200 mls @ 166.6 mls/hr IVPB TTS [facility]; Protocol Last Admin: 09/14/18 10:33 Dose: 166.6 mls/hr Piperacillin Sod/Tazobactam (Sod 2.25 gm/ Sodium Chloride) 100 mls @ 100 mls/hr IV Q6H [facility]; Protocol Last Admin: 09/15/18 05:31 Dose: 100 mls/hr Insulin Aspart (Novolog) 0 unit SC ACHS [facility]; Protocol Last Admin: 09/15/18 11:28 Dose: Not Given Metoprolol Tartrate (Lopressor) 100 mg PO DAILY [facility] Last Admin: 09/15/18 10:20 Dose: 100 mg Zbsak-5-Rglz Ethyl Esters (Lovaza) 1 gm PO BID [facility] Last Admin: 09/15/18 10:20 Dose: 1 gm Oxycodone/Acetaminophen (Percocet 5/325 Mg Tab) 1 tab PO Q4H PRN PRN Reason: Pain, moderate (4-7) Stop: 09/16/18 13:10 Last Admin: 09/14/18 10:03 Dose: 1 tab Oxycodone/Acetaminophen (Percocet 5/325 Mg Tab) 2 tab PO Q4H PRN PRN Reason: Pain, severe (8-10) Stop: 09/16/18 13:10 Last Admin: 09/13/18 20:37 Dose: 2 tab Saccharomyces Boulardii (Florastor) 250 mg PO DAILY [facility] Last Admin: 09/15/18 10:20 Dose: 250 mg Sevelamer Carbonate (Renvela) 800 mg PO TIDCC [facility] Last Admin: 09/15/18 08:32 Dose: 800 mg Vitamin B Complex/Vit C/Folic Acid (Nephro-Leslye) 1 tab PO DAILY [facility] Last Admin: 09/15/18 10:20 Dose: 1 tab - Labs Labs: 09/13/18 07:32 09/13/18 07:32 PT 13.2 SECONDS (9.7-12.2) H 09/09/18 06:23 INR 1.2 09/09/18 06:23 APTT 22 SECONDS (21-34) 09/09/18 06:23 - Constitutional Appears: Well, Non-toxic, No Acute Distress - Head Exam Head Exam: ATRAUMATIC - Eye Exam Eye Exam: Normal appearance Pupil Exam: NORMAL ACCOMODATION - ENT Exam ENT Exam: Mucous Membranes Moist - Extremities Exam Additional comments: RLE focused physical exam: Vasc: PT and DP palpable. Cap refill delayed to digits, +2 pitting edema. Ortho: Pain on palpation to the area of the surgery. Neuro: Protective sensation grossly diminished. Derm: surgical incision at the first ray amputation site; sutures intact no wound dehiscence, minimal edema, no erythema, no drainage, no clinical signs of infection. Assessment and Plan - Assessment and Plan (Free Text) Assessment: 73 year old female patient with PMHx DM, HTN, ESRD, seen and evaluated 2 days s/p right first ray partial amputation. Plan: Patient seen and evaluated Discussed plan in detail with attending Dr. Cherry Labs, chart reviewed Patient is s/p right pop-anterior tibial bypass with saphenous vein graft; POD#[address] Thompson on 09/09/18 RLE MRI (08/21): Extensive ST swelling throughout with marrow signal abnormality throughout 1st distal phalanx as well as accompanying erosive changes compatible with osteomyelitis. Accompanying dorsal ST ulcer measuring roughly 1.7cm. Severe marrow signal abnormality involving distal 3rd phalanx also suspicious for OM X-rays: satisfactory post-op x-rays Surgical sit dressed with adaptic, DSD and BRENNA with no compression Continue local wound care: DSD Stable for discharge from podiatry point of view, patient will follow up with Dr. Cherry within a week of discharge. Podiatry will continue to follow
--- NOTE | 2018-09-15 20:42 | CP.PCM.PN ---
Subjective - Date & Time of Evaluation Date of Evaluation: 09/15/18 Time of Evaluation: 16:00 - Subjective Subjective: seen on hd .. seen on renal f/u Objective - Vital Signs/Intake and Output Vital Signs (last 24 hours): Temp Pulse Resp BP Pulse Ox 99.7 F H 72 20 101/56 L 95 09/15/18 16:00 09/15/18 16:00 09/15/18 16:00 09/15/18 16:00 09/15/18 16:00 Intake and Output: 09/15/18 09/16/18 18:59 06:59 Intake Total 500 Balance 500 - Medications Medications: Current Medications Acetaminophen (Tylenol 325mg Tab) 650 mg PO Q6 PRN PRN Reason: pain Last Admin: 09/08/18 22:15 Dose: 650 mg Acetaminophen (Tylenol 325mg Tab) 650 mg PO Q6 PRN PRN Reason: Pain, Mild (1-3) Allopurinol (Zyloprim) 100 mg PO DAILY [facility] Last Admin: 09/15/18 10:20 Dose: 100 mg Aspirin (Aspirin Chewable) 81 mg PO DAILY [facility] Last Admin: 09/15/18 10:20 Dose: 81 mg Calcium/Vitamin D (Oyster Shell Calcium/Vitamin D 500 Mg-200 Iu) 1 tab PO DAILY [facility] Last Admin: 09/15/18 10:20 Dose: 1 tab Dextrose (Dextrose 50% Inj) 0 ml IV STAT PRN; Protocol PRN Reason: Hypoglycemia Protocol Dextrose (Glutose 15) 0 gm PO ONCE PRN; Protocol PRN Reason: Hypoglycemia Protocol Epoetin David (Procrit) 10,000 unit IV TTS [facility] Last Admin: 09/14/18 16:35 Dose: 10,000 unit Gabapentin (Neurontin) 300 mg PO HS [facility] Last Admin: 09/14/18 21:17 Dose: 300 mg Glucagon (Glucagen Diagnostic Kit) 0 mg IM STAT PRN; Protocol PRN Reason: Hypoglycemia Protocol Heparin Sodium (Porcine) (Heparin) 5,000 units SC Q12 [facility] Last Admin: 09/15/18 10:20 Dose: 5,000 units Piperacillin Sod/Tazobactam (Sod 2.25 gm/ Sodium Chloride) 100 mls @ 100 mls/hr IV Q6H [facility]; Protocol Last Admin: 09/15/18 18:55 Dose: 100 mls/hr Insulin Aspart (Novolog) 0 unit SC ACHS [facility]; Protocol Last Admin: 09/15/18 11:28 Dose: Not Given Metoprolol Tartrate (Lopressor) 100 mg PO DAILY [facility] Last Admin: 09/15/18 10:20 Dose: 100 mg Vhwdy-1-Nafn Ethyl Esters (Lovaza) 1 gm PO BID [facility] Last Admin: 09/15/18 18:55 Dose: 1 gm Oxycodone/Acetaminophen (Percocet 5/325 Mg Tab) 1 tab PO Q4H PRN PRN Reason: Pain, moderate (4-7) Stop: 09/16/18 13:10 Last Admin: 09/14/18 10:03 Dose: 1 tab Oxycodone/Acetaminophen (Percocet 5/325 Mg Tab) 2 tab PO Q4H PRN PRN Reason: Pain, severe (8-10) Stop: 09/16/18 13:10 Last Admin: 09/13/18 20:37 Dose: 2 tab Saccharomyces Boulardii (Florastor) 250 mg PO DAILY [facility] Last Admin: 09/15/18 10:20 Dose: 250 mg Sevelamer Carbonate (Renvela) 800 mg PO TIDCC [facility] Last Admin: 09/15/18 17:07 Dose: 800 mg Vitamin B Complex/Vit C/Folic Acid (Nephro-Leslye) 1 tab PO DAILY [facility] Last Admin: 09/15/18 10:20 Dose: 1 tab - Labs Labs: 09/13/18 07:32 09/13/18 07:32 PT 13.2 SECONDS (9.7-12.2) H 09/09/18 06:23 INR 1.2 09/09/18 06:23 APTT 22 SECONDS (21-34) 09/09/18 06:23
[2018-09-16] MEDS: Oxycodone/Acetaminophen 5/325 mg Tab PO PRN (06:05)
[2018-09-16] MEDS: (Novolog) Insulin Aspart, Recombinant 100 u/ml 10 ml vial SC SCH ×4 (08:05→21:28)
--- NOTE | 2018-09-16 09:01 | OP ---
PROCEDURE DATE: 09/13/2018 PREOPERATIVE DIAGNOSIS: Right foot hallux dry gangrene. POSTOPERATIVE DIAGNOSIS: Right foot hallux dry gangrene. NAME OF PROCEDURE: Right hallux amputation with a partial first ray resection. SURGEON: Rivera Cherry DPM ASSISTANTS: Chito Vang, PGY-2, and Tamia Pinon, PGY-1. ANESTHESIA: IV sedation with local. INDICATIONS: The patient is a 73-year-old female with the above diagnosis. The patient has exhausted all conservative treatments; however, now requires surgical intervention. The patient signed the consent after careful explanation of risks, benefits, complications, and alternatives for the surgical procedure. No guarantees were given nor implied. NPO status confirmed prior to taking the patient to the operating room. PREPARATION: The patient was brought into the operating room and placed on the operating room table in the supine position. Time-out was performed for identification of the correct patient and procedure. After induction of IV sedation, the right foot was then prepped and draped in the normal sterile manner and the procedure began. 10 mL of a 1:1 mixture of 0.5% Marcaine plain and 1% lidocaine plain was administered in a Sandy block fashion to the right foot. DESCRIPTION OF PROCEDURE: Attention was directed to the distal tip of the right hallux, where a distal circumferential racquet-type incision was made using a #15 blade at the level of the metatarsophalangeal joint. The incision was then extended down to the subcutaneous layer to the level of the bone extending into the metatarsophalangeal joint. Using a bone clamp to stabilize the hallux, the proximal phalanx was then disarticulated at the level of the MTP joint and sent to pathology. Using a fresh #15 blade, all necrotic and nonviable tissue were then excisionally debrided from the surgical site with additional soft tissue removed to allow for adequate skin closure without tension. Next, utilizing a sagittal saw, proximal partial first metatarsal resection was performed and passed from the operative field and sent to Pathology. The surgical site was then copiously flushed with sterile saline. The surgical site was then passed with a Eric drain, the deep layers were sutured with 2-0 Vicryl and the skin with 2-0 Prolene. The surgical site was then dressed with Betadine, Adaptic, 4 x 4, gauze, and Kerlix. POSTOPERATIVE CONDITION: The patient tolerated the anesthesia and procedure well and was escorted to the recovery room with all vital signs stable and neurovascular status intact to the right foot. The patient is to remain partial weightbearing to the heel to the right lower extremity as tolerated with the use of a surgical shoe and crutches or a walker. The patient is to return to floor and Podiatry will continue to follow and upon discharge, the patient will follow up in Dr. Cherry's office. TATYANA Nelson Rivera Cheryr DPM
[2018-09-16] MEDS: Multivitamin Vitamin B Complex (Nephro-Vite) Tab PO SCH (09:30)
[2018-09-16] MEDS: Omega-3-Acid Ethyl Esters 1 GM Cap PO SCH ×2 (09:30→18:37)
[2018-09-16] MEDS: Saccharomyces Boulardi 250 mg Cap PO SCH (09:30)
[2018-09-16] MEDS: Calcium-Vit D 500 mg-200 Units Tab UD PO SCH (09:31)
--- NOTE | 2018-09-16 22:15 | PN ---
DATE: 09/16/2018 SUBJECTIVE: The patient is seen today, 09/16/2018. She is not in any cardiopulmonary distress. PHYSICAL EXAMINATION: VITAL SIGNS: Blood pressure 131/70, temperature 98.2, respiratory rate 20 and pulse 70. HEENT: Pupils equal, reactive to light. Normal-appearing mucosa of the conjunctivae, oropharynx and nasal membrane mucosa. NECK: Supple. No JVD. No carotid bruit. No lymph node. No thyromegaly. CHEST AND LUNGS: Bilateral symmetrical expansion. Good air exchange. No rales, no rhonchi. CARDIOVASCULAR SYSTEM: PMI not localized. S1, S2. No additional sounds. ABDOMEN: Normoactive bowel sounds. No tenderness. No organomegaly. No masses. EXTREMITIES: No cyanosis, no clubbing, no edema. Right foot is surgically dressed. CENTRAL NERVOUS SYSTEM: Alert, awake, oriented x2. Moves all extremities equally. ASSESSMENT: 1. Gangrene of the right foot, status post revascularization of the right lower extremity and amputation of the right big toe. 2. End-stage renal disease, on hemodialysis. 3. Type 2 diabetes mellitus. 4. Hypertension. PLAN Continue current medications including antibiotics, vancomycin with dialysis for two more weeks. We will order physical therapy and weightbearing as advised by the Podiatry. Continue otherwise current medications and management. Cuba Hendrickson MD
--- NOTE | 2018-09-17 01:16 | CP.PCM.PN ---
Subjective - Date & Time of Evaluation Date of Evaluation: 09/16/18 Time of Evaluation: 17:00 - Subjective Subjective: Podiatry Progress Note- Dr. Cherry 73 year old female patient with PMHx DM, HTN, ESRD, seen and evaluated 3 days s/p right partial first ray amputation. Patient is seen resting comfortably in bed, in NAD, and AA0x3. Daughter was present during visitation. Patient reports that the right foot pain has improved since the surgical procedure. Reports improved left heel pain as well. No multipodus boots seen left foot during bedside. Dressing clean, dry, and intact without strikethrough. No other pedal complaints. Patient denies nausea, fever, shortness of breath, chest pains or chills. No other complaints. Objective - Vital Signs/Intake and Output Vital Signs (last 24 hours): Temp Pulse Resp BP Pulse Ox 98.3 F 76 20 119/69 96 09/17/18 00:02 09/17/18 00:02 09/17/18 00:02 09/17/18 00:02 09/17/18 00:02 Intake and Output: 09/16/18 09/17/18 18:59 06:59 Intake Total 400 250 Balance 400 250 - Medications Medications: Current Medications Acetaminophen (Tylenol 325mg Tab) 650 mg PO Q6 PRN PRN Reason: pain Last Admin: 09/08/18 22:15 Dose: 650 mg Acetaminophen (Tylenol 325mg Tab) 650 mg PO Q6 PRN PRN Reason: Pain, Mild (1-3) Allopurinol (Zyloprim) 100 mg PO DAILY [facility] Last Admin: 09/16/18 09:30 Dose: 100 mg Aspirin (Aspirin Chewable) 81 mg PO DAILY [facility] Last Admin: 09/16/18 09:31 Dose: 81 mg Calcium/Vitamin D (Oyster Shell Calcium/Vitamin D 500 Mg-200 Iu) 1 tab PO DAILY [facility] Last Admin: 09/16/18 09:31 Dose: 1 tab Dextrose (Dextrose 50% Inj) 0 ml IV STAT PRN; Protocol PRN Reason: Hypoglycemia Protocol Dextrose (Glutose 15) 0 gm PO ONCE PRN; Protocol PRN Reason: Hypoglycemia Protocol Epoetin David (Procrit) 10,000 unit IV TTS [facility] Last Admin: 09/14/18 16:35 Dose: 10,000 unit Gabapentin (Neurontin) 300 mg PO HS [facility] Last Admin: 09/16/18 21:23 Dose: 300 mg Glucagon (Glucagen Diagnostic Kit) 0 mg IM STAT PRN; Protocol PRN Reason: Hypoglycemia Protocol Heparin Sodium (Porcine) (Heparin) 5,000 units SC Q12 [facility] Last Admin: 09/16/18 21:23 Dose: 5,000 units Piperacillin Sod/Tazobactam (Sod 2.25 gm/ Sodium Chloride) 100 mls @ 100 mls/hr IV Q6H [facility]; Protocol Last Admin: 09/17/18 00:16 Dose: 100 mls/hr Insulin Aspart (Novolog) 0 unit SC ACHS [facility]; Protocol Last Admin: 09/16/18 21:28 Dose: Not Given Metoprolol Tartrate (Lopressor) 100 mg PO DAILY [facility] Last Admin: 09/16/18 09:30 Dose: 100 mg Fdrtn-2-Ppqh Ethyl Esters (Lovaza) 1 gm PO BID [facility] Last Admin: 09/16/18 18:37 Dose: 1 gm Saccharomyces Boulardii (Florastor) 250 mg PO DAILY [facility] Last Admin: 09/16/18 09:30 Dose: 250 mg Sevelamer Carbonate (Renvela) 800 mg PO TIDCC [facility] Last Admin: 09/16/18 17:55 Dose: 800 mg Vitamin B Complex/Vit C/Folic Acid (Nephro-Leslye) 1 tab PO DAILY [facility] Last Admin: 09/16/18 09:30 Dose: 1 tab - Labs Labs: 09/13/18 07:32 09/13/18 07:32 PT 13.2 SECONDS (9.7-12.2) H 09/09/18 06:23 INR 1.2 09/09/18 06:23 APTT 22 SECONDS (21-34) 09/09/18 06:23 - Constitutional Appears: Well, Non-toxic, No Acute Distress - Extremities Exam Extremities Exam: absent: Calf Tenderness Additional comments: RLE focused physical exam: Vasc: PT and DP palpable. Cap refill delayed to digits, +2 pitting edema- improved Ortho: Pain on palpation to the area of the surgery, able to wiggle digits Neuro: Protective sensation grossly diminished. Derm: surgical incision at the first ray amputation site is clean and dry, wound edges well co-apted with no wound dehiscence, sutures intact without unraveling, minimal edema, no erythema, no drainage, no fluctanace or abscess appreciated, no clinical signs of infection. Left heel without breakdown noted, no ulceration, mild pain with palpation to the left heel - Neurological Exam Neurological Exam: Alert, Awake - Psychiatric Exam Psychiatric exam: Normal Affect, Normal Mood Assessment and Plan - Assessment and Plan (Free Text) Assessment: 73 year old female patient with PMHx DM, HTN, ESRD, seen and evaluated 3 days s/p right partial first ray amputation- stable Plan: Patient seen and evaluated Discussed plan in detail with attending Dr. Cherry Labs, chart reviewed Patient is s/p right pop-anterior tibial bypass with saphenous vein graft; POD#[address] Thompson on 09/09/18 RLE MRI (08/21): Extensive ST swelling throughout with marrow signal abnormality throughout 1st distal phalanx as well as accompanying erosive changes compatible with osteomyelitis. Accompanying dorsal ST ulcer measuring roughly 1.7cm. Severe marrow signal abnormality involving distal 3rd phalanx also suspicious for OM X-rays: satisfactory post-op x-rays Surgical sit dressed with adaptic, DSD and BRENNA with no compression Continue local wound care: DSD Reapplied multipodus boot to the left foot. must be worn at all times while in bed. thank you Stable for discharge from podiatry point of view, patient will follow up with Dr. Cherry within a week of discharge. Podiatry will continue to follow
[2018-09-17] MEDS: (Novolog) Insulin Aspart, Recombinant 100 u/ml 10 ml vial SC SCH ×4 (07:54→16:30)
[2018-09-17] MEDS: Omega-3-Acid Ethyl Esters 1 GM Cap PO SCH ×2 (10:05→19:19)
[2018-09-17] MEDS: Saccharomyces Boulardi 250 mg Cap PO SCH (10:05)
[2018-09-17] MEDS: Multivitamin Vitamin B Complex (Nephro-Vite) Tab PO SCH (10:05)
[2018-09-17] MEDS: Calcium-Vit D 500 mg-200 Units Tab UD PO SCH (10:06)
[2018-09-17] MEDS: Epoetin Alfa 10,000 unit/ml Dialysis IV SCH (10:32)
--- NOTE | 2018-09-17 11:26 | CP.PCM.PN ---
Subjective - Date & Time of Evaluation Date of Evaluation: 09/17/18 Time of Evaluation: 11:25 - Subjective Subjective: Pt seen at bedside for f/u s/p partial 1st ray amp. Pt in dialysis in no acute distress. Amp site is clean and healing well. Palpable DP pulse. Foot is warm to touch. Redressed sx site. Pt to cont to remain strict non wt bearing on right foot. Pt to go to [facility] today and should f/u in office next week. Pt to call us for appt [phone] Objective - Vital Signs/Intake and Output Vital Signs (last 24 hours): Temp Pulse Resp BP Pulse Ox 98.3 F 74 16 153/71 H 99 09/17/18 09:15 09/17/18 09:15 09/17/18 09:15 09/17/18 11:15 09/17/18 09:15 Intake and Output: 09/17/18 09/17/18 06:59 18:59 Intake Total 570 Balance 570 - Medications Medications: Current Medications Acetaminophen (Tylenol 325mg Tab) 650 mg PO Q6 PRN PRN Reason: pain Last Admin: 09/08/18 22:15 Dose: 650 mg Acetaminophen (Tylenol 325mg Tab) 650 mg PO Q6 PRN PRN Reason: Pain, Mild (1-3) Allopurinol (Zyloprim) 100 mg PO DAILY [facility] Last Admin: 09/17/18 10:06 Dose: Not Given Aspirin (Aspirin Chewable) 81 mg PO DAILY [facility] Last Admin: 09/17/18 10:05 Dose: Not Given Calcium/Vitamin D (Oyster Shell Calcium/Vitamin D 500 Mg-200 Iu) 1 tab PO DAILY [facility] Last Admin: 09/17/18 10:06 Dose: Not Given Dextrose (Dextrose 50% Inj) 0 ml IV STAT PRN; Protocol PRN Reason: Hypoglycemia Protocol Dextrose (Glutose 15) 0 gm PO ONCE PRN; Protocol PRN Reason: Hypoglycemia Protocol Epoetin David (Procrit) 10,000 unit IV TTS [facility] Last Admin: 09/17/18 10:32 Dose: 10,000 unit Gabapentin (Neurontin) 300 mg PO HS [facility] Last Admin: 09/16/18 21:23 Dose: 300 mg Glucagon (Glucagen Diagnostic Kit) 0 mg IM STAT PRN; Protocol PRN Reason: Hypoglycemia Protocol Heparin Sodium (Porcine) (Heparin) 5,000 units SC Q12 [facility] Last Admin: 09/17/18 10:05 Dose: Not Given Heparin Sodium (Porcine) (Heparin) 3,700 units IVP TTS [facility] Stop: 09/22/18 23:59 Last Admin: 09/17/18 10:35 Dose: 3,700 units Piperacillin Sod/Tazobactam (Sod 2.25 gm/ Sodium Chloride) 100 mls @ 100 mls/hr IV Q6H [facility]; Protocol Last Admin: 09/17/18 05:37 Dose: 100 mls/hr Insulin Aspart (Novolog) 0 unit SC ACHS [facility]; Protocol Last Admin: 09/17/18 07:54 Dose: Not Given Metoprolol Tartrate (Lopressor) 100 mg PO DAILY [facility] Last Admin: 09/17/18 10:05 Dose: Not Given Fogqe-6-Yyvp Ethyl Esters (Lovaza) 1 gm PO BID [facility] Last Admin: 09/17/18 10:05 Dose: Not Given Saccharomyces Boulardii (Florastor) 250 mg PO DAILY [facility] Last Admin: 09/17/18 10:05 Dose: Not Given Sevelamer Carbonate (Renvela) 800 mg PO TIDCC [facility] Last Admin: 09/17/18 08:36 Dose: 800 mg Vitamin B Complex/Vit C/Folic Acid (Nephro-Leslye) 1 tab PO DAILY [facility] Last Admin: 09/17/18 10:05 Dose: Not Given - Labs Labs: 09/13/18 07:32 09/13/18 07:32 PT 13.2 SECONDS (9.7-12.2) H 09/09/18 06:23 INR 1.2 09/09/18 06:23 APTT 22 SECONDS (21-34) 09/09/18 06:23
[2018-09-17 16:12] VITALS: RESP 20
--- NOTE | 2018-09-17 23:33 | PN ---
DATE: 09/17/2018 SUBJECTIVE: The patient is seen today on 09/17/2018. She is not in any cardiopulmonary distress. PHYSICAL EXAMINATION: VITAL SIGNS: Blood pressure 145/71, temperature 98.6, respiratory rate 20, and pulse 77. HEENT: Pupils equal, reactive to light. Normal-appearing mucosa of the conjunctivae, oropharynx, and nasal membrane mucosa. NECK: Supple. No JVD. No carotid bruit. No lymph node. No thyromegaly. CHEST AND LUNGS: Bilateral symmetrical expansion. Good air exchange. No rales, no rhonchi. CARDIOVASCULAR SYSTEM: PMI not localized. S1 and S2. No additional sounds. ABDOMEN: Normoactive bowel sounds. No tenderness. No organomegaly. No masses. EXTREMITIES: No cyanosis, no clubbing, no edema. CANAL EQUIPMENT MECHANIC: Alert, awake, and oriented x2. Moves all extremities equally. ASSESSMENT: 1. Gangrene of the right foot, status post big toe amputation, status post revascularization of the right lower extremity. 2. End-stage renal disease, on hemodialysis. 3. Hypertension. 4. Type 2 diabetes mellitus. 5. Anemia, multifactorial. PLAN: Continue current medications and follow recommendations of the drain technician and Vascular Surgery, Physical Therapy, and the patient is for discharge planning for subacute rehabilitation. Cuba Hendrickson MD
--- NOTE | 2018-09-17 23:43 | CP.PCM.PN ---
Subjective - Date & Time of Evaluation Date of Evaluation: 09/17/18 Time of Evaluation: 16:00 - Subjective Subjective: seen on renal f/u Objective - Vital Signs/Intake and Output Vital Signs (last 24 hours): Temp Pulse Resp BP Pulse Ox 98.6 F 77 20 145/71 97 09/17/18 16:00 09/17/18 16:00 09/17/18 16:00 09/17/18 16:00 09/17/18 16:00 Intake and Output: 09/17/18 09/18/18 18:59 06:59 Intake Total 400 Balance 400 - Medications Medications: Current Medications Acetaminophen (Tylenol 325mg Tab) 650 mg PO Q6 PRN PRN Reason: pain Last Admin: 09/08/18 22:15 Dose: 650 mg Acetaminophen (Tylenol 325mg Tab) 650 mg PO Q6 PRN PRN Reason: Pain, Mild (1-3) Allopurinol (Zyloprim) 100 mg PO DAILY [facility] Last Admin: 09/17/18 10:06 Dose: Not Given Aspirin (Aspirin Chewable) 81 mg PO DAILY [facility] Last Admin: 09/17/18 10:05 Dose: Not Given Calcium/Vitamin D (Oyster Shell Calcium/Vitamin D 500 Mg-200 Iu) 1 tab PO DAILY [facility] Last Admin: 09/17/18 10:06 Dose: Not Given Dextrose (Dextrose 50% Inj) 0 ml IV STAT PRN; Protocol PRN Reason: Hypoglycemia Protocol Dextrose (Glutose 15) 0 gm PO ONCE PRN; Protocol PRN Reason: Hypoglycemia Protocol Epoetin David (Procrit) 10,000 unit IV TTS [facility] Last Admin: 09/17/18 10:32 Dose: 10,000 unit Gabapentin (Neurontin) 300 mg PO HS [facility] Last Admin: 09/17/18 21:31 Dose: 300 mg Glucagon (Glucagen Diagnostic Kit) 0 mg IM STAT PRN; Protocol PRN Reason: Hypoglycemia Protocol Heparin Sodium (Porcine) (Heparin) 3,700 units IVP TTS [facility] Stop: 09/22/18 23:59 Last Admin: 09/17/18 10:35 Dose: 3,700 units Piperacillin Sod/Tazobactam (Sod 2.25 gm/ Sodium Chloride) 100 mls @ 100 mls/hr IV Q6H [facility]; Protocol Last Admin: 09/17/18 18:15 Dose: 100 mls/hr Insulin Aspart (Novolog) 0 unit SC ACHS [facility]; Protocol Last Admin: 09/17/18 16:30 Dose: Not Given Metoprolol Tartrate (Lopressor) 100 mg PO DAILY [facility] Last Admin: 09/17/18 10:05 Dose: Not Given Jxqvg-3-Okcl Ethyl Esters (Lovaza) 1 gm PO BID [facility] Last Admin: 09/17/18 19:19 Dose: 1 gm Saccharomyces Boulardii (Florastor) 250 mg PO DAILY [facility] Last Admin: 09/17/18 10:05 Dose: Not Given Sevelamer Carbonate (Renvela) 800 mg PO TIDCC [facility] Last Admin: 09/17/18 19:19 Dose: 800 mg Vitamin B Complex/Vit C/Folic Acid (Nephro-Leslye) 1 tab PO DAILY [facility] Last Admin: 09/17/18 10:05 Dose: Not Given - Labs Labs: 09/13/18 07:32 09/13/18 07:32 PT 13.2 SECONDS (9.7-12.2) H 09/09/18 06:23 INR 1.2 09/09/18 06:23 APTT 22 SECONDS (21-34) 09/09/18 06:23
[2018-09-18 02:00] VITALS: O2SAT 96
[2018-09-18 07:51] VITALS: BP 134/66; PULSE 75; TEMP 98.8
[2018-09-18] MEDS: (Novolog) Insulin Aspart, Recombinant 100 u/ml 10 ml vial SC SCH (08:20)
[2018-09-18] MEDS: Multivitamin Vitamin B Complex (Nephro-Vite) Tab PO SCH (10:02)
[2018-09-18] MEDS: Omega-3-Acid Ethyl Esters 1 GM Cap PO SCH (10:02)
[2018-09-18] MEDS: Saccharomyces Boulardi 250 mg Cap PO SCH (10:03)
[2018-09-18] MEDS: Calcium-Vit D 500 mg-200 Units Tab UD PO SCH (10:03)
--- NOTE | 2018-10-02 05:42 | DS ---
REASON FOR ADMISSION This is a 73-year-old female with end-stage renal disease, on hemodialysis who was admitted for gangrene of the right lower extremity with severe peripheral vascular disease. COURSE OF HOSPITALIZATION: The patient was admitted to medical floor. She had a vascular surgery consult done by Dr. Thompson. The patient was continued on hemodialysis throughout the admission as per Dr. Fox. The patient underwent femoral-popliteal revascularization surgery of the right lower extremity. The patient also had amputation of the right big toe post surgery. The patient's symptoms of pain gradually improved. The patient was continued on IV antibiotics, and she was discharged to Subacute Rehabilitation at [place]. The patient continued on her medications as well as Accu-Cheks with insulin coverage throughout the admission. FINAL DIAGNOSES: 1. Gangrene of the right foot, status post big toe amputation and status post revascularization of the right lower extremity. 2. End-stage renal disease, on hemodialysis. 3. Hypertension. 3. Type 2 diabetes mellitus. 5. Anemia, multifactorial. Sushil MD Emeka
== END 2018-09-18 11:30 | DRG 239 ==
LOC: C.ER 19:58 → C.9E 21:58 → C.6T 09-08 22:47 → C.9S 09-09 12:04 → C.9I 09-09 13:23 → C.5S 09-12 14:54 → C.3T 09-12 22:07
PROVIDERS: ADMIT Internal Medicine; ATTEND Internal Medicine
PROC: 5A1D70Z Performance of Urinary Filtration, Intermittent, Less than 6 Hours Per Day (ICD-10-PCS; 2018-09-08)
PROC: 041M0ZP Bypass Right Popliteal Artery to Foot Artery, Open Approach (ICD-10-PCS; principal; 2018-09-09 10:15)
PROC: 0Y6M0Z9 Detachment at Right Foot, Partial 1st Ray, Open Approach (ICD-10-PCS; 2018-09-13)
PROC: 0Y6P0Z1 Detachment at Right 1st Toe, High, Open Approach (ICD-10-PCS; 2018-09-13)
PROC: 0HBMXZZ Excision of Right Foot Skin, External Approach (ICD-10-PCS; 2018-09-13)
PROC: 30233N1 Transfusion of Nonautologous Red Blood Cells into Peripheral Vein, Percutaneous Approach (ICD-10-PCS; 2018-09-14)
DX: E11.52 Type 2 diabetes mellitus with diabetic peripheral angiopathy with gangrene (principal); N18.6 End stage renal disease; D62 Acute posthemorrhagic anemia; I13.2 Hypertensive heart and chronic kidney disease with heart failure and with stage 5 chronic kidney disease, or end stage renal disease; I70.261 Atherosclerosis of native arteries of extremities with gangrene, right leg; M86.171 Other acute osteomyelitis, right ankle and foot; D63.1 Anemia in chronic kidney disease; E11.22 Type 2 diabetes mellitus with diabetic chronic kidney disease; E11.621 Type 2 diabetes mellitus with foot ulcer; E11.69 Type 2 diabetes mellitus with other specified complication; I50.9 Heart failure, unspecified; L97.519 Non-pressure chronic ulcer of other part of right foot with unspecified severity; M10.9 Gout, unspecified; M17.10 Unilateral primary osteoarthritis, unspecified knee; Z99.2 Dependence on renal dialysis

== ENCOUNTER 2018-10-16 00:15 | Emergency (ER) | payer MEDICARE, OTHER ==
[2018-10-16 00:15] VITALS: BMI 33.8
--- NOTE | 2018-10-16 00:40 | C.PDOC ---
History Of Present Illness Patient presents to the ER with a complaint of constipation and abdominal pain, last bowel movement was 4 days ago. Patient has sunday dialysis, amputation to the right great toe, right popliteal to anterior tibial bypass on 09/09/18, and right hallux amputation on 09/13/18. Patient has the urge to defecate but is unable to, she has tried suppositories at home with no relief. Denies nausea or vomiting. Time Seen by Provider: 10/16/18 00:37 Chief Complaint (Nursing): Abdominal Pain History Per: Patient History/Exam Limitations: no limitations Onset/Duration Of Symptoms: Days Current Symptoms Are (Timing): Still Present Location Of Pain/Discomfort: Diffuse Radiation Of Pain To:: None Quality Of Discomfort: Unable To Describe Associated Symptoms: Constipation. denies: Nausea, Vomiting Exacerbating Factors: None Alleviating Factors: None Recent travel outside of the [place]: No Past Medical History Reviewed: Historical Data, Nursing Documentation, Vital Signs Vital Signs: Last Vital Signs Temp 97.5 F L 10/16/18 00:26 Pulse 78 10/16/18 00:26 Resp 22 10/16/18 00:26 BP 159/74 H 10/16/18 00:26 Pulse Ox 97 10/16/18 00:26 - Medical History PMH: Anemia (IRON INFUSION TREATMENTS), Arthritis, CHF, HTN, Peripheral Edema ( Chronic), End Stage Renal Disease, Chronic Kidney Disease Surgical History: Appendectomy - [facility] Procedures (09/07/18) BYPASS RIGHT POPLITEAL ARTERY TO FOOT ARTERY, OPEN APPROACH (09/07/18) BYPASS RIGHT RADIAL ARTERY TO LOWER ARM VEIN, OPEN APPROACH (05/13/17) DETACHMENT AT RIGHT 1ST TOE, HIGH, OPEN APPROACH (09/07/18) DETACHMENT AT RIGHT FOOT, PARTIAL 1ST RAY, OPEN APPROACH (09/07/18) DILATION OF UPPER ARTERY, PERCUTANEOUS APPROACH (01/20/18) DILATION OF UPPER VEIN, PERCUTANEOUS APPROACH (01/20/18) EXCISION OF RIGHT FOOT SKIN, EXTERNAL APPROACH (09/07/18) FLUOROSCOPY OF DIALYSIS SHUNT/FISTULA USING OTHER CONTRAST (01/20/18) FLUOROSCOPY OF R SUBCLAV VEIN USING [facility] CONTRAST, GUIDANCE (08/14/18) INSERT INFUSION DEV IN R INT JUGULAR VEIN, PERC (05/13/17) INSERTION OF INFUSION DEV INTO R SUBCLAV VEIN, PERC APPROACH (08/14/18) INSERTION OF INFUSION DEV INTO SUP VENA CAVA, PERC APPROACH (01/20/18) INSERTION OF INFUSION DEVICE INTO R ATRIUM, PERC APPROACH (08/14/18) INSERTION OF VAD INTO CHEST SUBCU/FASCIA, PERC APPROACH (08/14/18) INSPECTION OF LOWER INTESTINAL TRACT, PERC ENDO APPROACH (09/24/17) PERFORMANCE OF URINARY FILTRATION, MULTIPLE (05/13/17) REMOVAL OF INFUSION DEVICE FROM GREAT VESSEL, PERC APPROACH (01/20/18) RESECTION OF APPENDIX, OPEN APPROACH (09/24/17) TRANSFUSE NONAUT RED BLOOD CELLS IN PERIPH VEIN, PERC (09/07/18) Family History: States: No Known Family Hx - Social History Hx Alcohol Use: No Hx Substance Use: No - Immunization History Hx Tetanus Toxoid Vaccination: Yes Hx Influenza Vaccination: Yes (Jun 2018) Hx Pneumococcal Vaccination: Yes Review Of Systems Constitutional: Negative for: Fever, Chills Cardiovascular: Negative for: Chest Pain, Palpitations Respiratory: Negative for: Cough, Shortness of Breath Gastrointestinal: Positive for: Abdominal Pain, Constipation. Negative for: Nausea, Vomiting Physical Exam - Physical Exam Appears: Non-toxic Skin: Warm, Dry Head: Normacephalic Oral Mucosa: Moist Chest: Other (right sided port) Cardiovascular: Rhythm Regular Respiratory: No Rales, No Rhonchi, No Wheezing Gastrointestinal/Abdominal: Soft, No Tenderness, Distention, No Guarding, No Rebound, Other (Tympanic to percussion) Rectal: No Hemorrhoids, Other (Greenish stool in the vault) Back: No CVA Tenderness Extremity: Other (Right great toe amputation) Neurological/Psych: Oriented x3 ED Course And Treatment - Laboratory Results Result Diagrams: 10/16/18 01:18 10/16/18 01:18 ECG: Interpreted By Me, Viewed By Me ECG Rhythm: Sinus Rhythm (93), Nonspecific Changes O2 Sat by Pulse Oximetry: 97 (Room air) Pulse Ox Interpretation: Normal Progress Note: CT abd/pel, EKG, and blood work ordered. Reevaluation Time: 03:05 Reassessment Condition: Improved Medical Decision Making Medical Decision Making: Upon provider reevaluation patient is feeling better, is medically stable, and requires no further treatment in the ED at this time. Patient will be discharged home with Rx for miralax, anusol-hc . Counseling was provided and all questions were answered regarding diagnosis and need for follow up dr fu. There is agreement to discharge plan. Return if symptoms persist or worsen. Disposition Counseled Patient/Family Regarding: Studies Performed, Diagnosis, Need For Followup - Disposition Disposition: HOME/ ROUTINE Disposition Time: 00:40 Condition: FAIR Additional Instructions: Please return if symptoms recur Prescriptions: Hydrocortisone 2.5% (Rectal) [Anusol-HC] 30 applic MD BID #1 tube Polyethylene Glycol 3350 [Miralax] 17 gm PO DAILY #270 ml Instructions: Constipation, Adult (DC) Forms: [employer] (Tristanian) Print Language: CZECH - Clinical Impression Clinical Impression: Abdominal pain, Constipation - Scribe Statement The provider has reviewed the documentation as recorded by the Scribel Fallon All medical record entries made by the Juan Carlosibel were at my direction and personally dictated by me. I have reviewed the chart and agree that the record accurately reflects my personal performance of the history, physical exam, medical decision making, and the department course for this patient. I have also personally directed, reviewed, and agree with the discharge instructions and disposition.
[2018-10-16 01:21] LABS: BASO # 0.1 K/uL (0.0-0.2); BASO % 0.8 % (0.0-2.0); EOS # 0.4 K/uL (0.0-0.7); EOS % 3.9 % (0.0-4.0); HEMOGLOBIN 13.9 g/dL (11.0-16.0); LYMPH # 2.5 K/uL (1.0-4.3); LYMPH % 27.8 % (20.0-40.0); MEAN CELL VOLUME 93.4 fL (81.0-99.0); MEAN CORPUSCULAR HGB CONC 32.1 g/dL (33.0-37.0); MEAN PLATELET VOLUME 10.6 fL (7.2-11.7); MONO # 0.9 K/uL (0.0-0.8); MONO % 10.1 % (0.0-10.0); NEUT # 5.3 K/uL (1.8-7.0); NEUT % 57.4 % (50.0-75.0); NRBC % 0.2 % (0.0-2.0); RBC 4.63 Mil/uL (3.80-5.20); RED CELL DISTRIBUTION WIDTH 18.4 % (11.5-14.5); WHITE BLOOD COUNT 9.2 K/uL (4.8-10.8)
[2018-10-16 01:58] LABS: CALCIUM 9.4 mg/dl (8.6-10.4)
[2018-10-16 02:08] LABS: ALB/GLOB RATIO 1.1 (1.0-2.1); ALBUMIN 4.6 g/dL (3.5-5.0)
[2018-10-16] MEDS ORDERED: Magnesium Citrate Oral SOL (300 ml) PO ONE (03:08)
[2018-10-16] MEDS ORDERED: Magnesium Citrate Oral SOL (300 ml) ONE (03:18)
[2018-10-16 03:36] VITALS: BP 149/89; PULSE 89; RESP 20; TEMP 98.6; O2SAT 98
--- NOTE | 2018-10-16 08:01 | CT ---
Date of service: 10/16/2018 PROCEDURE: CT Abdomen and Pelvis without intravenous contrast HISTORY: abd pain, constipation COMPARISON: Comparison is made to the previous CT angio of the abdomen and lower extremity dated 08/16/2018 CT of the abdomen and pelvis dated 09/24/2017 TECHNIQUE: Axial and reformatted coronal and sagittal CT images of the abdomen and pelvis were obtained without IV or oral contrast administration.. Contrast dose: 0 Radiation dose: Total exam DLP = 936.14 mGy-cm. This CT exam was performed using one or more of the following dose reduction techniques: Automated exposure control, adjustment of the mA and/or kV according to patient size, and/or use of iterative reconstruction technique. FINDINGS: LOWER THORAX: No evidence of acute pathology. Mild bibasilar atelectasis. The heart is mildly enlarged. No evidence of pleural effusion. LIVER: No evidence of acute pathology in the liver noted in this noncontrast study. GALLBLADDER AND BILE DUCTS: Multiple cholelithiasis and diffuse gallbladder wall thickening noted. No evidence of significant intrahepatic biliary ductal dilatation. PANCREAS: Unremarkable. No gross lesion or ductal dilatation. SPLEEN: Unremarkable. ADRENALS: Mild diffuse adrenal gland wall thickening noted bilaterally P KIDNEYS AND URETERS: Unremarkable. No hydronephrosis. No solid mass. VASCULATURE: Unremarkable. No aortic aneurysm. [id number] diffuse aortic atherosclerotic calcification noted.. BOWEL: Mild constipation is noted. No evidence of high-grade bowel obstruction. There is distal large bowel wall thickening suspicious for colitis/proctitis. Wall thickening of the rectum and anus is also noted. APPENDIX: No CT evidence of acute appendicitis. PERITONEUM: Interval appearance of trace free fluid in the abdomen and pelvis since the prior study. LYMPH NODES: Mildly enlarged right common iliac chain lymph node is noted. Mildly prominent periaortic lymph nodes are also noted. BLADDER: The urinary bladder is not distended therefore cannot be evaluated. REPRODUCTIVE: The uterus is mildly enlarged. Small amount of air noted in the upper vagina. BONES: Again noted is slightly sclerotic with defined lesion at the posterior aspect of L3 vertebral body which has not significantly changed since the prior CT dated 09/24/2017. Degenerative changes noted at the lower thoracic and lumbar spine. OTHER FINDINGS: None. IMPRESSION: Cholelithiasis and diffuse gallbladder wall thickening. If clinically warranted further assessment by ultrasound may be obtained. Distal large bowel wall thickening including the rectum and anus and anorectal junction. Correlate clinically for colitis/proctitis. Mild to moderate constipation. Trace amount of free fluid noted in the pelvis. Preliminary report was submitted by [facility] Radiology contains concordant findings.
--- NOTE | 2018-10-17 20:15 | CARD ---
APPROVED REPORT Date of service: 10/16/2018 EKG Measurement Heart [id number] <Conclusion> Normal sinus rhythm Voltage criteria for left ventricular hypertrophy Prolonged QT Abnormal ECG
== END 2018-10-16 03:35 | disposition home or self-care (01) ==
LOC: C.ER 00:15
DX: K59.00 Constipation, unspecified (principal); R10.9 Unspecified abdominal pain

== ENCOUNTER 2018-11-05 10:01 | Day surgery (SDC) | payer MEDICARE, OTHER ==
[2018-10-30 07:59] VITALS: BMI 31.5
[2018-11-05 11:15] LABS: BASO % 0.3 % (0.0-2.0); EOS # 0.2 K/uL (0.0-0.7); EOS % 3.6 % (0.0-4.0); HEMOGLOBIN 13.2 g/dL (11.0-16.0); LYMPH # 1.6 K/uL (1.0-4.3); LYMPH % 31.8 % (20.0-40.0); MEAN CELL VOLUME 92.4 fL (81.0-99.0); MEAN CORPUSCULAR HEMOGLOBIN 29.1 pg (27.0-31.0); MEAN CORPUSCULAR HGB CONC 31.5 g/dL (33.0-37.0); MEAN PLATELET VOLUME 11.2 fL (7.2-11.7); MONO # 0.6 K/uL (0.0-0.8); MONO % 11.8 % (0.0-10.0); NEUT # 2.7 K/uL (1.8-7.0); NEUT % 52.5 % (50.0-75.0); RBC 4.52 Mil/uL (3.80-5.20); RED CELL DISTRIBUTION WIDTH 18.6 % (11.5-14.5); WHITE BLOOD COUNT 5.1 K/uL (4.8-10.8)
[2018-11-05 11:21] LABS: PROTHROMBIN TIME 10.7 SECONDS (9.7-12.2)
[2018-11-05 11:29] LABS: CALCIUM 9.3 mg/dl (8.6-10.4)
[2018-11-05] MEDS ORDERED: Lidocaine 2% MPF (5 ml) Inj ONE (11:49)
[2018-11-05] MEDS ORDERED: Iodixanol 320 MG/ML 200 ML BOTTLE IV ONE (11:50)
[2018-11-05] MEDS ORDERED: Iodixanol 320 MG/ML 100 ML BOTTLE IV ONE (12:26)
--- NOTE | 2018-11-06 05:42 | VAS ---
DATE: 11/05/2018 OPERATIVE ANGIOGRAM REPORT PREOPERATIVE DIAGNOSIS: Gangrene, left heel. PROCEDURE CARRIED OUT: Aortofemoral angiogram via right groin and selective catheterization of left femoral artery, pathway atherectomy of the left superficial femoral artery distally, the tibial peroneal trunk and the peroneal artery with subsequent balloon angioplasty including a 4-mm drug-coated balloon angioplasty of the distal superficial femoral artery. SURGEON: Luis Thompson Jr., MD WOOD HEEL FITTER MACHINE: None. ANESTHESIOLOGIST: Dr. Esqueda. ANESTHESIA: Local with sedation. INDICATIONS: A 73-year-old woman, on dialysis, previous bypass on the right leg popliteal to dorsalis pedis, presents now with an ischemic ulcer to left heel. OPERATIVE FINDING: The aorta and renal arteries were widely patent. Both iliac arteries were widely patent, common internal and external. Both common femoral arteries were widely patent. On the right side, the superficial femoral artery was patent down to the level of the knee. Below this, the trifurcation was occluded with reconstitution of the dorsalis pedis and anterior tibial distally. There was evidence of patent bypass graft, originating in the proximal popliteal artery distally just above the ankle to the anterior tibial artery and dorsalis pedis. On the left leg, there was severe trifurcation disease with the only vessel runoff via the peroneal. There was reconstitution below the level of the ankle of the dorsalis pedis. Subsequent to the performance of diagnostic arteriogram, a stiff-angled Glidewire was advanced over the aortic bifurcation, and a 7-Amharic sheath was positioned in the distal to midportion of the superficial femoral artery. Using road mapping techniques, all lesions were crossed with the use of a Glidewire and then subsequently exchanged for a wire. The patient was heparinized. A pathway atherectomy device was then used to treat all these lesions. There was satisfactory cosmetic result. We then ballooned distally with a 2.5-mm balloon and proximally with a 4.5-mm drug-coated balloon. We then applied Perclose device in the groin. The completion of angiogram showed brisk flow, no evidence of residual stenosis in the distal SFA, peroneal or the tibial peroneal artery. The Perclose device was deployed in the right groin. OPERATION CARRIED OUT: Aortofemoral angiogram via right groin with selective catheterization of left femoral artery, pathway atherectomy, and drug-coated balloon angioplasty of the distal superficial, femoral, and popliteal artery, pathway atherectomy and balloon angioplasty of the tibial peroneal trunk and peroneal artery. Luis Thompson Jr., MD
== END 2018-11-05 18:45 | disposition home or self-care (01) ==
LOC: C.SPRAD 10:01
PROVIDERS: ATTEND Surgery Vascular Surgery
DX: I70.262 Atherosclerosis of native arteries of extremities with gangrene, left leg (principal); L97.429 Non-pressure chronic ulcer of left heel and midfoot with unspecified severity; Z99.2 Dependence on renal dialysis
CPT/HCPCS: 36247; 36415; 37225; 37232; 75625; 75716; 75774; 76937; 80048; 85025; 85610; C1724; C1725; C1760; C1766; C1769; C1887; C1894; J1644; J3010; Q9966; Q9967

== ENCOUNTER 2018-11-06 16:09 | Emergency (ER) | payer MEDICARE, OTHER ==
[2018-11-06 16:10] VITALS: BMI 31.5
--- NOTE | 2018-11-06 16:31 | C.PDOC ---
History Of Present Illness 73 year old female with history of renal failure brought to ED via EMS for altered mental status. Patient was at dialysis this morning when 30 minutes into her treatment she wasn't answering questions and began staring off into space. Patient's speech was also slurred. Dialysis was stopped and she was given more fluids. Her blood pressure was in the 110's range. When the EMS arrived her symptoms continued and she developed a left facial droop. On arrival, patient's symptoms improved and she was able to answer questions and follow commands. Patient denies fever, chills, nausea, and vomiting. 8:50 Family at bedside and additional history obtained. Patient has had a right sided headache intermittently since yesterday. Time Seen by Provider: 11/06/18 16:16 Chief Complaint (Nursing): Altered Mental Status History Per: Patient, EMS History/Exam Limitations: None Onset/Duration Of Symptoms: Hrs Current Symptoms Are (Timing): Better Usual Baseline: Alert Oriented Exacerbating Factor(s): Unknown Speech Is: Normal Severity: None Past Medical History Reviewed: Historical Data, Nursing Documentation, Vital Signs Vital Signs: Last Vital Signs Temp 97.4 F L 11/06/18 16:14 Pulse 105 H 11/06/18 16:14 Resp 20 11/06/18 16:14 BP 202/98 H 11/06/18 16:14 Pulse Ox 96 11/06/18 16:14 - Medical History PMH: Anemia (IRON INFUSION TREATMENTS), Arthritis, CHF, HTN, Peripheral Edema ( Chronic), End Stage Renal Disease, Chronic Kidney Disease Surgical History: Appendectomy - [facility] Procedures (09/07/18) BYPASS RIGHT POPLITEAL ARTERY TO FOOT ARTERY, OPEN APPROACH (09/07/18) BYPASS RIGHT RADIAL ARTERY TO LOWER ARM VEIN, OPEN APPROACH (05/13/17) DETACHMENT AT RIGHT 1ST TOE, HIGH, OPEN APPROACH (09/07/18) DETACHMENT AT RIGHT FOOT, PARTIAL 1ST RAY, OPEN APPROACH (09/07/18) DILATION OF UPPER ARTERY, PERCUTANEOUS APPROACH (01/20/18) DILATION OF UPPER VEIN, PERCUTANEOUS APPROACH (01/20/18) EXCISION OF RIGHT FOOT SKIN, EXTERNAL APPROACH (09/07/18) FLUOROSCOPY OF DIALYSIS SHUNT/FISTULA USING OTHER CONTRAST (01/20/18) FLUOROSCOPY OF R SUBCLAV VEIN USING [facility] CONTRAST, GUIDANCE (08/14/18) INSERT INFUSION DEV IN R INT JUGULAR VEIN, PERC (05/13/17) INSERTION OF INFUSION DEV INTO R SUBCLAV VEIN, PERC APPROACH (08/14/18) INSERTION OF INFUSION DEV INTO SUP VENA CAVA, PERC APPROACH (01/20/18) INSERTION OF INFUSION DEVICE INTO R ATRIUM, PERC APPROACH (08/14/18) INSERTION OF VAD INTO CHEST SUBCU/FASCIA, PERC APPROACH (08/14/18) INSPECTION OF LOWER INTESTINAL TRACT, PERC ENDO APPROACH (09/24/17) PERFORMANCE OF URINARY FILTRATION, MULTIPLE (05/13/17) REMOVAL OF INFUSION DEVICE FROM GREAT VESSEL, PERC APPROACH (01/20/18) RESECTION OF APPENDIX, OPEN APPROACH (09/24/17) TRANSFUSE NONAUT RED BLOOD CELLS IN PERIPH VEIN, PERC (09/07/18) Family History: States: Unknown Family Hx - Social History Hx Alcohol Use: No Hx Substance Use: No - Immunization History Hx Tetanus Toxoid Vaccination: Yes Hx Influenza Vaccination: Yes (Jun 2018) Hx Pneumococcal Vaccination: Yes Review Of Systems Constitutional: Negative for: Fever, Chills, Weakness Cardiovascular: Negative for: Chest Pain Respiratory: Negative for: Shortness of Breath Gastrointestinal: Negative for: Nausea, Vomiting, Abdominal Pain Neurological: Negative for: Weakness, Numbness, Dizziness Physical Exam - Physical Exam Appears: Well, Non-toxic, No Acute Distress Skin: Normal Color, Warm, Dry Head: Atraumatic, Normacephalic Eye(s): bilateral: Normal Inspection, PERRL, EOMI Neck: Normal ROM, Supple, No Other (carotid bruit) Chest: Symmetrical, No Deformity Cardiovascular: Rhythm Regular, No Murmur Respiratory: No Accessory Muscle Use Extremity: Other (lower bilateral extremities are normally weak) Neurological/Psych: No Other (ataxic) Disoriented To: Place Other Neurological Findings: No Facial Palsy ED Course And Treatment - Laboratory Results Result Diagrams: 11/06/18 16:36 11/06/18 16:36 Lab Interpretation: No Acute Changes (BUN 14, Cr 3.1) ECG: Interpreted By Me ECG Rhythm: Sinus Rhythm (with LVH) O2 Sat by Pulse Oximetry: 96 (in RA) Pulse Ox Interpretation: Normal - CT Scan/US Head CT Other Rad Studies (CT/US): Interpreted By Me, Read By Radiologist CT/US Interpretation: Accession No. : [id number]. Patient Name / ID : PRIETO DONAHUE / [id number]. Exam Date : 11/06/2018 16:40:46 ( Approved ). Study Comment : Sex / Age : F / 73Y. Creator : Melida Londono. Dictator : Manju Gary MD. Medicaid Specialist : Copy Center Specialist : Manju Gary MD. A pprover2 : Report Date : 11/06/2018 16:53:00. My Comment : . This report is currently processing and HAS NOT BEEN OFFICIALLY SIGNED BY THE PHYSICIAN - ESTIMATED TIME OF APPROVAL IS 11/06/2018 17:25. Date of service: 11/06/2018. PROCEDURE: CT HEAD WITHOUT CONTRAST. HISTORY: AMS. COMPARISON: Noncontrast head CT performed 09/24/17. TECHNIQUE: Axial computed tomography images were obtained through the head/brain without intravenous contrast. Radiation dose: Total exam DLP = 2112.48 mGy-cm. This CT exam was performed using one or more of the following dose reduction techniques: Automated exposure control, adjustment of the mA and/or kV according to patient size, and/or use of iterative reconstructi on technique. FINDINGS: Repeated attempts at imaging due to patient motion. Possible images obtained. HEMORRHAGE: No intracranial hemorrhage. BRAIN: Diffuse atrophy with prominence of the ventricles and sulci noted. No mass effect or edema. Intracranial atherosclerosis. Interval development of abnormal hyperdense appearance in the region of the right MCA (series 8, image 15). Scattered periventricular and subcortical white matter hypodensities, which are nonspecific, but often seen with chronic microvascular ischemic disease. Please note that MRI with diffusion imaging is more sensitive in the detection of acute ischemic event. VENTRICLES: No hydrocephalus. CALVARIUM: Unremarkable. PARANASAL SINUSES: Unremarkable as visualized. No significant inflammatory changes. MASTOID AIR CELLS: Unremarkable as visualized. No inflammatory changes. OTHER FINDINGS: None. IMPRESSION: Interval development of abnormal hyperdense appearance in the region of the right MCA; recommend further evaluation with CTA of the brain. Findings discussed with Dr. Andrew on 11/06/18 at 5:14 p.m. CTA of Head and Neck Other Rad Studies (CT/US): Interpreted By Me, Read By Radiologist CT/US Interpretation: Name:ROWAN MOREAU Exam Date:Nov 06, 2018 7:02:53 PM EST. Modality Type:CT\SR. Descriptio n:CTA BRAIN. Gender:F Laterality:Not applicable. :43 Referring Physician:Keo LIGHT, Mckayla Taylor. EXAM: CTA Head and Neck with Intravenous Contrast. CLINICAL HISTORY: Abnormal ct results. TECHNIQUE: Axial CTA images of the head and neck performed with intravenous contrast. MIP reconstructed images were created and reviewed. 0.00 mGy-cm. CONTRAST: With; -visi 320 100ml was injected intravenously without incident. COMPARISON: None provided. FINDINGS: VASCULATURE: NECK: THYROID: Incidental discovery is made of a 1.0 cm round hypodense zone in the lower right thyroid lobe. Consideration could be given to correlation with thyroid ultrasonography for further characterization. COMMON CAROTID ARTERIES. No significant canal stenosis. No dissection or occlusion. EXTERNAL CAROTID ARTERIES. Patent. NECK: INTERNAL CAROTID ARTERIES. No stenosis by NASCET criteria. No dissection or occlusion. VERTEBRAL ARTERIES. No significant canal stenosis. No dissection or occlusion. HEAD: INTERNAL CAROTID SIPHONS. Atherosclerotic vascular calcific plaquing is noted bilaterally. ANTERIOR CEREBRAL ARTERIES. No significant stenosis. No occlusion. No aneurysm. MIDDLE CEREBRAL ARTERIES. No significant stenosis. No occlusion. 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 POSTERIOR CEREBRAL A RTERIES. No significant stenosis. No occlusion. No aneurysm. BASILAR ARTERY. No significant stenosis. No occlusion. No aneurysm. OTHER: SOFT TISSUES. No acute finding. BONES. No acute osseous abnormality. IMPRESSION: 1. 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 2. Unremarkable CTA of the neck. 3. 1.0 cm hypodense stone in the lower right thyroid lobe. Consideration could be given to thyroid ultrasound evaluation. . Electronically signed on Nov 06, 2018 8:42:45 PM EST by: Pradip Shah M.D., JONA Certified By [facility]BR & [facility]. Fellowship Trained MRI and CT Specialist - Physician Consult Information Outcome Of Conversation: Case discussed with Dr Hendrickson. Patient to be admitted to his service. Dr Fox notified of the need for dialysis following CT angio. Results of CT discussed with Dr Connolly and case is referred to Dr Siu. He advises that patient be transferred to a center for invasive neurosurgery for treatment. Headache yesterday may have been a result of a sentinel bleed although no subarachnoid is visible on the scan at this time. Case discussed with family who are requesting transfer to [facility]. NIHSS Stroke Scale - Date/Time Evaluation Performed Date Performed: 11/06/18 Time Performed: 16:30 When Was NIHSS Performed: Baseline - How Severe is the [place]oke Level of Consciousness: 0=Alert LOC to Questions: 0=Both comments correct LOC to commands: 0=Obeys both correctly Best Gaze: 0=Normal Visual: 0=No visual loss Facial: 0=Normal Motor Arm - Left: 0=No drift Motor Arm - Right: 0=No drift Motor Leg - Left: 2=Falls before 5 sec Motor Leg - Right: 2=Falls before 5 sec Limb Ataxia: 0=Absent Sensory: 0=Normal Best Language: 0=No aphasia Dysarthia: 0=Normal articulation Extinction & Inattention (Neglect): 0=Normal, no object Score: 4 Medical Decision Making Medical Decision Making: Impression: 73 year old female with resolved altered- mental status Plan: Head CT and EKG ordered for patient Labs ordered with CBC and UA for patient Case discussed with Dr Yeimi Dallas at [place]. Agrees to accept transfer. Pt BP 179/82. Will start Cardene 5mg/hr. Disposition - Disposition Disposition: Trans to Other Acute Care Hosp Disposition Time: 23:33 Condition: STABLE - Clinical Impression Clinical Impression: Rodriguez aneurysm - Scribe Statement The provider has reviewed the documentation as recorded by the Scribe (Yamilet Rodríguez) All medical record entries made by the Scribe were at my direction and personally dictated by me. I have reviewed the chart and agree that the record accurately reflects my personal performance of the history, physical exam, [facility] decision making, and the department course for this patient. I have also personally directed, reviewed, and agree with the discharge instructions and disposition.
[2018-11-06 16:40] LABS: BASO # 0.1 K/uL (0.0-0.2); BASO % 1.3 % (0.0-2.0); EOS # 0.2 K/uL (0.0-0.7); EOS % 3.7 % (0.0-4.0); HEMOGLOBIN 13.1 g/dL (11.0-16.0); LYMPH # 2.1 K/uL (1.0-4.3); LYMPH % 31.7 % (20.0-40.0); MEAN CELL VOLUME 91.7 fL (81.0-99.0); MEAN CORPUSCULAR HEMOGLOBIN 28.7 pg (27.0-31.0); MEAN CORPUSCULAR HGB CONC 31.3 g/dL (33.0-37.0); MEAN PLATELET VOLUME 10.8 fL (7.2-11.7); MONO # 0.7 K/uL (0.0-0.8); MONO % 10.3 % (0.0-10.0); NEUT # 3.5 K/uL (1.8-7.0); NRBC % 0.1 % (0.0-2.0); RBC 4.57 Mil/uL (3.80-5.20); WHITE BLOOD COUNT 6.6 K/uL (4.8-10.8)
[2018-11-06 17:03] LABS: ALB/GLOB RATIO 1.2 (1.0-2.1); ALBUMIN 4.1 g/dL (3.5-5.0); CALCIUM 9.1 mg/dl (8.6-10.4)
--- NOTE | 2018-11-06 17:24 | CT ---
Date of service: 11/06/2018 PROCEDURE: CT HEAD WITHOUT CONTRAST. HISTORY: AMS COMPARISON: Noncontrast head CT performed 09/24/17 TECHNIQUE: Axial computed tomography images were obtained through the head/brain without intravenous contrast. Radiation dose: Total exam DLP = 2112.48 mGy-cm. This CT exam was performed using one or more of the following dose reduction techniques: Automated exposure control, adjustment of the mA and/or kV according to patient size, and/or use of iterative reconstruction technique. FINDINGS: Repeated attempts at imaging due to patient motion. Possible images obtained. HEMORRHAGE: No intracranial hemorrhage. BRAIN: Diffuse atrophy with prominence of the ventricles and sulci noted. No mass effect or edema. Intracranial atherosclerosis. Interval development of abnormal hyperdense appearance in the region of the right MCA (series 8, image 15). Scattered periventricular and subcortical white matter hypodensities, which are nonspecific, but often seen with chronic microvascular ischemic disease. Please note that MRI with diffusion imaging is more sensitive in the detection of acute ischemic event. VENTRICLES: No hydrocephalus. CALVARIUM: Unremarkable. PARANASAL SINUSES: Unremarkable as visualized. No significant inflammatory changes. MASTOID AIR CELLS: Unremarkable as visualized. No inflammatory changes. OTHER FINDINGS: None. IMPRESSION: Interval development of abnormal hyperdense appearance in the region of the right MCA; recommend further evaluation with CTA of the brain. Findings discussed with Dr. Andrew on 11/06/18 at 5:14 p.m.
[2018-11-06] MEDS ORDERED: Iodixanol 320 MG/ML 100 ML BOTTLE IV ONE (18:45)
--- NOTE | 2018-11-06 21:29 | CP.PCM.PN ---
Subjective - Date & Time of Evaluation Date of Evaluation: 11/06/18 Time of Evaluation: 21:20 - Subjective Subjective: PT had episode of weakness and dizziness in dialysis today and brought to ER The family says she developed a headache yesterday CT shows MCA aneurysm but no SAH Could be sentinel hemorrhage 24 hrs ago which does not show on CT. Cannot say if this is case or if the aneurysm is an incidental finding. Suggest contact a facility which has vascular neurosurgery and run case by them If they feel it is unlikely that there was SAH then she should be seen as outpt for elective eval for occlusion of aneurysm If they are concerned that this was a real SAH then she should be transferred tonight to them Discussed with ER attending and she will contact them. Objective - Vital Signs/Intake and Output Vital Signs (last 24 hours): Temp Pulse Resp BP Pulse Ox 97.4 F L 99 H 18 172/79 H 96 11/06/18 16:14 11/06/18 19:58 11/06/18 19:58 11/06/18 19:58 11/06/18 20:58 - Labs Labs: 11/06/18 16:36 11/06/18 16:36
[2018-11-06] MEDS ORDERED: niCARdipine IV 25 MG in Sodium Chloride 0.9% 240 ML IV SCH (22:30)
[2018-11-07 00:24] VITALS: PULSE 112; O2SAT 100
[2018-11-07 00:55] VITALS: BP 130/67; RESP 13; TEMP 98
--- NOTE | 2018-11-07 09:16 | CT ---
Date of service: 11/06/2018 PROCEDURE: CT Angiography of the neck and brain HISTORY: Abnormal CT head COMPARISON: Comparison made with noncontrast CT scan brain earlier same day TECHNIQUE: Contiguous axial images of the neck were obtained from the level of the skull-base to the superior mediastinum in the arteriographic phase of enhancement. Coronal and sagittal reformats or also generated. IV contrast dose: 100 cc Visipaque 320 contrast material Radiation dose: Total exam DLP = 685.86 mGy-cm. This CT exam was performed using one or more of the following dose reduction techniques: Automated exposure control, adjustment of the mA and/or kV according to patient size, and/or use of iterative reconstruction technique. FINDINGS: The aortic arch is patent though there are atherosclerotic calcified plaque changes present along the aortic arch as well as the origins of the great vessels. The Both common carotid arteries are patent. The right common carotid artery exhibits a short mid retropharyngeal course. Tiny calcified plaque is present at this level as well. Mild soft and partially calcified atherosclerotic plaque noted at the right carotid bifurcation and extending into the proximal right internal carotid artery. There is mild narrowing of the proximal right internal carotid artery estimated at approximately 60-65 %. . The petrous cavernous and supraclinoid segments are patent however there also partially calcified moderate partially calcified atherosclerotic plaque changes seen at the carotid siphons. Both vertebral arteries appear diminutive in caliber although patent. Basilar artery is also diminutive in caliber. There is an approximately 4.5 mm rounded focus of enhancement which appears to arise from the level of the origin of the posterior communicating artery felt to represent a posterior communicating artery aneurysm. Follow-up MRA could be performed for further evaluation The distal branches of the, anterior, middle and posterior cerebral arteries are relatively symmetric so far as can be seen. Mild passive/dependent type atelectasis seen the posterior upper lung barraza. Minor scarring right lung apex. IMPRESSION: Mild calcified atherosclerotic plaque right carotid bifurcation extending into the proximal aspect right internal carotid artery. The right common carotid artery also exhibits a short retropharyngeal course.. There is an apparent 4.5 mm aneurysm which appears to arise from the origin of the right posterior communicating artery. Follow-up MRA could be performed for further evaluation.
--- NOTE | 2018-11-07 19:45 | CARD ---
APPROVED REPORT Date of service: 11/06/2018 EKG Measurement Heart [id number] <Conclusion> Normal sinus rhythm Left ventricular hypertrophy with repolarization abnormality Abnormal ECG
== END 2018-11-07 01:20 | disposition short-term general hospital (02) ==
LOC: C.ER 16:09
DX: I67.1 Cerebral aneurysm, nonruptured (principal)
CPT/HCPCS: 70450; 70496; 80053; 82948; 85025; 93005; 96365; 96366; 96375; 99285; J2060; Q9967